=== PATIENT | female | born 1960 | race Caucasian/White ===

== ENCOUNTER 2016-08-27 13:22 | Inpatient (IN) | payer OTHER ==
[~2016-08-27] VITALS: Ht 154.9 cm; Wt 98.0 kg
[~2016-08-27 13:22] MED LIST: ALBUAER2 INH; ATV/1 PO; HYDR-5688 PO; INSU1INJ33 SQ
[2016-08-27] MEDS ORDERED: ONDANSETRON INJ 2 MG/ML 2 ML VIAL IV STA (13:47)
[2016-08-27] MEDS: SODIUM CHLORIDE 0.9% 1000ML 1,000 ML IV SCH ×2 (13:47→18:03)
[2016-08-27] MEDS ORDERED: ALBUT/IPRATROP 3MG/0.5MG NEB 3 ML VIAL INH STA (13:52)
[2016-08-27] MEDS: MoRPHine SULFATE 10 MG/ML CARP/VIAL IV PRN ×3 (14:20→15:42)
[2016-08-27 14:25] LABS: BASO % 0.1 %; BASO ABS # 0.02 K/uL (0-0.2); COMPLETE YES; EOS % 0.8 %; HEMATOCRIT 35.4 % (37-47); IG% 2.2 %; LYMPH ABS # 2.79 K/uL (1.2-3.4); MEAN CELL VOLUME 89.6 fL (80-100); MEAN CORPUSCULAR HEMOGLOBIN 28.6 pg (25-34); MEAN CORPUSCULAR HGB CONC 31.9 g/dl (32-36); MEAN PLATELET VOLUME 9.1 fL (7.4-10.4); MONO % 5.9 %; PLATELET COUNT 287 K/uL (130-400); RED BLOOD COUNT 3.95 M/uL (4.2-5.4)
--- NOTE | 2016-08-27 14:33 | DIAGNOSTIC IMAGING REPORT ---
CHEST ONE VIEW PORTABLE CLINICAL HISTORY: Stroke mental status change COMPARISON STUDY: 10/20/2015 FINDINGS: The bones soft tissues and hemidiaphragms are normal. The cardiomediastinal silhouette is normal. The lungs are clear. The pulmonary vasculature is normal. IMPRESSION: Negative chest. Electronically signed by: Adama Mccullough M.D. 08/27/2016 2:31 PM Dictated Date/Time: 08/27/2016 2:31 PM
[2016-08-27 14:35] LABS: INR 3.1 (0.9-1.1); PARTIAL THROMBOPLASTIN RATIO 1.3
[2016-08-27 14:46] LABS: BLOOD UREA NITROGEN 19 mg/dl (7-18); BUN/CREATININE RATIO 20.3 (10-20); CALCIUM 8.9 mg/dl (8.5-10.1); CARBON DIOXIDE 30 mmol/L (21-32); CHLORIDE 103 mmol/L (98-107); CREATININE 0.92 mg/dl (0.60-1.20); GLUCOSE 104 mg/dl (70-99); POTASSIUM 3.5 mmol/L (3.5-5.1); SODIUM 139 mmol/L (136-145)
[2016-08-27 14:50] LABS: CKMB/CK RATIO 1.3 (0-3.0)
[2016-08-27 15:01] LABS: ALKALINE PHOSPHATASE 90 U/L (45-117); ALT/SGPT 35 U/L (12-78); AST/SGOT 18 U/L (15-37)
--- NOTE | 2016-08-27 15:04 | EMERGENCY ROOM VISIT NOTE ---
History Report prepared by Roxanna: Lucas Peña Under the Supervision of: Dr. Sb Barrett M.D. First contact with patient: 13:35 Chief Complaint: HIP PAIN Stated Complaint: PINCHED NERVE LEFT HIP,NUMBNESS,HEAD&SHOULDER PAIN History of Present Illness The patient is a 56 year old female who presents to the Emergency Room with complaints of constant right hip pain beginning 9 days ago. She states that she was bending down when she "felt something". She states that her pain was not immediate, but developed later that day. The patient states that her pain radiates down her right leg. She also complains of numbness in her right wright, nausea and shortness of breath. The patient has been seen by her PCP for her pain the day after her pain began. She states that she was told that her pain was likely related to sciatica and was recommended to attend physical therapy. The patient states that her pain began radiating into her lower back, left hip, right shoulder, neck and head yesterday. She states that she also began experiencing intermittent right eye blurriness, right arm and right facial numbness last night as well. She denies any chest pain, fevers, constipation, or urinary symptoms. The patient is on Coumadin for previous PE. She notes that she has a filter in place in her vena cava. Source of History: patient Onset: 9 days ago Position: pelvis (right hip) Timing: constant Associated Symptoms: + headache, + neck pain, + SOB, + nausea, + back pain ( lower), + numbness (right arm, right face, right leg), No fevers, No chest pain , No urinary symptoms Note: The patient denies any constipation. She also complains of intermittent right eye blurring. Review of Systems See HPI for pertinent positives & negatives. A total of 10 systems reviewed and were otherwise negative. Past Medical & Surgical Medical Problems: (1) Anxiety (2) Asthma (3) Back pain without radiculopathy (4) Chronic pain (5) Depression (6) Depression (7) Diabetes 1.5, managed as type 2 (8) DM2 (diabetes mellitus, type 2) (9) GERD (gastroesophageal reflux disease) (10) Greater trochanteric bursitis of right hip (11) HLD (hyperlipidemia) (12) Pulmonary embolism (13) Stroke-like symptoms (14) Tachycardia (15) TOBACCO USE DISORDER Surgical Problems: (1) H/O neck surgery (2) H/O shoulder surgery (3) History of total abdominal hysterectomy (4) Hx of total knee arthroplasty (5) S/P IVC filter Family History Hypertension Social History Smoking Status: Current Every Day Smoker Alcohol Use: occasionally Drug Use: none Marital Status: single Housing Status: lives with family Occupation Status: employed Current/Historical Medications Scheduled Cholecalciferol (Vitamin D), 4,000 INTER.UNIT PO QPM Fluticasone Furoate-Vilanterol (Breo Ellipta), 1 PUFF INH DAILY Furosemide (Furosemide), 20 MG PO DAILY Lorazepam (Ativan), 0.5 MG PO QAM Lorazepam (Ativan), 0.5 MG PO MIDDAY Lorazepam (Ativan), 1 MG PO HS Pantoprazole (Protonix), 40 MG PO QPM Quetiapine Fumarate (Seroquel), 200 MG PO HS Rosuvastatin Calcium (Crestor), 40 MG PO QPM Tizanidine (Tizanidine HCl), 8 MG PO TID Venlafaxine Hcl (Effexor Extended Rel), 150 MG PO DAILY Warfarin Sodium (Coumadin), 5 MG PO [id number] Warfarin Sodium (Coumadin), 5 MG PO WK Scheduled PRN Albuterol Hfa (Ventolin Hfa), 2 PUFFS INH Q4H PRN for Shortness of Breath Arformoterol Tartrate (Brovana), 15 MCG NEB BID PRN for Shortness of Breath Hydrocodone/Acetaminophen 5MG/325MG ([place] 5MG/325MG), 1 TAB PO Q8 PRN for Mild- Moderate Pain Allergies Coded Allergies: Chlorpheniramine (Verified Allergy, Unknown, Change in mental status, 08/27) Hydrocodone (Verified Allergy, Unknown, Change in mental status, 08/27/16) Phenytoin (Verified Allergy, Unknown, Facial swelling, 08/27/16) Physical Exam Vital Signs Date Time Temp Pulse Resp B/P (MAP) Pulse Ox O2 Delivery O2 Flow Rate FiO2 08/27/16 17:28 91 154/89 92 08/27/16 15:50 84 159/88 92 Room Air 08/27/16 14:46 93 16 171/82 94 Room Air 08/27/16 14:26 96 Room Air 08/27/16 14:19 79 08/27/16 13:29 37.0 86 18 156/85 95 Physical Exam GENERAL: Patient is in no acute distress. HEENT: No acute trauma, normocephalic atraumatic, mucous membranes moist, no nasal congestion, no scleral icterus. NECK: No stridor, no adenopathy, no meningismus, trachea is midline. LUNGS: Scattered wheezing bilaterally. Breath sounds equal. No respiratory distress. HEART: Without murmurs gallops or rubs, regular rate and rhythm. ABDOMEN: Soft, nontender, bowel sounds positive, no hernias, no peritonitis. EXTREMITIES: No cyanosis or edema, full range of motion of all the joints without pain or difficulty, no signs for acute trauma. NEUROLOGIC: Oriented x 3, no acute motor or sensory deficits, no focal weakness. No speech slur or facial droop. No pronator drift or cerebellar dysfunction. 1/4 patellar reflexes bilaterally. 2/4 Achilles reflexes bilaterally. SKIN: No rash, no jaundice, no diaphoresis. Medical Decision & Procedures ER Provider Diagnostic Interpretation: Radiology results as stated below per my review and radiologist interpretation: HEAD CT NONCONTRAST Findings: The paranasal sinuses and mastoid air cells are clear. Mild frontal atrophy. The brain is otherwise negative. No evidence for acute intracranial hemorrhage. No midline shift. Impression: Mild frontal atrophy. No acute process. Electronically signed by: Adama Mccullough M.D. CHEST ONE VIEW PORTABLE FINDINGS: The bones soft tissues and hemidiaphragms are normal. The cardiomediastinal silhouette is normal. The lungs are clear. The pulmonary vasculature is normal. IMPRESSION: Negative chest. Electronically signed by: Adama Mccullough M.D. Laboratory Results 08/27/16 14:10 Red Blood Count 3.95, Mean Corpuscular Volume 89.6, Mean Corpuscular Hemoglobin 28.6, Mean Corpuscular Hemoglobin Concent 31.9, Mean Platelet Volume 9.1, Neutrophils (%) (Auto) 78.0, Lymphocytes (%) (Auto) 13.0, Monocytes (%) (Auto) 5.9, Eosinophils (%) (Auto) 0.8, Basophils (%) (Auto) 0.1, Neutrophils # (Auto) 16.67, Lymphocytes # (Auto) 2.79, Monocytes # (Auto) 1.27, Eosinophils # (Auto) 0.17, Basophils # (Auto) 0.02 08/27/16 14:10 Test 08/27/16 14:10 08/27/16 14:55 08/27/16 15:10 White Blood Count 21.40 K/uL (4.8-10.8) Red Blood Count 3.95 M/uL (4.2-5.4) Hemoglobin 11.3 g/dL (12.0-16.0) Hematocrit 35.4 % (37-47) Mean Corpuscular Volume 89.6 fL (80-100) Mean Corpuscular Hemoglobin 28.6 pg (25-34) Mean Corpuscular Hemoglobin Concent 31.9 g/dl (32-36) Platelet Count 287 K/uL (130-400) Mean Platelet Volume 9.1 fL (7.4-10.4) Neutrophils (%) (Auto) 78.0 % Lymphocytes (%) (Auto) 13.0 % Monocytes (%) (Auto) 5.9 % Eosinophils (%) (Auto) 0.8 % Basophils (%) (Auto) 0.1 % Neutrophils # (Auto) 16.67 K/uL (1.4-6.5) Lymphocytes # (Auto) 2.79 K/uL (1.2-3.4) Monocytes # (Auto) 1.27 K/uL (0.11-0.59) Eosinophils # (Auto) 0.17 K/uL (0-0.5) Basophils # (Auto) 0.02 K/uL (0-0.2) RDW Standard Deviation 54.2 fL (36.4-46.3) RDW Coefficient of Variation 16.4 % (11.5-14.5) Immature Granulocyte % (Auto) 2.2 % Immature Granulocyte # (Auto) 0.48 K/uL (0.00-0.02) Nucleated RBC Absolute Count (auto) 0.03 K/uL (0-0) Nucleated Red Blood Cells % 0.1 % Prothrombin Time 35.0 SECONDS (9.0-12.0) Prothromb Time International Ratio 3.1 (0.9-1.1) Activated Partial Thromboplast Time 34.8 SECONDS (21.0-31.0) Partial Thromboplastin Ratio 1.3 Anion Gap 6.0 mmol/L (3-11) Est Creatinine Clear Calc Drug Dose 73.1 ml/min Estimated GFR () 80.7 Estimated GFR (Non- 69.6 BUN/Creatinine Ratio 20.3 (10-20) Calcium Level 8.9 mg/dl (8.5-10.1) Total Bilirubin 0.6 mg/dl (0.2-1) Direct Bilirubin < 0.1 mg/dl (0-0.2) Aspartate Amino Transf (AST/SGOT) 18 U/L (15-37) Alanine Aminotransferase (ALT/SGPT) 35 U/L (12-78) Alkaline Phosphatase 90 U/L (45-117) Total Creatine Kinase 109 U/L (26-192) Creatine Kinase MB 1.4 ng/ml (0.5-3.6) Creatine Kinase MB Ratio 1.3 (0-3.0) Troponin I < 0.015 ng/ml (0-0.045) Total Protein 7.1 gm/dl (6.4-8.2) Albumin 3.9 gm/dl (3.4-5.0) Lyme Disease IgG Antibody NEG (NEG) Lyme Disease IgM Antibody NEG (NEG) Lactic Acid Level 1.1 mmol/L (0.4-2.0) Urine Color YELLOW Urine Appearance CLEAR (CLEAR) Urine pH 6.0 (4.5-7.5) Urine Specific [place] 1.023 (1.000-1.030) Urine Protein NEG (NEG) Urine Glucose (UA) NEG (NEG) Urine Ketones NEG (NEG) Urine Occult Blood TRACE (NEG) Urine Nitrite NEG (NEG) Urine Bilirubin NEG (NEG) Urine Urobilinogen NEG (NEG) Urine Leukocyte Esterase NEG (NEG) Urine WBC (Auto) 1-5 /hpf (0-5) Urine RBC (Auto) 0-4 /hpf (0-4) Urine Hyaline Casts (Auto) 1-5 /lpf (0-5) Urine Epithelial Cells (Auto) >30 /lpf (0-5) Urine Bacteria (Auto) NEG (NEG) Urine Crystals CALCIUM OXALATE (NONE Urine Opiates Screen POS (NEG) Urine Methadone, Qualitative NEG (NEG) Urine Barbiturates NEG (NEG) Urine Phencyclidine (PCP) Level NEG (NEG) Ur Amphetamine/Methamphetamine NEG (NEG) MDMA (Ecstasy) Screen NEG (NEG) Urine Benzodiazepines Screen POS (NEG) Urine Cocaine Metabolite NEG (NEG) Urine Marijuana (THC) NEG (NEG) Laboratory results reviewed by me. Medications Administered Medications (Trade) Dose Ordered Sig/Michael Route Start Time Stop Time Status Last Admin Dose Admin Sodium Chloride 1,000 ml @ 50 mls/hr Q20H IV 08/27/16 13:47 09/26/16 13:46 08/27/16 13:47 50 MLS/HR Morphine Sulfate (MoRPHine SULFATE INJ) 6 mg Q15M PRN IV 08/27/16 14:00 09/10/16 13:59 08/27/16 15:42 6 MG Ondansetron HCl (Zofran Inj) 4 mg NOW STAT IV 08/27/16 13:47 08/27/16 13:52 DC 08/27/16 14:19 4 MG Albuterol/ Ipratropium (Duoneb) 3 ml NOW STAT INH 08/27/16 13:52 08/27/16 13:53 DC 08/27/16 14:19 3 ML Piperacillin Sod/ Tazobactam Sod (Zosyn Iv) 4.5 gm NOW STAT IV 08/27/16 15:08 08/27/16 15:09 DC 08/27/16 15:19 4.5 GM Hydromorphone HCl (Dilaudid Inj) 1 mg NOW STAT IV 08/27/16 16:30 08/27/16 16:31 DC 08/27/16 16:51 1 MG ECG Indication: other (numbness) Rate (beats per minute): 82 Rhythm: normal sinus Findings: no acute ischemic change, no ectopy ED Course 1340: The patient was evaluated in room A10. A complete history and physical exam was performed. 1347: Ordered Zofran Inj 4 mg IV, Sodium Chloride 1000 ml @ 50 mls/hr IV. 1352: Ordered DuoNeb 3 mL INH. 1400: Ordered Morphine Sulfate 6 mg IV. 1508: Ordered Zosyn 4.5 gm IV. 1515: Upon reexamination the patient is resting comfortably. I discussed results and treatment plan with the patient. She verbalizes agreement and understanding. The patient will be evaluated for further management. Medical Decision The patient is a 56 year old female who presents to the ED with complaints of right hip pain and right sided numbness. Differential diagnoses considered include stroke, nerve impingement, lumbar disc disease, electrolyte imbalance, intracranial bleeding, anemia, infection, and UTI. There is a significant leukocytosis at 21,000, this could be consistent with infection or pain. No concerning anemia. No significant electrolyte abnormality, kidney failure, hepatitis. INR is elevated consistent with her Coumadin use. Urinalysis shows some contamination, no infection. Urine tox shows benzos and opiates. Lyme disease testing was negative. Lactic acid level is not elevated making severe sepsis less likely. Blood cultures are pending. Chest film does not show pneumonia or CHF. Brain CT shows no acute bleed or mass effect. On exam, there were no focal neurologic deficits. EKG shows a sinus rhythm, no acute ischemia. Cardiac enzyme testing times one is not consistent with acute cardiac injury. The patient presents with over one week of right hip and leg pain with some numbness. In the last 12 hours or so she has developed right facial numbness and right arm numbness. I doubt the face and arm numbness is related to the leg discomfort. She was worked up here for possible CVA, no obvious stroke found on initial testing. Further imaging such as MRIs may be needed. In regard to the right leg and hip pain, I do think disc disease or possibly even hematoma is a possibility, certainly, infection in the lower spine area is possible. Further workup is required, she may require an MRI of this lumbar area as well. The patient was given IV antibiotics, she received IV Zosyn. She was given IV morphine for pain and eventually IV Dilaudid. The patient received IV Zofran for nausea and was given IV saline. She received a DuoNeb because she was wheezing. The patient is stable. I do think further workup is required. She is clearly not a candidate for TPA as she has a normal neurologic exam and as her symptoms have been ongoing for well over 3 hours. I did speak to case management, I did talk at length with the patient. The on-call hospitalist was consulted. Medication Reconciliation: I attest that I have personally reviewed the patient' s current medication list. Blood pressure screening: Patient was found to have a slightly elevated blood pressure due to circumstances. I do not believe that the patient requires hypertension monitoring. [place] Drug Monitoring Program Search Results: patient reviewed within database, see additional documentation Drug Monitoring Findings: The patient received 30 Percocet on August 19. She appears to regularly receive Ativan and Percocet prescriptions. Consults Time Called: 151 Consulting Physician: Sb Saldaña Returned Call: [phone] Discussed the patient's case. The patient will be evaluated for further management. Impression Primary Impression: Numbness on right side Additional Impressions: Right hip pain Leukocytosis Scribe Attestation The scribe's documentation has been prepared under my direction and personally reviewed by me in its entirety. I confirm that the note above accurately reflects all work, treatment, procedures, and medical decision making performed by me. Departure Information Dispostion Being Evaluated By Hospitalist Referrals Soham Hayes D.O. (PCP) Patient Instructions My [facility] Stroke History Time Last Known Well yesterday Stroke t-PA Criteria Reviewed Does NOT meet criteria for t-PA Reason t-PA Not Given Treatment not indicated Problem Qualifiers
--- NOTE | 2016-08-27 15:05 | DIAGNOSTIC IMAGING REPORT ---
HEAD CT NONCONTRAST CT DOSE: 537.48 mGy.cm HISTORY: Stroke TECHNIQUE: Multiaxial CT images of the head were performed without the use of intravenous contrast. Comparison: 12/30/2014 Findings: The paranasal sinuses and mastoid air cells are clear. Mild frontal atrophy. The brain is otherwise negative. No evidence for acute intracranial hemorrhage. No midline shift. Impression: Mild frontal atrophy. No acute process. Electronically signed by: Adama Mccullough M.D. 08/27/2016 3:04 PM Dictated Date/Time: 08/27/2016 3:03 PM
[2016-08-27] MEDS ORDERED: PIPERACILLIN/TAZOBACTAM 4.5 GM/100ML D5W IV STA (15:08)
[2016-08-27 15:24] LABS: URINE APPEARANCE CLEAR (CLEAR); URINE BILIRUBIN NEG (NEG); URINE COLOR YELLOW; URINE EPITHELIAL CELL AUTO >30 /lpf (0-5); URINE NITRITE NEG (NEG); URINE SPECIFIC GRAVITY 1.023 (1.000-1.030); UROBILINOGEN NEG (NEG); ZZUR CULT IF INDIC CLEAN CATCH NO
[2016-08-27 15:27] LABS: LYME DISEASE AB IGG NEG (NEG); LYME DISEASE AB IGM NEG (NEG)
[2016-08-27 15:30] LABS: MANUAL MICROSCOPIC REQUIRED? NO; REVIEW REQ? YES
[2016-08-27 15:48] LABS: BENZODIAZEPINE, URINE POS (NEG); COCAINE,URINE NEG (NEG); PHENCYCLIDINE, URINE NEG (NEG)
[2016-08-27] MEDS ORDERED: HYDROmorphone INJ 2 MG/ML SYR/VIAL IV STA (16:30)
[2016-08-27] MEDS ORDERED: ARFORMOTEROL TART 15MCG/2ML VIAL INH PRN (16:45)
[2016-08-27] MEDS ORDERED: ONDANSETRON INJ 2 MG/ML 2 ML VIAL IV PRN (16:45)
[2016-08-27] MEDS ORDERED: HYDROCODONE/ACETAMOPHEN 5/325MG TAB PO PRN (16:45)
[2016-08-27] MEDS ORDERED: ALBUTEROL HFA 8 GM INHALER INH PRN (16:45)
[2016-08-27] MEDS ORDERED: ACETAMINOPHEN 325 MG TAB PO PRN (16:45)
[2016-08-27] MEDS ORDERED: IV FLUIDS COMPLETED PRN (17:00)
[2016-08-27 17:45] VITALS: BP 147/89; PULSE 88; TEMP 37; O2SAT 92; Ht 154.9 cm; Wt 98.0 kg
--- NOTE | 2016-08-27 18:10 | HISTORY & PHYSICAL EXAMINATION ---
DATE OF ADMISSION: 08/27/2016 PRIMARY CARE PHYSICIAN: Dr Hayes CHIEF COMPLAINT: Increasing back pain since this morning with some numbness and tingling in the upper extremity as well. HISTORY OF PRESENT COMPLAINT: She is a 56-year-old female with significant past medical history including asthma, moderate persistent; long-term use of anticoagulation; diabetes type 2; depression; history of pulmonary embolism; cervical disc disease status post cervical spinal fusion; osteoarthritis; GERD; anxiety; and chronic pain syndrome. Apparently has been complaining of right hip pain for the last 9 or 10 days. The pain started when she was looking something on the ground for her son and she heard a popping sound in the right hip area and since then the pain has been ongoing. She saw Dr. Tobar on 19 of August and following that she saw Dr. Miranda on 24 of August. She went for physical therapy. The pain on the right hip area and right leg symptoms did not improve and she was told by the therapist that she may have sciatica and she wanted to have an MRI. This morning she woke up from sleep she is still having pain on the right hip area and the pain going down the legs and also she complained to have some numbness and tingling and weakness involving the right upper extremity that goes to the neck and right side of the face. She does not have any fever, chills or rigors. She does not have any problem with speech or swallowing. No visual symptoms and no problem with walking except pain. She does not have any problem with urine and/or bowel habit. She denies to have any fall. In the ER, she was hemodynamically stable, but her white count was noted to be 21,000 most likely secondary to use of steroid, but she did not have any other lab abnormality and her CAT scan remained negative. From that point, she was admitted to medical floor for continuation of care. PAST MEDICAL HISTORY: Significant for moderate persistent asthma, long-term use of anticoagulation secondary to pulmonary embolism, type 2 diabetes, depression, anxiety, hyperlipidemia, cervical disc disease, chronic pain syndrome, anxiety, osteoarthritis and GERD. PAST SURGICAL HISTORY: Significant for arthroplasty of the left knee and also arthroplasty of the right knee in [place], cervical spine fusion, repair of ruptured rotator cuff, sacroiliac joint injection in the past, shoulder arthroscopy, total abdominal hysterectomy with removal of tubes. FAMILY HISTORY: Mother had glaucoma. Father had high cholesterol and heart disorder. Father did have hypertension of the heart disorder as well. SOCIAL HISTORY: She is single. She lives with her parents. She has 1 child. She smokes about a half a pack per day, ongoing. She does not use any alcohol and she has been reasonably ambulant. REVIEW OF SYSTEMS: Other systemic review unremarkable except those mentioned in history of present complaint. ALLERGIES: CHLORPHENIRAMINE, HYDROCODONE, AND PHENYTOIN. MEDICATIONS: As an outpatient, she has been on albuterol 2 puffs q. 4 hours as needed, Brovana 15 mcg via nebs b.i.d., furosemide 20 mg daily, hydrocodone/acetaminophen 5/325 one tablet q. 8 hours p.r.n., Ativan 1 mg tablet 0.5 mg p.o. mid day, Ativan 1 mg tablet 0.5 in the morning, Ativan 1 mg at night, Protonix 40 mg daily, Seroquel 200 mg at night, Crestor 40 mg at night, tizanidine 8 mg t.i.d., Effexor 150 mg daily, warfarin sodium 5 mg as directed, vitamin D 2000 units daily, and Breo Ellipta 1 puff daily. PHYSICAL EXAMINATION: GENERAL: On examination in the Emergency Room, she was not having any acute distress, but she was complaining of some pain in the right hip and also on the right side of the neck. VITAL SIGNS: Temperature 37.0, pulse was 84, blood pressure 159/88, saturation 92% on room air. HEENT: Unremarkable. NECK: Supple. No neck stiffness, movements of the neck did not produce much pain. No thyromegaly. CHEST: Clear to auscultate bilaterally. HEART: S1, S2 regular. ABDOMEN: Soft, benign, nontender, no organomegaly. Bowel sounds present. EXTREMITIES: Trace edema bilaterally. MUSCULOSKELETAL SYSTEM: Did not show any acute arthritis involving any joint, but movement of the right hip joint was minimally painful with extreme tenderness noted over greater trochanteric area. Clinically, no evidence of sciatica. CENTRAL NERVOUS SYSTEM: Alert, awake, oriented x3. No facial asymmetry. No focal sensory and/or motor deficit appreciated but noted to have slightly low power about 4/5 in the right lower extremity. DTRs unremarkable. LABORATORY DATA: Noted today white count was 21.40, H&H 11.3/35.4, platelet was 287. Sodium 139, potassium 3.5, chloride 103, carbon dioxide 30, BUN 19 and creatinine 0.92. Random glucose 104. LFTs unremarkable. Troponin less than 0.015. INR was of 3.1. Toxicology screen; benzodiazepines positive and opiates positive. Others pending. Serology, Lyme titer negative. Chest x-ray unremarkable and CT scan of the head, mild frontal atrophy, but no other symptoms. IMPRESSION AND PLAN: 1. Right hip pain, most likely secondary to greater trochanteric bursitis. The patient will be admitted to medical floor under observation. We will get ortho evaluation for possible greater trochanteric injection. We will give Toradol for pain control. Continue with the oral dose of Percocet while in the hospital. 2. Nonspecific numbness and tingling involving the right upper extremity and neck area. I doubt any heatstroke. CT scan has been negative, but given the history we get an MRI of the head to rule out any possibility of stroke. We will start baby aspirin while in the hospital. 3. Asthma, moderate persistent, seems stable at this time. Continue with her usual inhalers. 4. Diabetes type 2. We will check hemoglobin A1c and put her on sliding scale coverage while in the hospital with diabetic diet. 5. Chronic pain syndrome. We will not change her pain medications while in the hospital except given Toradol for inflammatory arthritis. 6. Gastrointestinal prophylaxis with proton pump inhibitor. 7. Deep venous thrombosis prophylaxis -on Coumadin 8. Code status. She will be a full code. In my clinical judgment, the beneficiary meets criteria as per CMS for 2 midnight stay in the hospital. NILA
[2016-08-27] MEDS: LIDODERM (LIDOCAINE) PATCH 5% TD SCH (20:15)
[2016-08-27] MEDS: LORAZEPAM 1 MG TAB PO SCH (20:17)
--- NOTE | 2016-08-27 21:15 | DIAGNOSTIC IMAGING REPORT ---
Brain MRI WITHOUT CONTRAST HISTORY: Mental status change Stroke Like symptoms TECHNIQUE: Multiplanar multisequence MRI of the brain was performed without the use of contrast. COMPARISON STUDY: None. FINDINGS: There are no areas of restricted diffusion to suggest acute infarction. The midline structures are intact. The paranasal sinuses are clear. The mastoid air cells are clear. The ventricles and sulci are within normal limits for age. There is no mass, hematoma, midline shift. The major vascular flow-voids at the skull base are well maintained. Minimal chronic small vessel change. Minimal atrophy over the cerebral convexities. IMPRESSION: 1. No acute process. 2. Minimal atrophy over the frontal and cerebral convexity regions. Electronically signed by: Adama Mccullough M.D. 08/27/2016 9:13 PM Dictated Date/Time: 08/27/2016 9:12 PM
[2016-08-27] MEDS: ROSUVASTATIN CALCIUM 20 MG TAB PO SCH (21:46)
[2016-08-27] MEDS: QUETIAPINE FUMARATE 200 MG TAB PO SCH (21:46)
[2016-08-27] MEDS: PANTOprazole SOD 40 MG TAB PO SCH (21:46)
[2016-08-27] MEDS: CHOLECALCIFEROL 1000 INTER.UNIT TAB PO SCH (21:47)
[2016-08-27] MEDS: ACETAMINOPHEN 500 MG TAB PO SCH (21:48)
[2016-08-27] MEDS: OXYCODONE/ACETAMINOPHEN 5-325 TAB PO PRN (22:21)
[2016-08-27] MEDS: KETOROLAC TROMETHAMINE 30 MG/ML VIAL IV PRN (22:22)
[2016-08-27 23:02] VITALS: BP 89/52; PULSE 71; TEMP 36.6; O2SAT 93
[2016-08-27 23:20] VITALS: BP 93/53; PULSE 79
[2016-08-28 01:17] VITALS: BP_SYST 111; BP_DIAS 63; BP_DIAS 65
[2016-08-28] MEDS: IBUPROFEN 200 MG TAB PO PRN ×3 (01:20→15:59)
[2016-08-28 02:10] VITALS: BP 104/64; PULSE 73
[2016-08-28] MEDS ORDERED: OXYCODONE/ACETAMINOPHEN 5-325 TAB PO ONE ×2 (02:40→19:55)
[2016-08-28] MEDS: KETOROLAC TROMETHAMINE 30 MG/ML VIAL IV PRN (05:18)
[2016-08-28] MEDS: ACETAMINOPHEN 500 MG TAB PO SCH ×3 (06:00→21:52)
[2016-08-28] MEDS: OXYCODONE/ACETAMINOPHEN 5-325 TAB PO PRN ×2 (06:16→14:19)
[2016-08-28 07:05] LABS: HEMATOCRIT 34.2 % (37-47); MEAN CELL VOLUME 90.2 fL (80-100); MEAN CORPUSCULAR HEMOGLOBIN 28.5 pg (25-34); MEAN CORPUSCULAR HGB CONC 31.6 g/dl (32-36); MEAN PLATELET VOLUME 9.4 fL (7.4-10.4); PLATELET COUNT 277 K/uL (130-400); RED BLOOD COUNT 3.79 M/uL (4.2-5.4); WHITE BLOOD COUNT 17.12 K/uL (4.8-10.8)
[2016-08-28 07:11] LABS: INR 3.2 (0.9-1.1); PROTHROMBIN TIME (PATIENT) 35.5 SECONDS (9.0-12.0)
[2016-08-28 07:37] LABS: BUN/CREATININE RATIO 21.8 (10-20); CALCIUM 8.5 mg/dl (8.5-10.1); CREATININE 0.94 mg/dl (0.60-1.20); MAGNESIUM 2.8 mg/dl (1.8-2.4); PHOSPHORUS 3.5 mg/dl (2.5-4.9); POTASSIUM 3.5 mmol/L (3.5-5.1)
[2016-08-28 07:39] VITALS: BP 123/78; PULSE 70; TEMP 36.6; O2SAT 94
[2016-08-28] MEDS: LIDODERM (LIDOCAINE) PATCH 5% TD SCH (07:43)
[2016-08-28] MEDS: MoRPHine SULFATE 2 MG/ML CARP IV PRN ×5 (08:46→21:49)
[2016-08-28] MEDS: VENLAFAXINE HCL XR 150 MG CAPXR PO SCH (08:50)
[2016-08-28] MEDS: LORAZEPAM 0.5 MG TAB PO SCH ×2 (08:53→11:40)
--- NOTE | 2016-08-28 11:06 | DIAGNOSTIC IMAGING REPORT ---
RIGHT HIP 2 VIEWS HISTORY: right hip pain Right COMPARISON: None. FINDINGS: There is no fracture or dislocation. Soft tissues are unremarkable. No radiopaque foreign bodies. IMPRESSION: No fractures. Electronically signed by: Michael Cary M.D. 08/28/2016 11:05 AM Dictated Date/Time: 08/28/2016 11:04 AM
--- NOTE | 2016-08-28 14:53 | ORTHOPEDIC CONSULTATION ---
DATE OF CONSULTATION: 08/28/2016 Special attention to right hip and leg pain. HISTORY OF PRESENT ILLNESS: This is a 56-year-old female who was admitted for right hip pain. She notes progressive pain in the right hip over the past 10 days. She states the pain radiates down the lateral leg and does radiate below the knee with numbness, began when she was looking at something on the ground and she noted a popping sound in her hip and back region. She subsequently saw Dr. Tobar and then Dr. Miranda. She tried physical therapy. PAST MEDICAL HISTORY: Asthma, history of pulmonary embolism on anticoagulation, type 2 diabetes, depression, anxiety, hyperlipidemia, cervical disc disease, history of lower back pain with pinched nerves as per her report, history of chronic pain syndrome, anxiety, osteoarthritis, GERD. PAST SURGICAL HISTORY: Left knee replacement by Dr. Bynum x2, right knee replacement by Dr. Grijavla. History of cervical spine fusion, history of ruptured rotator cuff. SOCIAL HISTORY: Smokes about half a pack a day. PHYSICAL EXAMINATION: Right lower extremity examination shows very mild tenderness over the greater trochanteric region. Lidoderm patch was applied. She has no pain with log roll over the hip. She has 4+/5 strength in ankle flexion and extension. She can extend the big toe. She can lift her leg up off the bed, but it does cause discomfort. She has a positive straight leg raise with numbness radiating down the lateral aspect of the right leg. ASSESSMENT: Right lower extremity pain. PLAN: At this point, I feel that this is likely of lumbar origin as she does have radicular paresthesias down the lateral leg. Recommendation at this point is for hip x-rays. If they are normal, I would consider MRI of the back to evaluate for any pinched nerves. She states she did have an MRI of the back several months ago, which did reportedly show some bulging discs. Will continue to follow at this point in time.
--- NOTE | 2016-08-28 15:04 | Progress Note ---
Internal Med Progress Note Date of Service: Aug 28, 2016. Provider Documentation: SUBJECTIVE: The patient was seen and examined Still complains of pain in right hip No more numbness in Upper extremity OBJECTIVE: Vital Signs-as noted below Exam: General-no distress Eyes-normal ENT-normal Neck-supple Lungs-Clear to ausucltate bilaterally Heart-Regular,no murmur appreciated Abdomen-Benign,no masses,bowel sound present Extremities-Trace edema bilaterally Right Hip movement is minimally painful Moderate tenderness over greater Trochanteric area Neuro-AAOx3 Lab data as noted below. ASSESSMENT & PLAN: Right hip pain, -most likely secondary to greater trochanteric bursitis. -Has been on oral Prednisone and Percocet without any improvement -no improvement with Toradol -NSAIDS are unsafe and failed as per patient -Ortho consulted for possible local injection Nonspecific numbness and tingling involving the right upper extremity and neck area. -doubt any heatstroke. CT scan has been negative, -MRI of the Head is negative as well -will not start Aspirin Asthma, moderate persistent, seems stable at this time. Continue with her usual inhalers. Diabetes type 2. We will check hemoglobin A1c On SSI Chronic pain syndrome. We will not change her pain medications Requiring IV Morphine Gastrointestinal prophylaxis with proton pump inhibitor. Deep venous thrombosis prophylaxis -on Coumadin Code status. She will be a full code. DISPOSITION Likely home in AM Vital Signs: Date Time Temp Pulse Resp B/P (MAP) Pulse Ox O2 Delivery O2 Flow Rate FiO2 08/28/16 07:53 Room Air 08/28/16 07:39 36.6 70 16 123/78 (93) 94 Room Air 70 08/28/16 02:10 73 104/64 (77) 08/28/16 01:17 111/65 (80) 08/27/16 23:20 Room Air 08/27/16 23:20 79 93/53 (66) 08/27/16 23:02 36.6 71 17 89/52 (64) 93 Room Air 08/27/16 17:45 37.0 88 16 147/89 (108) 92 Room Air 08/27/16 17:45 37.0 88 16 147/89 Room Air 08/27/16 17:45 Room Air 08/27/16 17:28 91 154/89 92 08/27/16 15:50 84 159/88 92 Room Air Lab Results: Results Past 24 Hours Test 08/27/16 15:10 08/28/16 06:22 Range/Units Urine Color YELLOW Urine Appearance CLEAR CLEAR Urine pH 6.0 4.5-7.5 Urine Specific [place] 1.023 1.000-1.030 Urine Protein NEG NEG Urine Glucose (UA) NEG NEG Urine Ketones NEG NEG Urine Occult Blood TRACE NEG Urine Nitrite NEG NEG Urine Bilirubin NEG NEG Urine Urobilinogen NEG NEG Urine Leukocyte Esterase NEG NEG Urine WBC (Auto) 1-5 0-5 /hpf Urine RBC (Auto) 0-4 0-4 /hpf Urine Hyaline Casts (Auto) 1-5 0-5 /lpf Urine Epithelial Cells (Auto) >30 0-5 /lpf Urine Bacteria (Auto) NEG NEG Urine Crystals CALCIUM OXALATE NONE PRSENT Urine Opiates Screen POS NEG Urine Methadone, Qualitative NEG NEG Urine Barbiturates NEG NEG Urine Phencyclidine (PCP) Level NEG NEG Ur Amphetamine/Methamphetamine NEG NEG MDMA (Ecstasy) Screen NEG NEG Urine Benzodiazepines Screen POS NEG Urine Cocaine Metabolite NEG NEG Urine Marijuana (THC) NEG NEG White Blood Count 17.12 4.8-10.8 K/uL Red Blood Count 3.79 4.2-5.4 M/uL Hemoglobin 10.8 12.0-16.0 g/dL Hematocrit 34.2 37-47 % Mean Corpuscular Volume 90.2 80-100 fL Mean Corpuscular Hemoglobin 28.5 25-34 pg Mean Corpuscular Hemoglobin Concent 31.6 32-36 g/dl RDW Standard Deviation 55.8 36.4-46.3 fL RDW Coefficient of Variation 16.8 11.5-14.5 % Platelet Count 277 130-400 K/uL Mean Platelet Volume 9.4 7.4-10.4 fL Prothrombin Time 35.5 9.0-12.0 SECONDS Prothromb Time International Ratio 3.2 0.9-1.1 Sodium Level 140 136-145 mmol/L Potassium Level 3.5 3.5-5.1 mmol/L Chloride Level 103 98-107 mmol/L Carbon Dioxide Level 29 21-32 mmol/L Anion Gap 8.0 3-11 mmol/L Blood Urea Nitrogen 21 7-18 mg/dl Creatinine 0.94 0.60-1.20 mg/dl Est Creatinine Clear Calc Drug Dose 71.6 ml/min Estimated GFR () 78.6 Estimated GFR (Non- 67.8 BUN/Creatinine Ratio 21.8 10-20 Random Glucose 88 70-99 mg/dl Calcium Level 8.5 8.5-10.1 mg/dl Phosphorus Level 3.5 2.5-4.9 mg/dl Magnesium Level 2.8 1.8-2.4 mg/dl Microbiology Results 08/27/16 Blood Culture, Received Pending 08/27/16 Blood Culture, Received Pending
[2016-08-28 15:07] VITALS: BP 135/85; PULSE 81; TEMP 37; O2SAT 93
[2016-08-28 15:55] VITALS: O2SAT 93
[2016-08-28] MEDS ORDERED: WARFARIN SOD 7.5 MG TAB PO SCH (16:00)
--- NOTE | 2016-08-28 19:02 | DIAGNOSTIC IMAGING REPORT ---
LUMBAR SPINE 5 VIEWS HISTORY: back pain/ radiculopathy COMPARISON: None. FINDINGS: There is no fracture. No subluxation. The sacrum is intact. An IVC filter is noted. Disc spaces are preserved. IMPRESSION: No fracture or subluxation within the lumbar spine. Electronically signed by: Michael Cary M.D. 08/28/2016 7:00 PM Dictated Date/Time: 08/28/2016 6:58 PM
[2016-08-28] MEDS ORDERED: LIDODERM (LIDOCAINE) PATCH 5% TD ONE (19:55)
[2016-08-28] MEDS ORDERED: OXYCODONE/ACETAMINOPHEN 5-325 TAB ONE (20:09)
[2016-08-28] MEDS: LORAZEPAM 1 MG TAB PO SCH (21:49)
[2016-08-28] MEDS: ROSUVASTATIN CALCIUM 20 MG TAB PO SCH (21:50)
[2016-08-28] MEDS: PANTOprazole SOD 40 MG TAB PO SCH (21:51)
[2016-08-28] MEDS: CHOLECALCIFEROL 1000 INTER.UNIT TAB PO SCH (21:51)
[2016-08-28] MEDS: QUETIAPINE FUMARATE 200 MG TAB PO SCH (21:51)
--- NOTE | 2016-08-28 22:24 | DIAGNOSTIC IMAGING REPORT ---
LUMBAR SPINE MRI HISTORY: Back pain. radiculopathy TECHNIQUE: Multiplanar multisequence MRI of the lumbar spine was performed without the use of contrast. COMPARISON: Lumbar spine 08/28/2016. FINDINGS: For the purpose of the report the L5-S1 disc space will be located on axial image 27 of 30. No fracture or subluxation. Mild disc desiccation at L3-L4 and L4-L5. Disc heights are relatively preserved for age. The conus terminates at the L1-L2 disc space level. Mild facet degenerative changes seen within the lower lumbar spine. Paraspinal soft tissues are unremarkable. L1-L2: No significant central canal or neural foraminal narrowing. L2-L3: No significant central canal or neural foraminal narrowing. L3-L4: Small broad-based posterior disc bulge asymmetric to the left with a left foraminal annular tear. This disc bulge abuts but does not displace the exiting left L3 nerve root. No significant central canal narrowing. L4-L5: Within the right paracentral/foraminal location there is abnormal T2 hyperintense, T1 hypointense signal abnormality which measures approximately 12 x 11 x 6 mm. This demonstrates superior displacement and is posterior to the right side of the L4 vertebral body and also extend into the right L4-5 foramen. This is best seen on axial images 19 and 20 and sagittal images 5 and 6. This favors disc material in the setting of a disc herniation. This displaces and compresses the exiting right L4 nerve root. No significant central canal or left-sided neural foraminal narrowing. This suspected disc protrusion results in severe right-sided neural foraminal narrowing. L5-S1: No significant central canal or neural foraminal narrowing. IMPRESSION: 1. A 12 x 11 x 6 mm lobular area of signal abnormality within the right paracentral/foraminal location at the L4-5 level as described above. This favors disc material in the setting of a disc herniation with superior subligamentous migration. This compresses the exiting right L4 nerve root and results in severe right-sided neural foraminal narrowing. 2. Small broad-based posterior disc bulge asymmetric to the left with a left foraminal annular tear at L3-L4. This abuts but does not displace the exiting left L3 nerve root. Electronically signed by: Michael Cary M.D. 08/29/2016 10:11 AM Dictated Date/Time: 08/28/2016 10:11 PM
[2016-08-28 23:08] VITALS: BP 127/79; PULSE 75; TEMP 36.8; O2SAT 95
[2016-08-29] MEDS: OXYCODONE/ACETAMINOPHEN 5-325 TAB PO PRN ×2 (00:08→20:07)
[2016-08-29] MEDS: MoRPHine SULFATE 2 MG/ML CARP IV PRN ×3 (02:48→09:18)
[2016-08-29] MEDS: ACETAMINOPHEN 500 MG TAB PO SCH (05:23)
[2016-08-29 07:15] VITALS: BP 146/86; PULSE 80; TEMP 36.5; O2SAT 96
[2016-08-29] MEDS ORDERED: LIDODERM (LIDOCAINE) PATCH 5% TD SCH (09:00)
[2016-08-29] MEDS: LORAZEPAM 0.5 MG TAB PO SCH ×2 (09:04→11:59)
[2016-08-29] MEDS: VENLAFAXINE HCL XR 150 MG CAPXR PO SCH (09:07)
[2016-08-29] MEDS: HYDROmorphone INJ 1 MG/ML SYR IV PRN ×4 (11:59→22:07)
[2016-08-29 14:59] VITALS: BP 137/84; PULSE 85; TEMP 36.9; O2SAT 95
--- NOTE | 2016-08-29 15:21 | Progress Note ---
Internal Med Progress Note Date of Service: Aug 29, 2016. Provider Documentation: SUBJECTIVE: The patient was seen and examined Still complains of pain in right hip No more numbness in Upper extremity Worse pain at the back with numbness in right leg OBJECTIVE: Vital Signs-as noted below Exam: General-mild distress at rest Eyes-normal ENT-normal Neck-supple Lungs-Clear to ausucltate bilaterally Heart-Regular,no murmur appreciated Abdomen-Benign,no masses,bowel sound present Extremities-Trace edema bilaterally Right Hip movement is minimally painful Moderate tenderness over greater Trochanteric area Neuro-AAOx3 Lab data as noted below. ASSESSMENT & PLAN: Right hip pain with Radiculopathy - greater trochanteric bursitis has been ruled out -Has been on oral Prednisone and Percocet without any improvement -no improvement with Toradol -NSAIDS are unsafe and failed as per patient -Ortho consulted -appreciate Input -MRI of the Lumbar Spine::. A 12 x 11 x 6 mm lobular area of signal abnormality within the right paracentral/foraminal location at the L4-5 level as described above. This favors disc material in the setting of a disc herniation with superior subligamentous migration. This compresses the exiting right L4 nerve root and results in severe right-sided neural foraminal narrowing. 2. Small broad-based posterior disc bulge asymmetric to the left with a left foraminal annular tear at L3-L4. This abuts but does not displace the exiting left L3 nerve root. Further management as per Ortho Likely to need Surgery Will need to hold /reverse Coumadin before surgery IV pain medications ordered Nonspecific numbness and tingling involving the right upper extremity and neck area. -doubt any heatstroke. CT scan has been negative, -MRI of the Head is negative as well -will not start Aspirin Asthma, -moderate persistent, seems stable at this time. -Continue with her usual inhalers. Diabetes type 2. We will check hemoglobin A1c On SSI Chronic pain syndrome. We will not change her pain medications Requiring IV Morphine /Dilaudid Gastrointestinal prophylaxis with proton pump inhibitor. Deep venous thrombosis prophylaxis -on Coumadin Code status. She will be a full code. DISPOSITION Awaited Vital Signs: Date Time Temp Pulse Resp B/P (MAP) Pulse Ox O2 Delivery O2 Flow Rate FiO2 08/29/16 14:59 36.9 85 18 137/84 (101) 95 Room Air 08/29/16 07:35 Room Air 08/29/16 07:15 36.5 80 18 146/86 (106) 96 Room Air 08/29/16 00:05 Room Air 08/28/16 23:08 36.8 75 16 127/79 (95) 95 Room Air 08/28/16 15:55 93 Room Air
[2016-08-29] MEDS ORDERED: WARFARIN SOD 5 MG TAB PO SCH (16:00)
--- NOTE | 2016-08-29 16:30 | CONSULTATION REPORT ---
DATE OF CONSULTATION: 08/29/2016 HISTORY OF PRESENT ILLNESS: We we consulted to evaluate this patient in regards to her right-sided radiculopathy. She states this started on approx.August 18. She was outside bending forward to get something off of the vehicle for her son, when she heard a popping sound in her back and felt right leg pain. She followed up with her family physician on 2 separate visits. Oral steroids were trialed without relief. She went to 1 physical therapy session last week and the following day presented to the Emergency Room. Pain is along the right buttock, lateral thigh, lateral calf to her foot. Left leg is asymptomatic. Denies bowel or bladder changes. PAST MEDICAL HISTORY: Significant for asthma, PE in 2011, type 2 diabetes, depression, anxiety, hyperlipidemia, chronic pain, anxiety, GERD, osteoarthritis. PAST SURGICAL HISTORY: Significant for left knee arthroplasty, right knee arthroplasty, cervical spine fusion, rotator cuff repair, SI joint injection, shoulder arthroscopy, total abdominal hysterectomy with removal of tubes. SOCIAL HISTORY: She is single. She lives with her parents. She has 1 child. She smokes half pack a day. Alcohol use is she denies. ALLERGIES: INCLUDE CHLORPHENIRAMINE, HYDROCODONE PHENYTOIN. MEDICATIONS: At home include albuterol, Brovana, furosemide, [place], Ativan, Protonix, Seroquel, Crestor, Zanaflex, Effexor, Coumadin, vitamin D, Breo Ellipta. REVIEW OF SYSTEMS: Significant for right leg pain. PHYSICAL EXAMINATION: GENERAL: She is seen in room 353, bed 2. She is in no obvious distress. She is alert and oriented x3. She is cooperative. Limited to the musculoskeletal system: She has negative tension signs bilaterally. Negative log rolling bilaterally. Strength is 5/5 bilaterally. EHL, dorsiflexion, plantar flexion, inversion, eversion, quadriceps, hamstring, hip flexors, hip abductors, hip adductors. IMAGING: I have an MRI of the lumbar spine dated 08/28/2016. This demonstrates a large right-sided disk herniation at L4-L5. There is cephalad migration. This creates significant right-sided L4-L5 neural foraminal stenosis. Small central disk bulge at L3-L4 as well. ASSESSMENT: Herniated nucleus pulposus, L4-L5 on the right, right-sided radiculopathy. PLAN: At this point in time, I have reviewed MRI as well as a clinical course with the patient. Options were reviewed including a trial of pain management injections versus ultimately surgical intervention. Surgery would require lumbar decompression with instrumented fusion of L4-L5. Risks, benefits, pros, cons, and alternatives were outlined in detail. At this point in time, she is going to consider her options and review them with her family. Will revisit tomorrow and see what she has chosen. Ultimately, her INR at today's visit was 35.5 and 3.2 respectively. This would obviously have to lower than 1.5 to proceed with surgery. NILA
[2016-08-29 20:05] VITALS: BP 122/71; PULSE 83; TEMP 36.6; O2SAT 94
[2016-08-29] MEDS: LIDODERM (LIDOCAINE) PATCH 5% TD SCH (20:55)
[2016-08-29] MEDS: ROSUVASTATIN CALCIUM 20 MG TAB PO SCH (20:55)
[2016-08-29] MEDS: LORAZEPAM 1 MG TAB PO SCH (20:55)
[2016-08-29] MEDS: PANTOprazole SOD 40 MG TAB PO SCH (20:56)
[2016-08-29] MEDS: CHOLECALCIFEROL 1000 INTER.UNIT TAB PO SCH (20:56)
[2016-08-29] MEDS: QUETIAPINE FUMARATE 200 MG TAB PO SCH (20:56)
[2016-08-29 23:00] VITALS: BP 136/82; PULSE 72; TEMP 36.9; O2SAT 94
[2016-08-30] MEDS: HYDROmorphone INJ 1 MG/ML SYR IV PRN ×2 (01:53→07:32)
[2016-08-30] MEDS: OXYCODONE/ACETAMINOPHEN 5-325 TAB PO PRN ×2 (05:00→15:22)
[2016-08-30 08:19] VITALS: BP 154/92; PULSE 76; TEMP 36.7; O2SAT 98
[2016-08-30 08:22] VITALS: O2SAT 98
--- NOTE | 2016-08-30 08:33 | PROGRESS NOTE ---
DATE: 08/30/2016 DATE: 08/30/2016. SUBJECTIVE: Discussion again this morning with Mrs. De Leon regarding her lumbar spine issues and pain. She would like to proceed with surgery. She understands this will require lumbar decompression and fusion at the L4-5 level to adequately decompress the nerve root and remove the disc pressure. Risks, benefits, pros, cons, and alternatives were outlined in detail. Risks include but not limited to from anesthesia, spinal cord process, nerve damage, blood loss requiring transfusion, infection, reoperation. Benefits would be marked improvement of her radicular complaints. PLAN: At this time, we will make her n.p.o. after midnight. Her INR is 3.2 today, we will initiate a course of action to improve this prior to surgery tomorrow afternoon.
[2016-08-30] MEDS: VENLAFAXINE HCL XR 150 MG CAPXR PO SCH (08:59)
[2016-08-30] MEDS: LORAZEPAM 0.5 MG TAB PO SCH ×2 (09:04→11:31)
[2016-08-30 09:38] LABS: PROTHROMBIN TIME (PATIENT) 22.4 SECONDS (9.0-12.0)
[2016-08-30] MEDS ORDERED: PHYTONADIONE 5 MG TAB PO ONE (11:00)
[2016-08-30] MEDS: HYDROmorphone INJ 2 MG/ML SYR/VIAL IV PRN ×5 (11:06→23:44)
--- NOTE | 2016-08-30 14:50 | Progress Note ---
Internal Med Progress Note Date of Service: Aug 30, 2016. Provider Documentation: SUBJECTIVE: The patient was seen and examined Still complains of pain in right hip No more numbness in Upper extremity Worse pain at the back with numbness in right leg Has bulging OBJECTIVE: Vital Signs-as noted below Exam: General-mild distress at rest Eyes-normal ENT-normal Neck-supple Lungs-Clear to ausucltate bilaterally Heart-Regular,no murmur appreciated Abdomen-Benign,no masses,bowel sound present Extremities-Trace edema bilaterally Right Hip movement is minimally painful Moderate tenderness over greater Trochanteric area Neuro-AAOx3 Lab data as noted below. ASSESSMENT & PLAN: Right hip pain with Radiculopathy - greater trochanteric bursitis has been ruled out -Has been on oral Prednisone and Percocet without any improvement -no improvement with Toradol -NSAIDS are unsafe and failed as per patient -Ortho consulted -appreciate Input -MRI of the Lumbar Spine::. A 12 x 11 x 6 mm lobular area of signal abnormality within the right paracentral/foraminal location at the L4-5 level as described above. This favors disc material in the setting of a disc herniation with superior subligamentous migration. This compresses the exiting right L4 nerve root and results in severe right-sided neural foraminal narrowing. 2. Small broad-based posterior disc bulge asymmetric to the left with a left foraminal annular tear at L3-L4. This abuts but does not displace the exiting left L3 nerve root. Further management as per Ortho Pain is controlled now Coumadin is on hold Given Vitamin K today Surgery scheduled for tomorrow Nonspecific numbness and tingling involving the right upper extremity and neck area. -doubt any heatstroke. CT scan has been negative, -MRI of the Head is negative as well -will not start Aspirin Asthma, -moderate persistent, seems stable at this time. -Continue with her usual inhalers. Diabetes type 2. We will check hemoglobin A1c On SSI Chronic pain syndrome. We will not change her pain medications Requiring IV Morphine /Dilaudid Gastrointestinal prophylaxis with proton pump inhibitor. Deep venous thrombosis prophylaxis -on Coumadin Code status. She will be a full code. DISPOSITION May need rehab following Surgery Vital Signs: Date Time Temp Pulse Resp B/P (MAP) Pulse Ox O2 Delivery O2 Flow Rate FiO2 08/30/16 08:42 Room Air 08/30/16 08:22 98 Room Air 08/30/16 08:19 36.7 76 16 154/92 (112) 98 Room Air 08/29/16 23:40 Room Air 08/29/16 23:00 36.9 72 18 136/82 (100) 94 Room Air 08/29/16 20:05 36.6 83 17 122/71 (88) 94 Room Air 08/29/16 17:20 Room Air 08/29/16 14:59 36.9 85 18 137/84 (101) 95 Room Air Lab Results: Results Past 24 Hours Test 08/30/16 09:20 Range/Units Prothrombin Time 22.4 9.0-12.0 SECONDS Prothromb Time International Ratio 2.0 0.9-1.1
[2016-08-30 15:44] VITALS: BP 114/72; PULSE 88; TEMP 36.6; O2SAT 92
--- NOTE | 2016-08-30 17:53 | Anesthesiology Progress Note ---
Anesthesia Progress Note Date of Service Aug 30, 2016. Progress Notes The patient is a 56 y/o female scheduled for L4/5 decompression/fusion tomorrow with Dr. Brown. She fell on 08/18/16 and presented with R leg pain. She has been found to have L4/5 disc pathology on MRI. Other PMH includes asthma, smoking, hx DVD/PE in 2011 on anticoagulation, GERD, osteoarthritis, dyslipidemia, type 2 DM, hx cervical neck fusion, anemia, anxiety, depression, recently on steroids, and obesity. She has no problems with anesthesia. Her CXR shows NAD. EKG shows NSR. Labs are significant for WBC 17 and hgb 10.8. Electrolytes were normal. Her INR today was 2. On exam the patient had slightly limited neck extension with a thick neck. She was a MP 3. Dentition was intact. She had some mild wheezes bilaterally on lung auscultation. Heart was RRR. No carotid bruits were present. The patient is an ASA 3. She was consented to general anesthesia. The patient was counseled to remain NPO after midnight except for sips of water with pills. She should have her INR rechecked tomorrow prior to surgery.
[2016-08-30] MEDS: LORAZEPAM 1 MG TAB PO SCH (20:50)
[2016-08-30] MEDS: QUETIAPINE FUMARATE 200 MG TAB PO SCH (20:50)
[2016-08-30] MEDS: PANTOprazole SOD 40 MG TAB PO SCH (20:50)
[2016-08-30] MEDS: CHOLECALCIFEROL 1000 INTER.UNIT TAB PO SCH (20:50)
[2016-08-30] MEDS: ROSUVASTATIN CALCIUM 20 MG TAB PO SCH (20:51)
[2016-08-30] MEDS: LIDODERM (LIDOCAINE) PATCH 5% TD SCH (20:51)
[2016-08-30 23:15] VITALS: BP 112/72; PULSE 78; TEMP 36.7; O2SAT 94
[2016-08-31] VITALS (9 sets, daily range): BP systolic 113–130; BP diastolic 71–84; PULSE 71–92; TEMP 36.5–37; O2SAT 92–98
[2016-08-31] MEDS: OXYCODONE/ACETAMINOPHEN 5-325 TAB PO PRN (00:27)
[2016-08-31] MEDS: HYDROmorphone INJ 2 MG/ML SYR/VIAL IV PRN ×3 (03:53→10:58)
[2016-08-31 07:16] LABS: HEMATOCRIT 33.8 % (37-47); MEAN CELL VOLUME 91.1 fL (80-100); MEAN CORPUSCULAR HEMOGLOBIN 29.4 pg (25-34); MEAN CORPUSCULAR HGB CONC 32.2 g/dl (32-36); PLATELET COUNT 261 K/uL (130-400); RED BLOOD COUNT 3.71 M/uL (4.2-5.4); WHITE BLOOD COUNT 17.38 K/uL (4.8-10.8)
[2016-08-31 07:36] LABS: INR 1.1 (0.9-1.1); PROTHROMBIN TIME (PATIENT) 11.5 SECONDS (9.0-12.0)
[2016-08-31] MEDS: ALBUTEROL INH PRN (07:48)
--- NOTE | 2016-08-31 07:50 | Clinical Documentation Query ---
CLINICAL DOCUMENTATION QUERY Dr. PATRICK, In your clinical opinion does this patient have: ( X ) Morbid obesity with BMI of 40.8 ( ) Other explanation of clinical findings (Please Explain) ( ) Unable to determine (Please Define) ( ) Need to Discuss ( ) Not Agree BMI: A significantly high (>40) or significantly low (<19) BMI will impact the severity of illness and risk of mortality of your patient. However, the physician must document a correlating diagnosis in the medical record. Please clarify and document your clinical opinion in the progress notes and discharge summary. Terms such as "probable", "suspected", "likely", "questionable", "possible", or "still to be ruled out" are acceptable. IF IN AGREEMENT, YOU MUST DOCUMENT ABOVE DIAGNOSTIC STATEMENT IN DAILY PROGRESS NOTES AND DISCHARGE SUMMARY. This document is not part of the patient's record. Thank You, Eladia Ulrich, RN [phone]
[2016-08-31 07:56] LABS: BUN/CREATININE RATIO 21.5 (10-20); CALCIUM 8.8 mg/dl (8.5-10.1); CREATININE 1.1 mg/dl (0.60-1.20); POTASSIUM 3.6 mmol/L (3.5-5.1)
[2016-08-31] MEDS: LORAZEPAM 0.5 MG TAB PO SCH ×2 (09:05→10:57)
[2016-08-31] MEDS: VENLAFAXINE HCL XR 150 MG CAPXR PO SCH (09:05)
[2016-08-31 13:05] LABS: COD UR NEGATIVE NG/ML (CUTOFF=50); HYDROCOD UR 3670 NG/ML (CUTOFF=50); HYDROMOR UR 247 NG/ML (CUTOFF=50); HYDROXYETHYLFLURAZEPAM CONF NEGATIVE NG/ML (CUTOFF=50); HYDROXYMIDAZOLAM NEGATIVE NG/ML (CUTOFF=50); HYDROXYTRIAZOLAM CONF NEGATIVE NG/ML (CUTOFF=50); MORPHINE UR NEGATIVE NG/ML (CUTOFF=50); NORHYDROCODONE CONF UR 4080 NG/ML (CUTOFF=50); OXYMORPH UR 174 NG/ML (CUTOFF=50); TEMAZEPAM CONF 181 NG/ML (CUTOFF=50)
--- NOTE | 2016-08-31 14:25 | History & Physical Bridge Note ---
H&P Re-Evaluation Bridge Note: I have examined the patient, reviewed the History & Physical and in the interval since the performance of the History & Physical I have noted the following changes of clinical significance: No changes noted
[2016-08-31] MEDS ORDERED: EpHEDrine SULFATE INJ 50 MG/ML AMP IV PRN ×2 (14:45→17:00)
[2016-08-31] MEDS ORDERED: ATROPINE SULFATE 0.1 MG/ML 5ML SYR IV PRN ×2 (14:45→17:00)
[2016-08-31] MEDS ORDERED: HYDROmorphone INJ 1 MG/ML SYR IV PRN ×2 (14:45→17:00)
[2016-08-31] MEDS ORDERED: ONDANSETRON INJ 2 MG/ML 2 ML VIAL IV PRN ×2 (14:45→16:45)
[2016-08-31] MEDS ORDERED: NURSING VERBAL MED ORDER ONE (14:45)
[2016-08-31] MEDS ORDERED: CEFAZOLIN IV 2,000 MG/60 ML D5W IV ONE (14:46)
[2016-08-31] MEDS ORDERED: FENTANYL CITRATE INJ 50 MCG/1 ML 2 ML VIAL ONE ×3 (14:46→17:02)
[2016-08-31] MEDS ORDERED: SODIUM CHLORIDE 0.9% PF 50 ML VIAL ONE (14:59)
[2016-08-31] MEDS ORDERED: BACITRACIN 50000 UNIT VIAL ONE (14:59)
[2016-08-31] MEDS ORDERED: MIDAZOLAM HCL 1 MG/ML 2ML VIAL ONE (15:00)
[2016-08-31] MEDS ORDERED: KETAMINE HCL INJ 50 MG/ML 10 ML VIAL ONE (15:01)
[2016-08-31] MEDS ORDERED: HYDROmorphone INJ 2 MG/ML SYR/VIAL ONE (15:01)
[2016-08-31] MEDS ORDERED: BUPIVACAINE/EPINEPHRINE 0.25% 1:200,000 30 ML VIAL ONE (15:02)
[2016-08-31] MEDS ORDERED: ALBUTEROL 0.083% NEBU SOLN 3 ML VIAL INH ONE (15:30)
[2016-08-31] MEDS ORDERED: DEXAMETHASONE SOD INJ 4 MG/ML VIAL ONE (15:58)
[2016-08-31] MEDS ORDERED: PROPOFOL IV EMULSION 10 MG/ML 20 ML VIAL IV ONE (15:58)
[2016-08-31] MEDS ORDERED: ONDANSETRON INJ 2 MG/ML 2 ML VIAL ONE (15:58)
[2016-08-31] MEDS ORDERED: ROCURONIUM BROMIDE 10 MG/ML 5 ML VIAL ONE (15:58)
[2016-08-31] MEDS ORDERED: LIDOCAINE HCL 2% 2 ML VIAL (20MG/ML) ONE (15:58)
[2016-08-31] MEDS ORDERED: ACETAMINOPHEN 1000 MG/100 ML IV IV ONE (16:05)
[2016-08-31] MEDS ORDERED: SODIUM CHLORIDE 0.9% 1000ML 1,000 ML IV SCH (16:44)
--- NOTE | 2016-08-31 16:44 | [facility] Operative Report ---
Operative Report Operative Date Aug 31, 2016. Pre-Operative Diagnosis Herniated nucleus pulposus, L4-L5 on the right, right-sided radiculopathy Post-Operative Diagnosis same Procedure(s) Performed tlif Surgeon Dr. Brown Attache Surgeon(s) Caryn Quiroz PA-C Findings stenosis I attest to the content of the Intraoperative Record and any orders documented therein. Any exceptions are noted below.
[2016-08-31] MEDS ORDERED: DO NOT ADMINISTER PNEUMOCOCCAL VACCINE PRN ×2 (16:45)
[2016-08-31] MEDS ORDERED: LORAZEPAM INJ 0.5 MG in SYRINGE 0 ML IV PRN (16:45)
[2016-08-31] MEDS ORDERED: SOD PHOSPHATE/SOD BIPHOSPHATE ENEMA 132 ML BTL PR PRN (16:45)
[2016-08-31] MEDS ORDERED: DO NOT ADMINISTER FLU VACCINE PRN ×3 (16:45)
[2016-08-31] MEDS ORDERED: BISACODYL 10 MG SUPP PR PRN (16:45)
[2016-08-31] MEDS ORDERED: PROMETHAZINE HCL INJ 12.5 MG in SODIUM CHLORIDE 0.9% 50ML 50 ML IV PRN (16:45)
[2016-08-31] MEDS ORDERED: NALOXONE HCL 0.4 MG/1 ML VIAL/CARP IV PRN ×2 (16:45)
[2016-08-31] MEDS ORDERED: MAGNESIUM HYDROXIDE SUSP 30 ML UDC PO PRN (16:45)
[2016-08-31] MEDS ORDERED: ACETAMINOPHEN 500 MG TAB PO PRN (16:45)
[2016-08-31] MEDS ORDERED: METOCLOPRAMIDE HCL INJ 5 MG/ML 2 ML VIAL IV PRN (16:45)
[2016-08-31] MEDS ORDERED: FAMOTIDINE 20 MG TAB PO PRN (16:45)
[2016-08-31] MEDS ORDERED: hydrOXYzine HCL 25 MG TAB PO PRN (16:45)
[2016-08-31] MEDS ORDERED: ACETAMINOPHEN IV 100 ML IV PRN (16:45)
[2016-08-31] MEDS ORDERED: LORAZEPAM 0.5 MG TAB PO PRN (16:45)
[2016-08-31] MEDS ORDERED: DC PCA PRN (16:45)
[2016-08-31] MEDS ORDERED: ALUMINUM/MAGNESIUM SUSP 30 ML UDC PO PRN (16:45)
[2016-08-31] MEDS ORDERED: FLOSEAL HEMOSTATIC MATRIX 10ML TOP ONE (16:46)
[2016-08-31] MEDS ORDERED: NEOSTIGMINE METHYLSULFATE 1 MG/ML 10ML VIAL ONE (16:55)
[2016-08-31] MEDS ORDERED: GLYCOPYRROLATE INJ 0.2 MG/ML VIAL ONE (16:55)
[2016-08-31] MEDS ORDERED: FENTANYL CITRATE INJ 50 MCG/1 ML 2 ML VIAL IV PRN (17:00)
[2016-08-31] MEDS ORDERED: HYDROmorphone HCL 0.5MG/ML 50 ML CASSETTE ONE (17:17)
--- NOTE | 2016-08-31 17:17 | DIAGNOSTIC IMAGING REPORT ---
INTRAOPERATIVE LUMBAR SPINE 2 VIEWS CLINICAL HISTORY: L4-5 DECOMPRESSION/FUSION COMPARISON STUDY: 08/28/2016 FINDINGS: 20 seconds of fluoroscopic time was utilized. 2 intraoperative fluoroscopic spot images are provided for interpretation. These reveal postsurgical changes of an L4-5 discectomy and interbody fusion. There is posterior pedicle screw fusion. IMPRESSION: Postsurgical changes of an L4-5 discectomy, and interbody and pedicle screw fusion. Electronically signed by: Amador Arenas M.D. 08/31/2016 5:15 PM Dictated Date/Time: 08/31/2016 5:14 PM
[2016-08-31] MEDS: FENTANYL CITRATE INJ 50 MCG/1 ML 2 ML VIAL IV PRN ×2 (17:25→17:30)
--- NOTE | 2016-08-31 17:57 | Anesthesiology Progress Note ---
Anesthesia Post Op Note Date & Time Aug 31, 2016 at 17:57 Vital Signs Pain Intensity: 6 Vital Signs Past 12 Hours Date Time Temp Pulse Resp B/P (MAP) Pulse Ox O2 Delivery O2 Flow Rate FiO2 08/31/16 17:55 36.2 79 13 141/74 96 Nasal Cannula 4 08/31/16 17:45 74 11 155/83 97 Nasal Cannula 4 08/31/16 17:35 81 14 115/63 100 Mask 10 08/31/16 17:25 78 23 172/75 100 Mask 10 08/31/16 17:15 79 16 155/88 100 Mask 10 08/31/16 17:07 36.8 94 16 182/96 100 Mask 10 08/31/16 15:00 75 16 98 Diffusion Mask 4.0 08/31/16 08:41 95 Room Air 08/31/16 07:45 Room Air 08/31/16 07:40 37.0 71 16 120/76 (91) 93 Room Air Notes Mental Status: alert / awake / arousable, participated in evaluation Pt Amnestic to Procedure: Yes Nausea / Vomiting: adequately controlled Pain: adequately controlled Airway Patency, RR, SpO2: stable & adequate BP & HR: stable & adequate Hydration State: stable & adequate Anesthetic Complications: no major complications apparent
[2016-08-31] MEDS: HYDROmorphone HCL 0.5MG/ML 50 ML CASSETTE IV PRN ×2 (18:24→23:03)
[2016-08-31] MEDS: SODIUM CHLORIDE 0.9% 1000ML 1,000 ML IV SCH (18:26)
[2016-08-31] MEDS: DEXAMETHASONE INJ 6 MG in SYRINGE 0 ML IV SCH (19:51)
--- NOTE | 2016-08-31 20:09 | OPERATIVE REPORT ---
DATE OF OPERATION: 08/31/2016 PREOPERATIVE DIAGNOSES: Herniated nucleus pulposus, spinal stenosis L4-5. POSTOPERATIVE DIAGNOSES: Same. PROCEDURES PERFORMED: 1. Lumbar decompression, medial facetectomies, foraminotomies L3-4, L4-5. 2. Posterior spinal fusion L4-5. 3. Placement posterior instrumentation using Orthros rods and screws L4-5. 4. Interbody fusion L4-5. 5. Placement of PEEK cage 10 x 22 mm at L4-5. 6. Placement of locally harvested morselized autograft posterior gutters. 7. Placement of Infuse collagen sponge combined with Mastergraft in the posterior gutters and DBM in the interbody space. SURGEON: Dr. David Brown. STOCK CHECKER: Caryn Quiroz PA-C. Due to the complex nature of the procedure, the entire surgery was performed with the veterinary assistant technician of [place]. The dietetic assistant, under direct supervision, was involved in the actual performance of all aspects of the surgical procedure including hemostasis, tissue retraction and incision, instrument management, patient positioning, and wound closure. ANESTHESIA: General. DISPOSITION: The patient awakened and taken to PACU in stable condition. HISTORY OF PATIENT'S PROBLEMS: This is a 56-year-old female who presents with above-mentioned diagnoses after failing an extensive course of nonoperative care, elected to undergo the above-mentioned procedure. Risks, benefits, pros, cons, and alternatives were outlined in detail preoperatively. DESCRIPTION OF PROCEDURE: The patient was met with preoperatively, case discussed and all questions were addressed. At that point, the patient was taken back to operative suite and after undergoing successful general intubation by the department of anesthesia was placed in prone position on Elbert table atop Kaden frame. All bony prominences were well padded and the eyes were inspected to ensure there was no external pressure placed upon them. At this point, lumbar spine was prepped and draped in normal sterile fashion. Sharp dissection with the assistance of Bovie cautery was performed down to and exposing the lamina and transverse processes of L4-5 bilaterally. From a caudal to cephalad fashion, complete laminectomy of L4, partial laminectomy of L3 was performed to address severe lateral recess stenosis, marked facet hypertrophy. It also allowed us to remove a massive disc herniation occupying the foramina compressing the nerve root L4 on the right. After complete decompression, pedicle screws were then placed in L4-5 bilaterally with assistance of fluoroscopy and appropriate size alee provisionally placed. Through a transforaminal approach on the right, a complete discectomy was performed, endplates curetted to subcortical bleeding bone and a 10 x 22 mm PEEK cage filled with DBM tapped into position. The rods were then compressed, locked into final position bilaterally and transverse processes of L4-5 burred to subcortical bleeding bone. Infuse collagen sponge combined with Mastergraft and locally harvested morcellized autograft was placed in the posterior gutters. A 7 flat ABRIL drain was inserted. Incision was closed with #1 Vicryl in the fascia, 2-0 Vicryl subcutaneously, 4-0 Monocryl for final skin closure. Steri-Strips and sterile dressing placed. The patient was awakened and taken to PACU in stable condition. I attest to the content of the Intraoperative Record and any orders documented therein. Any exceptions are noted below. NILA
[2016-08-31] MEDS: CHOLECALCIFEROL 1000 INTER.UNIT TAB PO SCH (21:05)
[2016-08-31] MEDS: PANTOprazole SOD 40 MG TAB PO SCH (21:06)
[2016-08-31] MEDS: ROSUVASTATIN CALCIUM 20 MG TAB PO SCH (21:07)
[2016-08-31] MEDS: QUETIAPINE FUMARATE 200 MG TAB PO SCH (21:07)
[2016-08-31] MEDS: LIDODERM (LIDOCAINE) PATCH 5% TD SCH (21:08)
[2016-08-31] MEDS: CEFAZOLIN IV 2,000 MG in DEXTROSE 5% 50ML 50 ML IV SCH (21:08)
[2016-08-31] MEDS: DOCUSATE SODIUM/SENNA 50/8.6MG TAB PO SCH (21:14)
[2016-08-31] MEDS: LORAZEPAM 1 MG TAB PO SCH (21:14)
[2016-09-01] MEDS: SODIUM CHLORIDE 0.9% 1000ML 1,000 ML IV SCH ×3 (00:45→13:52)
[2016-09-01 03:22] VITALS: BP 112/74; PULSE 80; TEMP 36.8; O2SAT 94
[2016-09-01] MEDS: DEXAMETHASONE INJ 6 MG in SYRINGE 0 ML IV SCH ×2 (03:40→12:37)
[2016-09-01] MEDS: CEFAZOLIN IV 2,000 MG in DEXTROSE 5% 50ML 50 ML IV SCH (05:53)
[2016-09-01] MEDS: HYDROmorphone INJ 1 MG/ML SYR IV PRN ×7 (06:35→21:38)
[2016-09-01 07:09] VITALS: BP 100/65; PULSE 73; TEMP 36.7; O2SAT 91
[2016-09-01 07:23] LABS: HEMATOCRIT 31.2 % (37-47); MEAN CELL VOLUME 89.9 fL (80-100); MEAN CORPUSCULAR HGB CONC 31.1 g/dl (32-36); MEAN PLATELET VOLUME 9.2 fL (7.4-10.4); PLATELET COUNT 282 K/uL (130-400); RED BLOOD COUNT 3.47 M/uL (4.2-5.4); WHITE BLOOD COUNT 27.03 K/uL (4.8-10.8)
[2016-09-01 07:27] LABS: BASO ABS # 0.01 K/uL (0-0.2); COMPLETE YES; IG% 1.6 %; LYMPH ABS # 0.82 K/uL (1.2-3.4); NEUT % 92.4 %
[2016-09-01 07:31] LABS: CALCIUM 8.9 mg/dl (8.5-10.1); CREATININE 0.98 mg/dl (0.60-1.20); POTASSIUM 4.4 mmol/L (3.5-5.1)
[2016-09-01] MEDS: LORAZEPAM 0.5 MG TAB PO SCH ×2 (07:40→12:42)
--- NOTE | 2016-09-01 09:13 | Anesthesiology Progress Note ---
Anesthesia Post Op Note Date & Time Sep 01, 2016 at 09:12 Vital Signs Pain Intensity: 8.0 Vital Signs Past 12 Hours Date Time Temp Pulse Resp B/P (MAP) Pulse Ox O2 Delivery O2 Flow Rate FiO2 09/01/16 08:09 Room Air 09/01/16 07:09 36.7 73 18 100/65 (77) 91 Room Air 09/01/16 03:22 36.8 80 16 112/74 (87) 94 Nasal Cannula 2.0 08/31/16 23:50 Nasal Cannula 2.0 08/31/16 22:47 37.0 92 16 113/71 (85) 92 Room Air 08/31/16 21:21 36.5 88 16 130/84 (99) 96 Nasal Cannula 2.0 Notes Mental Status: alert / awake / arousable, participated in evaluation Anesthetic Complications: no major complications apparent
[2016-09-01] MEDS: VENLAFAXINE HCL XR 150 MG CAPXR PO SCH (09:30)
[2016-09-01] MEDS ORDERED: NURSING VERBAL MED ORDER ONE (14:00)
[2016-09-01 15:05] VITALS: BP 127/77; PULSE 105; TEMP 37; O2SAT 93
[2016-09-01 16:24] VITALS: PULSE 84
--- NOTE | 2016-09-01 17:31 | PROGRESS NOTE ---
DATE: SUBJECTIVE: Postop day #1. Back pain controlled. Leg pain markedly improved. Vital signs stable. T-max 36.8. ABRIL drained 90 mL. Hematocrit 31.2. On exam, she has good strength to testing. Appears comfortable. ASSESSMENT: Status post lumbar decompression and fusion. PLAN: At this time, we will continue to advance physical therapy and monitor ABRIL output, possible home Monday.
--- NOTE | 2016-09-01 18:05 | Progress Note ---
Subjective Date of Service: Sep 01, 2016. Subjective Pt evaluation today including: conversation w/ patient, physical exam, lab review, review of studies, review of inpatient medication list Saw/examined the patient in room 353 She's doing well post-operatively; pain is controlled +passing gas, no BM yet eating well, ambulating with rolling walker No other issues to note Problem List Medical Problems: (1) Leukocytosis Status: Acute (2) Numbness on right side Status: Acute (3) Right hip pain Status: Acute Review of Systems Constitutional: No fever, No chills, No weakness Respiratory: No cough, No sputum, No shortness of breath Cardiac: No chest pain Abdomen: No pain, No nausea, No vomiting, No diarrhea Musculoskeletal: + joint pain (controlled with medications) Heme: No abnormal bleeding/bruising Medications Current Inpatient Medications Medications (Trade) Dose Ordered Sig/Michael Route Start Time Stop Time Status Last Admin Dose Admin Ondansetron HCl (Zofran Inj) 4 mg Q6H PRN IV 08/27/16 16:45 09/26/16 16:44 Arformoterol Tartrate (Brovana 15MCG/ 2ML Neb Soln) 15 mcg BID PRN INH 08/27/16 16:45 09/26/16 16:44 Lorazepam (Ativan Tab) 0.5 mg DAILY@1200 PO 08/28/16 12:00 09/27/16 11:59 09/01/16 12:42 0.5 MG Lorazepam (Ativan Tab) 0.5 mg QAM PO 08/28/16 09:00 09/27/16 08:59 09/01/16 07:40 0.5 MG Lorazepam (Ativan Tab) 1 mg HS PO 08/27/16 21:00 09/26/16 20:59 08/31/16 21:14 1 MG Pantoprazole Sodium (Protonix Tab) 40 mg QPM PO 08/27/16 21:00 09/26/16 20:59 08/31/16 21:06 40 MG Quetiapine Fumarate (seroQUEL TAB) 200 mg HS PO 08/27/16 21:00 09/26/16 20:59 08/31/16 21:07 200 MG Rosuvastatin Calcium (Crestor Tab) 40 mg QPM PO 08/27/16 21:00 09/26/16 20:59 08/31/16 21:07 40 MG Tizanidine HCl (Zanaflex Tab) 8 mg TID PO 08/27/16 21:00 09/26/16 20:59 09/01/16 13:50 8 MG Venlafaxine HCl (effeXOR EXTENDED REL CAP) 150 mg DAILY PO 08/28/16 09:00 09/27/16 08:59 09/01/16 09:30 150 MG Warfarin Sodium (Coumadin Tab) 7.5 mg SuTuWeThFrSa@1600 PO 08/28/16 16:00 09/27/16 15:59 Future Hold 08/28/16 15:59 7.5 MG Warfarin Sodium (Coumadin Tab) 5 mg Mo@1600 PO 08/29/16 16:00 09/28/16 15:59 Future Hold Cholecalciferol (Vitamin D Tab) 4,000 inter.unit QPM PO 08/27/16 21:00 09/26/16 20:59 08/31/16 21:05 4,000 INTER.UNIT Miscellaneous Information (Order Awaiting Action) 1 ea QS N/A 08/28/16 00:00 09/27/16 00:00 Prednisone (PredniSONE TAB) 30 mg DAILY PO 08/28/16 09:00 09/27/16 08:59 09/01/16 09:30 30 MG Miscellaneous (Iv Fluids Completed) 1 ea PRN PRN N/A 08/27/16 17:00 08/27/17 16:59 Oxycodone/ Acetaminophen (Percocet 5-325mg Tab) 1 tab Q8H PRN PO 08/27/16 22:00 09/10/16 21:59 Future Hold 08/31/16 00:27 1 TAB Lidocaine (Lidoderm Patch 5%) 1 patch QPM TD 08/29/16 21:00 09/28/16 20:59 08/31/16 21:08 1 PATCH Miscellaneous (Remove Lidoderm Patch) 1 ea QAM N/A 08/29/16 09:00 09/28/16 08:59 09/01/16 09:31 1 EA Albuterol (Ventolin Hfa Inhaler) 2 puffs Q4 PRN INH 08/30/16 08:00 09/29/16 07:59 08/31/16 07:48 2 PUFFS Hydromorphone HCl (Dilaudid Inj) 2 mg Q3H PRN IV 08/30/16 11:30 09/12/16 11:29 Future Hold 08/31/16 10:58 2 MG Promethazine HCl 12.5 mg/Sodium Chloride 50.5 ml @ 202 mls/hr Q6H PRN IV 08/31/16 16:45 09/30/16 16:44 Metoclopramide HCl (Reglan Inj) 10 mg Q6H PRN IV 08/31/16 16:45 09/30/16 16:44 Lorazepam (Ativan Tab) 0.5 mg Q8H PRN PO 08/31/16 16:45 09/30/16 16:44 Lorazepam 0.5 mg/ Syringe 0.25 ml @ 1 mls/min Q8H PRN IV 08/31/16 16:45 09/30/16 16:44 Pneumococcal Polysaccharide Vaccine 1 ea PRN PRN N/A 08/31/16 16:45 09/30/16 16:44 Influenza Virus Vacc Triv Types A&B 1 ea PRN PRN N/A 08/31/16 16:45 09/30/16 16:44 Polyethylene (Miralax Powder Packet) 17 gm Q6 PO 09/02/16 06:00 10/02/16 05:59 Bisacodyl (Dulcolax Supp) 10 mg DAILY PRN NV 08/31/16 16:45 09/30/16 16:44 Magnesium Hydroxide (Milk Of Magnesia Susp) 30 ml DAILY PRN PO 08/31/16 16:45 09/30/16 16:44 Hydromorphone HCl (Dilaudid Inj) \0.5-1mg prn moder... Q3H PRN IV 09/01/16 06:00 09/15/16 05:59 09/01/16 15:32 1 MG Oxycodone HCl (Roxicodone Immediate Rel Tab) 5-10mg prn moderate to sev... Q4H PRN PO 09/01/16 06:00 09/15/16 05:59 Acetaminophen (Tylenol Tab) 1,000 mg Q8H PRN PO 08/31/16 16:45 09/30/16 16:44 Acetaminophen 100 ml @ 400 mls/hr Q8H PRN IV 08/31/16 16:45 09/30/16 16:44 Naloxone HCl (Narcan Inj) 0.1 mg Q5M PRN IV 08/31/16 16:45 09/30/16 16:44 Senna/Docusate Sodium (Senokot S Tab) 2 tab HS PO 08/31/16 21:00 09/30/16 20:59 08/31/16 21:14 2 TAB Sodium Biphosphate/ Sodium Phosphate (Fleet Enema) 132 ml ONE PRN NV 08/31/16 16:45 09/30/16 16:44 Hydroxyzine HCl (Vistaril Tab) 25 mg Q8H PRN PO 08/31/16 16:45 09/30/16 16:44 Al Hydroxide/Mg Hydroxide (Maalox Susp) 30 ml Q6H PRN PO 08/31/16 16:45 09/30/16 16:44 Famotidine (Pepcid Tab) 20 mg Q12 PRN PO 08/31/16 16:45 09/30/16 16:44 Diphenhydramine HCl (Benadryl Cap) 25 mg Q6H PRN PO 08/31/16 16:45 09/30/16 16:44 09/01/16 03:40 25 MG Objective Vital Signs Date Time Temp Pulse Resp B/P (MAP) Pulse Ox O2 Delivery O2 Flow Rate FiO2 09/01/16 16:24 84 09/01/16 15:35 Room Air 09/01/16 15:05 37.0 105 17 127/77 (94) 93 Room Air 09/01/16 08:09 Room Air 09/01/16 07:09 36.7 73 18 100/65 (77) 91 Room Air 09/01/16 03:22 36.8 80 16 112/74 (87) 94 Nasal Cannula 2.0 08/31/16 23:50 Nasal Cannula 2.0 08/31/16 22:47 37.0 92 16 113/71 (85) 92 Room Air 08/31/16 21:21 36.5 88 16 130/84 (99) 96 Nasal Cannula 2.0 08/31/16 20:15 36.5 75 16 126/80 (95) 97 4.0 08/31/16 19:15 36.8 71 16 120/81 (94) 96 Nasal Cannula 4.0 08/31/16 18:40 37.0 74 16 117/74 (88) 96 Nasal Cannula 4.0 08/31/16 18:15 96 Nasal Cannula 4.0 08/31/16 18:15 37.0 80 18 122/78 (93) 96 Nasal Cannula 4.0 08/31/16 18:15 Nasal Cannula 4.0 08/31/16 17:55 36.2 79 13 141/74 96 Nasal Cannula 4 08/31/16 17:45 74 11 155/83 97 Nasal Cannula 4 Physical Exam General Appearance: no apparent distress, + obese Respiratory/Chest: lungs clear, normal breath sounds, no respiratory distress, no accessory muscle use Cardiovascular: regular rate, rhythm, no edema, no murmur Abdomen: normal bowel sounds, non tender, soft Extremities: + pertinent finding (+drain) Laboratory Results Last 24 Hours Test 09/01/16 06:40 White Blood Count 27.03 K/uL Red Blood Count 3.47 M/uL Hemoglobin 9.7 g/dL Hematocrit 31.2 % Mean Corpuscular Volume 89.9 fL Mean Corpuscular Hemoglobin 28.0 pg Mean Corpuscular Hemoglobin Concent 31.1 g/dl Platelet Count 282 K/uL Mean Platelet Volume 9.2 fL Neutrophils (%) (Auto) 92.4 % Lymphocytes (%) (Auto) 3.0 % Monocytes (%) (Auto) 3.0 % Eosinophils (%) (Auto) 0.0 % Basophils (%) (Auto) 0.0 % Neutrophils # (Auto) 24.96 K/uL Lymphocytes # (Auto) 0.82 K/uL Monocytes # (Auto) 0.80 K/uL Eosinophils # (Auto) 0.00 K/uL Basophils # (Auto) 0.01 K/uL RDW Standard Deviation 55.0 fL RDW Coefficient of Variation 16.8 % Immature Granulocyte % (Auto) 1.6 % Immature Granulocyte # (Auto) 0.44 K/uL Sodium Level 139 mmol/L Potassium Level 4.4 mmol/L Chloride Level 104 mmol/L Carbon Dioxide Level 26 mmol/L Anion Gap 9.0 mmol/L Blood Urea Nitrogen 17 mg/dl Creatinine 0.98 mg/dl Est Creatinine Clear Calc Drug Dose 68.7 ml/min Estimated GFR () 74.7 Estimated GFR (Non- 64.5 BUN/Creatinine Ratio 17.0 Random Glucose 132 mg/dl Calcium Level 8.9 mg/dl Assessment and Plan This is a 56 year old morbid obese female with a PMH of COPD, hx. of PE on anticoagulation, depression/anxiety - presents with low back pain, lumbar nucleus pulposus and spinal stenosis of L4-L5 Nucleus Pulposus and L4-L5 Spinal Stenosis 08/31 s/p decompression/fusion POD #1 doing well today; pain controlled ambulating well +passing gas PT/OT Leukocytosis likely secondary to prednisone use as outpatient and steroid use umu- operatively no fevers, monitor Hx. of PE anticoagulation as per ortho restart Coumadin as soon as possible Depression/Anxiety continue current medications DVT ppx as per ortho FULL CODE
[2016-09-01] MEDS: PANTOprazole SOD 40 MG TAB PO SCH (20:42)
[2016-09-01] MEDS: QUETIAPINE FUMARATE 200 MG TAB PO SCH (20:43)
[2016-09-01] MEDS: CHOLECALCIFEROL 1000 INTER.UNIT TAB PO SCH (20:44)
[2016-09-01] MEDS: LIDODERM (LIDOCAINE) PATCH 5% TD SCH (20:45)
[2016-09-01] MEDS: ROSUVASTATIN CALCIUM 20 MG TAB PO SCH (20:45)
[2016-09-01] MEDS: DOCUSATE SODIUM/SENNA 50/8.6MG TAB PO SCH (20:45)
[2016-09-01] MEDS: OXYCODONE HCL IR 5 MG TAB (IMMEDIATE RELEASE) PO PRN (20:49)
[2016-09-01] MEDS: LORAZEPAM 1 MG TAB PO SCH (20:49)
[2016-09-01 23:10] VITALS: BP 109/62; PULSE 75; TEMP 36.5; O2SAT 92
[2016-09-02] MEDS: ALBUTEROL INH PRN (00:11)
[2016-09-02] MEDS: HYDROmorphone INJ 1 MG/ML SYR IV PRN ×4 (00:45→13:25)
[2016-09-02] MEDS: POLYETHYLENE (MIRALAX) 17 GM PACK PO SCH ×2 (06:13→11:36)
[2016-09-02 06:53] LABS: HEMATOCRIT 27.8 % (37-47); MEAN CELL VOLUME 89.1 fL (80-100); MEAN CORPUSCULAR HEMOGLOBIN 28.5 pg (25-34); MEAN PLATELET VOLUME 9.4 fL (7.4-10.4); PLATELET COUNT 254 K/uL (130-400); RED BLOOD COUNT 3.12 M/uL (4.2-5.4); WHITE BLOOD COUNT 22.02 K/uL (4.8-10.8)
[2016-09-02 07:12] LABS: INR 0.9 (0.9-1.1); PROTHROMBIN TIME (PATIENT) 9.9 SECONDS (9.0-12.0)
[2016-09-02 07:16] VITALS: BP 122/70; PULSE 72; TEMP 36.8; O2SAT 95
[2016-09-02 07:25] LABS: BUN/CREATININE RATIO 21.3 (10-20); CALCIUM 9.4 mg/dl (8.5-10.1); CREATININE 0.9 mg/dl (0.60-1.20); POTASSIUM 3.8 mmol/L (3.5-5.1)
[2016-09-02] MEDS: LORAZEPAM 0.5 MG TAB PO SCH ×2 (08:57→12:48)
[2016-09-02] MEDS: VENLAFAXINE HCL XR 150 MG CAPXR PO SCH (08:58)
--- NOTE | 2016-09-02 09:37 | Progress Note ---
Subjective Date of Service: Sep 02, 2016. Subjective Pt evaluation today including: conversation w/ patient, physical exam, lab review Saw/examined the patient in room 353 Doing well today Ambulating well No BM yet; but passing gas pain controlled Problem List Medical Problems: (1) Leukocytosis Status: Acute (2) Numbness on right side Status: Acute (3) Right hip pain Status: Acute Review of Systems Constitutional: No fever, No chills, No weakness Respiratory: No cough, No sputum, No shortness of breath Cardiac: No chest pain, No edema, No palpitations Abdomen: No pain, No nausea, No vomiting, No diarrhea Musculoskeletal: + joint pain (controlled with medications) Heme: No abnormal bleeding/bruising Medications Current Inpatient Medications Medications (Trade) Dose Ordered Sig/Michael Route Start Time Stop Time Status Last Admin Dose Admin Ondansetron HCl (Zofran Inj) 4 mg Q6H PRN IV 08/27/16 16:45 09/26/16 16:44 Arformoterol Tartrate (Brovana 15MCG/ 2ML Neb Soln) 15 mcg BID PRN INH 08/27/16 16:45 09/26/16 16:44 Lorazepam (Ativan Tab) 0.5 mg DAILY@1200 PO 08/28/16 12:00 09/27/16 11:59 09/01/16 12:42 0.5 MG Lorazepam (Ativan Tab) 0.5 mg QAM PO 08/28/16 09:00 09/27/16 08:59 09/02/16 08:57 0.5 MG Lorazepam (Ativan Tab) 1 mg HS PO 08/27/16 21:00 09/26/16 20:59 09/01/16 20:49 1 MG Pantoprazole Sodium (Protonix Tab) 40 mg QPM PO 08/27/16 21:00 09/26/16 20:59 09/01/16 20:42 40 MG Quetiapine Fumarate (seroQUEL TAB) 200 mg HS PO 08/27/16 21:00 09/26/16 20:59 09/01/16 20:43 200 MG Rosuvastatin Calcium (Crestor Tab) 40 mg QPM PO 08/27/16 21:00 09/26/16 20:59 09/01/16 20:45 40 MG Tizanidine HCl (Zanaflex Tab) 8 mg TID PO 08/27/16 21:00 09/26/16 20:59 09/02/16 08:58 8 MG Venlafaxine HCl (effeXOR EXTENDED REL CAP) 150 mg DAILY PO 08/28/16 09:00 09/27/16 08:59 09/02/16 08:58 150 MG Warfarin Sodium (Coumadin Tab) 7.5 mg SuTuWeThFrSa@1600 PO 08/28/16 16:00 09/27/16 15:59 Future Hold 08/28/16 15:59 7.5 MG Warfarin Sodium (Coumadin Tab) 5 mg Mo@1600 PO 08/29/16 16:00 09/28/16 15:59 Future Hold Cholecalciferol (Vitamin D Tab) 4,000 inter.unit QPM PO 08/27/16 21:00 09/26/16 20:59 09/01/16 20:44 4,000 INTER.UNIT Miscellaneous Information (Order Awaiting Action) 1 ea QS N/A 08/28/16 00:00 09/27/16 00:00 Prednisone (PredniSONE TAB) 30 mg DAILY PO 08/28/16 09:00 09/27/16 08:59 09/02/16 08:58 30 MG Miscellaneous (Iv Fluids Completed) 1 ea PRN PRN N/A 08/27/16 17:00 08/27/17 16:59 Oxycodone/ Acetaminophen (Percocet 5-325mg Tab) 1 tab Q8H PRN PO 08/27/16 22:00 09/10/16 21:59 Future Hold 08/31/16 00:27 1 TAB Lidocaine (Lidoderm Patch 5%) 1 patch QPM TD 08/29/16 21:00 09/28/16 20:59 09/01/16 20:45 1 PATCH Miscellaneous (Remove Lidoderm Patch) 1 ea QAM N/A 08/29/16 09:00 09/28/16 08:59 09/02/16 08:59 1 EA Albuterol (Ventolin Hfa Inhaler) 2 puffs Q4 PRN INH 08/30/16 08:00 09/29/16 07:59 09/02/16 00:11 2 PUFFS Hydromorphone HCl (Dilaudid Inj) 2 mg Q3H PRN IV 08/30/16 11:30 09/12/16 11:29 Future Hold 08/31/16 10:58 2 MG Promethazine HCl 12.5 mg/Sodium Chloride 50.5 ml @ 202 mls/hr Q6H PRN IV 08/31/16 16:45 09/30/16 16:44 Metoclopramide HCl (Reglan Inj) 10 mg Q6H PRN IV 08/31/16 16:45 09/30/16 16:44 Lorazepam (Ativan Tab) 0.5 mg Q8H PRN PO 08/31/16 16:45 09/30/16 16:44 Lorazepam 0.5 mg/ Syringe 0.25 ml @ 1 mls/min Q8H PRN IV 08/31/16 16:45 09/30/16 16:44 Pneumococcal Polysaccharide Vaccine 1 ea PRN PRN N/A 08/31/16 16:45 09/30/16 16:44 Influenza Virus Vacc Triv Types A&B 1 ea PRN PRN N/A 08/31/16 16:45 09/30/16 16:44 Polyethylene (Miralax Powder Packet) 17 gm Q6 PO 09/02/16 06:00 10/02/16 05:59 09/02/16 06:13 17 GM Bisacodyl (Dulcolax Supp) 10 mg DAILY PRN MS 08/31/16 16:45 09/30/16 16:44 Magnesium Hydroxide (Milk Of Magnesia Susp) 30 ml DAILY PRN PO 08/31/16 16:45 09/30/16 16:44 Hydromorphone HCl (Dilaudid Inj) \0.5-1mg prn moder... Q3H PRN IV 09/01/16 06:00 09/15/16 05:59 09/02/16 06:13 1 MG Oxycodone HCl (Roxicodone Immediate Rel Tab) 5-10mg prn moderate to sev... Q4H PRN PO 09/01/16 06:00 09/15/16 05:59 09/01/16 20:49 10 MG Acetaminophen (Tylenol Tab) 1,000 mg Q8H PRN PO 08/31/16 16:45 09/30/16 16:44 Acetaminophen 100 ml @ 400 mls/hr Q8H PRN IV 08/31/16 16:45 09/30/16 16:44 Naloxone HCl (Narcan Inj) 0.1 mg Q5M PRN IV 08/31/16 16:45 09/30/16 16:44 Senna/Docusate Sodium (Senokot S Tab) 2 tab HS PO 08/31/16 21:00 09/30/16 20:59 09/01/16 20:45 2 TAB Sodium Biphosphate/ Sodium Phosphate (Fleet Enema) 132 ml ONE PRN MS 08/31/16 16:45 09/30/16 16:44 Hydroxyzine HCl (Vistaril Tab) 25 mg Q8H PRN PO 08/31/16 16:45 09/30/16 16:44 Al Hydroxide/Mg Hydroxide (Maalox Susp) 30 ml Q6H PRN PO 08/31/16 16:45 09/30/16 16:44 Famotidine (Pepcid Tab) 20 mg Q12 PRN PO 08/31/16 16:45 09/30/16 16:44 Diphenhydramine HCl (Benadryl Cap) 25 mg Q6H PRN PO 08/31/16 16:45 09/30/16 16:44 09/01/16 03:40 25 MG Objective Vital Signs Date Time Temp Pulse Resp B/P (MAP) Pulse Ox O2 Delivery O2 Flow Rate FiO2 09/02/16 07:30 Room Air 09/02/16 07:16 36.8 72 18 122/70 (87) 95 Room Air 09/02/16 00:14 Room Air 09/01/16 23:10 36.5 75 16 109/62 (78) 92 Room Air 09/01/16 16:24 84 09/01/16 15:35 Room Air 09/01/16 15:05 37.0 105 17 127/77 (94) 93 Room Air Physical Exam General Appearance: no apparent distress, + obese Respiratory/Chest: lungs clear, normal breath sounds, no respiratory distress, no accessory muscle use Cardiovascular: regular rate, rhythm, no edema, no murmur Abdomen: normal bowel sounds, non tender, soft Extremities: normal inspection, no pedal edema Neurologic/Psychiatric: no motor/sensory deficits, alert, normal mood/affect Laboratory Results Last 24 Hours Test 09/02/16 06:20 White Blood Count 22.02 K/uL Red Blood Count 3.12 M/uL Hemoglobin 8.9 g/dL Hematocrit 27.8 % Mean Corpuscular Volume 89.1 fL Mean Corpuscular Hemoglobin 28.5 pg Mean Corpuscular Hemoglobin Concent 32.0 g/dl RDW Standard Deviation 54.4 fL RDW Coefficient of Variation 16.7 % Platelet Count 254 K/uL Mean Platelet Volume 9.4 fL Prothrombin Time 9.9 SECONDS Prothromb Time International Ratio 0.9 Sodium Level 141 mmol/L Potassium Level 3.8 mmol/L Chloride Level 104 mmol/L Carbon Dioxide Level 29 mmol/L Anion Gap 8.0 mmol/L Blood Urea Nitrogen 19 mg/dl Creatinine 0.90 mg/dl Est Creatinine Clear Calc Drug Dose 74.8 ml/min Estimated GFR () 82.8 Estimated GFR (Non- 71.5 BUN/Creatinine Ratio 21.3 Random Glucose 113 mg/dl Calcium Level 9.4 mg/dl Assessment and Plan This is a 56 year old morbid obese female with a PMH of COPD, hx. of PE on anticoagulation, depression/anxiety - presents with low back pain, lumbar nucleus pulposus and spinal stenosis of L4-L5 Nucleus Pulposus and L4-L5 Spinal Stenosis 6 POD #2 pain controlled, ambulating well plan to d/c home if okay with ortho 6 s/p decompression/fusion POD #1 doing well today; pain controlled ambulating well +passing gas PT/OT Leukocytosis likely secondary to prednisone use as outpatient and steroid use umu- operatively no fevers, monitor Hx. of PE anticoagulation as per ortho restart Coumadin as soon as possible Depression/Anxiety continue current medications DVT ppx as per ortho FULL CODE
[2016-09-02] MEDS: OXYCODONE HCL IR 5 MG TAB (IMMEDIATE RELEASE) PO PRN (11:36)
[2016-09-02] MEDS ORDERED: OXYC-57 PO (12:55)
--- NOTE | 2016-09-02 12:56 | Discharge Instructions ---
Discharge Instructions Date of Service Sep 02, 2016. Admission Reason for Admission: Back Pain Without Radiculopathy, Diabetes 1.5, Discharge Discharge Diagnosis / Problem: spinal stenosis Discharge Goals Goal(s): Improve function Activity Recommendations Activity Limitations: per Instructions/Follow-up section . Instructions / Follow-Up Instructions / Follow-Up ACTIVITY RECOMMENDATIONS: SELF CARE INSTRUCTIONS AFTER THORACIC/LUMBAR FUSIONS 1. You may walk to your tolerance. It is good exercise for your legs and back. Expect some back and intermittent leg aches and pains. 2. You may perform "counter-top" level activities (make a sandwich, evelyn with a project, etc.). 3. No bending or lifting of more than 10 pounds or back twisting of any nature (roll like a log when turning in bed). 4. You may ride in a car for 20-30 minutes at a time. No driving until after your first visit with your doctor. 5. Frequent changes of position and restricting sitting to 30 minutes at a time will help limit the amount of back spasms and stiffness you may experience. 6. You may discontinue the use of ambulatory aids (cane, crutches, etc.) once your strength and confidence allow. 7. You may director of manufacturing the shower and let water strike your incision when you arrive home at least once daily. Do not take a tub bath, sit in a hot tub or go into a swimming pool until after your first recheck in the office. SPECIAL CARE INSTRUCTIONS: VERY IMPORTANT TO READ AND REVIEW A. Your surgical incision has been closed with a cosmetic suture under the skin that will dissolve in about 6 weeks. In 14 days, you can use a pair of clean scissors and cut the suture that is left outside of the skin at the ends of your incision. 1. The small skin tapes can be removed 7 days after surgery if they have not fallen off by that point. 2. You may keep the wound open to air as much as possible to promote healing after post-op day number 5 unless told otherwise by your doctor. 3. If you think the wound looks like it is becoming infected (redness or worsening drainage) and/or you are experiencing fever, chill or worsening back pain and muscle spasms, contact the office so that we may evaluate you as soon as possible. B. Complications are uncommon, but please contact us if you have any signs or symptoms of: 1. wound infection (fever higher than 102.5 degrees F, redness, separation of wound, drainage, or increasing pain from the incision) 2. blood clots in legs (pain, swelling, redness and warmth in legs) 3. urinary tract infection (fever higher than 102.5 degrees F, burning upon urination or increased frequency of urination) 4. nerve problems (inability to walk on your toes or heels, numbness, loss of bowel or bladder control) 5. any other symptoms that concern you C. Please call the office at if you have any concerns or questions about your operation or recovery. D. No smoking! Smoking drastically decreases the chance of a solid fusion. E. Do not take any anti-inflammatory medications (Indocin, Advil, Motrin, Aspirin, Naprosyn, etc.) as these may inhibit the chance of a solid fusion. Tylenol is okay to take for pain. MANAGING PAIN AFTER SPINAL SURGERY 1. Narcotic medication is intended for short-term use and will be provided for surgical pain. Surgical pain usually lasts for a period of 4-6 weeks. Narcotic medication includes Percocet, Vicodin, Darvocet, Tylenol #3 or Lortab. 2. Longer-term pain is more appropriately treated with non-narcotic medication such as Tylenol ES. 3. Muscle spasm is not appropriately treated with narcotics. Muscle relaxers such as Soma, Flexeril or Skelaxin can be used along with Tylenol ES. 4. Remember that we all live with some "aches and pains". This is not unusual or uncommon after an injury or as we get older. a. Back pain is expected and may include muscle spasms for 4 to 6 weeks after surgery. The pain should gradually improve. If the pain worsens for no apparent reason, please contact the office. b. Intermittent leg pain may also be experienced and should not be concerned about unless it worsens for no apparent reason. If so, please contact the office. 5. We will provide appropriate medication within the normal guidelines of their prescribed use. We will also be very cautious and aware of potential abuse and extended duration of patients' medication needs. a. Pain medications are for your comfort and to assist with sleep and rest so that the tissue can heal. They are not provided in order to return to normal activity and should not be used through the day. To do so or worsening pain at night can result from ongoing tissue damage and development of tolerance to the prescribed medicine. 6. Please allow 2-3 days to process refills. Prescriptions will not be mailed but must be picked up at the office. FOLLOW UP VISIT: Keep your scheduled follow-up appointment. Any questions, please call the office at . Current Hospital Diet Patient's current hospital diet: Diabetes Type 2 Diet Discharge Diet Recommended Diet: Regular Diet Procedures Procedures Performed: L4-L5 Decompression and Fusion Pending Studies Studies pending at discharge: no Medical Emergencies . Who to Call and When: Medical Emergencies: If at any time you feel your situation is an emergency, please call 911 immediately. . Non-Emergent Contact Non-Emergency issues call your: Primary Care Provider . "Provider Documentation" section prepared by David Brown. . VTE Core Measure Inpt VTE Proph given/why not?: Qi Silvestre, NIRAV's
[2016-09-02 13:09] VITALS: BP 122/70; PULSE 72; TEMP 36.8; O2SAT 95
--- NOTE | 2016-09-02 13:53 | PROGRESS NOTE ---
DATE: 09/02/2016 SUBJECTIVE: Postop day #2. Back pain is controlled. Leg pain markedly improved. Vital signs stable. T-max 36.8. ABRIL drained 10 mL today. Hematocrit stable at 27.8. PHYSICAL EXAMINATION: On exam, she is sitting in bed, has good strength to testing, and appears comfortable. ASSESSMENT: Status post lumbar decompression and fusion. PLAN: At this time, we will discontinue her drain, change her dressing and allow her to go home today.
--- NOTE | 2016-09-02 16:36 | Discharge Summary ---
Discharge Summary Date of Service Sep 02, 2016. Discharge Summary Admission Date: Aug 27, 2016 at 16:41 Discharge Date: Sep 02, 2016 Discharge Disposition: Home Principal Diagnosis: Herniated Nucleus Pulposus, L4-L5 spinal stenosis s/p Lumbar Decompression/ Fusion Medication Reconciliation New Medications: Oxycodone/Acetaminophen 5MG/325MG (Percocet 5MG/325MG) Tab 1 TAB PO Q8H PRN for Pain for 30 Days, #60 TAB PAIN Continued Medications: Albuterol Hfa (Ventolin Hfa) 200 Puffs/88084 Mcg Aers 2 PUFFS INH Q4H PRN for Shortness of Breath Arformoterol Tartrate (Brovana) 15 Mcg/2 Ml Neb 15 MCG NEB BID PRN for Shortness of Breath Cholecalciferol (Vitamin D) 2,000 Unit Tab 4000 INTER.UNIT PO QPM Fluticasone Furoate-Vilanterol (Breo Ellipta) 1 Inh Inh 1 PUFF INH DAILY Furosemide (Furosemide) 20 Mg Tab 20 MG PO DAILY Hydrocodone/Acetaminophen 5MG/325MG ([place] 5MG/325MG) Tab 1 TAB PO Q8 PRN for Mild-Moderate Pain, TAB Lorazepam (Ativan) 1 Mg Tab 0.5 MG PO QAM, TAB Lorazepam (Ativan) 1 Mg Tab 0.5 MG PO MIDDAY, TAB Lorazepam (Ativan) 1 Mg Tab 1 MG PO HS, TAB Pantoprazole (Protonix) 40 Mg Tab 40 MG PO QPM, TAB Quetiapine Fumarate (Seroquel) 200 Mg Tab 200 MG PO HS Rosuvastatin Calcium (Crestor) 40 Mg Tab 40 MG PO QPM, TAB Tizanidine (Tizanidine HCl) 4 Mg Tab 8 MG PO TID Venlafaxine Hcl (Effexor Extended Rel) 150 Mg Capcr 150 MG PO DAILY Warfarin Sodium (Coumadin) 5 Mg Tab 5 MG PO [id number], TAB TAKE 7.5 MG EVERY MONDAY,MONDAY,MONDAY,MONDAY,MONDAY AND MONDAY OR OTHERWISE DIRECTED TO TAKE BY ANTICOAGULATION CLINIC/MD Warfarin Sodium (Coumadin) 5 Mg Tab 5 MG PO WK, TAB TAKE 5 MG EVERY MONDAY OR OTHERWISE DIRECTED TO TAKE BY ANTICOAGULATION CLINIC/MD Admission Information HPI (per Admitting provider): DATE OF ADMISSION: 08/27/2016 PRIMARY CARE PHYSICIAN: Dr Hayes CHIEF COMPLAINT: Increasing back pain since this morning with some numbness and tingling in the upper extremity as well. HISTORY OF PRESENT COMPLAINT: She is a 56-year-old female with significant past medical history including asthma, moderate persistent; long-term use of anticoagulation; diabetes type 2; depression; history of pulmonary embolism; cervical disc disease status post cervical spinal fusion; osteoarthritis; GERD; anxiety; and chronic pain syndrome. Apparently has been complaining of right hip pain for the last 9 or 10 days. The pain started when she was looking something on the ground for her son and she heard a popping sound in the right hip area and since then the pain has been ongoing. She saw Dr. Tobar on 19 of August and following that she saw Dr. Miranda on 24 of August. She went for physical therapy. The pain on the right hip area and right leg symptoms did not improve and she was told by the therapist that she may have sciatica and she wanted to have an MRI. This morning she woke up from sleep she is still having pain on the right hip area and the pain going down the legs and also she complained to have some numbness and tingling and weakness involving the right upper extremity that goes to the neck and right side of the face. She does not have any fever, chills or rigors. She does not have any problem with speech or swallowing. No visual symptoms and no problem with walking except pain. She does not have any problem with urine and/or bowel habit. She denies to have any fall. In the ER, she was hemodynamically stable, but her white count was noted to be 21,000 most likely secondary to use of steroid, but she did not have any other lab abnormality and her CAT scan remained negative. From that point, she was admitted to medical floor for continuation of care. PAST MEDICAL HISTORY: Significant for moderate persistent asthma, long-term use of anticoagulation secondary to pulmonary embolism, type 2 diabetes, depression, anxiety, hyperlipidemia, cervical disc disease, chronic pain syndrome, anxiety, osteoarthritis and GERD. PAST SURGICAL HISTORY: Significant for arthroplasty of the left knee and also arthroplasty of the right knee in [place], cervical spine fusion, repair of ruptured rotator cuff, sacroiliac joint injection in the past, shoulder arthroscopy, total abdominal hysterectomy with removal of tubes. FAMILY HISTORY: Mother had glaucoma. Father had high cholesterol and heart disorder. Father did have hypertension of the heart disorder as well. SOCIAL HISTORY: She is single. She lives with her parents. She has 1 child. She smokes about a half a pack per day, ongoing. She does not use any alcohol and she has been reasonably ambulant. REVIEW OF SYSTEMS: Other systemic review unremarkable except those mentioned in history of present complaint. ALLERGIES: CHLORPHENIRAMINE, HYDROCODONE, AND PHENYTOIN. MEDICATIONS: As an outpatient, she has been on albuterol 2 puffs q. 4 hours as needed, Brovana 15 mcg via nebs b.i.d., furosemide 20 mg daily, hydrocodone/acetaminophen 5/325 one tablet q. 8 hours p.r.n., Ativan 1 mg tablet 0.5 mg p.o. mid day, Ativan 1 mg tablet 0.5 in the morning, Ativan 1 mg at night, Protonix 40 mg daily, Seroquel 200 mg at night, Crestor 40 mg at night, tizanidine 8 mg t.i.d., Effexor 150 mg daily, warfarin sodium 5 mg as directed, vitamin D 2000 units daily, and Breo Ellipta 1 puff daily. PHYSICAL EXAMINATION: GENERAL: On examination in the Emergency Room, she was not having any acute distress, but she was complaining of some pain in the right hip and also on the right side of the neck. VITAL SIGNS: Temperature 37.0, pulse was 84, blood pressure 159/88, saturation 92% on room air. HEENT: Unremarkable. NECK: Supple. No neck stiffness, movements of the neck did not produce much pain. No thyromegaly. CHEST: Clear to auscultate bilaterally. HEART: S1, S2 regular. ABDOMEN: Soft, benign, nontender, no organomegaly. Bowel sounds present. EXTREMITIES: Trace edema bilaterally. MUSCULOSKELETAL SYSTEM: Did not show any acute arthritis involving any joint, but movement of the right hip joint was minimally painful with extreme tenderness noted over greater trochanteric area. Clinically, no evidence of sciatica. CENTRAL NERVOUS SYSTEM: Alert, awake, oriented x3. No facial asymmetry. No focal sensory and/or motor deficit appreciated but noted to have slightly low power about 4/5 in the right lower extremity. DTRs unremarkable. LABORATORY DATA: Noted today white count was 21.40, H&H 11.3/35.4, platelet was 287. Sodium 139, potassium 3.5, chloride 103, carbon dioxide 30, BUN 19 and creatinine 0.92. Random glucose 104. LFTs unremarkable. Troponin less than 0.015. INR was of 3.1. Toxicology screen; benzodiazepines positive and opiates positive. Others pending. Serology, Lyme titer negative. Chest x-ray unremarkable and CT scan of the head, mild frontal atrophy, but no other symptoms. IMPRESSION AND PLAN: 1. Right hip pain, most likely secondary to greater trochanteric bursitis. The patient will be admitted to medical floor under observation. We will get ortho evaluation for possible greater trochanteric injection. We will give Toradol for pain control. Continue with the oral dose of Percocet while in the hospital. 2. Nonspecific numbness and tingling involving the right upper extremity and neck area. I doubt any heatstroke. CT scan has been negative, but given the history we get an MRI of the head to rule out any possibility of stroke. We will start baby aspirin while in the hospital. 3. Asthma, moderate persistent, seems stable at this time. Continue with her usual inhalers. 4. Diabetes type 2. We will check hemoglobin A1c and put her on sliding scale coverage while in the hospital with diabetic diet. 5. Chronic pain syndrome. We will not change her pain medications while in the hospital except given Toradol for inflammatory arthritis. 6. Gastrointestinal prophylaxis with proton pump inhibitor. 7. Deep venous thrombosis prophylaxis -on Coumadin 8. Code status. She will be a full code. In my clinical judgment, the beneficiary meets criteria as per CMS for 2 midnight stay in the hospital. Hospital Course This is a 56 year old morbid obese female with a PMH of COPD, hx. of PE on anticoagulation, depression/anxiety - presents with low back pain, lumbar nucleus pulposus and spinal stenosis of L4-L5 Nucleus Pulposus and L4-L5 Spinal Stenosis 6 POD #2 pain controlled, ambulating well plan to d/c home if okay with ortho 6 s/p decompression/fusion POD #1 doing well today; pain controlled ambulating well +passing gas PT/OT Leukocytosis likely secondary to prednisone use as outpatient and steroid use umu- operatively no fevers, monitor Hx. of PE anticoagulation as per ortho restart Coumadin as soon as possible Depression/Anxiety continue current medications DVT ppx as per ortho FULL CODE Total time spent on discharge = 25 minutes This includes examination of the patient, discharge planning, medication reconciliation, and communication with other providers. Discharge Instructions instructions as per ortho
[2016-12-29] MEDS ORDERED: PANT1TAB48 PO (12:42)
[2016-12-29] MEDS ORDERED: CHOL20009 PO (12:42)
[2016-12-29] MEDS ORDERED: ROSU40TA PO (12:42)
[2016-12-29] MEDS ORDERED: VNTHFA/IN INH (13:55)
[2017-01-04] MEDS ORDERED: LEVO25TA PO (13:41)
[2017-01-04] MEDS ORDERED: ACET-1256 PO (13:42)
[2017-01-04] MEDS ORDERED: IBUP-103 PO (13:42)
[2017-01-13] MEDS ORDERED: POTA1TAB97 PO (11:05)
[2017-01-16] MEDS ORDERED: WARF-237 PO (05:44)
[2017-01-16] MEDS ORDERED: Lovenox SQ (05:44)
== END 2016-09-02 14:20 | disposition home health service (06) | DRG 460 ==
LOC: C.EDB 13:24 → OBSVTOIN 16:41 → C.MSW 16:41 → ENRESERV 17:12
PROVIDERS: ADMIT Internal Medicine; ATTEND Family Medicine
PROC: 0ST20ZZ Resection of Lumbar Vertebral Disc, Open Approach (ICD-10-PCS; principal; 2016-08-31 07:15)
PROC: 0SG00A1 (ICD-10-PCS; principal; 2016-08-31 07:15)
PROC: 3E0V0GB Introduction of Recombinant Bone Morphogenetic Protein into Bones, Open Approach (ICD-10-PCS; principal; 2016-08-31 07:15)
DX: M51.16 Intervertebral disc disorders with radiculopathy, lumbar region (principal); Z68.41 Body mass index [BMI] 40.0-44.9, adult; M48.06 Spinal stenosis, lumbar region; E66.9 Obesity, unspecified; J45.40 Moderate persistent asthma, uncomplicated; Z98.1 Arthrodesis status; M19.90 Unspecified osteoarthritis, unspecified site; F17.210 Nicotine dependence, cigarettes, uncomplicated; K21.9 Gastro-esophageal reflux disease without esophagitis; F41.9 Anxiety disorder, unspecified; D72.829 Elevated white blood cell count, unspecified; E11.9 Type 2 diabetes mellitus without complications; F32.9 Major depressive disorder, single episode, unspecified; E78.5 Hyperlipidemia, unspecified; M70.71 Other bursitis of hip, right hip; G89.4 Chronic pain syndrome; Z90.79 Acquired absence of other genital organ(s); Z79.899 Other long term (current) drug therapy; Z79.01 Long term (current) use of anticoagulants; Z90.710 Acquired absence of both cervix and uterus; Z84.89 Family history of other specified conditions; Z82.49 Family history of ischemic heart disease and other diseases of the circulatory system; Z83.42 Family history of familial hypercholesterolemia; Z96.653 Presence of artificial knee joint, bilateral; Z88.5 Allergy status to narcotic agent; Z88.8 Allergy status to other drugs, medicaments and biological substances; Z86.711 Personal history of pulmonary embolism

== ENCOUNTER 2016-12-19 14:05 | Emergency (ER) | payer OTHER ==
[~2016-12-19] VITALS: Ht 157.5 cm; Wt 102.0 kg
[~2016-12-19 14:05] MED LIST changes: -ALBUAER2 INH; +CHOL20009 PO; -INSU1INJ33 SQ; +OXYC-57 PO; +PANT1TAB48 PO; +ROSU40TA PO; +VNTHFA/IN INH
[2016-12-19 14:16] VITALS: TEMP 36.7; Ht 157.5 cm; Wt 102.0 kg
[2016-12-19] MEDS ORDERED: MoRPHine SULFATE 2 MG/ML CARP IV STA (15:58)
[2016-12-19] MEDS ORDERED: SODIUM CHLORIDE 0.9% 1000ML 1,000 ML IV ONE ×2 (16:00→17:45)
[2016-12-19 16:15] LABS: URINE APPEARANCE TURBID (CLEAR); URINE BILIRUBIN NEG (NEG); URINE COLOR YELLOW; URINE EPITHELIAL CELL AUTO >30 /lpf (0-5); URINE NITRITE NEG (NEG); URINE PH 5.5 (4.5-7.5); URINE SPECIFIC GRAVITY 1.027 (1.000-1.030); UROBILINOGEN NEG (NEG); ZZUR CULT IF INDIC CLEAN CATCH YES
[2016-12-19 16:25] LABS: MANUAL MICROSCOPIC REQUIRED? NO; REVIEW REQ? YES
[2016-12-19] MEDS ORDERED: ONDANSETRON INJ 2 MG/ML 2 ML VIAL IV PRN (16:30)
--- NOTE | 2016-12-19 16:32 | EMERGENCY ROOM VISIT NOTE ---
History First contact with patient: 15:27 Chief Complaint: DIARRHEA Stated Complaint: DIARRHEA,ABD PAIN,BLOOD IN URINE Nursing Triage Summary: diarrhea started pt reports nausea and dry heaving pain in back and abd pt went to pcp today and referred to ER pcp concerned for gallbladder disease History of Present Illness The patient is a 56 year old female who presents to the Emergency Room with complaints of diarrhea for 2 weeks. The diarrhea started suddenly. She reports watery bowel movements multiple times a day immediately after eating. She notes epigastric pain that radiates to the suprapubic area and low back that is ascending. The pain is 8/10 and described as sharp/stabbing. She is nauseated and gagging but has not vomited. She denies any blood or melena. Notes pressure sensation with without urinary frequency. She denies fevers, chills or sweats. No recent antibiotics, hospitalizations or foreign travel. She has not made any recent changes in diet. Review of Systems as below Constitutional: No fever, No chills, No sweats Eyes: No eye pain, No redness, No discharge ENT: No hearing loss, No nasal symptoms, No sore throat, No tinnitus, No dental problems, No trouble swallowing Respiratory: No sputum, No wheezing, No shortness of breath, No dyspnea on exertion Cardiovascular: No chest pain, No orthopnea Abdomen: + nausea, + diarrhea, No vomiting, No constipation, No GI bleeding Musculoskeletal: No joint pain, No muscle pain, No swelling, No calf pain Genitourinary - Female: No urinary frequency, No urinary incontinence, No urinary retention Neurologic: No weakness, No numbness/tingling, No vertigo Psychiatric: + anxiety, No insomnia Endocrine: No fatigue, No excessive thirst, No excessive urination Hematologic / Lymphatic: No clotting problems, No swollen lymph nodes, No night sweats Integumentary: No rash, No itch, No new/changing skin lesions Past Medical/Surgical History Medical Problems: (1) Anxiety (2) Asthma (3) Back pain without radiculopathy (4) Chronic pain (5) Depression (6) Depression (7) Diabetes 1.5, managed as type 2 (8) DM2 (diabetes mellitus, type 2) (9) GERD (gastroesophageal reflux disease) (10) Greater trochanteric bursitis of right hip (11) HLD (hyperlipidemia) (12) Lumbar stenosis with neurogenic claudication (13) Pulmonary embolism (14) Stroke-like symptoms (15) Tachycardia (16) TOBACCO USE DISORDER Surgical Problems: (1) H/O neck surgery (2) H/O shoulder surgery (3) History of total abdominal hysterectomy (4) Hx of total knee arthroplasty (5) S/P IVC filter Family History Hypertension Social History Smoking Status: Current Every Day Smoker (1/2 pack per day) Smokeless Tobacco Use: No Alcohol Use: occasionally Drug Use: none Marital Status: single Housing Status: lives with family Occupation Status: employed Current/Historical Medications Scheduled Cholecalciferol (Vitamin D), 4,000 INTER.UNIT PO QPM Ciprofloxacin Hcl (Cipro), 1 TAB PO BID Fluticasone Furoate-Vilanterol (Breo Ellipta), 1 PUFF INH DAILY Furosemide (Furosemide), 20 MG PO DAILY Gabapentin (Neurontin), 300 MG PO TID Lorazepam (Ativan), 0.5 MG PO TID Metronidazole (Flagyl), 500 MG PO TID Pantoprazole (Protonix), 40 MG PO QPM Quetiapine Fumarate (Seroquel), 200 MG PO HS Rosuvastatin Calcium (Crestor), 40 MG PO QPM Tizanidine (Tizanidine HCl), 8 MG PO TID Venlafaxine Hcl (Effexor Extended Rel), 150 MG PO DAILY Warfarin Sodium (Coumadin), 5 MG PO 3XWK Warfarin Sodium (Coumadin), 7.5 MG PO 4XWK Scheduled PRN Albuterol Hfa (Ventolin Hfa), 2 PUFFS INH Q4H PRN for Shortness of Breath Arformoterol Tartrate (Brovana), 15 MCG NEB BID PRN for Shortness of Breath Dicyclomine Hcl (Bentyl), 1 TAB PO QID PRN for Pain Physical Exam Vital Signs Date Time Temp Pulse Resp B/P (MAP) Pulse Ox O2 Delivery O2 Flow Rate FiO2 12/19/16 18:55 90 18 185/100 95 Room Air 12/19/16 17:04 94 20 179/138 96 Room Air 12/19/16 16:00 81 19 168/129 96 Room Air 12/19/16 14:16 36.7 106 20 171/101 96 Room Air Pain Rating (0-10): 8 Physical Exam Constitutional: Vital signs as above were reviewed. Eyes: Pupils equal, round, and reactive to light. Extraocular muscles are intact. No proptosis. No photophobia. ENT: Mucous membranes are moist. Oropharynx is clear. No sinus tenderness. TMs are clear bilaterally. Cardiovascular: Heart with a regular rate and rhythm. Pulses are palpable and symmetric in all 4 extremities. No pedal edema appreciated. Respiratory: Lungs clear to auscultation bilaterally. No accessory muscle use. No retractions. No increased work of breathing. Very faint end-expiratory wheezing noted GI: Normal active bowel sounds. No abdominal hernias appreciated. No rebound. No guarding. Epigastric tenderness RLQ tenderness without guarding or rigidity Obese abdomen, soft, non-tender, non-distended : No CVA tenderness appreciated. Musculoskeletal: No midline cervical or vertebral tenderness. No gross deformities. No bony tenderness. No calf swelling or tenderness. Chest: Posterior back; right scapular tenderness to palpation Integumentary: Warm, dry, no rashes appreciated. Neurological: Patient awake, alert, and oriented x 3. Cranial nerves two through 12 grossly intact. Motor 5 out of 5 strength bilateral upper and lower extremities. Lymph: No cervical lymphadenopathy appreciated. Medical Decision & Procedures ER Provider Diagnostic Interpretation: ABDOMEN AND PELVIS CT WITH IV CONTRAST CT DOSE: 1301.43 mGy.cm HISTORY: Diarrhea. severe abdominal pain TECHNIQUE: Multiaxial CT images of the abdomen and pelvis were performed following the use of intravenous contrast. A dose lowering technique was utilized adhering to the principles of ALARA. COMPARISON STUDY: Abdomen and pelvis CT 10/24/2011. FINDINGS: The lung bases are essentially clear. No pneumoperitoneum. No pneumatosis. Posterior decompression and fusion with pedicle screws and rods within the lower lumbar spine. Hepatic steatosis. The gallbladder, pancreas, and kidneys are unremarkable. No hydronephrosis. Small bilateral renal gland nodules with the largest on the left measuring 1.1 cm. These are indeterminate. Calcification at the splenic dome. There is an IVC filter present. No retroperitoneal lymphadenopathy. A 1 cm omental nodule within the left side of the abdomen on image 255 favors an area of fat necrosis. This was demonstrated to be a area of focal fat on the prior study. Mild bladder wall thickening with mild surrounding inflammatory change. The uterus is surgically absent. No evidence for bowel obstruction. Scattered colonic diverticula. The appendix is identified on images 277 through 300. The tip is anterior to the right iliac bifurcation. The tip has increased in size and now measures up to 9 mm in diameter. The remaining portions of the appendix are within normal limits. There is no significant inflammatory change at the tip of the appendix. IMPRESSION: 1. Mild bladder wall thickening with surrounding inflammatory change. This likely represents a cystitis. Recommend correlation with urinalysis. 2. Abnormal appearance to the tip of the appendix which now measures up to 9 mm in diameter. There is no significant periappendiceal inflammatory change. Therefore, this is concerning for an appendiceal mass/mucocele. An early tip appendicitis could also have a similar appearance but is considered less likely. Clinical correlation recommended for further evaluation. In addition, if there is no concern for acute appendicitis, then the appendix should be removed on a nonemergent basis to exclude an appendiceal mass. 3. Hepatic steatosis. Electronically signed by: Michael Cary M.D. 12/19/2016 6:20 PM Dictated Date/Time: 12/19/2016 6:05 PM The status of this report is Signed. Draft = Not yet reviewed or approved by Radiologist. Signed = Reviewed and approved by Radiologist. Laboratory Results 12/19/16 16:30 Red Blood Count 4.11, Mean Corpuscular Volume 83.5, Mean Corpuscular Hemoglobin 26.8, Mean Corpuscular Hemoglobin Concent 32.1, Mean Platelet Volume 9.5, Neutrophils (%) (Auto) 71.1, Lymphocytes (%) (Auto) 19.4, Monocytes (%) (Auto) 6.1, Eosinophils (%) (Auto) 2.8, Basophils (%) (Auto) 0.2, Neutrophils # (Auto) 8.68, Lymphocytes # (Auto) 2.37, Monocytes # (Auto) 0.75, Eosinophils # (Auto) 0.34, Basophils # (Auto) 0.03 12/19/16 16:30 Test 12/19/16 15:40 12/19/16 16:30 Urine Color YELLOW Urine Appearance TURBID (CLEAR) Urine pH 5.5 (4.5-7.5) Urine Specific [place] 1.027 (1.000-1.030) Urine Protein NEG (NEG) Urine Glucose (UA) NEG (NEG) Urine Ketones TRACE (NEG) Urine Occult Blood 1+ (NEG) Urine Nitrite NEG (NEG) Urine Bilirubin NEG (NEG) Urine Urobilinogen NEG (NEG) Urine Leukocyte Esterase SMALL (NEG) Urine WBC (Auto) >30 /hpf (0-5) Urine RBC (Auto) 5-10 /hpf (0-4) Urine Hyaline Casts (Auto) 5-10 /lpf (0-5) Urine Epithelial Cells (Auto) >30 /lpf (0-5) Urine Bacteria (Auto) 1+ (NEG) Urine Crystals See comments (NONE PRSENT) White Blood Count 12.22 K/uL (4.8-10.8) Red Blood Count 4.11 M/uL (4.2-5.4) Hemoglobin 11.0 g/dL (12.0-16.0) Hematocrit 34.3 % (37-47) Mean Corpuscular Volume 83.5 fL (80-100) Mean Corpuscular Hemoglobin 26.8 pg (25-34) Mean Corpuscular Hemoglobin Concent 32.1 g/dl (32-36) Platelet Count 268 K/uL (130-400) Mean Platelet Volume 9.5 fL (7.4-10.4) Neutrophils (%) (Auto) 71.1 % Lymphocytes (%) (Auto) 19.4 % Monocytes (%) (Auto) 6.1 % Eosinophils (%) (Auto) 2.8 % Basophils (%) (Auto) 0.2 % Neutrophils # (Auto) 8.68 K/uL (1.4-6.5) Lymphocytes # (Auto) 2.37 K/uL (1.2-3.4) Monocytes # (Auto) 0.75 K/uL (0.11-0.59) Eosinophils # (Auto) 0.34 K/uL (0-0.5) Basophils # (Auto) 0.03 K/uL (0-0.2) RDW Standard Deviation 51.3 fL (36.4-46.3) RDW Coefficient of Variation 16.8 % (11.5-14.5) Immature Granulocyte % (Auto) 0.4 % Immature Granulocyte # (Auto) 0.05 K/uL (0.00-0.02) Prothrombin Time 26.8 SECONDS (9.0-12.0) Prothromb Time International Ratio 2.4 (0.9-1.1) Activated Partial Thromboplast Time 39.5 SECONDS (21.0-31.0) Partial Thromboplastin Ratio 1.5 Anion Gap 10.0 mmol/L (3-11) Est Creatinine Clear Calc Drug Dose 73.2 ml/min Estimated GFR () 76.6 Estimated GFR (Non- 66.1 BUN/Creatinine Ratio 19.2 (10-20) Calcium Level 9.1 mg/dl (8.5-10.1) Total Bilirubin 0.5 mg/dl (0.2-1) Aspartate Amino Transf (AST/SGOT) 26 U/L (15-37) Alanine Aminotransferase (ALT/SGPT) 44 U/L (12-78) Alkaline Phosphatase 113 U/L (45-117) Total Protein 7.3 gm/dl (6.4-8.2) Albumin 3.7 gm/dl (3.4-5.0) Globulin 3.6 gm/dl (2.5-4.0) Albumin/Globulin Ratio 1.0 (0.9-2) Lipase 568 U/L (73-393) Chemistry Specimen Hemolysis Medications Administered Medications (Trade) Dose Ordered Sig/Michael Route Start Time Stop Time Status Last Admin Dose Admin Sodium Chloride 1,000 ml @ 999 mls/hr Q1H1M ONCE IV 12/19/16 16:00 12/19/16 17:00 DC 12/19/16 16:00 999 MLS/HR Morphine Sulfate (MoRPHine SULFATE INJ) 2 mg NOW STAT IV 12/19/16 15:58 12/19/16 16:00 DC 12/19/16 17:02 2 MG Ondansetron HCl (Zofran Inj) 4 mg Q4H PRN IV 12/19/16 16:30 01/18/17 16:29 12/19/16 17:01 4 MG Ceftriaxone Sodium (Rocephin Inj) 1 gm NOW STAT IV 12/19/16 17:19 12/19/16 17:20 DC 12/19/16 18:32 1 GM Morphine Sulfate (MoRPHine SULFATE INJ) 2 mg ONE PRN IV 12/19/16 17:45 01/02/17 17:44 12/19/16 17:48 2 MG Sodium Chloride 1,000 ml @ 999 mls/hr Q1H1M ONCE IV 12/19/16 17:45 12/19/16 18:45 DC 12/19/16 17:45 999 MLS/HR ED Course 15:40 - Seen by Dr. Alessandro Saxena, R3 16:00 - Labs ordered 2 mg Morphine IV; 1 L NSS bolus 16:10 - Staffed case with Dr. Chapo Gandhi, ER attending physician 17:20 - Rocephin 1 g IV given 17:50 - 1 L NSS bolus ordered 2 mg Morphine IV administered 18:20 - CT scan reviewed; possible findings of early tip appendicitis vs appendiceal mass/mucoele 18:30 - Case discussed wit Deepti Amaya PA-C Surgery. Her and Dr. Montoya will be down to further evaluate the patient 18:55 - Reassessed patient who notes mild relief from fluids and Morphine. She was informed that surgery would evaluate her before determining next steps in her management. 19:10 - Discussed with Dr. Montoya. The patients symptoms are worse on examination of the LLQ compared to the right, which would not explain CT findings. 19:15 - Instructed nursing to PO challenge the patient to see if she can tolerate oral. Discussed case with Dr. Gandhi. 19:30 - Discussed case with the patient and noted non-specific appendiceal findings that can be monitored on outpatient basis. Patient agreeable to plan for outpatient antibiotics, close PCP follow-up and surgery follow-up 20:00 - Discharge paperwork completed. Patient to be discharged in stable condition Medical Decision 56 year old female who presents with subacute abdominal pain for 2 weeks duration with diarrhea. The patient had localization both the epigastrium and and RLQ. Lipase was elevated but generally unimpressive and unlikely to explain symptoms. Only mild WBC elevation at 12. Urine was suggesting possible urinary tract infection for which she was covered with dose of Rocephin. A CT notes early tip appendicitis vs. appendiceal mass/mucocele. Surgery was called and did evaluate the patient, though it was felt symptoms are not related to these findings on imaging. Interestingly, she localized pain for me in the RLQ and localized it to the LLQ for the surgeon so the examination is unfortunately unreliable. In the setting of possible UTI with GI symptoms, she will be covered with PO Cipro/Flagyl 10 day course. Regarding appendiceal findings, we will schedule her to see surgeon as an outpatient to discuss elective appendiceal removal. The patient presented mildly tachycardic with good response to IV fluids and likely due to GI losses over the past 2 weeks. She can tolerate PO fluids and she has been encouraged to continue taking PO fluids in the coming days. She was given a home pack for Zofran Regarding pain control, she was given 4 mg total Morphine in the ED. The PDMP does suggest having been prescribed [place] on 12/02 for 30 days so I felt it prudent not to provide extended prescription for opiates. Opiates are not optimal in this case long-term given the effects on GI motility, so I recommended instead doing Bentyl which she was in agreement with as an alternative. Until she can get to pharmacy for other medications, she was given a home pack for oxycodone. She was discharged home. BP was noted to be elevated through hospitalization however, this can be explained by abdominal discomfort. This can be followed in the outpatient setting. [place] Drug Monitoring Program Search Results: patient reviewed within database Head Trauma GCS Score: 15 Medication Reconcilliation Current Medication List: was personally reviewed by me Blood Pressure Screening Patient's blood pressure: Elevated blood pressure Blood pressure disposition: Elevated BP felt to be situational Impression Primary Impression: Urinary tract infection Departure Information Dispostion Home / Self-Care Condition GOOD Prescriptions Dicyclomine Hcl (BENTYL) 20 Mg Tab 1 TAB PO QID Y for Pain for 10 Days, #40 TAB Prov: Alessandro Saxena MD 12/19/16 Metronidazole (Flagyl) 500 Mg Tab 500 MG PO TID for 10 Days, #30 TAB Prov: Alessandro Saxena MD 12/19/16 Ciprofloxacin Hcl (CIPRO) 500 Mg Tab 1 TAB PO BID for 10 Days, #20 TAB Prov: Alessandro Saxena MD 12/19/16 Referrals Soham Hayes D.O. (PCP) Patient Instructions My [facility] Additional Instructions You came to the ED for abdominal pain. Your urine is suspicious for a urinary tract infection. We will send a culture off and start you on treatment at this time. Your CT scan did suggest a possibility for early appendicitis but our surgeons felt this was not the case. Your appendix should be removed electively but we will help you get an appointment with the surgeon to discuss this further. You will be discharged home on antibiotics to treat a urinary tract infection and to cover you for a gastro-intestinal infection. One of the medications (Ciprofloxacin) we are treating you with can interfere with your Warfarin. As such, we advise that you have Dr. Rivera repeat an INR level on you this week to determine if dose adjustments need to be made while you are on treatment. When you go home, please do the following: - Please take antibiotics (Ciprofloxacin and Flagyl) as directed for 10 days - Please eat a BRAT diet (Bananas, Rice, Apple Sauce, [place]) and other low residue foods as these will give your abdomen some rest. - Please sure oral hydration. We will give you medication for nausea if you experience this at home. - We will give you medication to help reduce cramping abdominal pain. Please take this as needed. - Please see your PCP within 1 week of discharge to ensure that you continue to improve - Please ensure your PCP checks your INR at follow-up. You responded well to fluids and were able to eat and drink in the ER so we felt we could discharge home back to the care of your PCP. If your symptoms fail to improve, acutely worsen, please seek medical attention immediately by either calling your primary care provider or going to your nearest emergency department. Otherwise, please see your primary care provider in 1 week to ensure that your symptoms continue to improve.
[2016-12-19] MEDS ORDERED: LORA-741 PO (16:35)
[2016-12-19] MEDS ORDERED: GABA-113 PO (16:36)
[2016-12-19 16:43] LABS: BASO % 0.2 %; BASO ABS # 0.03 K/uL (0-0.2); COMPLETE YES; EOS % 2.8 %; HEMATOCRIT 34.3 % (37-47); IG% 0.4 %; LYMPH % 19.4 %; LYMPH ABS # 2.37 K/uL (1.2-3.4); MEAN CELL VOLUME 83.5 fL (80-100); MEAN CORPUSCULAR HEMOGLOBIN 26.8 pg (25-34); MEAN CORPUSCULAR HGB CONC 32.1 g/dl (32-36); MEAN PLATELET VOLUME 9.5 fL (7.4-10.4); MONO % 6.1 %; NEUT % 71.1 %; PLATELET COUNT 268 K/uL (130-400); RED BLOOD COUNT 4.11 M/uL (4.2-5.4); WHITE BLOOD COUNT 12.22 K/uL (4.8-10.8)
--- NOTE | 2016-12-19 16:53 | EMERGENCY ROOM VISIT NOTE ---
ED Visit Note First contact with patient: 15:27 The patient was seen and examined with Alessandro Saxena, . I agree with the history, physical and findings. Please see the note for disposition and details.
[2016-12-19 16:55] LABS: INR 2.4 (0.9-1.1); PARTIAL THROMBOPLASTIN RATIO 1.5; PROTHROMBIN TIME (PATIENT) 26.8 SECONDS (9.0-12.0)
[2016-12-19] MEDS ORDERED: LSX20 PO (17:05)
[2016-12-19] MEDS ORDERED: QUET1TAB10 PO (17:05)
[2016-12-19] MEDS ORDERED: EFFSR150 PO (17:05)
[2016-12-19] MEDS ORDERED: ZNF/4 PO (17:05)
[2016-12-19] MEDS ORDERED: WARF5TAB90 PO ×2 (17:09→17:10)
[2016-12-19] MEDS ORDERED: FLUT1INH INH (17:13)
[2016-12-19] MEDS ORDERED: CEFTRIAXONE SOD INJ 1 GM ADDVIAL IV STA (17:19)
[2016-12-19] MEDS ORDERED: ARFO15NE NEB (17:21)
[2016-12-19 17:30] LABS: BUN/CREATININE RATIO 19.2 (10-20); CALCIUM 9.1 mg/dl (8.5-10.1); CREATININE 0.96 mg/dl (0.60-1.20)
[2016-12-19] MEDS ORDERED: OPTIRAY 320 IV PRN (17:30)
[2016-12-19 17:34] LABS: POTASSIUM 3.6 mmol/L (3.5-5.1)
[2016-12-19] MEDS ORDERED: MoRPHine SULFATE 2 MG/ML CARP IV PRN (17:45)
--- NOTE | 2016-12-19 18:22 | DIAGNOSTIC IMAGING REPORT ---
ABDOMEN AND PELVIS CT WITH IV CONTRAST CT DOSE: 1301.43 mGy.cm HISTORY: Diarrhea. severe abdominal pain TECHNIQUE: Multiaxial CT images of the abdomen and pelvis were performed following the use of intravenous contrast. A dose lowering technique was utilized adhering to the principles of ALARA. COMPARISON STUDY: Abdomen and pelvis CT 10/24/2011. FINDINGS: The lung bases are essentially clear. No pneumoperitoneum. No pneumatosis. Posterior decompression and fusion with pedicle screws and rods within the lower lumbar spine. Hepatic steatosis. The gallbladder, pancreas, and kidneys are unremarkable. No hydronephrosis. Small bilateral renal gland nodules with the largest on the left measuring 1.1 cm. These are indeterminate. Calcification at the splenic dome. There is an IVC filter present. No retroperitoneal lymphadenopathy. A 1 cm omental nodule within the left side of the abdomen on image 255 favors an area of fat necrosis. This was demonstrated to be a area of focal fat on the prior study. Mild bladder wall thickening with mild surrounding inflammatory change. The uterus is surgically absent. No evidence for bowel obstruction. Scattered colonic diverticula. The appendix is identified on images 277 through 300. The tip is anterior to the right iliac bifurcation. The tip has increased in size and now measures up to 9 mm in diameter. The remaining portions of the appendix are within normal limits. There is no significant inflammatory change at the tip of the appendix. IMPRESSION: 1. Mild bladder wall thickening with surrounding inflammatory change. This likely represents a cystitis. Recommend correlation with urinalysis. 2. Abnormal appearance to the tip of the appendix which now measures up to 9 mm in diameter. There is no significant periappendiceal inflammatory change. Therefore, this is concerning for an appendiceal mass/mucocele. An early tip appendicitis could also have a similar appearance but is considered less likely. Clinical correlation recommended for further evaluation. In addition, if there is no concern for acute appendicitis, then the appendix should be removed on a nonemergent basis to exclude an appendiceal mass. 3. Hepatic steatosis. Electronically signed by: Michael Cary M.D. 12/19/2016 6:20 PM Dictated Date/Time: 12/19/2016 6:05 PM
[2016-12-19] MEDS ORDERED: CIPR1TAB10 PO (19:23)
[2016-12-19] MEDS ORDERED: METR-163 PO (19:23)
[2016-12-19] MEDS ORDERED: ONDA4TAB46 PO (19:32)
[2016-12-19] MEDS ORDERED: DICY20TA35 PO (19:43)
[2016-12-19] MEDS ORDERED: OXYCODONE IR HOME PACK PO ONE (20:00)
[2016-12-19] MEDS ORDERED: ONDANSETRON HOME PACK 4MG OD TAB PO ONE (20:00)
[2016-12-19 20:16] VITALS: BP 177/101; PULSE 82; O2SAT 96
--- NOTE | 2016-12-19 23:58 | CONSULTATION REPORT ---
DATE OF CONSULTATION: 12/19/2016 I have been asked by Dr. Gandhi to see this 56-year-old female who presented to the Emergency Room with a complaint of abdominal pain and worsening diarrhea. The patient states that she has intermittent diarrhea as her usual bowel habit pattern. There are formed bowel movements much of the time usually. Over the last 2-3 weeks, however, she has had only diarrhea and has been having increasing numbers of stools. She was being evaluated for that but then earlier today developed pain that she says was in the subxiphoid region. It was a burning sensation. It radiated inferiorly toward the pubic tubercle area. Two days prior to that, she had pain in the suprapubic area and pain down in the urethral area with urination consistent with dysuria. She was undergoing an evaluation for a UTI. She had some more diffuse abdominal discomfort. She had some nausea and dry heaves, but no vomiting. She does not think she had a fever. There was no melena or hematochezia with the diarrhea. She has no history of inflammatory bowel disease. Her last colonoscopy she thinks was 8 or 9 years ago. PAST MEDICAL HISTORY: Includes asthma, diabetes managed as type 2, GERD, hyperlipidemia, pulmonary embolism about 5 years ago, TIA, tachycardia. PAST SURGICAL HISTORY: Surgery on her neck and surgery on her shoulder. She had had what she describes as 10 procedures for [employer]UD[employer] issues between 1984 and 1992. She has also had lysis of adhesion during one of those surgeries. She has had total knee arthroplasty and is status post IVC filter. MEDICATIONS AT HOME: Include vitamin D, Cipro, furosemide, Neurontin, Ativan, Flagyl, Protonix, Seroquel, Crestor, Effexor and Coumadin. ALLERGIES: TO CHLORPHENIRAMINE-HYDROCODONE AND PHENYTOIN. PHYSICAL EXAMINATION: GENERAL: Reveals an obese female who is lying comfortably and appears in no acute distress. VITAL SIGNS: Blood pressure 179/138, heart rate 94, respirations 20, temperature 36.7, pulse oximetry 96% on room air. HEENT: Reveals the sclerae to be anicteric. Mucous membranes are moist. NECK: Supple with no adenopathy. LUNGS: Clear. HEART: Regular. BACK: There is no spinal or CVA tenderness. ABDOMEN: Has normoactive bowel sounds, is soft with tenderness mostly in the suprapubic area and to the left of suprapubic area. There is much more mild tenderness in the remainder of her abdomen. There is no McBurney tenderness. LABORATORY DATA: WBC is 12.22, H&H is 11.0 and 34.3, platelet count 268,000. Sodium 141, potassium 3.6, chloride 108, CO2 of 23, BUN 18, creatinine 0.96, glucose 98. Total bilirubin 0.5, AST 26, ALT 44, alkaline phosphatase 113, lipase 568. INR is 2.4. CT scan of the abdomen and pelvis reveals mild bladder wall thickening with surrounding inflammatory change, likely representing cystitis. There is an abnormal appearance at the tip of the appendix measuring 9 mm, but no significant periappendiceal inflammatory change. Hepatic steatosis. ASSESSMENT AND PLAN: This patient has chronic diarrhea now with no blood. GI consult may be appropriate for evaluation as an outpatient. The dilated tip of the appendix shows no evidence of periappendiceal inflammation and she has no significant tenderness in that area. We can evaluate that as an outpatient for elective cholecystectomy. She has symptoms in the suprapubic area and had some dysuria and hematuria with findings possibly consistent with cystitis. That can be evaluated by primary care or urology. I do not feel there is any need for surgical intervention at this time. If her symptoms progress, we can reevaluate.
--- NOTE | 2016-12-21 13:37 | Pharmacy Progress Note ---
ED Pharmacist Culture FollowUp Date of Service: Dec 21, 2016. Patient discharged on omnicef/Flagyl for abdominal coverage. Patient with lactobacillus positive urine culture. Discussed with Dr. Saxena, no further intervention required.
== END 2016-12-19 20:19 | disposition home or self-care (01) ==
LOC: C.EDB 14:06
DX: N39.0 Urinary tract infection, site not specified (principal); R19.7 Diarrhea, unspecified; R10.13 Epigastric pain; R31.9 Hematuria, unspecified; E11.9 Type 2 diabetes mellitus without complications; Z79.899 Other long term (current) drug therapy; F17.210 Nicotine dependence, cigarettes, uncomplicated; J45.40 Moderate persistent asthma, uncomplicated; F41.9 Anxiety disorder, unspecified; F32.9 Major depressive disorder, single episode, unspecified; Z79.01 Long term (current) use of anticoagulants; K76.0 Fatty (change of) liver, not elsewhere classified

== ENCOUNTER 2016-12-29 16:59 | Emergency (ER) | payer OTHER ==
[~2016-12-29] VITALS: Ht 154.9 cm; Wt 105.4 kg
[~2016-12-29 16:59] MED LIST changes: -ATV/1 PO; +CIPR1TAB10 PO; +DICY20TA35 PO; +GABA-113 PO; -HYDR-5688 PO; +LORA-741 PO; +METR-163 PO; -OXYC-57 PO
[2016-12-29] MEDS ORDERED: QUET1TAB10 PO (17:05)
[2016-12-29] MEDS ORDERED: LSX20 PO (17:05)
[2016-12-29] MEDS ORDERED: ZNF/4 PO (17:05)
[2016-12-29] MEDS ORDERED: EFFSR150 PO (17:05)
[2016-12-29 17:06] VITALS: TEMP 36.7; Ht 154.9 cm; Wt 105.4 kg
[2016-12-29] MEDS ORDERED: WARF5TAB90 PO ×2 (17:09→17:10)
[2016-12-29] MEDS ORDERED: FLUT1INH INH (17:13)
[2016-12-29] MEDS ORDERED: ARFO15NE NEB (17:21)
[2016-12-29] MEDS ORDERED: ONDANSETRON INJ 2 MG/ML 2 ML VIAL IV STA (17:32)
[2016-12-29] MEDS ORDERED: LORAZEPAM 2 MG/ML 1 ML VIAL IV STA (17:32)
[2016-12-29] MEDS ORDERED: SODIUM CHLORIDE 0.9% 1000ML 1,000 ML IV STA (17:32)
[2016-12-29] MEDS ORDERED: ACETAMINOPHEN 500 MG TAB PO STA (17:32)
[2016-12-29] MEDS ORDERED: ATV5X PO (17:33)
[2016-12-29] MEDS ORDERED: GABA1CAP4 PO (17:33)
[2016-12-29] MEDS ORDERED: CEFD300C3 PO (17:33)
[2016-12-29] MEDS ORDERED: CYCL10TA7 PO (17:33)
[2016-12-29] MEDS ORDERED: DICY1TAB25 PO (17:33)
--- NOTE | 2016-12-29 17:44 | EMERGENCY ROOM VISIT NOTE ---
History Report prepared by Roxanna: Agustin Medeiros Under the Supervision of: Dr. Von Sarkar M.D. First contact with patient: 17:10 Chief Complaint: BACK PAIN Stated Complaint: BACK PAIN/ ABDOMINAL PAIN History of Present Illness The patient is a 56 year old female who presents to the Emergency Room with complaints of constant, severe, stabbing, back pain beginning 7 hours ago. The patient states she has been being evaluated by a surgeon for her appendix. She reports she was told one end looks bad, and may need to come out. The patient notes she has been being evaluated since she was discharged with a UTI 10 days ago. She states she bent over to pick a piece of paper up this morning, and on her way back up, it felt like someone stabbed a knife in her back. The patient reports her pain also radiates to her abdomen. She notes she was not sure if it had to do with her appendix because she was not experiencing these symptoms until today. The patient states she has a history of a blown disk and a lower back fusion. She reports she has not been eating today and is now nauseous and warm. The patient notes she tried resting and taking Advil, but it did not help. She denies fevers, chills, cough, congestion, vomiting, and pain with urination. Source of History: patient Onset: 7 hours ago Position: back Symptom Intensity: severe Quality: stabbing Timing: constant Associated Symptoms: + nausea, + abdominal pain, No fevers, No chills, No cough, No vomiting, No urinary symptoms Note: Associated symptoms: warmth Denies: congestion Review of Systems See HPI for pertinent positives and negatives. A total of ten systems were reviewed and were otherwise negative. Past Medical & Surgical Medical Problems: (1) Anxiety (2) Asthma (3) Back pain without radiculopathy (4) Chronic pain (5) Depression (6) Depression (7) Diabetes 1.5, managed as type 2 (8) DM2 (diabetes mellitus, type 2) (9) GERD (gastroesophageal reflux disease) (10) Greater trochanteric bursitis of right hip (11) HLD (hyperlipidemia) (12) Lumbar stenosis with neurogenic claudication (13) Pulmonary embolism (14) Stroke-like symptoms (15) Tachycardia (16) TOBACCO USE DISORDER Surgical Problems: (1) H/O neck surgery (2) H/O shoulder surgery (3) History of total abdominal hysterectomy (4) Hx of total knee arthroplasty (5) S/P IVC filter Family History Hypertension Social History Smoking Status: Former Smoker Alcohol Use: occasionally Drug Use: none Marital Status: single Housing Status: lives with family Occupation Status: employed Current/Historical Medications Scheduled Cefdinir (Cefdinir), 300 MG PO BID Cholecalciferol (Vitamin D), 4,000 INTER.UNIT PO QPM Fluticasone Furoate-Vilanterol (Breo Ellipta), 1 PUFF INH DAILY Furosemide (Furosemide), 20 MG PO DAILY Gabapentin (Gabapentin), 300 MG PO TID Lorazepam (Lorazepam), 0.5 MG PO TID Meloxicam (Meloxicam), 15 MG PO DAILY Pantoprazole (Protonix), 40 MG PO QPM Quetiapine Fumarate (Seroquel), 200 MG PO HS Rosuvastatin Calcium (Crestor), 40 MG PO QPM Tizanidine (Tizanidine HCl), 8 MG PO TID Venlafaxine Hcl (Effexor Extended Rel), 150 MG PO DAILY Warfarin Sodium (Coumadin), 5 MG PO 3XWK Warfarin Sodium (Coumadin), 7.5 MG PO 4XWK Scheduled PRN Albuterol Hfa (Ventolin Hfa), 2 PUFFS INH Q4H PRN for Shortness of Breath Arformoterol Tartrate (Brovana), 15 MCG NEB BID PRN for Shortness of Breath Cyclobenzaprine HCl (Cyclobenzaprine HCl), 10 MG PO TID PRN for Muscle Spasm Dicyclomine HCl (Dicyclomine HCl), 20 MG PO QID PRN for Abdominal Pain Oxycodone Ir (Roxicodone Ir), 1-2 TAB PO Q4H PRN for Pain Allergies Coded Allergies: Chlorpheniramine (Verified Allergy, Unknown, Change in mental status, 08/27) Hydrocodone (Verified Allergy, Unknown, Change in mental status, 08/27/16) Phenytoin (Verified Allergy, Unknown, Facial swelling, 12/19/16) Physical Exam Vital Signs Date Time Temp Pulse Resp B/P (MAP) Pulse Ox O2 Delivery O2 Flow Rate FiO2 12/29/16 22:33 68 16 145/76 98 Room Air 12/29/16 20:54 72 16 125/78 98 Room Air 12/29/16 18:57 76 16 115/76 98 Room Air 12/29/16 17:06 36.7 81 16 173/94 98 Room Air Physical Exam GENERAL: Awake, alert, well-appearing, in no distress HENT: Normocephalic, atraumatic. Oropharynx unremarkable. Dry mucus membranes. EYES: Normal conjunctiva. Sclera non-icteric. NECK: Supple. No nuchal rigidity. FROM. No JVD. RESPIRATORY: Clear to auscultation. CARDIAC: Regular rate, normal rhythm. Extremities warm and well perfused. Pulses equal. ABDOMEN: Soft, non-distended. Mild LLQ, RLQ, and suprapubic tenderness to palpation. No rebound or guarding. No masses. No peritoneal signs. RECTAL: Deferred. MUSCULOSKELETAL: Chest examination reveals no tenderness. The back is symmetrical on inspection without obvious abnormality. There is mild lumbar paraspinal and midline tenderness to palpation. No joint edema. Mild tenderness in the right lateral buttock extending distally in sciatic distribution. Distal PMS intact. LOWER EXTREMITIES: Calves are equal size bilaterally and non-tender. No edema. No discoloration. 5/5 strength and SILT. NEURO: Normal sensorium. No sensory or motor deficits noted. SKIN: No rash or jaundice noted. Medical Decision & Procedures Laboratory Results 12/29/16 17:45 Red Blood Count 4.34, Mean Corpuscular Volume 82.9, Mean Corpuscular Hemoglobin 26.7, Mean Corpuscular Hemoglobin Concent 32.2, Mean Platelet Volume 9.7, Neutrophils (%) (Auto) 66.7, Lymphocytes (%) (Auto) 22.5, Monocytes (%) (Auto) 6.4, Eosinophils (%) (Auto) 3.8, Basophils (%) (Auto) 0.2, Neutrophils # (Auto) 7.75, Lymphocytes # (Auto) 2.62, Monocytes # (Auto) 0.75, Eosinophils # (Auto) 0.44, Basophils # (Auto) 0.02 12/29/16 17:45 Test 12/29/16 17:45 White Blood Count 11.63 K/uL (4.8-10.8) Red Blood Count 4.34 M/uL (4.2-5.4) Hemoglobin 11.6 g/dL (12.0-16.0) Hematocrit 36.0 % (37-47) Mean Corpuscular Volume 82.9 fL (80-100) Mean Corpuscular Hemoglobin 26.7 pg (25-34) Mean Corpuscular Hemoglobin Concent 32.2 g/dl (32-36) Platelet Count 271 K/uL (130-400) Mean Platelet Volume 9.7 fL (7.4-10.4) Neutrophils (%) (Auto) 66.7 % Lymphocytes (%) (Auto) 22.5 % Monocytes (%) (Auto) 6.4 % Eosinophils (%) (Auto) 3.8 % Basophils (%) (Auto) 0.2 % Neutrophils # (Auto) 7.75 K/uL (1.4-6.5) Lymphocytes # (Auto) 2.62 K/uL (1.2-3.4) Monocytes # (Auto) 0.75 K/uL (0.11-0.59) Eosinophils # (Auto) 0.44 K/uL (0-0.5) Basophils # (Auto) 0.02 K/uL (0-0.2) RDW Standard Deviation 50.9 fL (36.4-46.3) RDW Coefficient of Variation 16.8 % (11.5-14.5) Immature Granulocyte % (Auto) 0.4 % Immature Granulocyte # (Auto) 0.05 K/uL (0.00-0.02) Prothrombin Time 19.4 SECONDS (9.0-12.0) Prothromb Time International Ratio 1.8 (0.9-1.1) Anion Gap 7.0 mmol/L (3-11) Est Creatinine Clear Calc Drug Dose 101.8 ml/min Estimated GFR () 112.8 Estimated GFR (Non- 97.3 BUN/Creatinine Ratio 13.4 (10-20) Lactic Acid Level 0.5 mmol/L (0.4-2.0) Calcium Level 9.9 mg/dl (8.5-10.1) Total Bilirubin 0.5 mg/dl (0.2-1) Direct Bilirubin < 0.1 mg/dl (0-0.2) Aspartate Amino Transf (AST/SGOT) 26 U/L (15-37) Alanine Aminotransferase (ALT/SGPT) 37 U/L (12-78) Alkaline Phosphatase 113 U/L (45-117) Total Protein 7.2 gm/dl (6.4-8.2) Albumin 3.8 gm/dl (3.4-5.0) Lipase 68 U/L (73-393) Laboratory results reviewed by me Medications Administered Medications (Trade) Dose Ordered Sig/Michael Route Start Time Stop Time Status Last Admin Dose Admin Sodium Chloride 1,000 ml @ 999 mls/hr Q1H1M STAT IV 12/29/16 17:32 12/29/16 18:32 DC 12/29/16 17:45 999 MLS/HR Ondansetron HCl (Zofran Inj) 4 mg NOW STAT IV 12/29/16 17:32 12/29/16 17:38 DC 12/29/16 17:46 4 MG Lorazepam (Ativan Inj) 0.5 mg NOW STAT IV 12/29/16 17:32 12/29/16 17:38 DC 12/29/16 17:47 0.5 MG Acetaminophen (Tylenol Tab) 1,000 mg NOW STAT PO 12/29/16 17:32 12/29/16 17:38 DC 12/29/16 17:46 1,000 MG Oxycodone HCl (Roxicodone Immediate Rel Tab) 10 mg NOW STAT PO 12/29/16 18:58 12/29/16 19:00 DC 12/29/16 18:58 10 MG Morphine Sulfate (MoRPHine SULFATE INJ) 6 mg NOW STAT IV 12/29/16 20:34 12/29/16 20:35 DC 12/29/16 20:34 6 MG Oxycodone HCl (Roxicodone Immediate Rel 5MG Home Pack) 1 homepack UD ONCE PO 12/29/16 22:15 12/29/16 22:16 DC 12/29/16 22:15 1 HOMEPACK Oxycodone HCl (Roxicodone Immediate Rel Tab) 10 mg NOW STAT PO 12/29/16 22:18 12/29/16 22:19 DC 12/29/16 22:18 10 MG ED Course 1724: The patient was evaluated in room B12A. A complete history and physical exam was performed. 173: Ordered Tylenol 1000mg PO, Lorazepam 0.5mg IV, Zofran Inj 4mg IV, Sodium Chloride 1000 ml @ 999 mls/hr IV 1858: Ordered Oxycodone HCl 10mg PO 1943: I reevaluated and updated the patient. I discussed that I do not think we need to scan her abdomen. She agreed to see what the oxycodone does for her pain. I informed her that it will not take it to 0, but a manageable pain. 2031: I reevaluated the patient. She is getting a dose of IV morphine and will have an ambulatory trial. If she fails, she will be evaluated for further management and care. 2033: Ordered Morphine Sulfate 6mg IV 2129: I reevaluated the patient. She was able to ambulate, feels better, and would like to go home. Discussed results and discharge instructions: she verbalized understanding and agreement. The patient is ready for discharge. 2214: Ordered Oxycodone HCl 1 homepack PO 2216: The nurse informed me the patient wants to have IV pain medication and then be discharged. She is waiting for her ride to get here. 2217: Ordered Oxycodone HCl 10mg PO Medical Decision I reviewed the patient's past medical history, medications, and the nursing notes as described above. Differential diagnosis: musculoskeletal strain, sciatica, disk herniation/bulge, fracture, UTI, pyleonephritis, appendicitis, gastritis, gastroenteritis. The patient is a 56 y/o woman with pmhx of PE on coumadin, chronic back pain s/ p cervical/lumbar fusions, and recent ED visit for abdominal pain with equivocal appendiceal findings d/c'd with outpatient f/u who presents to the ED with lumbar pain with intermittent radiation to abdomen and leg per HPI. On arrival the patient is in NAD, AFVSS. Mild lumbar ttp with positive straight leg raise. WBC 11 but improved from recent. Lactate 0.5. Labs otherwise unremarkable. Given patient's improved labs and sx precipitated by bending over , most likely muscular/skeletal strain vs radiculopathy and less likely appendicitis. Considering no urinary retention/bowel incontinence and normal strength and sensation and able to ambulate no indication for imaging at this time. Patient given multiple does of analgesia with eventual moderate improvement in sx and able to ambulate in ED. Patient expressing concern about going home afraid that the pain may return however given the patient is able to ambulate there is not indication for admission at this time. Moreover, I explained that her pain is unlikely to go away completely at that she should expect to have some pain that should gradually improve over time. Patient ultimately agreeable for d/c and will return if pain becomes worse again. 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 Patient counseled that narcotics are an effective pain medication for acute severe pain such as from a bone fracture or after surgery, however, they are not recommended for chronic pain such as for headaches or back pain as they have the potential to promote rebound hyperalgesia resulting in increased severity of the initial chronic pain when not taking narcotics. Findings and plan for follow-up reviewed with patient. Patient agreeable and d/c'd per discharge instructions. [place] Drug Monitoring Program Drug Monitoring Findings: Prescriptions:24 Prescribers:8 Pharmacies:5 Medication Reconcilliation Current Medication List: was personally reviewed by me Blood Pressure Screening Patient's blood pressure: Normal blood pressure Blood pressure disposition: Did not require urgent referral Impression Primary Impression: Radiculopathy of lumbosacral region Additional Impression: Lumbar back pain Scribe Attestation The scribe's documentation has been prepared under my direction and personally reviewed by me in its entirety. I confirm that the note above accurately reflects all work, treatment, procedures, and medical decision making performed by me. Departure Information Dispostion Home / Self-Care Prescriptions Oxycodone Ir (Roxicodone Ir) 5 Mg Tab 1-2 TAB PO Q4H Y for Pain, #10 TAB Prov: Von Sarkar M.D. 12/29/16 Referrals Soham Hayes D.O. (PCP) Patient Instructions ED Exercises Lumbar Muscles, ED Sprain Strain Lumbar, Lumbar Radiculopathy, [facility] Additional Instructions Please follow up with your cardiovascular invasive specialist next week for re-evaluation as well as with your general surgeon tomorrow as scheduled. Otherwise, your exam, chest xray, and lab results did not show signs of an emergent condition at this time. Acetaminophen for pain as needed. Oxycodone for breakthrough pain as needed. Heating pad at 20 minute intervals throughout the day. Return to the emergency department for worsening symptoms as described in the accompanying instructions. Problem Qualifiers
[2016-12-29] MEDS ORDERED: MELO15TA4 PO (17:46)
[2016-12-29 18:00] LABS: BASO % 0.2 %; BASO ABS # 0.02 K/uL (0-0.2); COMPLETE YES; EOS % 3.8 %; IG% 0.4 %; LYMPH % 22.5 %; LYMPH ABS # 2.62 K/uL (1.2-3.4); MEAN CELL VOLUME 82.9 fL (80-100); MEAN CORPUSCULAR HEMOGLOBIN 26.7 pg (25-34); MEAN CORPUSCULAR HGB CONC 32.2 g/dl (32-36); MEAN PLATELET VOLUME 9.7 fL (7.4-10.4); MONO % 6.4 %; NEUT % 66.7 %; PLATELET COUNT 271 K/uL (130-400); RED BLOOD COUNT 4.34 M/uL (4.2-5.4); WHITE BLOOD COUNT 11.63 K/uL (4.8-10.8)
[2016-12-29 18:10] LABS: INR 1.8 (0.9-1.1); PROTHROMBIN TIME (PATIENT) 19.4 SECONDS (9.0-12.0)
[2016-12-29 18:26] LABS: ALT/SGPT 37 U/L (12-78); BLOOD UREA NITROGEN 9 mg/dl (7-18); BUN/CREATININE RATIO 13.4 (10-20); CALCIUM 9.9 mg/dl (8.5-10.1); CARBON DIOXIDE 28 mmol/L (21-32); CHLORIDE 104 mmol/L (98-107); CREATININE 0.69 mg/dl (0.60-1.20); GLUCOSE 100 mg/dl (70-99); POTASSIUM 3.1 mmol/L (3.5-5.1); SODIUM 139 mmol/L (136-145)
[2016-12-29 18:29] LABS: ALKALINE PHOSPHATASE 113 U/L (45-117); AST/SGOT 26 U/L (15-37)
[2016-12-29] MEDS ORDERED: OXYCODONE HCL IR 5 MG TAB (IMMEDIATE RELEASE) PO STA ×2 (18:58→22:18)
[2016-12-29] MEDS ORDERED: MoRPHine SULFATE 10 MG/ML CARP/VIAL IV STA (20:34)
[2016-12-29] MEDS ORDERED: MoRPHine SULFATE 2 MG/ML CARP ONE (20:39)
[2016-12-29] MEDS ORDERED: OXYC1TAB3 PO (21:37)
[2016-12-29] MEDS ORDERED: OXYCODONE IR HOME PACK PO ONE (22:15)
[2016-12-29 22:33] VITALS: BP 145/76; PULSE 68; O2SAT 98
== END 2016-12-29 23:00 | disposition home or self-care (01) ==
LOC: EDBD 16:59 → C.EDB 17:02
DX: M54.17 Radiculopathy, lumbosacral region (principal); G89.29 Other chronic pain; F41.9 Anxiety disorder, unspecified; J45.909 Unspecified asthma, uncomplicated; F32.9 Major depressive disorder, single episode, unspecified; E11.9 Type 2 diabetes mellitus without complications; K21.9 Gastro-esophageal reflux disease without esophagitis; E78.5 Hyperlipidemia, unspecified; M48.062 Spinal stenosis, lumbar region with neurogenic claudication; Z86.711 Personal history of pulmonary embolism; Z87.891 Personal history of nicotine dependence; Z90.710 Acquired absence of both cervix and uterus; Z96.659 Presence of unspecified artificial knee joint; Z95.828 Presence of other vascular implants and grafts; Z79.01 Long term (current) use of anticoagulants

== ENCOUNTER 2017-01-03 12:32 | Emergency (ER) | payer OTHER ==
[~2017-01-03] VITALS: Ht 154.9 cm; Wt 102.7 kg
[~2017-01-03 12:32] MED LIST changes: +ARFO15NE NEB; +ATV5X PO; +CEFD300C3 PO; -CIPR1TAB10 PO; +CYCL10TA7 PO; +DICY1TAB25 PO; -DICY20TA35 PO; +EFFSR150 PO; +FLUT1INH INH; -GABA-113 PO; +GABA1CAP4 PO; -LORA-741 PO; +LSX20 PO; +MELO15TA4 PO; -METR-163 PO; +OXYC1TAB3 PO; +QUET1TAB10 PO; +WARF5TAB90 PO; +ZNF/4 PO
[2017-01-03 12:50] VITALS: TEMP 36.9; Ht 154.9 cm; Wt 102.7 kg
[2017-01-03] MEDS ORDERED: OPTIRAY 320 IV PRN (14:00)
[2017-01-03 14:14] LABS: ISTAT CREATININE 0.7 mg/dl (0.6-1.3); ISTAT HEMOGLOBIN 12.2 g/dl (12.0-16.0); ISTAT IONIZED CALCIUM 1.19 mmol/l (1.12-1.32)
[2017-01-03 14:16] LABS: PREG INTERNAL NEGATIVE QC NEG CLEAR BACKGROUND; PREG INTERNAL POSITIVE QC POS CONTROL LINE
[2017-01-03 14:17] LABS: URINE APPEARANCE CLEAR (CLEAR); URINE BILIRUBIN NEG (NEG); URINE COLOR YELLOW; URINE EPITHELIAL CELL AUTO >30 /lpf (0-5); URINE NITRITE NEG (NEG); URINE PH 6.5 (4.5-7.5); URINE SPECIFIC GRAVITY 1.012 (1.000-1.030); UROBILINOGEN NEG (NEG); ZZUR CULT IF INDIC CLEAN CATCH NO
[2017-01-03 14:20] LABS: MANUAL MICROSCOPIC REQUIRED? NO; REVIEW REQ? NO
--- NOTE | 2017-01-03 14:29 | DIAGNOSTIC IMAGING REPORT ---
CT SCAN OF THE ABDOMEN AND PELVIS WITH IV CONTRAST CLINICAL HISTORY: Right lower quadrant abdominal pain. COMPARISON STUDY: Abdominal CT dated 12/19/2016. TECHNIQUE: Following the IV administration of 94 cc of Optiray 320, CT scan of the abdomen and pelvis is performed from the lung bases to the proximal femora. Images are reviewed in the axial, sagittal, and coronal planes. IV contrast was administered without complication. A dose lowering technique was utilized adhering to the principles of ALARA. CT DOSE: 1217.81 mGy.cm FINDINGS: Lung bases: The heart is normal in size and without pericardial effusion. There is a small fat-containing Bochdalek hernia at the left lung base. Atelectasis versus scarring is seen in the right middle lobe and lingula. The lung bases are otherwise clear. A tiny hiatal hernia is identified. Liver: The contrast-enhanced liver is enlarged, measuring 20.3 cm in length. The liver demonstrates diffusely diminished attenuation consistent with severe hepatic steatosis. Fatty sparing is seen adjacent to gallbladder fossa. There is no intrahepatic biliary ductal dilatation. The hepatic veins and portal veins are patent. Gallbladder: Unremarkable. Spleen: Normal in size and attenuation. A calcified splenic granuloma is incidentally noted. Pancreas: Atrophic for age. Adrenal glands: A 1.5 cm left adrenal nodule likely represents adenoma but cannot be definitively characterized due to the presence of IV contrast. This is unchanged from previous. The right adrenal gland is normal. Kidneys: The contrast enhanced kidneys demonstrate mild cortical atrophy and are without hydronephrosis. The kidneys enhance symmetrically. Abdominal vasculature: The abdominal aorta is normal in course and caliber. An IVC filter is in place. Bowel: The small bowel and colon are normal in course and caliber. The appendix is well-visualized. There is no periappendiceal inflammation to indicate appendicitis. There is unchanged appearance of the appendiceal tip which measures up to 9 mm. Peritoneum: There is no intraperitoneal free air or abdominal ascites. Lymphadenopathy: None. Pelvic viscera: The bladder is normal as visualized. The uterus is surgically absent. No adnexal lesion is seen. Skeletal structures: No lytic or blastic lesions are seen. There are postoperative changes from L4 to L5 spinal fusion. IMPRESSION: 1. There are no acute infectious or inflammatory findings in the abdomen or pelvis. 2. Hepatomegaly and severe hepatic steatosis. 3. A lesion/mucocele of the appendiceal tip is again suggested. There is no consent evidence of acute appendicitis. Surgical consultation is advised. Electronically signed by: Sb Mendez M.D. 01/03/2017 2:28 PM Dictated Date/Time: 01/03/2017 2:19 PM
[2017-01-03] MEDS ORDERED: SODIUM CHLORIDE 0.9% 1000ML 1,000 ML IV STA (14:36)
[2017-01-03] MEDS ORDERED: MoRPHine SULFATE 10 MG/ML CARP/VIAL IV STA (14:36)
[2017-01-03 15:12] LABS: BASO % 0.3 %; BASO ABS # 0.03 K/uL (0-0.2); COMPLETE YES; EOS % 4.3 %; HEMATOCRIT 37.5 % (37-47); IG% 0.3 %; LYMPH ABS # 2.11 K/uL (1.2-3.4); MEAN CORPUSCULAR HEMOGLOBIN 25.9 pg (25-34); MEAN CORPUSCULAR HGB CONC 31.2 g/dl (32-36); MONO % 5.6 %; NEUT % 69.5 %; PLATELET COUNT 272 K/uL (130-400); RED BLOOD COUNT 4.52 M/uL (4.2-5.4); WHITE BLOOD COUNT 10.54 K/uL (4.8-10.8)
[2017-01-03 15:19] LABS: ALT/SGPT 38 U/L (12-78); BLOOD UREA NITROGEN 10 mg/dl (7-18); BUN/CREATININE RATIO 13.1 (10-20); CALCIUM 9.3 mg/dl (8.5-10.1); CARBON DIOXIDE 29 mmol/L (21-32); CHLORIDE 104 mmol/L (98-107); CREATININE 0.76 mg/dl (0.60-1.20); GLUCOSE 91 mg/dl (70-99); SODIUM 140 mmol/L (136-145)
[2017-01-03 15:22] LABS: ALKALINE PHOSPHATASE 110 U/L (45-117); AST/SGOT 27 U/L (15-37)
[2017-01-03] MEDS ORDERED: POTASSIUM CHLORIDE 10 MEQ TABCR PO STA (15:43)
[2017-01-03] MEDS ORDERED: MoRPHine SULFATE 4 MG/ML 1 ML CARP\\VIAL IV STA ×2 (15:49→16:53)
[2017-01-03] MEDS ORDERED: MoRPHine SULFATE 2 MG/ML CARP ONE (17:00)
[2017-01-03 17:04] VITALS: BP 148/94; PULSE 94; O2SAT 95
--- NOTE | 2017-01-03 17:43 | EMERGENCY ROOM VISIT NOTE ---
History Report prepared by Roxanna: Lucas Peña Under the Supervision of: Dr. Yves Bullock D.O. First contact with patient: 13:31 Chief Complaint: ABDOMINAL PAIN Stated Complaint: ABD PAIN, BACK PAIN History of Present Illness The patient is a 56 year old female who presents to the Emergency Room with complaints of persistent RLQ abdominal pain beginning a month ago. She also complains of diarrhea. She has been seen in the ED two previous times in the past three weeks for similar symptoms. The patient spoke with her PCP about her symptoms and was referred to the ED. She has followed-up Dr. Montoya of General Surgery for an elective appendectomy. She denies urinary symptoms, or vomiting. The patient's last normal bowel movement was just upon arrival to the ED. The patient also complains of bilateral lower back pain. She states that she had an episode of pain with pain radiating into her right leg today. She states that she has had pain radiating into her other leg as well. The patient denies weakness, or numbness. She denies IV drug use. She denies recent trauma. The patient denies recent travel. Her back pain is worsened with movement. She notes that she is on disability for multiple medical reasons. The patient is on Coumadin for previous PE. She feels that her back pain and abdominal pain may be unrelated. Source of History: patient Onset: A month ago Position: abdomen (RLQ), back (bilateral lower) Timing: other (persistent) Associated Symptoms: + diarrhea, No vomiting, No urinary symptoms, No weakness, No numbness Note: Additional symptoms: pain occasionally radiating into her legs. Review of Systems See HPI for pertinent positives & negatives. A total of 10 systems reviewed and were otherwise negative. Past Medical & Surgical Medical Problems: (1) Anxiety (2) Asthma (3) Back pain without radiculopathy (4) Chronic pain (5) Depression (6) Depression (7) Diabetes 1.5, managed as type 2 (8) DM2 (diabetes mellitus, type 2) (9) GERD (gastroesophageal reflux disease) (10) Greater trochanteric bursitis of right hip (11) HLD (hyperlipidemia) (12) Lumbar stenosis with neurogenic claudication (13) Pulmonary embolism (14) Stroke-like symptoms (15) Tachycardia (16) TOBACCO USE DISORDER Surgical Problems: (1) H/O neck surgery (2) H/O shoulder surgery (3) History of total abdominal hysterectomy (4) Hx of total knee arthroplasty (5) S/P IVC filter Family History Hypertension Social History Smoking Status: Former Smoker Alcohol Use: occasionally Drug Use: none Marital Status: single Housing Status: lives with family Occupation Status: employed Current/Historical Medications Scheduled Cholecalciferol (Vitamin D), 4,000 INTER.UNIT PO QPM Fluticasone Furoate-Vilanterol (Breo Ellipta), 1 PUFF INH DAILY Furosemide (Furosemide), 20 MG PO DAILY Gabapentin (Gabapentin), 300 MG PO TID Lorazepam (Lorazepam), 0.5 MG PO TID Meloxicam (Meloxicam), 15 MG PO DAILY Pantoprazole (Protonix), 40 MG PO QPM Quetiapine Fumarate (Seroquel), 200 MG PO HS Rosuvastatin Calcium (Crestor), 40 MG PO QPM Tizanidine (Tizanidine HCl), 8 MG PO TID Venlafaxine Hcl (Effexor Extended Rel), 150 MG PO DAILY Warfarin Sodium (Coumadin), 5 MG PO 3XWK Warfarin Sodium (Coumadin), 7.5 MG PO 4XWK Scheduled PRN Albuterol Hfa (Ventolin Hfa), 2 PUFFS INH Q4H PRN for Shortness of Breath Arformoterol Tartrate (Brovana), 15 MCG NEB BID PRN for Shortness of Breath Cyclobenzaprine HCl (Cyclobenzaprine HCl), 10 MG PO TID PRN for Muscle Spasm Allergies Coded Allergies: Chlorpheniramine (Verified Allergy, Unknown, Change in mental status, 08/27) Hydrocodone (Verified Allergy, Unknown, Change in mental status, 08/27/16) Phenytoin (Verified Allergy, Unknown, Facial swelling, 01/03/17) Physical Exam Vital Signs Date Time Temp Pulse Resp B/P (MAP) Pulse Ox O2 Delivery O2 Flow Rate FiO2 01/03/17 17:04 94 18 148/94 95 Room Air 01/03/17 14:45 81 18 136/96 99 Room Air 01/03/17 12:50 36.9 102 20 170/109 96 Room Air Physical Exam GENERAL: Laying on right side in bed, minimal distress, nontoxic. EYE EXAM: normal conjunctiva. OROPHARYNX: no exudate, no erythema, lips, buccal mucosa, and tongue normal and mucous membranes are moist NECK: supple, no nuchal rigidity, no adenopathy, non-tender LUNGS: Clear to auscultation. Normal chest wall mechanics HEART: no murmurs, S1 normal and S2 normal ABDOMEN: abdomen soft, non-tender, normo-active bowel sounds, no masses, no rebound or guarding. BACK: Back is symmetrical on inspection and there is no deformity, no midline tenderness, no CVA tenderness. SKIN: no rashes and no bruising UPPER EXTREMITIES: upper extremities are grossly normal. LOWER EXTREMITIES: No pitting edema. Flexion and extension of the hip, knee, EHL , and ankle 5/5 bilaterally. Gross sensations intact. And lids without difficulty. NEURO EXAM: Normal sensorium, cranial nerves II-XII grossly intact, normal speech, no gross weakness of arms, no gross weakness of legs. Medical Decision & Procedures ER Provider Diagnostic Interpretation: CT:Per my review, radiologist interpretation. CT SCAN OF THE ABDOMEN AND PELVIS WITH IV CONTRAST FINDINGS: Lung bases: The heart is normal in size and without pericardial effusion. There is a small fat-containing Bochdalek hernia at the left lung base. Atelectasis versus scarring is seen in the right middle lobe and lingula. The lung bases are otherwise clear. A tiny hiatal hernia is identified. Liver: The contrast-enhanced liver is enlarged, measuring 20.3 cm in length. The liver demonstrates diffusely diminished attenuation consistent with severe hepatic steatosis. Fatty sparing is seen adjacent to gallbladder fossa. There is no intrahepatic biliary ductal dilatation. The hepatic veins and portal veins are patent. Gallbladder: Unremarkable. Spleen: Normal in size and attenuation. A calcified splenic granuloma is incidentally noted. Pancreas: Atrophic for age. Adrenal glands: A 1.5 cm left adrenal nodule likely represents adenoma but cannot be definitively characterized due to the presence of IV contrast. This is unchanged from previous. The right adrenal gland is normal. Kidneys: The contrast enhanced kidneys demonstrate mild cortical atrophy and are without hydronephrosis. The kidneys enhance symmetrically. Abdominal vasculature: The abdominal aorta is normal in course and caliber. An IVC filter is in place. Bowel: The small bowel and colon are normal in course and caliber. The appendix is well-visualized. There is no periappendiceal inflammation to indicate appendicitis. There is unchanged appearance of the appendiceal tip which measures up to 9 mm. Peritoneum: There is no intraperitoneal free air or abdominal ascites. Lymphadenopathy: None. Pelvic viscera: The bladder is normal as visualized. The uterus is surgically absent. No adnexal lesion is seen. Skeletal structures: No lytic or blastic lesions are seen. There are postoperative changes from L4 to L5 spinal fusion. IMPRESSION: 1. There are no acute infectious or inflammatory findings in the abdomen or pelvis. 2. Hepatomegaly and severe hepatic steatosis. 3. A lesion/mucocele of the appendiceal tip is again suggested. There is no consent evidence of acute appendicitis. Surgical consultation is advised. Electronically signed by: Sb Mendez M.D. 01/03/2017 2:28 PM Laboratory Results 01/03/17 13:55 Red Blood Count 4.52, Mean Corpuscular Volume 83.0, Mean Corpuscular Hemoglobin 25.9, Mean Corpuscular Hemoglobin Concent 31.2, Mean Platelet Volume 10.0, Neutrophils (%) (Auto) 69.5, Lymphocytes (%) (Auto) 20.0, Monocytes (%) (Auto) 5.6, Eosinophils (%) (Auto) 4.3, Basophils (%) (Auto) 0.3, Neutrophils # (Auto) 7.33, Lymphocytes # (Auto) 2.11, Monocytes # (Auto) 0.59, Eosinophils # (Auto) 0.45, Basophils # (Auto) 0.03 01/03/17 13:55 Test 01/03/17 13:35 01/03/17 13:55 01/03/17 14:04 Urine Color YELLOW Urine Appearance CLEAR (CLEAR) Urine pH 6.5 (4.5-7.5) Urine Specific [place] 1.012 (1.000-1.030) Urine Protein NEG (NEG) Urine Glucose (UA) NEG (NEG) Urine Ketones NEG (NEG) Urine Occult Blood NEG (NEG) Urine Nitrite NEG (NEG) Urine Bilirubin NEG (NEG) Urine Urobilinogen NEG (NEG) Urine Leukocyte Esterase TRACE (NEG) Urine WBC (Auto) 5-10 /hpf (0-5) Urine RBC (Auto) 0-4 /hpf (0-4) Urine Hyaline Casts (Auto) 1-5 /lpf (0-5) Urine Epithelial Cells (Auto) >30 /lpf (0-5) Urine Bacteria (Auto) NEG (NEG) Urine Test NEG (NEG) White Blood Count 10.54 K/uL (4.8-10.8) Red Blood Count 4.52 M/uL (4.2-5.4) Hemoglobin 11.7 g/dL (12.0-16.0) Hematocrit 37.5 % (37-47) Mean Corpuscular Volume 83.0 fL (80-100) Mean Corpuscular Hemoglobin 25.9 pg (25-34) Mean Corpuscular Hemoglobin Concent 31.2 g/dl (32-36) Platelet Count 272 K/uL (130-400) Mean Platelet Volume 10.0 fL (7.4-10.4) Neutrophils (%) (Auto) 69.5 % Lymphocytes (%) (Auto) 20.0 % Monocytes (%) (Auto) 5.6 % Eosinophils (%) (Auto) 4.3 % Basophils (%) (Auto) 0.3 % Neutrophils # (Auto) 7.33 K/uL (1.4-6.5) Lymphocytes # (Auto) 2.11 K/uL (1.2-3.4) Monocytes # (Auto) 0.59 K/uL (0.11-0.59) Eosinophils # (Auto) 0.45 K/uL (0-0.5) Basophils # (Auto) 0.03 K/uL (0-0.2) RDW Standard Deviation 51.0 fL (36.4-46.3) RDW Coefficient of Variation 16.7 % (11.5-14.5) Immature Granulocyte % (Auto) 0.3 % Immature Granulocyte # (Auto) 0.03 K/uL (0.00-0.02) Est Creatinine Clear Calc Drug Dose 91.0 ml/min Estimated GFR () 101.6 Estimated GFR (Non- 87.7 BUN/Creatinine Ratio 13.1 (10-20) Calcium Level 9.3 mg/dl (8.5-10.1) Total Bilirubin 0.4 mg/dl (0.2-1) Direct Bilirubin < 0.1 mg/dl (0-0.2) Aspartate Amino Transf (AST/SGOT) 27 U/L (15-37) Alanine Aminotransferase (ALT/SGPT) 38 U/L (12-78) Alkaline Phosphatase 110 U/L (45-117) Total Protein 7.0 gm/dl (6.4-8.2) Albumin 3.7 gm/dl (3.4-5.0) Lipase 65 U/L (73-393) Bedside Hemoglobin 12.2 g/dl (12.0-16.0) Bedside Hematocrit 36 % (37-47) Bedside Sodium 140 mEq/L (135-144) Bedside Potassium 3.1 mEq/L (3.3-5.0) Bedside Chloride 103 mEq/L (101-112) Bedside Total CO2 28 mEq/l (24-31) Anion Gap 14.0 mmol/L (16-25) Bedside Blood Urea Nitrogen 10 mg/dl (7-18) Bedside Creatinine 0.7 mg/dl (0.6-1.3) Bedside Glucose (other) 92 mg/dl (70-99) Bedside Ionized Calcium (Ramirez) 1.19 mmol/l (1.12-1.32) Laboratory results per my review. Medications Administered Medications (Trade) Dose Ordered Sig/Michael Route Start Time Stop Time Status Last Admin Dose Admin Sodium Chloride 1,000 ml @ 999 mls/hr Q1H1M STAT IV 01/03/17 14:36 01/03/17 15:51 DC 01/03/17 14:45 999 MLS/HR Morphine Sulfate (MoRPHine SULFATE INJ) 6 mg NOW STAT IV 01/03/17 14:36 01/03/17 14:37 DC 01/03/17 14:45 6 MG Potassium Chloride (Klor-Con M10) 40 meq NOW STAT PO 01/03/17 15:43 01/03/17 15:51 DC 01/03/17 15:51 40 MEQ Morphine Sulfate (MoRPHine SULFATE INJ) 4 mg NOW STAT IV 01/03/17 15:49 01/03/17 15:51 DC 01/03/17 16:06 4 MG Morphine Sulfate (MoRPHine SULFATE INJ) 2 mg STK-MED ONCE .ROUTE 01/03/17 17:00 01/03/17 17:01 DC 01/03/17 17:04 2 MG ED Course ED COURSE: Vital signs were reviewed and showed hypertension and tachycardia. The patients medical record was reviewed The above diagnostic studies were performed and reviewed. ED treatments and interventions as stated above. 1336: The patient was evaluated in room C3. A complete history and physical examination was performed. 1436: Ordered Morphine Sulfate 6 mg IV, Sodium Chloride 1000 ml @ 999 mls/hr IV. 1543: Ordered Klor-Con M10 40 meq PO. 1549: Ordered Morphine Sulfate 4 mg IV. 1555: Upon reevaluation, the patient is resting comfortably. I discussed my findings with the patient and she understands and agrees with the treatment plan. Based on the patients age, coexisting illnesses, exam and lab findings the decision to treat as an outpatient was made. The patient remained stable while under my care. The patient appeared well at the time of discharge. Medical Decision Differential diagnoses includes but is not limited to gastritis, peptic ulcer disease, GERD, gallbladder disease, pancreatitis, small bowel obstruction, acute coronary syndrome, pericarditis, ischemic bowel, irritable bowel disease, irritable bowel syndrome, appendicitis, diverticulitis, malignancy, hernia, urinary tract infection, torsion, /ectopic , perforation, trauma, infectious. Patient is a 56-year-old female who presents to ER for right lower quadrant abdominal pain which has been present for the past 3-4 weeks. 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 She has been following with general surgery for this. She is scheduled for the OR on January 16. She also complains of lower back pain. She notes that this is present over the past 3-4 weeks as well. No weakness or numbness in the arms or legs. Able to move her bowels. No signs of cauda equina. No fevers. No IV drug use. No history of cancer. Her neurologic exam is completely intact. No steroids given as she is a diabetic. 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 Rediscussed with general surgery. Recommend following up as an outpatient. Patient was updated bedside. She was given 2 doses of IV morphine. I did not prescribe her narcotics as she is getting a prescription from her surgeon. She was discharged to follow-up with PCP in general surgery as I favor most of her pain is likely coming from this mucocele and a lumbar radiculopathy. Discussed with Pt concerning signs and symptoms to watch out for. Pt was instructed to follow up with their PCP and discussed with the patient their option to return to the ED at anytime for persistent or worsening symptoms. The appropriate anticipatory guidance and out-patient management, including indications for return to the emergency department, were explained at length to the patient and understood. Medication Reconcilliation Current Medication List: was personally reviewed by me Blood Pressure Screening Patient's blood pressure: Elevated blood pressure Blood pressure disposition: Referred to PCP Consults Time Called: 153 Consulting Physician: Dr. Vinson -General Surgery Returned Call: [phone] I reviewed the patient's case with Dr. Vinson. He recommends the patient follow up as an outpatient. Impression Primary Impression: Abdominal pain Additional Impression: Lumbar back pain with radiculopathy affecting right lower extremity Scribe Attestation The scribe's documentation has been prepared under my direction and personally reviewed by me in its entirety. I confirm that the note above accurately reflects all work, treatment, procedures, and medical decision making performed by me. Departure Information Dispostion Home / Self-Care Referrals Soham Hayes D.O. (PCP) Forms Call Back Authorization, HOME CARE DOCUMENTATION FORM, IMPORTANT VISIT INFORMATION Patient Instructions Abdominal Pain - [facility] Additional Instructions Please follow up with your primary care doctor with in the next 24 hours. Any worsening of your symptoms, please return to the ED immediately. This includes any fevers greater than 100.4, worsening pain, chest pain, shortness breath, persistent nausea, vomiting, unable to eat or drink, or any other concerning signs or symptoms from your standpoint. Please take Tylenol or Motrin as needed for pain. Please make sure you follow up with general surgery in regards to the mucocele at the tip of your appendix. Problem Qualifiers Primary Impression: Abdominal pain Abdominal location: unspecified location Qualified Codes: R10.9 - Unspecified abdominal pain
[2017-01-04] MEDS ORDERED: LEVO25TA PO (13:41)
[2017-01-04] MEDS ORDERED: ACET-1256 PO (13:42)
[2017-01-04] MEDS ORDERED: IBUP-103 PO (13:42)
== END 2017-01-03 17:20 | disposition home or self-care (01) ==
LOC: C.EDB 12:35 → C.EDC 17:20
DX: R10.31 Right lower quadrant pain (principal); M54.16 Radiculopathy, lumbar region; F41.9 Anxiety disorder, unspecified; J45.909 Unspecified asthma, uncomplicated; F32.9 Major depressive disorder, single episode, unspecified; E11.9 Type 2 diabetes mellitus without complications; K21.9 Gastro-esophageal reflux disease without esophagitis; E78.5 Hyperlipidemia, unspecified; Z86.711 Personal history of pulmonary embolism; Z87.891 Personal history of nicotine dependence; Z82.49 Family history of ischemic heart disease and other diseases of the circulatory system; Z79.01 Long term (current) use of anticoagulants; Z79.899 Other long term (current) drug therapy

== ENCOUNTER 2017-04-15 17:42 | Emergency (ER) | payer OTHER ==
[~2017-04-15] VITALS: Ht 157.5 cm; Wt 99.7 kg
[~2017-04-15 17:42] MED LIST changes: -CEFD300C3 PO; -CYCL10TA7 PO; -DICY1TAB25 PO; +LEVO25TA PO; +Lovenox SQ; -OXYC1TAB3 PO; +PANT1TAB3 PO; -PANT1TAB48 PO; +POTA1TAB97 PO; +WARF-237 PO
[2017-04-15 17:53] VITALS: TEMP 36.8; Ht 157.5 cm; Wt 99.7 kg
[2017-04-15] MEDS ORDERED: DEXAMETHASONE INJ 10 MG in SYRINGE 0 ML IV STA (18:22)
[2017-04-15] MEDS ORDERED: HYDROmorphone INJ 1 MG/ML SYR IV STA ×2 (18:22→20:01)
[2017-04-15] MEDS ORDERED: ONDANSETRON INJ 2 MG/ML 2 ML VIAL IV STA (18:22)
[2017-04-15] MEDS ORDERED: DEXAMETHASONE **PF** INJ 10 MG/ML VIAL ONE (18:38)
[2017-04-15 18:47] LABS: BASO % 0.2 %; BASO ABS # 0.03 K/uL (0-0.2); EOS % 0.4 %; EOS ABS # 0.06 K/uL (0-0.5); HEMOGLOBIN 12.1 g/dL (12.0-16.0); IG# 0.09 K/uL (0.00-0.02); LYMPH % 10.1 %; LYMPH ABS # 1.43 K/uL (1.2-3.4); MEAN CELL VOLUME 87.2 fL (80-100); MEAN CORPUSCULAR HEMOGLOBIN 27.8 pg (25-34); MEAN CORPUSCULAR HGB CONC 31.8 g/dl (32-36); MEAN PLATELET VOLUME 10.1 fL (7.4-10.4); MONO % 3.4 %; MONO ABS # 0.49 K/uL (0.11-0.59); NEUT % 85.3 %; NEUT ABS # 12.12 K/uL (1.4-6.5); PLATELET COUNT 299 K/uL (130-400); RED CELL DISTRIBUTION WIDTH SD 50.8 fL (36.4-46.3); WHITE BLOOD COUNT 14.22 K/uL (4.8-10.8)
[2017-04-15 19:04] LABS: BLOOD UREA NITROGEN 18 mg/dl (7-18); CARBON DIOXIDE 26 mmol/L (21-32); CREATININE 1.06 mg/dl (0.60-1.20); GLUCOSE 185 mg/dl (70-99); POTASSIUM 3.5 mmol/L (3.5-5.1); SODIUM 138 mmol/L (136-145)
--- NOTE | 2017-04-15 20:12 | DIAGNOSTIC IMAGING REPORT ---
MRI OF THE LUMBAR SPINE WITHOUT CONTRAST CLINICAL HISTORY: Right lower extremity weakness and low back pain. Repeated falls. COMPARISON STUDY: Lumbar spine MRI and lumbar spine radiographs August 28, 2016 TECHNIQUE: Utilizing a 1.5 Soraya magnet and dedicated coil, multiplanar, multiecho imaging of the lumbar spine was performed without IV contrast. FINDINGS: For purposes of numbering on this exam, the L5-S1 disc space is assigned to axial image 23 of 25. Alignment of the lumbar spine is anatomic. The conus terminates at the lower L1 level. No intracanalicular mass or fluid collection is present. The disc material at the L4 level shown on exam of August 28, 2016 is no longer visualized and has likely been resected. The patient is status post interval L4-L5 discectomy, posterior decompression and bilateral pedicle screw fusion. Paravertebral soft tissues are unremarkable. There is no evidence for fracture. There is mild disc space narrowing at L3-L4. L1-2: The central canal and neural foramen are patent. L2-3: The central canal and neural foramen are patent. L3-4: There is disc space narrowing with broad-based disc bulge with superimposed right paracentral disc protrusion. This has developed since prior exam and there is suggestion of superior subligamentous migration. This results in mild narrowing of the central canal, mild to moderate narrowing of the right neural foramen and moderate narrowing of the right lateral recess. There is mild narrowing of the left neural foramen. L4-5: Central canal and neural foramen are patent. L5-S1: The central canal neural foramen are patent. There is moderate facet arthrosis. IMPRESSION: 1. Status post interval L4-L5 discectomy, posterior decompression and bilateral pedicle screw fusion. 2. Interval development of a right paracentral disc protrusion at L3-L4 with superior subligamentous migration. This results in moderate narrowing of the right lateral recess and could be correlated with a right L4 radiculopathy. Mild to moderate narrowing of the right neural foramen at L3-L4. 3. No lumbar spine fracture. Electronically signed by: Vahid Josue M.D. 04/15/2017 8:10 PM Dictated Date/Time: 04/15/2017 7:58 PM
--- NOTE | 2017-04-15 20:38 | EMERGENCY ROOM VISIT NOTE ---
ED Visit Note First contact with patient: 17:58 I did evaluate and examine this patient myself. I did guide management for the patient. I agree with the APC's assessment as discussed. Please see the APC's dictation for further details. I did independently review the blood work and MRI of the back. The case was discussed with [facility] spine.
[2017-04-15] MEDS ORDERED: OXYC1TAB3 PO (20:51)
[2017-04-15] MEDS ORDERED: MoRPHine SULFATE 10 MG/ML CARP/VIAL IV STA (20:53)
--- NOTE | 2017-04-15 21:04 | EMERGENCY ROOM VISIT NOTE ---
History First contact with patient: 17:58 Chief Complaint: REFERRED BY DOCTOR Stated Complaint: DISC PROBLEM, REFERRED BY DR. BROWN History of Present Illness The patient is a 56 year old female who presents to the Emergency Room with complaints of lower back pain radiating into the right lower extremity to the thigh. She also reports profound weakness of the right lower extremity, and has fallen twice within the past 2 weeks. She denies any bladder or bowel incontinence or saddle anesthesias. The patient is currently under the management of Dr. Brown. She is scheduled for an MRI in 5 days. She was given a prescription for corticosteroids 2 days ago without any relief of her symptoms. The patient reports that she does not have any prescription analgesics, and rates her discomfort an 8 out of 10. The patient did undergo an L4-5 fusion last August 2016 for a right-sided herniated nucleus pulposus. This was performed by Dr. Brown. Review of Systems HEENT: Denies dizziness, visual problems, hearing loss, tinnitus. Denies difficulty swallowing or oral lesions. PULMONARY: Denies cough, shortness of breath, sputum production or hemoptysis. CARDIOVASCULAR: Denies chest pain, palpitations, dyspnea on exertion, orthopnea or peripheral edema. GASTROINTESTINAL: Denies diarrhea, constipation, nausea, vomiting, or abdominal pain. GENITOURINARY: Denies dysuria, frequency, urgency or nocturia. NEUROLOGIC: Denies history of epilepsy, CVA, TIA or chronic headaches. MUSCULOSKELETAL: See history of present illness. SKIN: Denies rashes or lesions. PSYCHIATRIC: History of anxiety. ENDOCRINE: History of diabetes. Past Medical/Surgical History Medical Problems: (1) Anxiety (2) Asthma (3) Back pain without radiculopathy (4) Chronic pain (5) Depression (6) Depression (7) Diabetes 1.5, managed as type 2 (8) DM2 (diabetes mellitus, type 2) (9) GERD (gastroesophageal reflux disease) (10) Greater trochanteric bursitis of right hip (11) HLD (hyperlipidemia) (12) Lumbar stenosis with neurogenic claudication (13) Pulmonary embolism (14) Stroke-like symptoms (15) Tachycardia (16) TOBACCO USE DISORDER Surgical Problems: (1) H/O neck surgery (2) H/O shoulder surgery (3) History of total abdominal hysterectomy (4) Hx of total knee arthroplasty (5) S/P IVC filter Family History Hypertension Social History Smoking Status: Current Every Day Smoker Alcohol Use: occasionally Drug Use: none Marital Status: single Housing Status: lives with family Occupation Status: employed Current/Historical Medications Scheduled Cholecalciferol (Vitamin D), 4,000 INTER.UNIT PO QPM Fluticasone Furoate-Vilanterol (Breo Ellipta), 1 PUFF INH QAM Furosemide (Furosemide), 20 MG PO QAM Gabapentin (Gabapentin), 300 MG PO TID Lorazepam (Lorazepam), 0.5 MG PO TID Meloxicam (Meloxicam), 15 MG PO QPM Pantoprazole (Protonix), 40 MG PO QAM Potassium Chloride (K-Tab), 1 TAB PO DAILY Quetiapine Fumarate (Seroquel), 200 MG PO HS Rosuvastatin Calcium (Crestor), 40 MG PO QPM Tizanidine (Tizanidine HCl), 8 MG PO TID Venlafaxine Hcl (Effexor Extended Rel), 150 MG PO QAM Warfarin Sodium (Coumadin), 5 MG PO WK Warfarin Sodium (Coumadin), 7.5 MG PO 6XWK Scheduled PRN Albuterol Hfa (Ventolin Hfa), 2 PUFFS INH Q4H PRN for Shortness of Breath Arformoterol Tartrate (Brovana), 15 MCG NEB BID PRN for Shortness of Breath Oxycodone Ir (Roxicodone Ir), 1-2 TAB PO Q4H PRN for Pain Physical Exam Vital Signs Date Time Temp Pulse Resp B/P (MAP) Pulse Ox O2 Delivery O2 Flow Rate FiO2 04/15/17 20:06 83 18 191/104 93 Room Air 04/15/17 17:53 36.8 88 20 178/96 98 Room Air Physical Exam CONSTITUTIONAL: Healthy and well nourished. Alert and oriented X 3 with positive affect. Patient appears in mild discomfort from pain. HEENT: Normocephalic, atraumatic. Pupils equal, round and reactive. NECK: Full active range of motion without discomfort. RESPIRATORY: Clear to auscultation bilaterally with no wheezing, crackles, rhonchi or stridor. CARDIOVASCULAR: Regular rate and rhythm with no murmurs, rubs or gallops. GASTROINTESTINAL: Bowel sounds present in all quadrants. Soft and nontender to palpation. MUSCULOSKELETAL: Examination shows generalized tenderness to palpation through the lower central lumbar spine and lower right paraspinous muscle and SI joints. Negative logroll. Positive straight leg raise. Ankle plantar/ dorsiflexion strength is 4 out of 5 on the right, 5 out of 5 on the left. Pedal pulses are intact. INTEGUMENTARY: No rash or other significant dermatologic conditions noted. NEUROLOGIC: No focal neurologic deficits noted. Deep tendon reflexes 2+ and symmetric bilaterally. Bilateral feet are sensory intact. Medical Decision & Procedures ER Provider Diagnostic Interpretation: Noncontrast MRI of the lumbar spine shows a following: MRI OF THE LUMBAR SPINE WITHOUT CONTRAST CLINICAL HISTORY: Right lower extremity weakness and low back pain. Repeated falls. COMPARISON STUDY: Lumbar spine MRI and lumbar spine radiographs August 28, 2016 TECHNIQUE: Utilizing a 1.5 Soraya magnet and dedicated coil, multiplanar, multiecho imaging of the lumbar spine was performed without IV contrast. FINDINGS: For purposes of numbering on this exam, the L5-S1 disc space is assigned to axial image 23 of 25. Alignment of the lumbar spine is anatomic. The conus terminates at the lower L1 level. No intracanalicular mass or fluid collection is present. The disc material at the L4 level shown on exam of August 28, 2016 is no longer visualized and has likely been resected. The patient is status post interval L4-L5 discectomy, posterior decompression and bilateral pedicle screw fusion. Paravertebral soft tissues are unremarkable. There is no evidence for fracture. There is mild disc space narrowing at L3-L4. L1-2: The central canal and neural foramen are patent. L2-3: The central canal and neural foramen are patent. L3-4: There is disc space narrowing with broad-based disc bulge with superimposed right paracentral disc protrusion. This has developed since prior exam and there is suggestion of superior subligamentous migration. This results in mild narrowing of the central canal, mild to moderate narrowing of the right neural foramen and moderate narrowing of the right lateral recess. There is mild narrowing of the left neural foramen. L4-5: Central canal and neural foramen are patent. L5-S1: The central canal neural foramen are patent. There is moderate facet arthrosis. IMPRESSION: 1. Status post interval L4-L5 discectomy, posterior decompression and bilateral pedicle screw fusion. 2. Interval development of a right paracentral disc protrusion at L3-L4 with superior subligamentous migration. This results in moderate narrowing of the right lateral recess and could be correlated with a right L4 radiculopathy. Mild to moderate narrowing of the right neural foramen at L3-L4. 3. No lumbar spine fracture. Laboratory Results 04/15/17 18:30 Red Blood Count 4.36, Mean Corpuscular Volume 87.2, Mean Corpuscular Hemoglobin 27.8, Mean Corpuscular Hemoglobin Concent 31.8, Mean Platelet Volume 10.1, Neutrophils (%) (Auto) 85.3, Lymphocytes (%) (Auto) 10.1, Monocytes (%) (Auto) 3.4, Eosinophils (%) (Auto) 0.4, Basophils (%) (Auto) 0.2, Neutrophils # (Auto) 12.12, Lymphocytes # (Auto) 1.43, Monocytes # (Auto) 0.49, Eosinophils # (Auto) 0.06, Basophils # (Auto) 0.03 04/15/17 18:30 Test 04/15/17 18:30 White Blood Count 14.22 K/uL (4.8-10.8) Red Blood Count 4.36 M/uL (4.2-5.4) Hemoglobin 12.1 g/dL (12.0-16.0) Hematocrit 38.0 % (37-47) Mean Corpuscular Volume 87.2 fL (80-100) Mean Corpuscular Hemoglobin 27.8 pg (25-34) Mean Corpuscular Hemoglobin Concent 31.8 g/dl (32-36) Platelet Count 299 K/uL (130-400) Mean Platelet Volume 10.1 fL (7.4-10.4) Neutrophils (%) (Auto) 85.3 % Lymphocytes (%) (Auto) 10.1 % Monocytes (%) (Auto) 3.4 % Eosinophils (%) (Auto) 0.4 % Basophils (%) (Auto) 0.2 % Neutrophils # (Auto) 12.12 K/uL (1.4-6.5) Lymphocytes # (Auto) 1.43 K/uL (1.2-3.4) Monocytes # (Auto) 0.49 K/uL (0.11-0.59) Eosinophils # (Auto) 0.06 K/uL (0-0.5) Basophils # (Auto) 0.03 K/uL (0-0.2) RDW Standard Deviation 50.8 fL (36.4-46.3) RDW Coefficient of Variation 16.0 % (11.5-14.5) Immature Granulocyte % (Auto) 0.6 % Immature Granulocyte # (Auto) 0.09 K/uL (0.00-0.02) Erythrocyte Sedimentation Rate 15 mm/hr (0-21) Anion Gap 6.0 mmol/L (3-11) Est Creatinine Clear Calc Drug Dose 65.4 ml/min Estimated GFR () 68.0 Estimated GFR (Non- 58.7 BUN/Creatinine Ratio 17.2 (10-20) Calcium Level 9.0 mg/dl (8.5-10.1) C-Reactive Protein < 0.29 mg/dl (0-0.29) Medications Administered Medications (Trade) Dose Ordered Sig/Michael Route Start Time Stop Time Status Last Admin Dose Admin Hydromorphone HCl (Dilaudid Inj) 1 mg NOW STAT IV 04/15/17 18:22 04/15/17 18:26 DC 04/15/17 18:41 1 MG Ondansetron HCl (Zofran Inj) 4 mg NOW STAT IV 04/15/17 18:22 04/15/17 18:26 DC 04/15/17 18:40 4 MG Dexamethasone Sodium Phosphate (Dexamethasone Inj Pf) 10 mg STK-MED ONCE .ROUTE 04/15/17 18:38 04/15/17 18:39 DC 04/15/17 18:41 10 MG Hydromorphone HCl (Dilaudid Inj) 1 mg NOW STAT IV 04/15/17 20:01 04/15/17 20:02 DC 04/15/17 20:06 1 MG ED Course Patient history and physical exam were performed. Nurse's notes were reviewed. Vital signs were reviewed, showing an elevated blood pressure 178/96. I also reviewed prior medical records, showing that the patient underwent back surgery in August [address] Brown. Review of the [place] Prescription Drug Monitoring Program shows that the patient has received multiple opioid prescriptions from her spine surgeons office since, and before her surgery. She also receives prescriptions or as a lama. She has received 27 total prescriptions from 8 different providers, and filled at 5 different pharmacies over the past 12 months. I did review this report with the patient, and encouraged her to seek further pain management from either her family doctor or orthopedic surgeon. The patient reports that she was told by Dr. Brown that if her symptoms worsen over the weekend, she should come to the emergency department for pain management and MRI. She believes that the MRI has already been preauthorized. I did explain to the patient that she does have concerning findings of right lower extremity weakness, however I cannot guarantee that her insurance will cover her MRI. The patient voiced understanding, and wish to proceed with MRI studies. IV access was established for pain management and titration. Additional labs were also drawn. Review of labs shows a moderate leukocytosis. Sedimentation rate and CRP are normal. Glucose is elevated at 185. The patient does have history of diabetes and is currently on corticosteroids. Noncontrast MRI of the lumbar spine shows a right paracentral disc protrusion at L3 4 without any significant compromise. After returning from MRI, the patient did require additional analgesics, and was administered Dilaudid 1 mg IVP. Laboratory and MRI findings were discussed with the patient. She was advised that MRI studies are not suggestive of need for emergent surgical intervention. The case was further discussed with Dr. Carver, ED attending physician, who evaluated the patient and suggested speaking with Dr. Brown regarding MRI findings. I spoke with Caryn Quiroz PA-C who is on-call for Dr. Brown. Findings were discussed with her, and she agreed that outpatient management is recommended. Their office will call the patient on Monday for an appointment. The patient will be provided a home pack and prescription for OxyIR 5 mg, dispensed #24 with no refills. She is welcome to return to the emergency department over the weekend for any further uncontrollable pain. The patient also has a walker at home, and was encouraged to use it to hopefully minimize her risk for injury with falling. The patient was happy with plan of care, voiced understanding of all discharge instructions, and rated her discomfort a 5 out of 10 at the conclusion of my exam. It was also noted that the patient's blood pressure was elevated while in the emergency department. She was encouraged to follow-up with her PCP for blood pressure recheck. Medical Decision See previous section [place] Drug Monitoring Program Search Results: patient reviewed within database, see additional documentation Medication Reconcilliation Current Medication List: was personally reviewed by me Blood Pressure Screening Patient's blood pressure: Elevated blood pressure Blood pressure disposition: Referred to PCP Impression Primary Impression: Right paracentral disc protrusion, L3-L4 Additional Impressions: Right lumbar radiculopathy Elevated blood pressure reading Departure Information Prescriptions Oxycodone Ir (Roxicodone Ir) 5 Mg Tab 1-2 TAB PO Q4H Y for Pain, #24 TAB For Initial Treatment Prov: Devon Lu PA 04/15/17 Referrals Soham Hayes D.O. (PCP) Patient Instructions My [facility] Problem Qualifiers
[2017-04-15 21:38] VITALS: BP 180/92; PULSE 80; O2SAT 95
== END 2017-04-15 21:43 | disposition home or self-care (01) ==
LOC: C.EDB 17:43 → C.EDD 21:43
DX: M51.16 Intervertebral disc disorders with radiculopathy, lumbar region (principal); R03.0 Elevated blood-pressure reading, without diagnosis of hypertension; E11.9 Type 2 diabetes mellitus without complications; F41.9 Anxiety disorder, unspecified; F32.9 Major depressive disorder, single episode, unspecified; J45.909 Unspecified asthma, uncomplicated; K21.9 Gastro-esophageal reflux disease without esophagitis; E78.5 Hyperlipidemia, unspecified; Z79.01 Long term (current) use of anticoagulants; Z79.899 Other long term (current) drug therapy; Z86.711 Personal history of pulmonary embolism; Z98.1 Arthrodesis status; Z82.49 Family history of ischemic heart disease and other diseases of the circulatory system; F17.200 Nicotine dependence, unspecified, uncomplicated

== ENCOUNTER 2017-04-28 16:30 | Observation (INO) | payer OTHER ==
[~2017-04-28] VITALS: Ht 154.9 cm; Wt 102.5 kg
[~2017-04-28 16:30] MED LIST changes: +GABA-1219 PO; -GABA1CAP4 PO; -LEVO25TA PO; -Lovenox SQ; +MELO-83 PO; -MELO15TA4 PO; +OXYC1TAB3 PO; -WARF-237 PO
[2017-04-28] MEDS ORDERED: MoRPHine SULFATE 4 MG/ML 1 ML CARP\\VIAL IV STA (16:51)
[2017-04-28 17:28] LABS: BASO % 0.2 %; BASO ABS # 0.03 K/uL (0-0.2); EOS % 1.8 %; EOS ABS # 0.26 K/uL (0-0.5); HEMOGLOBIN 12.2 g/dL (12.0-16.0); IG# 0.05 K/uL (0.00-0.02); LYMPH % 20.4 %; LYMPH ABS # 2.97 K/uL (1.2-3.4); MEAN CELL VOLUME 87.2 fL (80-100); MEAN CORPUSCULAR HEMOGLOBIN 27.3 pg (25-34); MEAN CORPUSCULAR HGB CONC 31.3 g/dl (32-36); MEAN PLATELET VOLUME 9.7 fL (7.4-10.4); MONO % 6.2 %; NEUT % 71.1 %; NEUT ABS # 10.32 K/uL (1.4-6.5); PLATELET COUNT 254 K/uL (130-400); RED CELL DISTRIBUTION WIDTH CV 16.1 % (11.5-14.5); RED CELL DISTRIBUTION WIDTH SD 51.8 fL (36.4-46.3); WHITE BLOOD COUNT 14.53 K/uL (4.8-10.8)
[2017-04-28 17:59] LABS: CALCIUM 9.5 mg/dl (8.5-10.1); CREATININE 0.8 mg/dl (0.60-1.20); POTASSIUM 3.6 mmol/L (3.5-5.1)
[2017-04-28] MEDS ORDERED: HYDROmorphone INJ 1 MG/ML SYR IV STA (18:02)
--- NOTE | 2017-04-28 18:45 | EMERGENCY ROOM VISIT NOTE ---
ED Visit Note First contact with patient: 16:42 This Patient was discussed with the physician information services assistant, Shen Zafar PA-C. The pertinent historical and physical exam findings were confirmed. I agree with the studies ordered and with the interpretations of these studies. I agree with the disposition and care plan.
[2017-04-28] MEDS ORDERED: HYDROmorphone INJ 0.5 MG/0.5 ML SYR IV STA (19:38)
[2017-04-28] MEDS ORDERED: ONDANSETRON INJ 2 MG/ML 2 ML VIAL IV PRN (20:15)
[2017-04-28] MEDS ORDERED: ACETAMINOPHEN 325 MG TAB PO PRN (20:15)
[2017-04-28] MEDS ORDERED: POLYETHYLENE (MIRALAX) 17 GM PACK PO PRN (20:15)
[2017-04-28] MEDS ORDERED: HYDROmorphone INJ 1 MG/ML SYR IV PRN (20:15)
[2017-04-28] MEDS ORDERED: XPNINS INH (20:20)
[2017-04-28 20:24] LABS: INR 2.3 (0.9-1.1)
[2017-04-28] MEDS ORDERED: ALBUTEROL HFA 8 GM INHALER INH PRN (20:30)
[2017-04-28 20:55] VITALS: BP 133/84; PULSE 80; TEMP 36.5; O2SAT 94; Ht 154.9 cm; Wt 102.5 kg
--- NOTE | 2017-04-28 21:45 | EMERGENCY ROOM VISIT NOTE ---
History First contact with patient: 16:42 Chief Complaint: BACK PAIN Stated Complaint: INTRACTABLE BACK PAIN History of Present Illness The patient is a 56 year old female who presents to the Emergency Room via private vehicle with complaints of "back pain". The patient states that she has a history of low back pain predominantly with radicular symptoms down the right leg. She states that she follows locally with Dr. Brown of orthopedics spine. She notes that she recently had an MRI, and is to have surgery scheduled in the near future. She states that she did have her pain well controlled at home with oxycodone, but has ran out of this prescription and now her pain is worsening. She rates her overall pain currently is a 9/10. She denies any problems with her bowel or bladder. She does not however that the right leg will give out on her from time to time. She notes that she fell last week because her right leg gave out on her. She denies any new areas of pain, and notes this is the same pain it is just worse. She also notes that she called Dr. Brown's office today and was instructed to come here if her pain was severe. Review of Systems A complete 10-point Review of Systems was discussed with the patient, with pertinent positives and negatives listed in the History of Present Illness. All remaining Review of Systems questions can be considered negative unless otherwise specified. Past Medical/Surgical History Medical Problems: (1) Anxiety (2) Asthma (3) Back pain without radiculopathy (4) Chronic pain (5) Depression (6) Depression (7) Diabetes 1.5, managed as type 2 (8) DM2 (diabetes mellitus, type 2) (9) GERD (gastroesophageal reflux disease) (10) Greater trochanteric bursitis of right hip (11) HLD (hyperlipidemia) (12) Intractable back pain (13) Lumbar stenosis with neurogenic claudication (14) Pulmonary embolism (15) Stroke-like symptoms (16) Tachycardia (17) TOBACCO USE DISORDER Surgical Problems: (1) H/O neck surgery (2) H/O shoulder surgery (3) History of total abdominal hysterectomy (4) Hx of total knee arthroplasty (5) S/P IVC filter Family History Hypertension Social History Smoking Status: Heavy Tobacco Smoker Alcohol Use: occasionally Drug Use: none Marital Status: single Housing Status: lives with family Occupation Status: employed Current/Historical Medications Scheduled Cholecalciferol (Vitamin D), 1 TAB PO DAILY Fluticasone Furoate-Vilanterol (Breo Ellipta), 1 PUFF INH QAM Furosemide (Furosemide), 20 MG PO QAM Gabapentin (Gabapentin), 300 MG PO TID Levalbuterol (Levalbuterol HCl), 3 ML INH TID Lorazepam (Lorazepam), 0.5 MG PO TID Meloxicam (Meloxicam), 15 MG PO QPM Pantoprazole (Protonix), 40 MG PO QAM Potassium Chloride (K-Tab), 1 TAB PO DAILY Quetiapine Fumarate (Seroquel), 200 MG PO HS Rosuvastatin Calcium (Crestor), 40 MG PO QPM Tizanidine (Tizanidine HCl), 8 MG PO TID Venlafaxine Hcl (Effexor Extended Rel), 150 MG PO QAM Warfarin Sodium (Coumadin), 5 MG PO WK Warfarin Sodium (Coumadin), 7.5 MG PO 6XWK Scheduled PRN Albuterol Hfa (Ventolin Hfa), 2 PUFFS INH Q4H PRN for Shortness of Breath Arformoterol Tartrate (Brovana), 15 MCG NEB BID PRN for Shortness of Breath Physical Exam Vital Signs Date Time Temp Pulse Resp B/P (MAP) Pulse Ox O2 Delivery O2 Flow Rate FiO2 04/28/17 19:50 92 18 153/81 95 Room Air 04/28/17 16:34 36.7 113 18 151/86 95 Room Air Physical Exam VITAL SIGNS - Vital signs and nursing notes were reviewed. Stable. Hypertensive. Tachycardic. GENERAL -56-year-old female appearing her stated age who is in no acute distress. Communicates well with provider and answers questions appropriately. SKIN - Without rashes. No petechial rashes. HEART: RRR LUNGS: Clear MUSCULOSKELETAL: There is tenderness to palpation overlying the inferior lumbar spine. EXTREMITIES - No clubbing or peripheral cyanosis. No pretibial edema present. She is neurovascularly intact in lower extremity. patellar reflexes intact. +5/ 5 strength noted in UE/LE Medical Decision & Procedures Laboratory Results 04/28/17 17:15 Red Blood Count 4.47, Mean Corpuscular Volume 87.2, Mean Corpuscular Hemoglobin 27.3, Mean Corpuscular Hemoglobin Concent 31.3, Mean Platelet Volume 9.7, Neutrophils (%) (Auto) 71.1, Lymphocytes (%) (Auto) 20.4, Monocytes (%) (Auto) 6.2, Eosinophils (%) (Auto) 1.8, Basophils (%) (Auto) 0.2, Neutrophils # (Auto) 10.32, Lymphocytes # (Auto) 2.97, Monocytes # (Auto) 0.90, Eosinophils # (Auto) 0.26, Basophils # (Auto) 0.03 04/28/17 17:15 Test 04/28/17 17:15 White Blood Count 14.53 K/uL (4.8-10.8) Red Blood Count 4.47 M/uL (4.2-5.4) Hemoglobin 12.2 g/dL (12.0-16.0) Hematocrit 39.0 % (37-47) Mean Corpuscular Volume 87.2 fL (80-100) Mean Corpuscular Hemoglobin 27.3 pg (25-34) Mean Corpuscular Hemoglobin Concent 31.3 g/dl (32-36) Platelet Count 254 K/uL (130-400) Mean Platelet Volume 9.7 fL (7.4-10.4) Neutrophils (%) (Auto) 71.1 % Lymphocytes (%) (Auto) 20.4 % Monocytes (%) (Auto) 6.2 % Eosinophils (%) (Auto) 1.8 % Basophils (%) (Auto) 0.2 % Neutrophils # (Auto) 10.32 K/uL (1.4-6.5) Lymphocytes # (Auto) 2.97 K/uL (1.2-3.4) Monocytes # (Auto) 0.90 K/uL (0.11-0.59) Eosinophils # (Auto) 0.26 K/uL (0-0.5) Basophils # (Auto) 0.03 K/uL (0-0.2) RDW Standard Deviation 51.8 fL (36.4-46.3) RDW Coefficient of Variation 16.1 % (11.5-14.5) Immature Granulocyte % (Auto) 0.3 % Immature Granulocyte # (Auto) 0.05 K/uL (0.00-0.02) Prothrombin Time 23.4 SECONDS (9.0-12.0) Prothromb Time International Ratio 2.3 (0.9-1.1) Anion Gap 9.0 mmol/L (3-11) Est Creatinine Clear Calc Drug Dose 85.1 ml/min Estimated GFR () 95.5 Estimated GFR (Non- 82.4 BUN/Creatinine Ratio 17.7 (10-20) Calcium Level 9.5 mg/dl (8.5-10.1) Medications Administered Medications (Trade) Dose Ordered Sig/Michael Route Start Time Stop Time Status Last Admin Dose Admin Morphine Sulfate (MoRPHine SULFATE INJ) 4 mg NOW STAT IV 04/28/17 16:51 04/28/17 16:52 DC 04/28/17 17:21 4 MG Hydromorphone HCl (Dilaudid Inj) 1 mg NOW STAT IV 04/28/17 18:02 04/28/17 18:04 DC 04/28/17 18:10 1 MG Hydromorphone HCl (Dilaudid Inj) 0.5 mg NOW STAT IV 04/28/17 19:38 04/28/17 19:39 DC 04/28/17 20:12 0.5 MG Medical Decision Patient was seen and evaluated as above. After obtaining a thorough history and physical examination it was evident the patient was experiencing acute on chronic back pain. It appears that she ran out of her pain medication therefore prompting her visit here today however now the pain is worse. I did discuss this with the on-call regional telecommunications specialist for Dr. Brown, and spoke with Caryn Quiroz PA-C. It appears that Dr. Brown will be out of the office until Monday, and notes that they are unable to admit the patient to their service at this time and recommend management here either controlling the pain with IV pain medication and outpatient management with oral pain meds or admission via the medicine team. IV access was initiated, and the above workup was performed. I did attempt to manage her pain intravenously here with morphine and Dilaudid with little success. Her pain persisted. She was offered discharge or pain meds versus inpatient management. She expressed great concern over going back home given the long drive as well as her pain currently. It seems as though inpatient management is warranted. This was discussed with the attending physician who personally also evaluated the patient. She was given more Dilaudid. Blood work does not reveal any concerning leukocytosis as this appears to be stable compared to previous. She did recently finish a steroid pack. No concerning anemia. No evidence of kidney failure on the PRP. Medications list reviewed. Patient's blood pressure was elevated. I believe secondary to situation. In evaluation treatment this patient following differential diagnoses were entertained: Fracture, dislocation, acute on chronic low back pain, herniated disc, among others. Impression Primary Impression: Intractable back pain Departure Information Dispostion Admitted as an inpatient Condition FAIR Referrals Soham Hayes D.O. (PCP) Forms HOME CARE DOCUMENTATION FORM, IMPORTANT VISIT INFORMATION Patient Instructions My [facility]
[2017-04-28] MEDS: LORAZEPAM 0.5 MG TAB PO SCH (21:56)
--- NOTE | 2017-04-28 22:45 | History and Physical ---
History & Physical Date & Time of Service: Apr 28, 2017 at 20:28 Chief Complaint: Ruptured Disc In Back,Sob, Rt Leg Pain Primary Care Physician: Soham Hayes D.O. History of Present Illness Source: patient, clinic records, hospital records Pt is 56 y/o F with PMH depression, anxiety, asthma, DM II diet controlled, HLD , PE on coumadin, low back pain presented to ER with c/o low back pain. Pt with hx L4-L5 discectomy 2016. Pt states past couple of months with onset of lumbar back pain again with radiation down R lateral leg with associated tingling sensation to R leg. Follows with Dr Brown and had lumbar spine MRI. Pt reports is planning on surgical procedure. She reports intermittent R leg weakness and fell once last week from this. Denies other injury or worsening pain. Pt states that she ran out of her oxycodone yesterday. She called her dr and pt states was told sending her an Rx, however pt states never received it. States her pain was being controlled previous with the oxycodone, however since she has been out had increased pain and "pain got a head of me and my anxiety kicked in and couldn't get comfortable". Pt denies any new areas of pain. She had recently finished steroid taper. Denies saddle paresthesias, loss control of bowel/bladder, dysuria, hematuria, fever/chills. Pt given morphine 4mg and dilaudid 1mg in ER with some relief. Dr Brown out of town until 05/01/17. ER spoke to Dr Brown staff - Caryn. MRI on 04/15/17: S/P L4-L5 discectomy, post decompression and bilateral pedicle screw fusion. Developmental R paracentral disc protrusion at L3-L4, mild- moderate narrowing R neural foramen L3-L4, no acute fracture. Past Medical/Surgical History Medical Problems: (1) Anxiety Status: Chronic (2) Asthma Status: Chronic (3) Chronic pain Status: Chronic (4) Depression Status: Chronic (5) Depression Status: Chronic (6) DM2 (diabetes mellitus, type 2) Status: Chronic (7) GERD (gastroesophageal reflux disease) Status: Chronic (8) HLD (hyperlipidemia) Status: Chronic (9) Pulmonary embolism Status: Chronic (10) TOBACCO USE DISORDER Status: Resolved Surgical Problems: (1) H/O neck surgery Status: Resolved (2) H/O shoulder surgery Status: Resolved (3) History of spinal surgery Permanent Comment: 08/2016 - L4-L5 spinal fusion Status: Resolved (4) History of total abdominal hysterectomy Status: Resolved (5) Hx of total knee arthroplasty Status: Resolved (6) S/P IVC filter Status: Resolved (7) S/P knee replacement Status: Resolved Family History Hypertension Social History Smoking Status: Current Every Day Smoker (pt states trying to quit and smoking a couple cigarettes a day, previous smoked 0.5ppd x 15 years) Smokeless Tobacco Use: No Alcohol Use: occasionally Drug Use: none Marital Status: single Housing status: lives alone Occupational Status: employed Immunizations History of Influenza Vaccine: N/A History of Tetanus Vaccine?: Yes History of Pneumococcal: Yes History of Hepatitis B Vaccine: No Allergies Coded Allergies: Phenytoin (Verified Allergy, Intermediate, Facial swelling, 04/28/17) Home Medications Scheduled Cholecalciferol (Vitamin D), 1 TAB PO DAILY Fluticasone Furoate-Vilanterol (Breo Ellipta), 1 PUFF INH QAM Furosemide (Furosemide), 20 MG PO QAM Gabapentin (Gabapentin), 300 MG PO TID Levalbuterol (Levalbuterol HCl), 3 ML INH TID Lorazepam (Lorazepam), 0.5 MG PO TID Meloxicam (Meloxicam), 15 MG PO QPM Pantoprazole (Protonix), 40 MG PO QAM Potassium Chloride (K-Tab), 1 TAB PO DAILY Quetiapine Fumarate (Seroquel), 200 MG PO HS Rosuvastatin Calcium (Crestor), 40 MG PO QPM Tizanidine (Tizanidine HCl), 8 MG PO TID Venlafaxine Hcl (Effexor Extended Rel), 150 MG PO QAM Warfarin Sodium (Coumadin), 5 MG PO WK Warfarin Sodium (Coumadin), 7.5 MG PO [id number] Scheduled PRN Albuterol Hfa (Ventolin Hfa), 2 PUFFS INH Q4H PRN for Shortness of Breath Arformoterol Tartrate (Brovana), 15 MCG NEB BID PRN for Shortness of Breath Oxycodone HCl (Oxycodone HCl), 10 MG PO Q6 PRN for Moderate pain Review of Systems Constitutional: No fever, No chills, No sweats, No weight loss, No fatigue Eyes: No eye pain, No redness, No discharge, No diplopia ENT: No nasal symptoms, No sore throat, No trouble swallowing Respiratory: No cough, No shortness of breath Cardiovascular: No chest pain, No orthopnea, No PND, No edema, No palpitations Abdomen: No pain, No nausea, No vomiting, No diarrhea, No constipation, No GI bleeding Musculoskeletal: + problem reported (see HPI) Genitourinary - Female: No dysuria, No urinary frequency, No urinary urgency, No urinary incontinence, No urinary retention, No hematuria Neurologic: No vertigo Hematologic / Lymphatic: No abnormal bleeding/bruising, No night sweats Integumentary: No rash, No itch Physical Exam Vital Signs Date Time Temp Pulse Resp B/P (MAP) Pulse Ox O2 Delivery O2 Flow Rate FiO2 04/28/17 19:50 92 18 153/81 95 Room Air 04/28/17 16:34 36.7 113 18 151/86 95 Room Air General Appearance: WD/WN, no apparent distress Head: normocephalic, atraumatic Eyes: normal inspection, PERRL, EOMI, sclerae normal ENT: hearing grossly normal, pharynx normal, + pertinent finding (mucous membranes moist) Neck: supple, trachea midline, + pertinent finding (non-tender) Respiratory/Chest: lungs clear, normal breath sounds, no respiratory distress, no accessory muscle use Cardiovascular: regular rate, rhythm, no murmur, normal peripheral pulses Abdomen/GI: normal bowel sounds, non tender, soft Back: no CVA tenderness, + decreased range of motion, + pertinent finding (+ tenderness to palpation lumbar region, greater on right side) Extremities/Musculoskelatal: no calf tenderness, normal capillary refill, no pedal edema, non-tender, + pertinent finding (strength 4/5 on right leg, 5/5 on left leg. LE reflexes intact. ) Neurologic/Psych: alert, normal mood/affect, oriented x 3 Skin: normal color, warm/dry Diagnostics Laboratory Results Results Past 24 Hours Test 04/28/17 17:15 Range/Units White Blood Count 14.53 4.8-10.8 K/uL Red Blood Count 4.47 4.2-5.4 M/uL Hemoglobin 12.2 12.0-16.0 g/dL Hematocrit 39.0 37-47 % Mean Corpuscular Volume 87.2 80-100 fL Mean Corpuscular Hemoglobin 27.3 25-34 pg Mean Corpuscular Hemoglobin Concent 31.3 32-36 g/dl Platelet Count 254 130-400 K/uL Mean Platelet Volume 9.7 7.4-10.4 fL Neutrophils (%) (Auto) 71.1 % Lymphocytes (%) (Auto) 20.4 % Monocytes (%) (Auto) 6.2 % Eosinophils (%) (Auto) 1.8 % Basophils (%) (Auto) 0.2 % Neutrophils # (Auto) 10.32 1.4-6.5 K/uL Lymphocytes # (Auto) 2.97 1.2-3.4 K/uL Monocytes # (Auto) 0.90 0.11-0.59 K/uL Eosinophils # (Auto) 0.26 0-0.5 K/uL Basophils # (Auto) 0.03 0-0.2 K/uL RDW Standard Deviation 51.8 36.4-46.3 fL RDW Coefficient of Variation 16.1 11.5-14.5 % Immature Granulocyte % (Auto) 0.3 % Immature Granulocyte # (Auto) 0.05 0.00-0.02 K/uL Prothrombin Time 23.4 9.0-12.0 SECONDS Prothromb Time International Ratio 2.3 0.9-1.1 Sodium Level 138 136-145 mmol/L Potassium Level 3.6 3.5-5.1 mmol/L Chloride Level 106 98-107 mmol/L Carbon Dioxide Level 24 21-32 mmol/L Anion Gap 9.0 3-11 mmol/L Blood Urea Nitrogen 14 7-18 mg/dl Creatinine 0.80 0.60-1.20 mg/dl Est Creatinine Clear Calc Drug Dose 85.1 ml/min Estimated GFR () 95.5 Estimated GFR (Non- 82.4 BUN/Creatinine Ratio 17.7 10-20 Random Glucose 104 70-99 mg/dl Calcium Level 9.5 8.5-10.1 mg/dl Diagnostic Radiology LUMBAR MRI FROM 04/15/17: IMPRESSION: 1. Status post interval L4-L5 discectomy, posterior decompression and bilateral pedicle screw fusion. 2. Interval development of a right paracentral disc protrusion at L3-L4 with superior subligamentous migration. This results in moderate narrowing of the right lateral recess and could be correlated with a right L4 radiculopathy. Mild to moderate narrowing of the right neural foramen at L3-L4. 3. No lumbar spine fracture. Impression Assessment and Plan INTRACTABLE BACK PAIN/R RADICULOPATHY Pt with hx previous lumbar spinal fusion L4-L5 in 2017. Hx recurrent lumbar back pain with R leg radiculopathy with disc protrusion at L3-L4 noted on MRI on 04/15/17. Following with Dr Brown. Pain was being controlled with oxycodone, however pt ran out and increased pain, not completely controlled in ER. Pt is hoping to go home tomorrow after some pain control. -admit med/surg for pain control -dilaudid 1mg Q4h prn severe pain -oxycodone Q4h prn moderate pain -if pain not controlled consider pain management consult -Dr Brown out until 05/01/17, suspect can get pain controlled and pt can f/u out pt on 05/01/17 -continue gabapentin and tizanidine -PT/OT consult LEUKOCYTOSIS WBC: 14. Pt finished steroid taper. Suspect from steroids vs stress reaction. Afebrile -repeat cbc and continue to monitor HX PE ON COUMADIN No SOB or CP. INR: 2.3 -continue coumadin ANXIETY/DEPRESSION: -continue Seroquel, Effexor and Ativan ASTHMA No SOB or wheezing. No cough -continue breo and albuterol inhaler prn DM II - diet controlled -NovoLog sliding scale HLD -continue crestor DVT Prophylaxis -On coumadin Disposition admit med surg Full Code Follows with Dr Hayes for routine care Pt was seen with Dr Sigala. See addendum ATTENDING ADDENDUM : pt seen and examined, care co-ordinated with Maria Teresa Martinez PA-C 56 yo F recently underwent L4-L5 lumber decompression surgery by Dr Brown few months back presents with intractable back pain , not getting relief with pain meds MRI Of lumber spine : MRI on 04/15/17: S/P L4-L5 discectomy, post decompression and bilateral pedicle screw fusion. Developmental R paracentral disc protrusion at L3-L4, mild- moderate narrowing R neural foramen L3-L4, no acute fracture. admit to medical floor for pain control PT/OT eval pt is scheduled to see Dr Brown in office next week Lynn Sigala MD Level of Care Med/Surg Resuscitation Status FULL RESUSCITATION VTE Prophylaxis VTE Risk Assessment Done? Y/N: Yes Risk Level: Moderate Given or contraindicated: Warfarin (Coumadin) Additional Copies To Soham Hayes D.O.
[2017-04-28 22:55] VITALS: BP 120/77; PULSE 91; TEMP 36.7; O2SAT 92
[2017-04-28] MEDS: GABAPENTIN 300 MG CAP PO SCH (23:10)
[2017-04-28] MEDS: ROSUVASTATIN CALCIUM 20 MG TAB PO SCH (23:10)
[2017-04-28] MEDS: QUETIAPINE FUMARATE 200 MG TAB PO SCH (23:10)
[2017-04-28] MEDS ORDERED: IV FLUIDS COMPLETED PRN (23:30)
[2017-04-28] MEDS: OXYCODONE HCL IR 5 MG TAB (IMMEDIATE RELEASE) PO PRN (23:34)
[2017-04-28] MEDS ORDERED: DEXTROSE 50% 50 ML SYR IV PRN (23:45)
[2017-04-28] MEDS ORDERED: POLYETHYLENE (MIRALAX) 17 GM PACK PO ONE (23:45)
[2017-04-28] MEDS ORDERED: GLUCAGON FOR INJ 1 MG VIAL SQ PRN (23:45)
[2017-04-28] MEDS ORDERED: GLUCOSE 10 TABS/TUBE PO PRN (23:45)
[2017-04-28] MEDS ORDERED: GLUCOSE 40% GEL 15 GM TUBE PO PRN (23:45)
[2017-04-29] MEDS: HYDROmorphone INJ 1 MG/ML SYR IV PRN ×6 (01:59→21:53)
[2017-04-29 06:27] LABS: HEMATOCRIT 38.3 % (37-47); HEMOGLOBIN 11.8 g/dL (12.0-16.0); MEAN CELL VOLUME 88.9 fL (80-100); MEAN CORPUSCULAR HEMOGLOBIN 27.4 pg (25-34); MEAN CORPUSCULAR HGB CONC 30.8 g/dl (32-36); MEAN PLATELET VOLUME 9.6 fL (7.4-10.4); PLATELET COUNT 237 K/uL (130-400); RED CELL DISTRIBUTION WIDTH CV 16.2 % (11.5-14.5); RED CELL DISTRIBUTION WIDTH SD 53.6 fL (36.4-46.3); WHITE BLOOD COUNT 13.08 K/uL (4.8-10.8)
[2017-04-29 06:41] LABS: INR 2.3 (0.9-1.1)
[2017-04-29 07:16] LABS: CALCIUM 9.1 mg/dl (8.5-10.1); CREATININE 1.15 mg/dl (0.60-1.20); POTASSIUM 4.3 mmol/L (3.5-5.1)
[2017-04-29] MEDS: OXYCODONE HCL IR 5 MG TAB (IMMEDIATE RELEASE) PO PRN ×4 (07:44→20:11)
[2017-04-29 08:04] LABS: HEMOGLOBIN A1C 6.5 % (4.5-5.6)
[2017-04-29 08:07] VITALS: BP 129/69; PULSE 79; TEMP 37.1; O2SAT 91
[2017-04-29] MEDS: LORAZEPAM 0.5 MG TAB PO SCH ×3 (08:40→20:51)
[2017-04-29] MEDS: DOCUSATE SODIUM 100 MG CAP PO SCH ×2 (08:41→20:51)
[2017-04-29] MEDS: VENLAFAXINE HCL XR 150 MG CAPXR PO SCH (08:41)
[2017-04-29] MEDS: POTASSIUM CHLORIDE 20 MEQ TABCR PO SCH (08:42)
[2017-04-29] MEDS: FUROSEMIDE 20 MG TAB PO SCH (08:42)
[2017-04-29] MEDS: POLYETHYLENE (MIRALAX) 17 GM PACK PO SCH (08:43)
[2017-04-29] MEDS: GABAPENTIN 300 MG CAP PO SCH ×3 (08:43→20:51)
[2017-04-29] MEDS: PANTOprazole SOD 40 MG TAB PO SCH (08:45)
[2017-04-29] MEDS: CHOLECALCIFEROL 1000 INTER.UNIT TAB PO SCH (08:45)
[2017-04-29] MEDS: INSULIN HUMAN REGULAR SC SCH ×4 (08:55→20:49)
[2017-04-29] MEDS ORDERED: WARFARIN SOD 5 MG TAB PO SCH (16:00)
[2017-04-29 16:02] VITALS: BP 141/80; PULSE 82; TEMP 36.6; O2SAT 91
--- NOTE | 2017-04-29 18:53 | Progress Note ---
Subjective Date of Service: Apr 29, 2017. Subjective Pt evaluation today including: conversation w/ patient, physical exam, lab review, review of studies, review of inpatient medication list Saw/examined the patient in room 377 Back pain improving, but persists There is radicular pain in the RLE Problem List Medical Problems: (1) Abdominal pain Status: Acute (2) Elevated blood pressure reading Status: Acute (3) Leukocytosis Status: Acute (4) Lumbar back pain Status: Acute (5) Lumbar back pain with radiculopathy affecting right lower extremity Status: Acute (6) Numbness on right side Status: Acute (7) Radiculopathy of lumbosacral region Status: Acute (8) Right hip pain Status: Acute (9) Right lumbar radiculopathy Status: Acute (10) Urinary tract infection Status: Acute Review of Systems Constitutional: No fever, No chills Respiratory: No cough, No sputum, No shortness of breath Cardiac: No chest pain, No edema, No palpitations Abdomen: No pain, No nausea, No vomiting, No diarrhea, No constipation, No GI bleeding Musculoskeletal: + joint pain, + muscle pain Medications Current Inpatient Medications Medications (Trade) Dose Ordered Sig/Michael Route Start Time Stop Time Status Last Admin Dose Admin Acetaminophen (Tylenol Tab) 650 mg Q4H PRN PO 04/28/17 20:15 05/28/17 20:14 Ondansetron HCl (Zofran Inj) 4 mg Q6H PRN IV 04/28/17 20:15 05/28/17 20:14 Oxycodone HCl (Roxicodone Immediate Rel Tab) 5 mg Q4 PRN PO 04/28/17 20:15 05/12/17 20:14 04/29/17 16:25 5 MG Albuterol (Ventolin Hfa Inhaler) 2 puffs Q4H PRN INH 04/28/17 20:30 05/28/17 20:29 Furosemide (Lasix Tab) 20 mg QAM PO 04/29/17 09:00 05/29/17 08:59 04/29/17 08:42 20 MG Gabapentin (Neurontin Cap) 300 mg TID PO 04/28/17 21:00 05/28/17 20:59 04/29/17 14:22 300 MG Lorazepam (Ativan Tab) 0.5 mg TID PO 04/28/17 21:00 05/28/17 20:59 04/29/17 14:22 0.5 MG Pantoprazole Sodium (Protonix Tab) 40 mg QAM PO 04/29/17 09:00 05/29/17 08:59 04/29/17 08:45 40 MG Quetiapine Fumarate (seroQUEL TAB) 200 mg HS PO 04/28/17 21:00 05/28/17 20:59 04/28/17 23:10 200 MG Rosuvastatin Calcium (Crestor Tab) 40 mg QPM PO 04/28/17 21:00 05/28/17 20:59 04/28/17 23:10 40 MG Tizanidine HCl (Zanaflex Tab) 8 mg TID PO 04/28/17 21:00 05/28/17 20:59 04/29/17 14:22 8 MG Venlafaxine HCl (effeXOR EXTENDED REL CAP) 150 mg QAM PO 04/29/17 09:00 05/29/17 08:59 04/29/17 08:41 150 MG Cholecalciferol (Vitamin D Tab) 2,000 inter.unit DAILY PO 04/29/17 09:00 05/29/17 08:59 04/29/17 08:45 2,000 INTER.UNIT Miscellaneous Information (Order Awaiting Action) 1 ea QS N/A 04/29/17 00:00 05/29/17 00:00 Potassium Chloride (Klor-Con Tab) 20 meq DAILY PO 04/29/17 09:00 05/29/17 08:59 04/29/17 08:42 20 MEQ Warfarin Sodium (Coumadin Tab) 5 mg DAILY@16 PO 04/29/17 16:00 05/29/17 15:59 04/29/17 16:26 5 MG Miscellaneous (Iv Fluids Completed) 1 ea PRN PRN N/A 04/28/17 23:30 04/28/18 23:29 Hydromorphone HCl (Dilaudid Inj) 1 mg Q3HWA PRN IV 04/28/17 23:45 05/12/17 20:14 04/29/17 17:42 1 MG Polyethylene (Miralax Powder Packet) 17 gm QAM PO 04/29/17 09:00 05/29/17 08:59 04/29/17 08:43 17 GM Docusate Sodium (coLACE CAP) 100 mg BID PO 04/29/17 09:00 05/29/17 08:59 04/29/17 08:41 100 MG Prednisone (PredniSONE TAB) 30 mg Taper DAILY PO 04/29/17 09:00 05/02/17 08:59 04/29/17 08:45 30 MG Insulin Human Regular (novoLIN-R) SLIDING SCALE IF C... ACHS SC 04/29/17 08:00 05/29/17 07:59 04/29/17 18:16 7 UNITS Glucose (Glucose 40% Gel) 15-30 GRAMS 15 GRAMS... UD PRN PO 04/28/17 23:45 05/28/17 23:44 Glucose (Glucose Chew Tab) 4-8 Tablets 4 Tabl... UD PRN PO 04/28/17 23:45 05/28/17 23:44 Dextrose (Dextrose 50% 50ML Syringe) 25-50ML OF 50% DW IV FOR... UD PRN IV 04/28/17 23:45 05/28/17 23:44 Glucagon (Glucagon Inj) 1 mg UD PRN SQ 04/28/17 23:45 05/28/17 23:44 Objective Vital Signs Date Time Temp Pulse Resp B/P (MAP) Pulse Ox O2 Delivery O2 Flow Rate FiO2 04/29/17 16:02 36.6 82 18 141/80 (100) 91 Room Air 04/29/17 15:30 Room Air 04/29/17 08:07 37.1 79 18 129/69 (89) 91 Room Air 04/29/17 07:40 Room Air 04/28/17 23:27 Room Air 04/28/17 22:55 36.7 91 18 120/77 (91) 92 Room Air 04/28/17 20:55 36.5 80 18 133/84 94 Room Air 04/28/17 20:39 77 14 126/86 93 04/28/17 19:50 92 18 153/81 95 Room Air Physical Exam General Appearance: no apparent distress Respiratory/Chest: no respiratory distress, no accessory muscle use Cardiovascular: regular rate, rhythm Extremities: normal inspection, no pedal edema, + pertinent finding Laboratory Results Last 24 Hours Test 2/16/18 22:02 04/29/17 06:03 04/29/17 08:21 04/29/17 13:41 Bedside Glucose 117 mg/dl 151 mg/dl 215 mg/dl White Blood Count 13.08 K/uL Red Blood Count 4.31 M/uL Hemoglobin 11.8 g/dL Hematocrit 38.3 % Mean Corpuscular Volume 88.9 fL Mean Corpuscular Hemoglobin 27.4 pg Mean Corpuscular Hemoglobin Concent 30.8 g/dl RDW Standard Deviation 53.6 fL RDW Coefficient of Variation 16.2 % Platelet Count 237 K/uL Mean Platelet Volume 9.6 fL Prothrombin Time 23.7 SECONDS Prothromb Time International Ratio 2.3 Sodium Level 136 mmol/L Potassium Level 4.3 mmol/L Chloride Level 105 mmol/L Carbon Dioxide Level 22 mmol/L Anion Gap 9.0 mmol/L Blood Urea Nitrogen 20 mg/dl Creatinine 1.15 mg/dl Est Creatinine Clear Calc Drug Dose 60.1 ml/min Estimated GFR () 61.6 Estimated GFR (Non- 53.1 BUN/Creatinine Ratio 17.2 Random Glucose 165 mg/dl Estimated Average Glucose 140 mg/dl Hemoglobin A1c 6.5 % Calcium Level 9.1 mg/dl Test 04/29/17 16:57 Bedside Glucose 228 mg/dl Assessment and Plan Pt is 56 y/o F with PMH depression, anxiety, asthma, DM II diet controlled, HLD , PE on Coumadin, low back pain Low Back Pain Hx. of Lumbar Surgery hx. of lumbar surgery; has had L2-L5 surgeries in the past was seen in Dr. Brown's office, plan for future surgical intervention was prescribed Oxycodone for pain, it was working, but she ran out and pain returned currently, on Gabapentin, Zanaflex Oxycodone PRN - increasing this dose in hopes of decreasing Dilaudid Prednisone taper Hx. of Pulmonary Embolism continue Coumadin; goal INR 2-3 Depression/Anxiety continue home medications DVT ppx Coumadin FULL CODE
[2017-04-29] MEDS: ROSUVASTATIN CALCIUM 20 MG TAB PO SCH (20:51)
[2017-04-29] MEDS: QUETIAPINE FUMARATE 200 MG TAB PO SCH (20:51)
[2017-04-29 22:54] VITALS: BP 113/67; PULSE 85; TEMP 37; O2SAT 91
[2017-04-30] MEDS: OXYCODONE HCL IR 5 MG TAB (IMMEDIATE RELEASE) PO PRN ×3 (00:22→10:48)
[2017-04-30] MEDS: HYDROmorphone INJ 1 MG/ML SYR IV PRN ×3 (03:52→13:44)
[2017-04-30 06:06] LABS: HEMATOCRIT 33.2 % (37-47); HEMOGLOBIN 10.7 g/dL (12.0-16.0); MEAN CELL VOLUME 86.9 fL (80-100); MEAN CORPUSCULAR HGB CONC 32.2 g/dl (32-36); MEAN PLATELET VOLUME 9.3 fL (7.4-10.4); PLATELET COUNT 210 K/uL (130-400); RED CELL DISTRIBUTION WIDTH SD 51.4 fL (36.4-46.3); WHITE BLOOD COUNT 13.32 K/uL (4.8-10.8)
[2017-04-30 06:45] LABS: CREATININE 0.89 mg/dl (0.60-1.20); POTASSIUM 3.8 mmol/L (3.5-5.1)
[2017-04-30 07:57] VITALS: BP 105/69; PULSE 79; TEMP 36.6; O2SAT 96
[2017-04-30] MEDS: POLYETHYLENE (MIRALAX) 17 GM PACK PO SCH (09:00)
[2017-04-30] MEDS ORDERED: FLUTICASONE FUROATE-VILANTEROL 30 PUFFS/INHALER INH INH SCH (09:00)
[2017-04-30] MEDS: DOCUSATE SODIUM 100 MG CAP PO SCH (09:00)
[2017-04-30] MEDS: LORAZEPAM 0.5 MG TAB PO SCH (09:55)
[2017-04-30] MEDS: VENLAFAXINE HCL XR 150 MG CAPXR PO SCH (09:56)
[2017-04-30] MEDS: FUROSEMIDE 20 MG TAB PO SCH (09:56)
[2017-04-30] MEDS: POTASSIUM CHLORIDE 20 MEQ TABCR PO SCH (09:56)
[2017-04-30] MEDS: GABAPENTIN 300 MG CAP PO SCH (09:57)
[2017-04-30] MEDS: PANTOprazole SOD 40 MG TAB PO SCH (09:57)
[2017-04-30] MEDS: CHOLECALCIFEROL 1000 INTER.UNIT TAB PO SCH (09:57)
[2017-04-30] MEDS: INSULIN HUMAN REGULAR SC SCH ×2 (10:01→12:00)
--- NOTE | 2017-04-30 11:33 | Progress Note ---
Subjective Date of Service: Apr 30, 2017. Subjective Pt evaluation today including: conversation w/ patient, physical exam, lab review, review of studies, review of inpatient medication list Saw/examined the patient in room 377 her back pain has been improving she has ambulated using a walker Problem List Medical Problems: (1) Abdominal pain Status: Acute (2) Elevated blood pressure reading Status: Acute (3) Leukocytosis Status: Acute (4) Lumbar back pain Status: Acute (5) Lumbar back pain with radiculopathy affecting right lower extremity Status: Acute (6) Numbness on right side Status: Acute (7) Radiculopathy of lumbosacral region Status: Acute (8) Right hip pain Status: Acute (9) Right lumbar radiculopathy Status: Acute (10) Urinary tract infection Status: Acute Review of Systems Constitutional: No fever, No chills Respiratory: No shortness of breath Cardiac: No chest pain Abdomen: No pain, No nausea, No vomiting, No diarrhea Musculoskeletal: + joint pain, + muscle pain Neurologic: + numbness/tingling (RLE) Medications Current Inpatient Medications Medications (Trade) Dose Ordered Sig/Michael Route Start Time Stop Time Status Last Admin Dose Admin Acetaminophen (Tylenol Tab) 650 mg Q4H PRN PO 04/28/17 20:15 05/28/17 20:14 Ondansetron HCl (Zofran Inj) 4 mg Q6H PRN IV 04/28/17 20:15 05/28/17 20:14 Albuterol (Ventolin Hfa Inhaler) 2 puffs Q4H PRN INH 04/28/17 20:30 05/28/17 20:29 04/29/17 20:46 2 PUFFS Furosemide (Lasix Tab) 20 mg QAM PO 04/29/17 09:00 05/29/17 08:59 04/30/17 09:56 20 MG Gabapentin (Neurontin Cap) 300 mg TID PO 04/28/17 21:00 05/28/17 20:59 04/30/17 09:57 300 MG Lorazepam (Ativan Tab) 0.5 mg TID PO 04/28/17 21:00 05/28/17 20:59 04/30/17 09:55 0.5 MG Pantoprazole Sodium (Protonix Tab) 40 mg QAM PO 04/29/17 09:00 05/29/17 08:59 04/30/17 09:57 40 MG Quetiapine Fumarate (seroQUEL TAB) 200 mg HS PO 04/28/17 21:00 05/28/17 20:59 04/29/17 20:51 200 MG Rosuvastatin Calcium (Crestor Tab) 40 mg QPM PO 04/28/17 21:00 05/28/17 20:59 04/29/17 20:51 40 MG Tizanidine HCl (Zanaflex Tab) 8 mg TID PO 04/28/17 21:00 05/28/17 20:59 04/30/17 09:57 8 MG Venlafaxine HCl (effeXOR EXTENDED REL CAP) 150 mg QAM PO 04/29/17 09:00 05/29/17 08:59 04/30/17 09:56 150 MG Cholecalciferol (Vitamin D Tab) 2,000 inter.unit DAILY PO 04/29/17 09:00 05/29/17 08:59 04/30/17 09:57 2,000 INTER.UNIT Potassium Chloride (Klor-Con Tab) 20 meq DAILY PO 04/29/17 09:00 05/29/17 08:59 04/30/17 09:56 20 MEQ Warfarin Sodium (Coumadin Tab) 5 mg DAILY@16 PO 04/29/17 16:00 05/29/17 15:59 04/29/17 16:26 5 MG Miscellaneous (Iv Fluids Completed) 1 ea PRN PRN N/A 04/28/17 23:30 04/28/18 23:29 Hydromorphone HCl (Dilaudid Inj) 1 mg Q3HWA PRN IV 04/28/17 23:45 05/12/17 20:14 04/30/17 08:29 1 MG Polyethylene (Miralax Powder Packet) 17 gm QAM PO 04/29/17 09:00 05/29/17 08:59 04/29/17 08:43 17 GM Docusate Sodium (coLACE CAP) 100 mg BID PO 04/29/17 09:00 05/29/17 08:59 04/29/17 20:51 100 MG Prednisone (PredniSONE TAB) 20 mg Taper DAILY PO 04/29/17 09:00 05/02/17 08:59 04/30/17 09:57 20 MG Insulin Human Regular (novoLIN-R) SLIDING SCALE IF C... ACHS SC 04/29/17 08:00 05/29/17 07:59 04/30/17 10:01 4 UNITS Glucose (Glucose 40% Gel) 15-30 GRAMS 15 GRAMS... UD PRN PO 04/28/17 23:45 05/28/17 23:44 Glucose (Glucose Chew Tab) 4-8 Tablets 4 Tabl... UD PRN PO 04/28/17 23:45 05/28/17 23:44 Dextrose (Dextrose 50% 50ML Syringe) 25-50ML OF 50% DW IV FOR... UD PRN IV 04/28/17 23:45 05/28/17 23:44 Glucagon (Glucagon Inj) 1 mg UD PRN SQ 04/28/17 23:45 05/28/17 23:44 Oxycodone HCl (Roxicodone Immediate Rel Tab) 10 mg Q4H PRN PO 04/29/17 19:00 05/13/17 18:59 04/30/17 10:48 10 MG Fluticasone/ Vilanterol (Breo Ellipta 100-25 Mcg/Inh) 1 puffs DAILY INH 04/30/17 09:00 05/30/17 08:59 04/30/17 09:54 1 PUFFS Objective Vital Signs Date Time Temp Pulse Resp B/P (MAP) Pulse Ox O2 Delivery O2 Flow Rate FiO2 04/30/17 07:57 36.6 79 16 105/69 (81) 96 Room Air 04/30/17 07:30 Room Air 04/29/17 22:54 37.0 85 16 113/67 (82) 91 Room Air 04/29/17 20:00 Room Air 04/29/17 16:02 36.6 82 18 141/80 (100) 91 Room Air 04/29/17 15:30 Room Air Physical Exam General Appearance: no apparent distress, + obese Respiratory/Chest: no respiratory distress, no accessory muscle use Neurologic/Psychiatric: + pertinent finding (painful ROM, worsening pain with R leg raising) Laboratory Results Last 24 Hours Test 04/29/17 13:41 04/29/17 16:57 04/29/17 20:33 04/30/17 05:45 Bedside Glucose 215 mg/dl 228 mg/dl 200 mg/dl White Blood Count 13.32 K/uL Red Blood Count 3.82 M/uL Hemoglobin 10.7 g/dL Hematocrit 33.2 % Mean Corpuscular Volume 86.9 fL Mean Corpuscular Hemoglobin 28.0 pg Mean Corpuscular Hemoglobin Concent 32.2 g/dl RDW Standard Deviation 51.4 fL RDW Coefficient of Variation 16.0 % Platelet Count 210 K/uL Mean Platelet Volume 9.3 fL Sodium Level 138 mmol/L Potassium Level 3.8 mmol/L Chloride Level 104 mmol/L Carbon Dioxide Level 26 mmol/L Anion Gap 8.0 mmol/L Blood Urea Nitrogen 21 mg/dl Creatinine 0.89 mg/dl Est Creatinine Clear Calc Drug Dose 77.6 ml/min Estimated GFR () 84.0 Estimated GFR (Non- 72.5 BUN/Creatinine Ratio 23.2 Random Glucose 121 mg/dl Calcium Level 9.0 mg/dl Test 04/30/17 07:59 Bedside Glucose 118 mg/dl Assessment and Plan Pt is 56 y/o F with PMH depression, anxiety, asthma, DM II diet controlled, HLD , PE on Coumadin, low back pain Low Back Pain Hx. of Lumbar Surgery 04/30 plan is to d/c patient with a few day supply of Roxicodone PRN for pain she can continue Gabapentin, Zanaflex one dose of Prednisone 10mg in AM - 05/01 04/29 hx. of lumbar surgery; has had L2-L5 surgeries in the past was seen in Dr. Brown's office, plan for future surgical intervention was prescribed Oxycodone for pain, it was working, but she ran out and pain returned currently, on Gabapentin, Zanaflex Oxycodone PRN - increasing this dose in hopes of decreasing Dilaudid Prednisone taper Hx. of Pulmonary Embolism continue Coumadin; goal INR 2-3 Depression/Anxiety continue home medications DVT ppx Coumadin FULL CODE
[2017-04-30] MEDS ORDERED: RXC5 PO (11:36)
[2017-04-30] MEDS ORDERED: PRED10TA PO (11:47)
--- NOTE | 2017-04-30 11:48 | Discharge Instructions ---
Discharge Instructions Date of Service Apr 30, 2017. Admission Reason for Admission: Intractable Back Pain Discharge Discharge Diagnosis / Problem: Lumbar Back Pain Discharge Goals Goal(s): Decrease discomfort, Improve function, Diagnostic testing, Therapeutic intervention Activity Recommendations Activity Limitations: resume your previous activity . Instructions / Follow-Up Instructions / Follow-Up Please follow-up with Dr. Hayes - you will get a phone call with a date/time * Please do not drive if you take Oxycodone - only take this as needed up to 4 times daily * Continue taking Gabapentin and Zanaflex * Take prednisone 10mg on 05/01 * Follow-up with Dr. Brown as an outpatient Current Hospital Diet Patient's current hospital diet: Diabetes Type 2 Diet Discharge Diet Recommended Diet: Diabetes Type 2 Diet Pending Studies Studies pending at discharge: no Laboratory Results Hemoglobin A1c Test 04/29/17 06:03 Range/Units Estimated Average Glucose 140 mg/dl Hemoglobin A1c 6.5 H 4.5-5.6 % Medical Emergencies . Who to Call and When: Medical Emergencies: If at any time you feel your situation is an emergency, please call 911 immediately. . Non-Emergent Contact Non-Emergency issues call your: Primary Care Provider, Surgeon . . "Provider Documentation" section prepared by Anel Groves. . VTE Core Measure Inpt VTE Proph given/why not?: Warfarin (Coumadin) [place] Drug Monitoring Program Search Results: patient reviewed within database, no issues identified
--- NOTE | 2017-04-30 11:50 | Discharge Summary ---
Discharge Summary Date of Service Apr 30, 2017. Discharge Summary Admission Date: Apr 28, 2017 at 20:10 Discharge Date: Apr 30, 2017 Discharge Disposition: Home Principal Diagnosis: Lumbago, Radicular RLE pain COPD Hx. of PE on long-term anticoagulation Medication Reconciliation New Medications: Prednisone Tab (Prednisone) 10 Mg Tab 10 MG PO DAILY for 1 Day, #1 TAB Oxycodone HCl (Oxycodone HCl) 5 Mg Tab 10 MG PO Q6 PRN for Moderate pain for 3 Days, #24 TAB Continued Medications: Albuterol Hfa (Ventolin Hfa) 200 Puffs/11701 Mcg Aers 2 PUFFS INH Q4H PRN for Shortness of Breath Arformoterol Tartrate (Brovana) 15 Mcg/2 Ml Neb 15 MCG NEB BID PRN for Shortness of Breath Cholecalciferol (Vitamin D) 2,000 Unit Tab 1 TAB PO DAILY Fluticasone Furoate-Vilanterol (Breo Ellipta) 1 Inh Inh 1 PUFF INH QAM Furosemide (Furosemide) 20 Mg Tab 20 MG PO QAM Gabapentin (Gabapentin) 300 Mg Cap 300 MG PO TID Levalbuterol (Levalbuterol HCl) 0.63 Mg/3 Ml Nebu 3 ML INH TID for SOB/Wheezing Lorazepam (Lorazepam) 0.5 Mg Tab 0.5 MG PO TID Meloxicam (Meloxicam) 15 Mg Tab 15 MG PO QPM Pantoprazole (Protonix) 40 Mg Tab 40 MG PO QAM, TAB Potassium Chloride (K-Tab) 20 Meq Tab 1 TAB PO DAILY Quetiapine Fumarate (Seroquel) 200 Mg Tab 200 MG PO HS Rosuvastatin Calcium (Crestor) 40 Mg Tab 40 MG PO QPM, TAB Tizanidine (Tizanidine HCl) 4 Mg Tab 8 MG PO TID Venlafaxine Hcl (Effexor Extended Rel) 150 Mg Capcr 150 MG PO QAM Warfarin Sodium (Coumadin) 5 Mg Tab 5 MG PO WK, TAB TAKES ON SUNDAYS ONLY Warfarin Sodium (Coumadin) 5 Mg Tab 7.5 MG PO 6XWK, TAB TAKES EVERY DAY EXCEPT SUNDAYS. Admission Information HPI (per Admitting provider): Pt is 56 y/o F with PMH depression, anxiety, asthma, DM II diet controlled, HLD , PE on coumadin, low back pain presented to ER with c/o low back pain. Pt with hx L4-L5 discectomy 2017. Pt states past couple of months with onset of lumbar back pain again with radiation down R lateral leg with associated tingling sensation to R leg. Follows with Dr Brown and had lumbar spine MRI. Pt reports is planning on surgical procedure. She reports intermittent R leg weakness and fell once last week from this. Denies other injury or worsening pain. Pt states that she ran out of her oxycodone yesterday. She called her dr and pt states was told sending her an Rx, however pt states never received it. States her pain was being controlled previous with the oxycodone, however since she has been out had increased pain and "pain got a head of me and my anxiety kicked in and couldn't get comfortable". Pt denies any new areas of pain. She had recently finished steroid taper. Denies saddle paresthesias, loss control of bowel/bladder, dysuria, hematuria, fever/chills. Pt given morphine 4mg and dilaudid 1mg in ER with some relief. Dr Brown out of town until 05/01/17. ER spoke to Dr Brown staff - Caryn. MRI on 04/15/17: S/P L4-L5 discectomy, post decompression and bilateral pedicle screw fusion. Developmental R paracentral disc protrusion at L3-L4, mild- moderate narrowing R neural foramen L3-L4, no acute fracture. Physical Exam (per Admitting): General Appearance: WD/WN, no apparent distress Head: normocephalic, atraumatic Eyes: normal inspection, PERRL, EOMI, sclerae normal ENT: hearing grossly normal, pharynx normal, + pertinent finding (mucous membranes moist) Neck: supple, trachea midline, + pertinent finding (non-tender) Respiratory/Chest: lungs clear, normal breath sounds, no respiratory distress, no accessory muscle use Cardiovascular: regular rate, rhythm, no murmur, normal peripheral pulses Abdomen/GI: normal bowel sounds, non tender, soft Back: no CVA tenderness, + decreased range of motion, + pertinent finding (+ tenderness to palpation lumbar region, greater on right side) Extremities/Musculoskelatal: no calf tenderness, normal capillary refill, no pedal edema, non-tender, + pertinent finding (strength 4/5 on right leg, 5/5 on left leg. LE reflexes intact. ) Neurologic/Psych: alert, normal mood/affect, oriented x 3 Skin: normal color, warm/dry Hospital Course Pt is 56 y/o F with PMH depression, anxiety, asthma, DM II diet controlled, HLD , PE on Coumadin, low back pain Low Back Pain Hx. of Lumbar Surgery 04/30 plan is to d/c patient with a few day supply of Roxicodone PRN for pain she can continue Gabapentin, Zanaflex one dose of Prednisone 10mg in AM - 05/01 04/29 hx. of lumbar surgery; has had L2-L5 surgeries in the past was seen in Dr. Brown's office, plan for future surgical intervention was prescribed Oxycodone for pain, it was working, but she ran out and pain returned currently, on Gabapentin, Zanaflex Oxycodone PRN - increasing this dose in hopes of decreasing Dilaudid Prednisone taper Hx. of Pulmonary Embolism continue Coumadin; goal INR 2-3 Depression/Anxiety continue home medications DVT ppx Coumadin FULL CODE Total time spent on discharge = 25 minutes This includes examination of the patient, discharge planning, medication reconciliation, and communication with other providers. Discharge Instructions Please follow-up with Dr. Hayes - you will get a phone call with a date/time * Please do not drive if you take Oxycodone - only take this as needed up to 4 times daily * Continue taking Gabapentin and Zanaflex * Take prednisone 10mg on 05/01 * Follow-up with Dr. Brown as an outpatient
[2017-04-30 12:14] VITALS: BP 105/69; PULSE 79; TEMP 36.6; O2SAT 96
== END 2017-04-30 14:00 | disposition home or self-care (01) ==
LOC: C.EDB 16:32 → C.MSN 20:10 → ENRESERV 20:22
PROVIDERS: ADMIT Hospitalist; ATTEND Family Medicine
DX: M54.5 Low back pain (principal); M54.16 Radiculopathy, lumbar region; J44.9 Chronic obstructive pulmonary disease, unspecified; F32.9 Major depressive disorder, single episode, unspecified; F41.9 Anxiety disorder, unspecified; J45.909 Unspecified asthma, uncomplicated; E11.9 Type 2 diabetes mellitus without complications; Z96.659 Presence of unspecified artificial knee joint; K21.9 Gastro-esophageal reflux disease without esophagitis; F17.200 Nicotine dependence, unspecified, uncomplicated; Z98.890 Other specified postprocedural states; Z86.711 Personal history of pulmonary embolism; Z90.710 Acquired absence of both cervix and uterus; Z88.8 Allergy status to other drugs, medicaments and biological substances; Z79.4 Long term (current) use of insulin; Z79.01 Long term (current) use of anticoagulants; Z79.899 Other long term (current) drug therapy; Z82.49 Family history of ischemic heart disease and other diseases of the circulatory system

== ENCOUNTER → 2017-05-15 | Outpatient (CLI) | payer OTHER ==
[~2017-05-15] MED LIST changes: +ENOX120I SQ; +XPNINS INH
[2017-05-15 13:16] LABS: BASO % 0.2 %; BASO ABS # 0.03 K/uL (0-0.2); EOS % 0.3 %; EOS ABS # 0.04 K/uL (0-0.5); HEMATOCRIT 39.5 % (37-47); HEMOGLOBIN 12.7 g/dL (12.0-16.0); IG# 0.07 K/uL (0.00-0.02); LYMPH % 13.6 %; LYMPH ABS # 2.17 K/uL (1.2-3.4); MEAN CELL VOLUME 86.1 fL (80-100); MEAN CORPUSCULAR HEMOGLOBIN 27.7 pg (25-34); MEAN CORPUSCULAR HGB CONC 32.2 g/dl (32-36); MEAN PLATELET VOLUME 9.5 fL (7.4-10.4); MONO % 4.6 %; MONO ABS # 0.74 K/uL (0.11-0.59); NEUT % 80.9 %; NEUT ABS # 12.87 K/uL (1.4-6.5); PLATELET COUNT 279 K/uL (130-400); RED CELL DISTRIBUTION WIDTH CV 16.3 % (11.5-14.5); RED CELL DISTRIBUTION WIDTH SD 51.2 fL (36.4-46.3); WHITE BLOOD COUNT 15.92 K/uL (4.8-10.8)
[2017-05-15 14:19] LABS: BLOOD UREA NITROGEN 14 mg/dl (7-18); CALCIUM 10.6 mg/dl (8.5-10.1); CARBON DIOXIDE 24 mmol/L (21-32); CREATININE 0.96 mg/dl (0.60-1.20); GLUCOSE 155 mg/dl (70-99); POTASSIUM 3.4 mmol/L (3.5-5.1); SODIUM 138 mmol/L (136-145)
== END | disposition home or self-care (01) ==
LOC: C.LAB 12:28
PROVIDERS: ATTEND Physician Assistant
DX: M51.26 Other intervertebral disc displacement, lumbar region (principal)

== ENCOUNTER 2017-05-23 09:20 | Inpatient (IN) | payer OTHER ==
[2017-05-04 10:25] VITALS: BMI 43.0
[2017-05-23] VITALS (10 sets, daily range): BP systolic 115–130; BP diastolic 71–94; PULSE 79–111; TEMP 36.6–37.1; O2SAT 91–97; Ht 152.4 cm; Wt 100.0 kg
[~2017-05-23] VITALS: Ht 152.4 cm; Wt 100.0 kg
[~2017-05-23 09:20] MED LIST changes: +ATROPINE SULFATE 0.1 MG/ML 5ML SYR IV PRN; +CEFAZOLIN 2000MG IV PUSH 15 ML IV SCH; -ENOX120I SQ; +EpHEDrine SULFATE INJ 50 MG/ML AMP IV PRN; +HYDROmorphone INJ 0.5 MG/0.5 ML SYR IV PRN; +LACTATED RINGER'S 1000ML 1,000 ML IV SCH; +ONDANSETRON INJ 2 MG/ML 2 ML VIAL IV PRN; +PHENYLEPHRINE 100MCG/ML 5ML SYR IV PRN
[2017-05-23] MEDS ORDERED: ENOX120I SQ (09:46)
[2017-05-23 10:08] LABS: PTT PATIENT 29.4 SECONDS (21.0-31.0)
[2017-05-23] MEDS ORDERED: FENTANYL CITRATE INJ 50 MCG/1 ML 2 ML VIAL ONE ×4 (10:33→13:04)
[2017-05-23] MEDS ORDERED: MIDAZOLAM HCL 1 MG/ML 2ML VIAL ONE (10:33)
--- NOTE | 2017-05-23 11:09 | History and Physical ---
History & Physical Date May 23, 2017. Chief Complaint Back and leg pain History of Present Illness The patient is a 56 year old female with complaints of back and leg pain Past Medical/Surgical History Medical Problems: (1) Anxiety (2) Asthma (3) Back pain without radiculopathy (4) Chronic pain (5) Depression (6) Depression (7) Diabetes 1.5, managed as type 2 (8) DM2 (diabetes mellitus, type 2) (9) GERD (gastroesophageal reflux disease) (10) Greater trochanteric bursitis of right hip (11) HLD (hyperlipidemia) (12) Intractable back pain (13) Lumbar stenosis with neurogenic claudication (14) Pulmonary embolism (15) Stroke-like symptoms (16) Tachycardia (17) TOBACCO USE DISORDER Surgical Problems: (1) H/O neck surgery (2) H/O shoulder surgery (3) History of spinal surgery (4) History of total abdominal hysterectomy (5) Hx of total knee arthroplasty (6) S/P IVC filter (7) S/P knee replacement Additional History Hepatic Disease: No Endocrine Disorder: No Kidney Disease: No Hypertension: Yes Heart Disease: No Bleeding Tendencies: No Infectious Diseases: No Allergies Coded Allergies: Phenytoin (Verified Allergy, Intermediate, Facial swelling, 05/23/17) Home Medications Scheduled Cholecalciferol (Vitamin D), 1 TAB PO DAILY Enoxaparin (Lovenox), 150 MG SQ DIRECTED Fluticasone Furoate-Vilanterol (Breo Ellipta), 1 PUFF INH QAM Furosemide (Furosemide), 20 MG PO QAM Gabapentin (Gabapentin), 300 MG PO TID Levalbuterol (Levalbuterol HCl), 3 ML INH TID Lorazepam (Lorazepam), 0.5 MG PO TID Meloxicam (Meloxicam), 15 MG PO QPM Pantoprazole (Protonix), 40 MG PO QAM Potassium Chloride (K-Tab), 1 TAB PO DAILY Quetiapine Fumarate (Seroquel), 200 MG PO HS Rosuvastatin Calcium (Crestor), 40 MG PO QPM Tizanidine (Tizanidine HCl), 8 MG PO TID Venlafaxine Hcl (Effexor Extended Rel), 150 MG PO QAM Warfarin Sodium (Coumadin), 5 MG PO WK Warfarin Sodium (Coumadin), 7.5 MG PO 6XWK Scheduled PRN Albuterol Hfa (Ventolin Hfa), 2 PUFFS INH Q4H PRN for Shortness of Breath Arformoterol Tartrate (Brovana), 15 MCG NEB BID PRN for Shortness of Breath Oxycodone Ir (Roxicodone Ir), 10 MG PO Q4H PRN for Severe Pain Physical Examination Skin: warm/dry, no rash Eyes: normal inspection, EOMI, sclerae normal ENT: normal ENT inspection, pharynx normal Head: normocephalic, atraumatic Neck: supple, no adenopathy, trachea midline Respiratory/Chest: lungs clear, normal breath sounds, no respiratory distress Cardiovascular: regular rate, rhythm, no edema, no murmur Abdomen / GI: normal bowel sounds, non tender Back: normal inspection Extremities: normal inspection, normal range of motion Neurologic/Psych: no motor/sensory deficits, alert, normal reflexes, oriented x 3 Diagnosis Lumbar spinal stenosis Plan of Treatment L4-5 removal of hardware L3-4 decompression and fusion
[2017-05-23] MEDS ORDERED: BACITRACIN 50000 UNIT VIAL ONE (11:20)
[2017-05-23] MEDS ORDERED: BUPIVACAINE/EPINEPHRINE 0.5% MPF 1:200,000 30 ML VIAL ONE (11:20)
[2017-05-23] MEDS ORDERED: HYDROmorphone INJ 2 MG/ML SYR/VIAL ONE ×2 (12:10→13:24)
[2017-05-23] MEDS ORDERED: ESMOLOL HCL 10 MG/ML 10 ML VIAL ONE (13:27)
[2017-05-23] MEDS ORDERED: LIDOCAINE HCL 2% 2 ML VIAL (20MG/ML) ONE (13:27)
[2017-05-23] MEDS ORDERED: DEXAMETHASONE SOD INJ 4 MG/ML VIAL ONE (13:27)
[2017-05-23] MEDS ORDERED: ONDANSETRON INJ 2 MG/ML 2 ML VIAL ONE ×2 (13:27)
[2017-05-23] MEDS ORDERED: PROPOFOL IV EMULSION 10 MG/ML 20 ML VIAL IV ONE (13:27)
[2017-05-23] MEDS ORDERED: KETOROLAC TROMETHAMINE 30 MG/ML VIAL ONE (13:27)
[2017-05-23] MEDS ORDERED: GLYCOPYRROLATE INJ 0.2 MG/ML VIAL ONE (13:27)
[2017-05-23] MEDS ORDERED: NEOSTIGMINE METHYLSULFATE 1 MG/ML 10ML VIAL ONE (13:27)
[2017-05-23] MEDS ORDERED: ROCURONIUM BROMIDE 10 MG/ML 5 ML VIAL IV ONE (13:27)
[2017-05-23] MEDS ORDERED: FLOSEAL HEMOSTATIC MATRIX 10ML TOP ONE (13:33)
[2017-05-23] MEDS ORDERED: SODIUM CHLORIDE 0.9% 1000ML 1,000 ML IV SCH (13:41)
--- NOTE | 2017-05-23 13:41 | [facility] Operative Report ---
Operative Report Operative Date May 23, 2017. Pre-Operative Diagnosis Lumbar Spinal Stenosis Post-Operative Diagnosis Lumbar Spinal Stenosis Procedure(s) Performed 1. Removal of posterior instrumentation L4-5. #2 exploration of fusion L4-5. #3 number decompression medial facetectomies and foraminotomies L3-4. #4 posterior spinal fusion L3-4. #5 placement posterior instrumentation at L3-4 L4-5. #6 interbody fusion L3-4. #7 placement peek cage 10 x 22 mm L3-4. #8 placement of locally harvested morselized autograft in the posterior lateral gutters. #9 please need to scrub sponge, mass graft in the posterior lateral gutters and ostially and bone graft in the interbody space. Surgeon Fire Alarm Installer Surgeon(s) None Estimated Blood Loss 300ml Findings Severe spinal stenosis Specimens A. Removed Lumbar Hardware Anesthesia Type General Description of Procedure Patient was met with preoperatively case discussed all questions addressed. After informed consent obtained patient was taken to the operative suite underwent intubation and placed in a prone position on the Elbert table on top of the Kaden frame. All bony prominences were well-padded the eyes were inspected to ensure no external pressure placed upon the. This point the lumbar spine was prepped and draped in normal sterile fashion. Sharp dissection with the assistance of Bovie cautery was performed down to and exposing the lamina and transverse processes of L3 and the instrumentation at L4 -5 bilaterally. I then proceeded remove the hardware bilaterally explain the fusion mass noting a paucity of lateral graft. I then performed a complete laminectomy of L3 addressing severe lateral recess and foraminal disease. Pedicle screws then placed in L3-L4 and L5 bilaterally with the assistance of fluoroscopy and the appropriate size alee placed. Through a transforaminal approach on the right a complete discectomy of L3-4 was performed endplates created to subcortical bleeding bone and a 10 x 22 mm peek cage for the ostium bone graft tapped in position. The rods were then locked in the final position bilaterally. The transverse processes of L3-L4 and L5 burred to subcortical bleeding bone. InFUSE collagen sponge mesh graft and locally harvested Combs's Was placed in the posterior gutters. 15 round ABRIL drain inserted. Incision was then closed with 1 Vicryl fascia 2-0 Vicryl superonasally 4-0 Monocryl for fashion closure Steri-Strips sterile dressings placed. Patient will continue to PACU stable condition. I attest to the content of the Intraoperative Record and any orders documented therein. Any exceptions are noted below.
[2017-05-23] MEDS ORDERED: FAMOTIDINE 20 MG TAB PO PRN (13:45)
[2017-05-23] MEDS ORDERED: DO NOT ADMINISTER FLU VACCINE PRN (13:45)
[2017-05-23] MEDS ORDERED: MAGNESIUM HYDROXIDE SUSP 30 ML UDC PO PRN (13:45)
[2017-05-23] MEDS ORDERED: PROMETHAZINE HCL INJ 12.5 MG in SODIUM CHLORIDE 0.9% 50ML 50 ML IV PRN (13:45)
[2017-05-23] MEDS ORDERED: METOCLOPRAMIDE HCL INJ 5 MG/ML 2 ML VIAL IV PRN (13:45)
[2017-05-23] MEDS ORDERED: hydrOXYzine HCL 25 MG TAB PO PRN (13:45)
[2017-05-23] MEDS ORDERED: BISACODYL 10 MG SUPP PR PRN (13:45)
[2017-05-23] MEDS ORDERED: NALOXONE HCL 0.4 MG/1 ML VIAL/CARP IV PRN ×2 (13:45)
[2017-05-23] MEDS ORDERED: SOD PHOSPHATE/SOD BIPHOSPHATE ENEMA 132 ML BTL PR PRN (13:45)
[2017-05-23] MEDS ORDERED: ACETAMINOPHEN 500 MG TAB PO PRN (13:45)
[2017-05-23] MEDS ORDERED: ALBUTEROL HFA 8 GM INHALER INH PRN (13:45)
[2017-05-23] MEDS ORDERED: LORAZEPAM INJ 0.5 MG in SYRINGE 0.75 ML IV PRN (13:45)
[2017-05-23] MEDS ORDERED: DO NOT ADMINISTER PNEUMOCOCCAL VACCINE PRN (13:45)
[2017-05-23] MEDS ORDERED: LORAZEPAM 0.5 MG TAB PO PRN (13:45)
[2017-05-23] MEDS ORDERED: ACETAMINOPHEN IV 100 ML IV PRN (13:45)
[2017-05-23] MEDS ORDERED: ONDANSETRON INJ 2 MG/ML 2 ML VIAL IV PRN (13:45)
[2017-05-23] MEDS ORDERED: ALUMINUM/MAGNESIUM SUSP 30 ML UDC PO PRN (13:45)
--- NOTE | 2017-05-23 13:57 | DIAGNOSTIC IMAGING REPORT ---
LUMBAR SPINE, INTRAOPERATIVE FLUOROSCOPY HISTORY: L4-L5 hardware removal. L3-L4 decompression and fusion. FLUOROSCOPY TIME: 12 seconds.. FINDINGS: Intraoperative fluoroscopy was provided for the lumbar spine. 2 fluoroscopic spot images were obtained. Posterior decompression and fusion from L3 through L5 with pedicle screws and rods. The hardware appears intact. Incidental note is made of an IVC filter. IMPRESSION: Fluoroscopy provided for a L3-L5 posterior decompression and fusion. Electronically signed by: Michael Cary M.D. 05/23/2017 1:55 PM Dictated Date/Time: 05/23/2017 1:54 PM
[2017-05-23] MEDS ORDERED: NURSING VERBAL MED ORDER ONE (14:15)
[2017-05-23] MEDS ORDERED: HYDROmorphone HCL 0.5MG/ML 50 ML CASSETTE ONE (14:21)
--- NOTE | 2017-05-23 14:26 | Anesthesiology Progress Note ---
Anesthesia Post Op Note Date & Time May 23, 2017 at 14:26 Vital Signs Pain Intensity: 0 Vital Signs Past 12 Hours Date Time Temp Pulse Resp B/P (MAP) Pulse Ox O2 Delivery O2 Flow Rate FiO2 05/23/17 09:52 37.1 111 20 119/71 94 Room Air Notes Mental Status: alert / awake / arousable, participated in evaluation Pt Amnestic to Procedure: Yes Nausea / Vomiting: adequately controlled Pain: adequately controlled Airway Patency, RR, SpO2: stable & adequate BP & HR: stable & adequate Hydration State: stable & adequate Anesthetic Complications: no major complications apparent
[2017-05-23] MEDS ORDERED: HYDROmorphone INJ 0.5 MG/0.5 ML SYR ONE (14:34)
[2017-05-23] MEDS ORDERED: ALBUT/IPRATROP 3MG/0.5MG NEB 3 ML VIAL INH ONE (15:15)
[2017-05-23] MEDS: HYDROmorphone HCL 0.5MG/ML 50 ML CASSETTE IV PRN ×2 (15:39→22:54)
[2017-05-23] MEDS: LEVALBUTEROL 0.63MG/3 ML NEB INH SCH ×2 (16:00→18:59)
[2017-05-23] MEDS: SODIUM CHLORIDE 0.9% 1000ML 1,000 ML IV SCH ×2 (16:00→22:03)
[2017-05-23] MEDS: CEFAZOLIN IV 2,000 MG in SYRINGE 0 ML IV SCH (20:11)
[2017-05-23] MEDS: LORAZEPAM 0.5 MG TAB PO SCH (20:30)
[2017-05-23] MEDS: GABAPENTIN 300 MG CAP PO SCH (20:31)
[2017-05-23] MEDS: DOCUSATE SODIUM/SENNA 50/8.6MG TAB PO SCH (20:32)
[2017-05-23] MEDS: ROSUVASTATIN CALCIUM 20 MG TAB PO SCH (20:32)
[2017-05-23] MEDS: QUETIAPINE FUMARATE 200 MG TAB PO SCH (20:32)
--- NOTE | 2017-05-23 21:08 | Medical Consult ---
Consultation Date of Consultation: May 23, 2017. Attending Physician: David Brown D.O. Reason for Consultation: Medical management . History of Present Illness 56-year-old female followed by Dr. Hayes for Internal Medicine. History of asthma, pulmonary embolism, diet-controlled diabetes mellitus type 2 , and other problems as noted. Lumbar decompression/fusion performed earlier today by Dr. Brown. Doing well postoperatively. No chest pain. Mild cough, no dyspnea. No nausea or vomiting. Gold catheter postoperatively. Having some postop discomfort. . Past Medical/Surgical History Chronic and Resolved Medical Problems: (1) Asthma Status: Chronic (2) Depression Status: Chronic (3) Diabetes mellitus type 2, controlled Status: Chronic (4) Dyslipidemia Status: Chronic (5) GERD (gastroesophageal reflux disease) Status: Chronic (6) History of pulmonary embolism Status: Chronic Surgical Problems: (1) H/O neck surgery Status: Resolved (2) H/O shoulder surgery Status: Resolved (3) History of spinal surgery Permanent Comment: 08/2016 - L4-L5 spinal fusion Status: Resolved (4) History of total abdominal hysterectomy Status: Resolved (5) Hx of total knee arthroplasty Status: Resolved (8) Status post appendectomy Status: Chronic (9) Status post hysterectomy Status: Chronic (10) Status post insertion of inferior vena caval filter Status: Chronic . Family History FATHER Heart disease Stroke MOTHER Hypertension Heart disease Social History Smoking Status: Current Every Day Smoker Drug Use: none Marital Status: single Housing Status: lives with family Occupation Status: employed Allergies Coded Allergies: Phenytoin (Verified Allergy, Intermediate, Facial swelling, 05/23/17) Home Medications Reported Home Medications Medications Dose Route/Sig Max Daily Dose Days Date Category Dose Instructions Lovenox (Enoxaparin Sodium) 120 Mg/0.8 Ml Inj 150 Mg SQ DIRECTED 05/23/17 Reported Roxicodone Ir (Oxycodone HCl) 5 Mg Tab 10 Mg PO Q4H PRN 05/04/17 Reported Levalbuterol HCl (Levalbuterol) 0.63 Mg/3 Ml Nebu 3 Ml INH TID 04/28/17 Reported K-Tab (Potassium Chloride) 20 Meq Tab 1 Tab PO DAILY 01/13/17 Reported Meloxicam 15 Mg Tab 15 Mg PO QPM 12/29/16 Reported Lorazepam 0.5 Mg Tab 0.5 Mg PO TID 12/29/16 Reported Gabapentin 300 Mg Cap 300 Mg PO TID 12/29/16 Reported Ventolin Hfa (Albuterol) 200 Puffs/62942 Mcg Aers 2 Puffs INH Q4H PRN 08/27/16 Reported Breo Ellipta (Fluticasone Furoate-Vilanterol) 1 Inh Inh 1 Puff INH QAM 10/20/15 Reported Coumadin (Warfarin Sodium) 5 Mg Tab 7.5 Mg PO 6XWK 10/20/15 Reported TAKES EVERY DAY EXCEPT SUNDAYS. Coumadin (Warfarin Sodium) 5 Mg Tab 5 Mg PO WK 10/20/15 Reported TAKES ON SUNDAYS ONLY Tizanidine HCl (Tizanidine) 4 Mg Tab 8 Mg PO TID 10/20/15 Reported Seroquel (Quetiapine Fumarate) 200 Mg Tab 200 Mg PO HS 10/20/15 Reported Effexor Extended Rel (Venlafaxine Hcl) 150 Mg Capcr 150 Mg PO QAM 10/20/15 Reported Furosemide 20 Mg Tab 20 Mg PO QAM 10/20/15 Reported Vitamin D (Cholecalciferol) 2,000 Unit Tab 1 Tab PO DAILY 01/19/15 Reported Protonix (Pantoprazole) 40 Mg Tab 40 Mg PO QAM 01/19/15 Reported Crestor (Rosuvastatin Calcium) 40 Mg Tab 40 Mg PO QPM 01/19/15 Reported Brovana (Arformoterol Tartrate) 15 Mcg/2 Ml Neb 15 Mcg NEB BID PRN 10/23/11 Reported Current Inpatient Medications Current Inpatient Medications Medications (Trade) Dose Ordered Sig/Michael Route Start Time Stop Time Status Last Admin Dose Admin Lactated Ringer's 1,000 ml @ 15 mls/hr Q24H IV 05/23/17 06:00 05/24/17 05:59 Promethazine HCl 12.5 mg/Sodium Chloride 50.5 ml @ 202 mls/hr Q6H PRN IV 05/23/17 13:45 06/22/17 13:44 Ondansetron HCl (Zofran Inj) 4 mg Q6H PRN IV 05/23/17 13:45 06/22/17 13:44 Metoclopramide HCl (Reglan Inj) 10 mg Q6H PRN IV 05/23/17 13:45 06/22/17 13:44 Lorazepam (Ativan Tab) 0.5 mg Q8H PRN PO 05/23/17 13:45 06/22/17 13:44 Lorazepam 0.5 mg/ Syringe 1 ml @ 1 mls/min Q8H PRN IV 05/23/17 13:45 06/22/17 13:44 Pneumococcal Polysaccharide Vaccine 1 ea PRN PRN N/A 05/23/17 13:45 06/22/17 13:44 Influenza Virus Vacc Triv Types A&B 1 ea PRN PRN N/A 05/23/17 13:45 06/22/17 13:44 Polyethylene (Miralax Powder Packet) 17 gm Q6 PO 05/25/17 06:00 06/24/17 05:59 Bisacodyl (Dulcolax Supp) 10 mg DAILY PRN [place] 05/23/17 13:45 06/22/17 13:44 Magnesium Hydroxide (Milk Of Magnesia Susp) 30 ml DAILY PRN PO 05/23/17 13:45 06/22/17 13:44 Hydromorphone HCl (Dilaudid Inj) 0.5 mg Q3H PRN IV 05/24/17 06:00 06/07/17 05:59 Oxycodone HCl (Roxicodone Immediate Rel Tab) 5-10mg prn moderate to sev... Q4H PRN PO 05/24/17 06:00 06/07/17 05:59 Cefazolin Sodium 2000 mg/Syringe 15 ml @ 3.75 mls/ min Q8H IV 05/23/17 20:00 05/24/17 04:38 05/23/17 20:11 3.75 MLS/MIN Sodium Chloride 1,000 ml @ 150 mls/hr Q6H40M IV 05/23/17 16:00 06/22/17 15:59 Acetaminophen (Tylenol Tab) 1,000 mg Q8H PRN PO 05/23/17 13:45 06/22/17 13:44 Acetaminophen 100 ml @ 400 mls/hr Q8H PRN IV 05/23/17 13:45 06/22/17 13:44 Naloxone HCl (Narcan Inj) 0.1 mg Q5M PRN IV 05/23/17 13:45 06/22/17 13:44 Senna/Docusate Sodium (Senokot S Tab) 2 tab HS PO 05/23/17 21:00 06/22/17 20:59 05/23/17 20:32 2 TAB Sodium Biphosphate/ Sodium Phosphate (Fleet Enema) 132 ml ONE PRN [place] 05/23/17 13:45 06/22/17 13:44 Hydroxyzine HCl (Vistaril Tab) 25 mg Q8H PRN PO 05/23/17 13:45 06/22/17 13:44 Al Hydroxide/Mg Hydroxide (Maalox Susp) 30 ml Q6H PRN PO 05/23/17 13:45 06/22/17 13:44 Famotidine (Pepcid Tab) 20 mg Q12 PRN PO 05/23/17 13:45 06/22/17 13:44 Diphenhydramine HCl (Benadryl Cap) 25 mg Q6H PRN PO 05/23/17 13:45 06/22/17 13:44 Miscellaneous Information (Discontinue PAINTING WORKER) 1 ea 0600 ONCE N/A 05/24/17 06:00 05/24/17 06:01 Naloxone HCl (Narcan Inj) 0.1 mg Q5M PRN IV 05/23/17 13:45 05/24/17 06:00 Hydromorphone HCl (Dilaudid Mechanical Maintenance Engineer) 25 mg PRN PRN IV 05/23/17 13:45 05/24/17 06:00 05/23/17 15:39 25 MG Sodium Chloride 1,000 ml @ 15 mls/hr Q24H IV 05/23/17 13:41 05/24/17 06:00 Albuterol (Ventolin Hfa Inhaler) 2 puffs Q4H PRN INH 05/23/17 13:45 06/22/17 13:44 Furosemide (Lasix Tab) 20 mg QAM PO 05/24/17 09:00 06/23/17 08:59 Gabapentin (Neurontin Cap) 300 mg TID PO 05/23/17 21:00 06/22/17 20:59 05/23/17 20:31 300 MG Levalbuterol (Xopenex 0.63 Mg/ 3 Ml Neb) 0.63 mg TIDR INH 05/23/17 16:00 06/22/17 15:59 05/23/17 18:59 0.63 MG Lorazepam (Ativan Tab) 0.5 mg TID PO 05/23/17 21:00 06/22/17 20:59 05/23/17 20:30 0.5 MG Pantoprazole Sodium (Protonix Tab) 40 mg QAM PO 05/24/17 09:00 06/23/17 08:59 Quetiapine Fumarate (seroQUEL TAB) 200 mg HS PO 05/23/17 21:00 06/22/17 20:59 05/23/17 20:32 200 MG Rosuvastatin Calcium (Crestor Tab) 40 mg QPM PO 05/23/17 21:00 06/22/17 20:59 05/23/17 20:32 40 MG Tizanidine HCl (Zanaflex Tab) 8 mg TID PO 05/23/17 21:00 06/22/17 20:59 05/23/17 20:31 8 MG Venlafaxine HCl (effeXOR EXTENDED REL CAP) 150 mg QAM PO 05/24/17 09:00 06/23/17 08:59 Potassium Chloride (Klor-Con Tab) 20 meq DAILY PO 05/24/17 09:00 06/23/17 08:59 Hydromorphone HCl (Dilaudid Inj) 1 mg Q3H PRN IV 05/24/17 06:00 06/07/17 05:59 Review of Systems Constitutional: No fever Respiratory: + cough (Occasional), + wheezing (Intermittent), + shortness of breath (Intermittent) Cardiovascular: No chest pain Abdomen: No nausea, No vomiting, No GI bleeding Musculoskeletal: + joint pain (Back pain) Genitourinary - Female: No dysuria, No hematuria Physical Exam Date Time Temp Pulse Resp B/P (MAP) Pulse Ox O2 Delivery O2 Flow Rate FiO2 05/23/17 19:02 98 16 94 Nasal Cannula 2.0 05/23/17 18:34 36.7 98 18 128/73 (91) 95 Nasal Cannula 2.0 05/23/17 17:26 36.8 93 18 130/79 (96) 94 Nasal Cannula 05/23/17 16:22 37.0 79 18 119/71 (87) 94 Nasal Cannula 2.0 05/23/17 16:09 36.6 81 126/77 (93) 94 Nasal Cannula 2.0 05/23/17 15:56 36.6 79 18 129/94 (106) 94 Nasal Cannula 2.0 05/23/17 15:54 Nasal Cannula 2.0 05/23/17 15:40 95 Nasal Cannula 2.0 05/23/17 15:30 88 16 150/79 95 Nasal Cannula 3 05/23/17 15:20 81 18 145/98 95 Nasal Cannula 3 05/23/17 15:10 36.3 86 18 146/77 95 Nasal Cannula 3 05/23/17 15:00 91 18 122/91 95 Nasal Cannula 3 05/23/17 14:56 87 18 97 Mask 5.0 05/23/17 14:50 87 18 156/81 97 Oxymask 3 05/23/17 14:40 90 18 139/79 98 Oxymask 5 05/23/17 14:30 94 18 134/74 98 Oxymask 10 05/23/17 14:20 95 16 124/75 96 Oxymask 10 05/23/17 14:14 36.2 94 16 131/68 96 Oxymask 10 05/23/17 09:52 37.1 111 20 119/71 94 Room Air CONSTITUTIONAL vital signs as noted above well-developed, well-nourished, no acute distress EYES conjunctivae clear; lids normal pupils equal and reactive to light EARS, NOSE, MOUTH AND THROAT external inspection of ears and nose unremarkable hearing grossly intact to spoken voice oropharynx clear NECK no masses; trachea midline thyroid normal RESPIRATORY normal respiratory effort; no respiratory distress clear to auscultation CARDIOVASCULAR regular rate and rhythm no murmur, gallop, rub appreciated no pretibial edema GASTROINTESTINAL normal bowel sounds, soft, nontender; no palpable masses no hepatomegaly; no splenomegaly LYMPHATIC no cervical adenopathy MUSCULOSKELETAL no cyanosis; no digital clubbing no calf tenderness motor strength extremities grossly intact TEDS and SCD's applied SKIN no rash warm and dry NEUROLOGIC PERRL, EOMI, no facial palsy, no dysarthria, tongue midline somewhat sedated postoperatively PSYCHIATRIC oriented to person, place, time . Laboratory Results Last 24 Hours Test 05/23/17 09:42 05/23/17 09:46 05/23/17 14:25 05/23/17 16:51 Bedside Glucose 109 mg/dl 168 mg/dl 146 mg/dl Prothrombin Time 10.1 SECONDS Prothromb Time International Ratio 1.0 Activated Partial Thromboplast Time 29.4 SECONDS Partial Thromboplastin Ratio 1.1 Test 05/23/17 20:38 Bedside Glucose 242 mg/dl Assessment & Plan S/P LUMBAR DECOMPRESSION / FUSION Doing well postoperatively. ASTHMA Pulmonary status stable. Continue usual inhalers and nebs.. Incentive spirometry. DM TYPE 2 Usually diet controlled. Blood sugars may be elevated preoperatively due to preoperative dexamethasone, physiologic stress, postoperative discomfort, decreased motility. Monitor blood sugars and cover with insulin as necessary. HISTORY OF PULMONARY EMBOLISM History of pulmonary embolism on chronic warfarin therapy. Warfarin was held preoperatively and patient received enoxaparin for bridge therapy. Resume anticoagulation postoperatively if okay from surgical perspective. Thank you for this consultation. We will follow the patient with you during their hospital stay. Dr. Santoyo will be assuming medical management on 05/24/17. You can reach a member of the [facility] Medicine Team 03/10 via pager @ [phone]. You can reach me via cell @ [phone]. .
[2017-05-23] MEDS ORDERED: INSULIN GLARGINE SOLOSTAR 100 UNITS/ML 3 ML PEN SC ONE (21:20)
[2017-05-23] MEDS ORDERED: GLUCOSE 10 TABS/TUBE PO PRN (21:45)
[2017-05-23] MEDS ORDERED: DEXTROSE 50% 50 ML SYR IV PRN (21:45)
[2017-05-23] MEDS ORDERED: GLUCOSE 40% GEL 15 GM TUBE PO PRN (21:45)
[2017-05-23] MEDS ORDERED: GLUCAGON FOR INJ 1 MG VIAL SQ PRN (21:45)
[2017-05-24 03:41] VITALS: BP 120/73; PULSE 89; TEMP 36.9; O2SAT 91
[2017-05-24] MEDS: CEFAZOLIN IV 2,000 MG in SYRINGE 0 ML IV SCH (03:52)
[2017-05-24] MEDS ORDERED: NURSING VERBAL MED ORDER ONE ×2 (05:00→14:30)
[2017-05-24] MEDS ORDERED: HYDROmorphone INJ 0.5 MG/0.5 ML SYR IV PRN (06:00)
[2017-05-24] MEDS ORDERED: DC PCA ONE (06:00)
[2017-05-24] MEDS: OXYCODONE HCL IR 5 MG TAB (IMMEDIATE RELEASE) PO PRN ×4 (06:04→20:37)
[2017-05-24 06:18] LABS: BASO % 0.1 %; BASO ABS # 0.01 K/uL (0-0.2); HEMATOCRIT 28.8 % (37-47); HEMOGLOBIN 9.1 g/dL (12.0-16.0); IG# 0.07 K/uL (0.00-0.02); LYMPH % 4.9 %; LYMPH ABS # 0.97 K/uL (1.2-3.4); MEAN CORPUSCULAR HEMOGLOBIN 27.5 pg (25-34); MEAN CORPUSCULAR HGB CONC 31.6 g/dl (32-36); MEAN PLATELET VOLUME 9.7 fL (7.4-10.4); MONO % 6.8 %; MONO ABS # 1.34 K/uL (0.11-0.59); NEUT % 87.8 %; NEUT ABS # 17.27 K/uL (1.4-6.5); PLATELET COUNT 212 K/uL (130-400); RED CELL DISTRIBUTION WIDTH CV 16.2 % (11.5-14.5); WHITE BLOOD COUNT 19.66 K/uL (4.8-10.8)
[2017-05-24 06:27] LABS: INR 1.3 (0.9-1.1)
[2017-05-24 06:47] LABS: HEMOGLOBIN A1C 6.7 % (4.5-5.6)
[2017-05-24 06:52] LABS: CALCIUM 8.8 mg/dl (8.5-10.1); CREATININE 0.8 mg/dl (0.60-1.20); POTASSIUM 4.5 mmol/L (3.5-5.1)
[2017-05-24] MEDS: HYDROmorphone INJ 1 MG/ML SYR IV PRN ×6 (07:07→23:25)
[2017-05-24 07:26] VITALS: BP 113/68; PULSE 92; TEMP 36.8; O2SAT 91
[2017-05-24 07:34] VITALS: PULSE 103; O2SAT 92
[2017-05-24] MEDS: LEVALBUTEROL 0.63MG/3 ML NEB INH SCH ×2 (07:34→14:44)
--- NOTE | 2017-05-24 07:58 | Clinical Documentation Query ---
SONIA JcORY : CLINICAL DOCUMENTATION QUERY Patient is a 56 year old female who on 05/23 underwent posterior lumbar decompression and interbody fusion. Preoperative H&H was 12.7 g/dl and 39.5% on 05/15/17. POD #1, repeat values are 9.1 g/dl and 28.8%. EBL for the procedure was 300 ml's with subsequent losses to date totaling an additional 110 ml's. Additionally, net I/O is positive at this time for 668 ml's at this time. She is being monitored with serial hematology and I/O. As appropriate, consider documentation as suggested below. Thank you. In your clinical opinion is this patient being managed for: ( x ) Acute blood loss and hemodilutional anemia ( ) Not Agree ( ) Other explanation of clinical findings (Please Explain) ( ) Unable to determine (Please Define) ( ) Need to Discuss The medical record reflects the following clinical findings, treatment, and risk factors. Clinical Indicators: As above Treatment: She is being monitored with serial hematology and I/O. Risk Factors: Acute blood loss and IVF administration Please clarify and document your clinical opinion in the progress notes and discharge summary. Terms such as "probable", "suspected", "likely", "questionable", "possible", or "still to be ruled out" are acceptable. IF IN AGREEMENT, YOU MUST DOCUMENT ABOVE DIAGNOSTIC STATEMENT IN DAILY PROGRESS NOTES AND DISCHARGE SUMMARY. This document is not part of the patient's record. Thank You, Nitish Jang, RUSLAN [phone]
[2017-05-24] MEDS: LORAZEPAM 0.5 MG TAB PO SCH ×3 (08:17→21:37)
[2017-05-24] MEDS: GABAPENTIN 300 MG CAP PO SCH ×3 (08:18→20:38)
[2017-05-24] MEDS: FUROSEMIDE 20 MG TAB PO SCH (08:21)
[2017-05-24] MEDS: VENLAFAXINE HCL XR 150 MG CAPXR PO SCH (08:21)
[2017-05-24] MEDS: PANTOprazole SOD 40 MG TAB PO SCH (08:21)
[2017-05-24] MEDS: POTASSIUM CHLORIDE 20 MEQ TABCR PO SCH (08:22)
--- NOTE | 2017-05-24 08:32 | Anesthesiology Progress Note ---
Anesthesia Post Op Note Date & Time May 24, 2017 at 08:31 Vital Signs Pain Intensity: 8.0 Vital Signs Past 12 Hours Date Time Temp Pulse Resp B/P (MAP) Pulse Ox O2 Delivery O2 Flow Rate FiO2 05/24/17 08:00 Room Air 05/24/17 07:34 103 18 92 Room Air 05/24/17 07:26 36.8 92 15 113/68 (83) 91 Room Air 05/24/17 03:41 36.9 89 15 120/73 (89) 91 Room Air 05/23/17 23:25 Room Air 05/23/17 22:43 36.6 89 15 115/72 (86) 91 Room Air Notes Mental Status: alert / awake / arousable, participated in evaluation Pt Amnestic to Procedure: Yes Nausea / Vomiting: adequately controlled Pain: adequately controlled Airway Patency, RR, SpO2: stable & adequate BP & HR: stable & adequate Hydration State: stable & adequate Anesthetic Complications: no major complications apparent
[2017-05-24] MEDS: INSULIN ASPART 100 UNITS/ML 3 ML PEN SC SCH ×4 (09:15→20:41)
[2017-05-24] MEDS: INSULIN GLARGINE SOLOSTAR 100 UNITS/ML 3 ML PEN SC SCH ×2 (09:16→20:42)
[2017-05-24 10:45] VITALS: BP 101/65; PULSE 94; O2SAT 93
[2017-05-24] MEDS: DEXAMETHASONE INJ 8 MG in SYRINGE 0 ML IV SCH ×2 (13:14→21:37)
[2017-05-24] MEDS ORDERED: RXC5 PO (13:37)
--- NOTE | 2017-05-24 13:38 | Discharge Instructions ---
Discharge Instructions Date of Service May 24, 2017. Admission Reason for Admission: Spinal Stenosis Discharge Discharge Diagnosis / Problem: lumbar stenosis Discharge Goals Goal(s): Improve function Activity Recommendations Activity Limitations: per Instructions/Follow-up section . Instructions / Follow-Up Instructions / Follow-Up ACTIVITY RECOMMENDATIONS: SELF CARE INSTRUCTIONS AFTER THORACIC/LUMBAR FUSIONS 1. You may walk to your tolerance. It is good exercise for your legs and back. Expect some back and intermittent leg aches and pains. 2. You may perform "counter-top" level activities (make a sandwich, evelyn with a project, etc.). 3. No bending or lifting of more than 10 pounds or back twisting of any nature (roll like a log when turning in bed). 4. You may ride in a car for 20-30 minutes at a time. No driving until after your first visit with your doctor. 5. Frequent changes of position and restricting sitting to 30 minutes at a time will help limit the amount of back spasms and stiffness you may experience. 6. You may discontinue the use of ambulatory aids (cane, crutches, etc.) once your strength and confidence allow. 7. You may matting press tender the shower and let water strike your incision when you arrive home at least once daily. Do not take a tub bath, sit in a hot tub or go into a swimming pool until after your first recheck in the office. SPECIAL CARE INSTRUCTIONS: VERY IMPORTANT TO READ AND REVIEW A. Your surgical incision has been closed with a cosmetic suture under the skin that will dissolve in about 6 weeks. In 14 days, you can use a pair of clean scissors and cut the suture that is left outside of the skin at the ends of your incision. 1. The small skin tapes can be removed 7 days after surgery if they have not fallen off by that point. 2. You may keep the wound open to air as much as possible to promote healing after post-op day number 5 unless told otherwise by your doctor. 3. If you think the wound looks like it is becoming infected (redness or worsening drainage) and/or you are experiencing fever, chill or worsening back pain and muscle spasms, contact the office so that we may evaluate you as soon as possible. B. Complications are uncommon, but please contact us if you have any signs or symptoms of: 1. wound infection (fever higher than 102.5 degrees F, redness, separation of wound, drainage, or increasing pain from the incision) 2. blood clots in legs (pain, swelling, redness and warmth in legs) 3. urinary tract infection (fever higher than 102.5 degrees F, burning upon urination or increased frequency of urination) 4. nerve problems (inability to walk on your toes or heels, numbness, loss of bowel or bladder control) 5. any other symptoms that concern you C. Please call the office at if you have any concerns or questions about your operation or recovery. D. No smoking! Smoking drastically decreases the chance of a solid fusion. E. Do not take any anti-inflammatory medications (Indocin, Advil, Motrin, Aspirin, Naprosyn, etc.) as these may inhibit the chance of a solid fusion. Tylenol is okay to take for pain. MANAGING PAIN AFTER SPINAL SURGERY 1. Narcotic medication is intended for short-term use and will be provided for surgical pain. Surgical pain usually lasts for a period of 4-6 weeks. Narcotic medication includes Percocet, Vicodin, Darvocet, Tylenol #3 or Lortab. 2. Longer-term pain is more appropriately treated with non-narcotic medication such as Tylenol ES. 3. Muscle spasm is not appropriately treated with narcotics. Muscle relaxers such as Soma, Flexeril or Skelaxin can be used along with Tylenol ES. 4. Remember that we all live with some "aches and pains". This is not unusual or uncommon after an injury or as we get older. a. Back pain is expected and may include muscle spasms for 4 to 6 weeks after surgery. The pain should gradually improve. If the pain worsens for no apparent reason, please contact the office. b. Intermittent leg pain may also be experienced and should not be concerned about unless it worsens for no apparent reason. If so, please contact the office. 5. We will provide appropriate medication within the normal guidelines of their prescribed use. We will also be very cautious and aware of potential abuse and extended duration of patients' medication needs. a. Pain medications are for your comfort and to assist with sleep and rest so that the tissue can heal. They are not provided in order to return to normal activity and should not be used through the day. To do so or worsening pain at night can result from ongoing tissue damage and development of tolerance to the prescribed medicine. 6. Please allow 2-3 days to process refills. Prescriptions will not be mailed but must be picked up at the office. FOLLOW UP VISIT: Keep your scheduled follow-up appointment. Any questions, please call the office at . Current Hospital Diet Patient's current hospital diet: Diabetes Type 2 Diet Discharge Diet Recommended Diet: Regular Diet Procedures Procedures Performed: 1. Removal of posterior instrumentation L4-5. #2 exploration of fusion L4-5. #3 number decompression medial facetectomies and foraminotomies L3-4. #4 posterior spinal fusion L3-4. #5 placement posterior instrumentation at L3-4 L4-5. #6 interbody fusion L3-4. #7 placement peek cage 10 x 22 mm L3-4. #8 placement of locally harvested morselized autograft in the posterior lateral gutters. #9 please need to scrub sponge, mass graft in the posterior lateral gutters and ostially and bone graft in the interbody space. Pending Studies Studies pending at discharge: no Laboratory Results Hemoglobin A1c Test 05/24/17 05:11 Range/Units Estimated Average Glucose 146 mg/dl Hemoglobin A1c 6.7 H 4.5-5.6 % Medical Emergencies . Who to Call and When: Medical Emergencies: If at any time you feel your situation is an emergency, please call 911 immediately. . Non-Emergent Contact Non-Emergency issues call your: Primary Care Provider . "Provider Documentation" section prepared by David Brown. .
[2017-05-24] MEDS ORDERED: LEVALBUTEROL 0.63MG/3 ML NEB INH PRN (15:00)
[2017-05-24 15:14] VITALS: BP 99/66; PULSE 81; TEMP 36.7; O2SAT 92
--- NOTE | 2017-05-24 15:57 | Progress Note ---
Progress Note Date of Service May 24, 2017. Progress Note patient's back pain is controlled. Leg symptoms improved. Vital signs are stable. On exam she has excellent strength testing is stable but appears relatively comfortable. Assessment status post lumbar depression fusion will continue with physical therapy I did add IV Decadron for some plan at this time pain control. Will assess her progress and hopefully discharge home in next few days.
[2017-05-24] MEDS: DOCUSATE SODIUM/SENNA 50/8.6MG TAB PO SCH (21:36)
[2017-05-24] MEDS: QUETIAPINE FUMARATE 200 MG TAB PO SCH (21:36)
[2017-05-24] MEDS: ROSUVASTATIN CALCIUM 20 MG TAB PO SCH (21:36)
[2017-05-24 22:54] VITALS: BP 110/71; PULSE 82; TEMP 36.9; O2SAT 92
[2017-05-25] MEDS: OXYCODONE HCL IR 5 MG TAB (IMMEDIATE RELEASE) PO PRN ×5 (01:15→20:04)
[2017-05-25] MEDS: HYDROmorphone INJ 1 MG/ML SYR IV PRN ×6 (02:46→21:53)
[2017-05-25] MEDS: DEXAMETHASONE INJ 8 MG in SYRINGE 0 ML IV SCH ×4 (05:52→23:29)
[2017-05-25] MEDS: POLYETHYLENE (MIRALAX) 17 GM PACK PO SCH ×2 (05:52→12:46)
[2017-05-25 06:57] VITALS: BP 130/79; PULSE 90; TEMP 36.8; O2SAT 93
[2017-05-25] MEDS: INSULIN ASPART 100 UNITS/ML 3 ML PEN SC SCH ×4 (09:04→21:09)
[2017-05-25] MEDS: INSULIN GLARGINE SOLOSTAR 100 UNITS/ML 3 ML PEN SC SCH ×2 (09:04→21:10)
[2017-05-25] MEDS: POM~FLUTICASONE FUROATE-VILANTEROL 30 PUFFS/INHALER INH INH SCH (09:09)
[2017-05-25] MEDS: LORAZEPAM 0.5 MG TAB PO SCH ×3 (09:09→21:01)
[2017-05-25] MEDS: TIOTROPIUM BROMIDE INH SCH (09:10)
[2017-05-25] MEDS: GABAPENTIN 300 MG CAP PO SCH ×3 (09:10→21:02)
[2017-05-25] MEDS: VENLAFAXINE HCL XR 150 MG CAPXR PO SCH (09:10)
[2017-05-25] MEDS: PANTOprazole SOD 40 MG TAB PO SCH (09:10)
[2017-05-25] MEDS: POTASSIUM CHLORIDE 20 MEQ TABCR PO SCH (09:11)
[2017-05-25] MEDS: FUROSEMIDE 20 MG TAB PO SCH (09:11)
--- NOTE | 2017-05-25 09:45 | Progress Note ---
Progress Note Date of Service May 25, 2017. Progress Note Patient's leg symptoms are improved. She is tolerating therapy well. Vital signs are stable. ABRIL drain decreasing probably. Assessment status post lumbar decompression fusion. Plan at this time we anticipate possible discharge home tomorrow.
[2017-05-25] MEDS ORDERED: NURSING DECISION MEDICATION ORDER SCH (14:15)
[2017-05-25 15:00] VITALS: BP 106/68; PULSE 73; TEMP 36.8; O2SAT 91
[2017-05-25 17:56] VITALS: BP 142/83; PULSE 87; TEMP 36.8; O2SAT 94
--- NOTE | 2017-05-25 18:43 | Progress Note ---
Internal Med Progress Note Date of Service: May 24, 2017. Provider Documentation: SUBJECTIVE: has some pain in the back' ambulated ok denies chest pain or sob afebrile no nausea OBJECTIVE: Vital Signs-as noted below Exam: General-alert and oriented. Not in distress ENT-Normal hearing Neck-no neck masses Lungs-cta b/l no wheezing or crackles Heart-S1 and S2 heard regular rate and rhythm no murmurs Abdomen-Soft bowel sounds present non tender no distension musculoskeletal s/p back surgery dressing and drain intact Extremities-no edema no erythema Neuro-alert and awake moves extremities Lab data as noted below. ASSESSMENT & PLAN: S/P LUMBAR DECOMPRESSION / FUSION post op management as per ortho ASTHMA stable on home inhalers Incentive spirometry. DM TYPE 2 Usually diet controlled. ISS while in hospital HISTORY OF PULMONARY EMBOLISM History of pulmonary embolism on chronic warfarin therapy. Warfarin held for surgery To resume as soon as possible as per ortho DVT PROPHYLAXIS as per ortho DISPOSITION as per ortho Vital Signs: Date Time Temp Pulse Resp B/P (MAP) Pulse Ox O2 Delivery O2 Flow Rate FiO2 05/25/17 17:56 36.8 87 18 142/83 (102) 94 Room Air 05/25/17 15:30 Room Air 05/25/17 15:00 36.8 73 17 106/68 (81) 91 Room Air 05/25/17 07:45 Room Air 05/25/17 06:57 36.8 90 16 130/79 (96) 93 Room Air 05/24/17 23:25 Room Air 05/24/17 22:54 36.9 82 16 110/71 (84) 92 Room Air Lab Results: Results Past 24 Hours Test 05/24/17 20:05 05/25/17 07:57 05/25/17 11:47 05/25/17 17:04 Range/Units Bedside Glucose 327 144 134 168 70-90 mg/dl
--- NOTE | 2017-05-25 19:01 | Progress Note ---
Internal Med Progress Note Date of Service: May 25, 2017. Provider Documentation: SUBJECTIVE: having pain after ambulation denies sob or cough no nausea plan to go home in am OBJECTIVE: Vital Signs-as noted below Exam: General-alert and oriented. Not in distress ENT-Normal hearing Neck-no neck masses Lungs-cta b/l no wheezing or crackles Heart-S1 and S2 heard regular rate and rhythm no murmurs Abdomen-Soft bowel sounds present non tender no distension musculoskeletal s/p back surgery dressing and drain intact Extremities-no edema no erythema Neuro-alert and awake moves extremities Lab data as noted below. ASSESSMENT & PLAN: S/P LUMBAR DECOMPRESSION / FUSION post op management as per ortho ASTHMA stable on home inhalers will monitor Incentive spirometry. DM TYPE 2 Usually diet controlled. ISS while in hospital HISTORY OF PULMONARY EMBOLISM History of pulmonary embolism on chronic warfarin therapy. Warfarin held for surgery To resume as soon as possible as per ortho DVT PROPHYLAXIS as per ortho DISPOSITION as per ortho Vital Signs: Date Time Temp Pulse Resp B/P (MAP) Pulse Ox O2 Delivery O2 Flow Rate FiO2 05/25/17 17:56 36.8 87 18 142/83 (102) 94 Room Air 05/25/17 15:30 Room Air 05/25/17 15:00 36.8 73 17 106/68 (81) 91 Room Air 05/25/17 07:45 Room Air 05/25/17 06:57 36.8 90 16 130/79 (96) 93 Room Air 05/24/17 23:25 Room Air 05/24/17 22:54 36.9 82 16 110/71 (84) 92 Room Air Lab Results: Results Past 24 Hours Test 05/24/17 20:05 05/25/17 07:57 05/25/17 11:47 05/25/17 17:04 Range/Units Bedside Glucose 327 144 134 168 70-90 mg/dl
[2017-05-25] MEDS: ROSUVASTATIN CALCIUM 20 MG TAB PO SCH (21:03)
[2017-05-25] MEDS: DOCUSATE SODIUM/SENNA 50/8.6MG TAB PO SCH (21:03)
[2017-05-25] MEDS: QUETIAPINE FUMARATE 200 MG TAB PO SCH (21:03)
[2017-05-25 22:52] VITALS: BP 115/68; PULSE 68; TEMP 36.4; O2SAT 92
[2017-05-26] MEDS: OXYCODONE HCL IR 5 MG TAB (IMMEDIATE RELEASE) PO PRN ×4 (01:37→14:33)
[2017-05-26] MEDS: HYDROmorphone INJ 1 MG/ML SYR IV PRN ×3 (03:13→11:50)
[2017-05-26] MEDS: DEXAMETHASONE INJ 8 MG in SYRINGE 0 ML IV SCH (07:44)
[2017-05-26 07:53] VITALS: BP 138/84; PULSE 84; TEMP 36.8; O2SAT 93
[2017-05-26 08:05] VITALS: O2SAT 93
[2017-05-26] MEDS: POM~FLUTICASONE FUROATE-VILANTEROL 30 PUFFS/INHALER INH INH SCH (08:33)
[2017-05-26] MEDS: TIOTROPIUM BROMIDE INH SCH (08:34)
[2017-05-26] MEDS: LORAZEPAM 0.5 MG TAB PO SCH ×2 (08:35→13:35)
[2017-05-26] MEDS: VENLAFAXINE HCL XR 150 MG CAPXR PO SCH (08:36)
[2017-05-26] MEDS: POTASSIUM CHLORIDE 20 MEQ TABCR PO SCH (08:37)
[2017-05-26] MEDS: FUROSEMIDE 20 MG TAB PO SCH (08:37)
[2017-05-26] MEDS: GABAPENTIN 300 MG CAP PO SCH ×2 (08:38→13:36)
[2017-05-26] MEDS: PANTOprazole SOD 40 MG TAB PO SCH (08:39)
[2017-05-26] MEDS: INSULIN ASPART 100 UNITS/ML 3 ML PEN SC SCH ×2 (08:57→13:12)
[2017-05-26] MEDS: INSULIN GLARGINE SOLOSTAR 100 UNITS/ML 3 ML PEN SC SCH (08:58)
[2017-05-26 11:37] VITALS: BP 130/83; PULSE 75; TEMP 36.6; O2SAT 91
[2017-05-26 12:08] VITALS: BP 130/83; PULSE 75; TEMP 36.6; O2SAT 91
--- NOTE | 2017-05-26 14:06 | Discharge Summary ---
Orthopedic Discharge Summary Admission Date/Reason May 23, 2017 at 11:00 Spinal Stenosis. Discharge Date/Disposition May 26, 2017 Home Diagnosis Principal Diagnosis: Lumbar spinal stenosis Admission Physical Exam As per Admitting History & Physical. Hospital Course Patient underwent lumbar decompression fusion tolerated as well as taken to the orthopedic floor paracervically. Postop day #1 she was up and amatory progress nicely through postop day #2. Her ABRIL drain decreased appropriately. Separately she is discharged home on postop day #3. Discharge orders and instructions can be found in chart for further review. Discharge Instructions Please refer to the electronic Patient Visit Report (Discharge Instructions) for additional information.
--- NOTE | 2017-05-29 07:29 | EDITING REQUIRED CODING QUERY ---
BMI To promote full compliance with coding requirements relating to patient care, physician participation is requested in all cases of coat operator uncertainty. Please assist us with the question(s) below: Please place an X within the parenthesis (x). If other, please document: BMI 43 was documented in this record for this patient. If the BMI is significant, please check the box that provides a more specific associated diagnosis: ( ) Overweight/Obese (x ) Obesity ( ) Morbid obesity ( ) Obesity Hypoventilation Syndrome (OHS) ( ) Heathy weight, not significant ( ) Underweight/Thin ( ) Other, please specify Thank you Ana Mccord
== END 2017-05-26 15:00 | disposition home health service (06) | DRG 454 ==
LOC: C.ACU 09:20 → C.3E 11:00 → ENRESERV 15:22
PROVIDERS: ADMIT Orthopaedic Surgery Orthopaedic Surgery of the Spine; ATTEND Orthopaedic Surgery Orthopaedic Surgery of the Spine
PROC: 0SP004Z Removal of Internal Fixation Device from Lumbar Vertebral Joint, Open Approach (ICD-10-PCS; principal; 2017-05-23 11:15)
PROC: 0SG00AJ Fusion of Lumbar Vertebral Joint with Interbody Fusion Device, Posterior Approach, Anterior Column, Open Approach (ICD-10-PCS; principal; 2017-05-23 11:15)
PROC: 0SG0071 Fusion of Lumbar Vertebral Joint with Autologous Tissue Substitute, Posterior Approach, Posterior Column, Open Approach (ICD-10-PCS; principal; 2017-05-23 11:15)
PROC: 0ST20ZZ Resection of Lumbar Vertebral Disc, Open Approach (ICD-10-PCS; principal; 2017-05-23 11:15)
DX: M48.061 Spinal stenosis, lumbar region without neurogenic claudication (principal); Z68.41 Body mass index [BMI] 40.0-44.9, adult; F41.9 Anxiety disorder, unspecified; J45.909 Unspecified asthma, uncomplicated; G89.29 Other chronic pain; F32.9 Major depressive disorder, single episode, unspecified; E11.9 Type 2 diabetes mellitus without complications; K21.9 Gastro-esophageal reflux disease without esophagitis; E78.5 Hyperlipidemia, unspecified; E66.9 Obesity, unspecified; F17.200 Nicotine dependence, unspecified, uncomplicated; Z79.899 Other long term (current) drug therapy; Z79.01 Long term (current) use of anticoagulants; Z79.1 Long term (current) use of non-steroidal anti-inflammatories (NSAID); Z86.711 Personal history of pulmonary embolism; Z88.8 Allergy status to other drugs, medicaments and biological substances; Z82.49 Family history of ischemic heart disease and other diseases of the circulatory system; Z82.3 Family history of stroke

== ENCOUNTER 2020-09-28 16:30 | Inpatient (IN) ==
[2020-09-28] MEDS ORDERED: ONDANSETRON INJ 2 MG/ML 2 ML VIAL IV STA (19:41)
--- NOTE | 2020-09-28 19:41 | Emergency Department Note ---
Impression & Plan Acute low back pain, Sciatica, DDD (degenerative disc disease) ED Provider Note INFORMANT: Patient ED PROVIDER(S): Jordon Pearce MD CHIEF COMPLAINT: Intractable back pain PLAN: Disposition: Admitted Condition: Good Outpatient prescription management: none Referral: None MEDICAL DECISION MAKING: Patient presented because of intractable back pain. Her outpatient imaging revealed significant degenerative disc disease. She was directed here by her spine surgeon for admission and definitive management. An IV was established. She was given Dilaudid and Zofran. Her CBC and chemistry panel showed a mild anemia but was otherwise unremarkable. A consultation was placed with the [facility]. Patient was evaluated in the ER for further management. Triage Nursing notes reviewed and agree them. Vital Signs: reviewed and remarkable for mildly low blood pressure which improved spontaneously. Prior record review indicates patient has had this before. Differential diagnosis: Musculoskeletal, disc herniation, fracture, metastatic disease, cord compression, discitis, sciatica, cauda equina, infection, aortic disease, renal colic, gastrointestinal, as well as other pathologies. Diagnostics interpreted by me: Cardiac Monitoring: Cardiac monitoring ordered by me: The patient was placed on continuous cardiac monitoring and observed. It revealed a sinus bradycardia 55 bpm. Imaging studies: Deferred HPI: The patient is a 60 year old female who presents to the Emergency Room with complaints of low back pain. SHe has hx of fusion and outpatient work up revealed severe DDD above fusion. Dr. Brown directed her to ED as she can't function at home. This started 4 weeks ago and is rapidly worsening over last week. The patient also notes the following associated symptoms, right leg n umbness and weakness. The patient has tried tramadol and muscle relaxers for relieving factors. Current pain is rated as 8/10. Pt denies LOC, headache, fevers, chills, diaphoresis, visual changes, neck pain, chest pain, breathing difficulties, nausea, vomiting, abdominal pain, melena, hematochezia, urinary symptoms, saddle anesthesia, lymphadenopathy, rash, or other complaints. ROS: See above HPI for pertinent positives & negatives. A total of 10 systems reviewed and were otherwise negative. PAST MEDICAL HISTORY:See Below , DDD PAST SURGICAL HISTORY:See Below, fusion FAMILY HISTORY:See Below SOCIAL HISTORY:See Below, lives with family. HOME MEDICATIONS:See Below ALLERGIES:See Below VITALS:See Below PHYSICAL EXAMINATION: GENERAL: Awake, alert, uncomfortable-appearing, in no distress HENT: Normocephalic, atraumatic. Oropharynx unremarkable. EYES: Normal conjunctiva. Sclera non-icteric. NECK: Inspection normal. Non-tender. Supple. No nuchal rigidity. FROM. No masses. RESPIRATORY: Clear to auscultation. No wheezes. No rales. Normal respiratory effort. CARDIAC: Normal rate. Normal rhythm. No murmurs. No rubs. Extremities warm and well perfused. Pulses equal. No JVD. GI: Soft, non-distended. No tenderness to palpation. No rebound or guarding. No masses. RECTAL: Deferred. MUSCULOSKELETAL: Atraumatic. Chest examination reveals no tenderness. The back is symmetrical on inspection without obvious abnormality. There is no CVA te nderness to palpation. No joint edema. LOWER EXTREMITIES: Calves are equal size bilaterally and non-tender. No edema. No discoloration. NEURO: Normal sensorium. No sensory or motor deficits noted. No saddle anesthesia. +R SLR. SKIN: No rash or jaundice noted. Jordon Pearce MD Past Med/Surg History Medical History (Updated 09/28/20 @ 19:41 by Jordon Pearce MD) YULIA (acute kidney injury) Back pain without radiculopathy Depression Diabetes mellitus type 2, controlled Dyslipidemia GERD (gastroesophageal reflux disease) History of pulmonary embolism Intractable back pain Lumbar stenosis with neurogenic claudication Surgical History Status post appendectomy Status post hysterectomy Status post insertion of inferior vena caval filter Status post lumbar surgery Family History Other No significant family history Social History Smoking Status: Never smoker Tobacco Type: E-cigarettes / Vaping Preferred Language: Ghanaian Current Living Situation: Family Feels Safe at Home: Yes Allergies Allergies Allergy/AdvReac Type Severity Reaction Status Date / Time phenytoin Allergy Intermediate Facial Verified 09/28/20 20:20 swelling Home Meds Home Medications Medication Instructions Recorded Confirmed cholecalciferol (vitamin D3) 50 2,000 unit PO QAM 03/20/18 09/28/20 mcg (2,000 unit) tablet (Vitamin D3) furosemide 20 mg tablet (Lasix) 20 mg PO DAILY PRN 03/20/18 09/28/20 lorazepam 0.5 mg tablet (Ativan) 0.5 mg PO TID PRN 03/20/18 09/28/20 pantoprazole 40 mg tablet,delayed 40 mg PO QAM 03/20/18 09/28/20 release potassium chloride 20 mEq 20 meq PO QAM 03/20/18 09/28/20 tablet,extended release rosuvastatin 40 mg tablet (Crestor) 40 mg PO QPM 03/20/18 09/28/20 ibuprofen 200 mg tablet (Advil) 600 mg PO Q8H PRN 12/18/18 09/28/20 quetiapine 300 mg tablet 300 mg PO HS 12/18/18 09/28/20 tizanidine 4 mg tablet 8 mg PO TID 12/18/18 09/28/20 warfarin 5 mg tablet 2.5 - 5 mg PO DIRECTED 05/14/20 09/28/20 duloxetine 60 mg capsule,delayed 60 mg PO PM 09/28/20 09/28/20 release tramadol 50 mg tablet 50 mg PO Q6H PRN 09/28/20 09/28/20 Previous Rx's Medication Instructions Recorded albuterol sulfate 90 mcg/actuation 2 puff INHALATION Q4H PRN #18 gm 03/27/20 aerosol inhaler Results & Data (ED) Vital Signs Vital Signs - 24 hr 09/28/20 16:41 09/28/20 20:05 09/28/20 20:16 Temperature 36.8 C Temperature Source Temporal Artery Scan Pulse Rate 50 L Pulse Rate [Finger] 57 L Pulse Rate from SpO2 Sensor 53 L Pulse Rhythm [Finger] Regular Pulse Strength [Finger] Normal Respiratory Rate 18 18 Respiratory Effort / Characteristics Non-Labored Respiratory Depth Normal Respiratory Pattern Regular Blood Pressure 106/65 Blood Pressure [Right Arm] 87/58 L Blood Pressure Mean 78 Blood Pressure Mean [Right Arm] 67 Blood Pressure Position Sitting Pulse Oximetry 99 97 95 Oxygen Delivery Method Room Air Room Air Sepsis Recent Fever Within 48 Hours No Sepsis New/Unexplained Change in Mental Status No Sepsis Action Taken by Nursing No Action Required 09/28/20 22:00 09/28/20 22:29 Temperature Temperature Source Pulse Rate 58 L 55 L Pulse Rate [Finger] Pulse Rate from SpO2 Sensor Pulse Rhythm [Finger] Pulse Strength [Finger] Respiratory Rate 18 18 Respiratory Effort / Characteristics Respiratory Depth Respiratory Pattern Blood Pressure 94/56 L 102/43 L Blood Pressure [Right Arm] Blood Pressure Mean 68 Blood Pressure Mean [Right Arm] Blood Pressure Position Pulse Oximetry 95 95 Oxygen Delivery Method Room Air Sepsis Recent Fever Within 48 Hours Sepsis New/Unexplained Change in Mental Status Sepsis Action Taken by Nursing Laboratory Data Result diagrams: 09/28/20 19:53 09/28/20 19:53 Lab Results 09/28/20 09/28/20 09/28/20 Range/Units 19:07 19:07 19:53 WBC 10.32 (4.8-10.8) K/uL RBC 3.77 L (4.2-5.4) M/uL Hgb 9.6 L (12.0-16.0) g/dL Hct 31.3 L (37-47) % MCV 83.0 (80-100) fL MCH 25.5 (25-34) pg MCHC 30.7 L (32-36) g/dL RDW Std Deviation 51.6 H (36.4-46.3) fL RDW Coeff of Jerrell 17.0 H (11.5-14.5) % Plt Count 300 (130-400) K/uL MPV 9.1 (7.4-10.4) fL Immature Gran % (Auto) 0.5 % Neut % (Auto) 66.5 % Lymph % (Auto) 23.7 % [place] % (Auto) 6.7 % Eos % (Auto) 2.5 % Baso % (Auto) 0.1 % Neut # (Auto) 6.86 H (1.4-6.5) K/uL Lymph # (Auto) 2.45 (1.2-3.4) K/uL [place] # (Auto) 0.69 H (0.11-0.59) K/uL Eos # (Auto) 0.26 (0-0.5) K/uL Baso # (Auto) 0.01 (0-0.2) K/uL Immature Gran # (Auto) 0.05 H (0.00-0.02) K/uL PT (9.0-12.0) Seconds INR (0.9-1.1) APTT (21.0-31.0) Seconds PTT Ratio Sodium (136-145) mmol/L Potassium (3.5-5.1) mmol/L Chloride (98-107) mmol/L Carbon Dioxide (21-32) mmol/L Anion Gap (3-11) BUN (7-18) mg/dl Creatinine (0.6-1.2) mg/dl Est Cr Clr Drug Dosing ml/min Est GFR ( Amer) ml/min Est GFR (Non-Af Amer) ml/min BUN/Creatinine Ratio (10-20) Glucose (70-99) mg/dl Calcium (8.5-10.1) mg/dl Total Bilirubin (0.2-1) mg/dl AST (15-37) U/L ALT (12-78) U/L Alkaline Phosphatase (45-117) U/L Total Protein (6.4-8.2) gm/dl Albumin (3.4-5.0) gm/dl Globulin (2.5-4.0) gm/dl Albumin/Globulin Ratio (0.9-2) COVID-19 Eval Order Covid19 at [facility] SARS-CoV-2 (PCR) NEGATIVE (Negative) Blood Type Antibody Screen 09/28/20 09/28/20 09/28/20 Range/Units 19:53 19:53 19:53 WBC (4.8-10.8) K/uL RBC (4.2-5.4) M/uL Hgb (12.0-16.0) g/dL Hct (37-47) % MCV (80-100) fL MCH (25-34) pg MCHC (32-36) g/dL RDW Std Deviation (36.4-46.3) fL RDW Coeff of Jerrell (11.5-14.5) % Plt Count (130-400) K/uL MPV (7.4-10.4) fL Immature Gran % (Auto) % Neut % (Auto) % Lymph % (Auto) % [place] % (Auto) % Eos % (Auto) % Baso % (Auto) % Neut # (Auto) (1.4-6.5) K/uL Lymph # (Auto) (1.2-3.4) K/uL [place] # (Auto) (0.11-0.59) K/uL Eos # (Auto) (0-0.5) K/uL Baso # (Auto) (0-0.2) K/uL Immature Gran # (Auto) (0.00-0.02) K/uL PT 13.1 H (9.0-12.0) Seconds INR 1.3 H (0.9-1.1) APTT 26.6 (21.0-31.0) Seconds PTT Ratio 1.0 Sodium 135 L (136-145) mmol/L Potassium 3.5 (3.5-5.1) mmol/L Chloride 102 (98-107) mmol/L Carbon Dioxide 27 (21-32) mmol/L Anion Gap 6.0 (3-11) BUN 16 (7-18) mg/dl Creatinine 0.99 (0.6-1.2) mg/dl Est Cr Clr Drug Dosing 66.3 ml/min Est GFR ( Amer) 71.8 ml/min Est GFR (Non-Af Amer) 61.9 ml/min BUN/Creatinine Ratio 16.3 (10-20) Glucose 95 (70-99) mg/dl Calcium 9.2 (8.5-10.1) mg/dl Total Bilirubin 1.1 H (0.2-1) mg/dl AST 12 L (15-37) U/L ALT 22 (12-78) U/L Alkaline Phosphatase 96 (45-117) U/L Total Protein 6.8 (6.4-8.2) gm/dl Albumin 3.5 (3.4-5.0) gm/dl Globulin 3.3 (2.5-4.0) gm/dl Albumin/Globulin Ratio 1.1 (0.9-2) COVID-19 Eval Order SARS-CoV-2 (PCR) (Negative) Blood Type A Positive Antibody Screen NEGATIVE Administered Medications Hydromorphone HCl (Hydromorphone Inj 0.5 Mg/0.5 Ml Syr) 0.5 mg IV Q15M PRN PRN Reason: Pain Stop: 10/12/20 19:40 Last Admin: 09/28/20 21:53 Dose: 0.5 mg Documented by: [id number] Admin: 09/28/20 20:02 Dose: 0.5 mg Documented by: [id number] Discontinued Medications Ondansetron HCl (Ondansetron Inj 2 Mg/Ml 2 Ml Vial) 4 mg IV NOW STA Stop: 09/28/20 19:42 Last Admin: 09/28/20 20:02 Dose: 4 mg Documented by: [id number] Discharge Plan Visit Data Chief Complaint: Back Injury/Pain Stated Complaint: COLLAPSED DISK, HAVING SEVERE BACK PAIN ED Provider: Jordon Pearce Discharge Problem: Acute low back pain, Sciatica, DDD (degenerative disc disease) Forms Stand Alone Forms: [employer] Prescriptions Prescriptions: No Action albuterol sulfate 90 mcg/actuation HFA aerosol inhaler 2 puff INHALATION Q4H PRN (Reason: sob) Qty: 18 RF: 5 cholecalciferol (vitamin D3) [Vitamin D3] 2,000 unit Tablet 2,000 unit PO QAM RF: 0 furosemide [Lasix] 20 mg Tablet 20 mg PO DAILY PRN (Reason: Edema) RF: 0 lorazepam [Ativan] 0.5 mg Tablet 0.5 mg PO TID PRN (Reason: Anxiety) RF: 0 pantoprazole 40 mg Tablet,Delayed Release (Dr/Ec) 40 mg PO QAM RF: 0 potassium chloride 20 mEq Tablet Extended Release 20 meq PO QAM RF: 0 rosuvastatin [Crestor] 40 mg Tablet 40 mg PO QPM RF: 0 warfarin 5 mg tablet 2.5 - 5 mg PO DIRECTED RF: 0 quetiapine 300 mg tablet 300 mg PO HS RF: 0 tizanidine 4 mg tablet 8 mg PO TID RF: 0 ibuprofen [Advil] 200 mg Tablet 600 mg PO Q8H PRN (Reason: fever/pain) RF: 0 tramadol 50 mg tablet 50 mg PO Q6H PRN (Reason: Pain) RF: 0 duloxetine 60 mg capsule,delayed release(DR/EC) 60 mg PO PM RF: 0 Referrals Referrals: Soham Hayes DO [Primary Care Provider] -
[2020-09-28] MEDS: HYDROmorphone INJ 0.5 MG/0.5 ML SYR IV PRN ×2 (20:02→21:53)
[2020-09-28 20:06] LABS: Hematocrit (blood only) 31.3 % (37-47); Hemoglobin 9.6 g/dL (12.0-16.0); Mean Corpuscular Hemoglobin 25.5 pg (25-34); Mean Corpuscular Hgb Conc 30.7 g/dL (32-36); Mean Platelet Volume 9.1 fL (7.4-10.4); Platelet Count 300 K/uL (130-400); RDW Standard Deviation 51.6 fL (36.4-46.3); Red Blood Count 3.77 M/uL (4.2-5.4); White Blood Count 10.32 K/uL (4.8-10.8)
[2020-09-28 20:17] LABS: INR 1.3 (0.9-1.1); Partial Thromboplastin Time 26.6 Seconds (21.0-31.0); Prothrombin Time 13.1 Seconds (9.0-12.0)
[2020-09-28 20:23] LABS: Albumin Level 3.5 gm/dl (3.4-5.0); BUN Creatinine Ratio 16.3 (10-20); Calcium 9.2 mg/dl (8.5-10.1); Creatinine Clr Calc Pharmacy 66.3 ml/min; Est GFR (African American) 71.8 ml/min; Est GFR (Non-African American) 61.9 ml/min; Potassium 3.5 mmol/L (3.5-5.1)
[2020-09-28 20:26] LABS: Albumin Globulin Ratio 1.1 (0.9-2); Bilirubin,Total 1.1 mg/dl (0.2-1); Globulin 3.3 gm/dl (2.5-4.0); Total Protein 6.8 gm/dl (6.4-8.2)
[2020-09-28 20:28] LABS: Basophils # (auto) 0.01 K/uL (0-0.2); Basophils % (auto) 0.1 %; Eosinophils # (auto) 0.26 K/uL (0-0.5); Eosinophils % (auto) 2.5 %; Immature Granulocytes # (auto) 0.05 K/uL (0.00-0.02); Immature Granulocytes % (auto) 0.5 %; Lymphocytes # (auto) 2.45 K/uL (1.2-3.4); Lymphocytes % (auto) 23.7 %; Monocytes # (auto) 0.69 K/uL (0.11-0.59); Monocytes % (auto) 6.7 %; Neutrophils # (auto) 6.86 K/uL (1.4-6.5); Neutrophils % (auto) 66.5 %
[2020-09-28] MEDS ORDERED: POLYETHYLENE (MIRALAX) 17 GM PACK PO PRN (23:01)
[2020-09-28] MEDS ORDERED: ALBUTEROL HFA 8 GM INHALER INH PRN (23:01)
[2020-09-28] MEDS ORDERED: traMADol HCL 50 MG TABLET PO PRN (23:01)
[2020-09-28] MEDS ORDERED: FUROSEMIDE 20 MG TAB PO PRN (23:01)
[2020-09-28] MEDS ORDERED: ACETAMINOPHEN 325 MG TAB PO PRN (23:01)
[2020-09-28] MEDS ORDERED: LORazepam 0.5 MG TAB PO PRN (23:01)
[2020-09-28] MEDS ORDERED: ONDANSETRON INJ 2 MG/ML 2 ML VIAL IV PRN (23:01)
[2020-09-28 23:12] LABS: Appearance Urine Turbid (Clear); Bacteria Urine Automated Negative (Negative); Bilirubin Urine Negative (Negative); Blood Urine Negative (Negative); Color Urine Dark Yellow; Epithelial Cell Urine Auto >30 /lpf (0-5); Glucose Urine UA Negative (Negative); Ketones Urine Trace (Negative); Leukocyte Esterase Urine Negative (Negative); Nitrite Urine Negative (Negative); Protein Urine Negative (Negative); RBC Urine Automated 0-4 /hpf (0-4); Specific Gravity Urine 1.026 (1.000-1.030); Urobilinogen Urine Negative (Negative)
[2020-09-28 23:33] LABS: Amorphous Sediment Urine Present (None Prsent); Calcium Oxalate Crystals Urine Present (None Prsent)
[2020-09-28 23:34] LABS: Cast Urine Automated 0 /lpf (0-5)
[2020-09-28] MEDS: SODIUM CHLORIDE 0.9% 1000ML 1,000 ML IV SCH (23:36)
[2020-09-28] MEDS: HYDROmorphone INJ 1 MG/ML SYRINGE IV PRN (23:36)
--- NOTE | 2020-09-29 00:17 | History and Physical Report ---
DATE OF ADMISSION: 09/28/2020. CHIEF COMPLAINT: Severe back pain. HISTORY OF PRESENT ILLNESS: This is a 60-year-old female with past medical history significant for type 2 diabetes, not on any medications, hyperlipidemia, asthma, moderate persistent GERD, cervical disk disease, osteoarthritis of knee, lumbar degenerative arthritis, chronic pain syndrome, iron deficiency anemia, history of pulmonary embolism, history of depression, status post cervical spinal fusion surgery, status post lumbar fusion surgery, anxiety, who presents with severe back pain. The patient says the severe back pain is going on for last 4 weeks, but for the last one week it got really worse. She said last Monday, she had MRI done as outpatient with Dr. Brown and was found to have severe degenerative disk disease above fusion and she was sent here for further management. The patient states she is having some numbness in lower extremity and some mild weakness, but she is able to ambulate with difficulty. She has no bowel and bladder incontinence, but she thinks her control is slightly lower than before. Denies any abdominal pain. No fever, no chills, no chest pain or shortness of breath. No cough. Appetite is okay. No difficulty swallowing. No headache, no blurred visions. She has some headache and neck pain and arm pain. She says the back pain is going up, traveling up to her head and neck, causing spasms. Currently resting comfortably and hemodynamically stable. ALLERGIES: PHENYTOIN. PAST MEDICAL HISTORY: As mentioned above. PAST SURGICAL HISTORY: Left knee arthroplasty, right knee arthroplasty, laparoscopic appendectomy, multiple surgeries to the abdomen, cervical fusion surgery, reconstructive replacement of left shoulder joint, repair of right ruptured rotator cuff, sacroiliac joint injection, right shoulder arthroscopy, lumbar spinal fusion surgery, total abdominal hysterectomy with removal of tubes, right total hip replacement. MEDICATIONS: The patient is on albuterol sulfate 2 puffs inhalation q. 4 hours p.r.n., vitamin D 2000 units p.o. a.m., duloxetine 60 mg p.o. a.m., Lasix 20 mg p.o. daily p.r.n., Ativan 0.5 mg p.o. t.i.d. p.r.n., Protonix 40 mg p.o. a.m., potassium chloride 20 mEq p.o. a.m., quetiapine 300 mg p.o. at bedtime, Crestor 40 mg p.o. a.m., tizanidine 8 mg p.o. t.i.d., tramadol 50 mg p.o. q. 6 hours p.r.n., warfarin 2.5 to 5 mg p.o. p.r.n. FAMILY HISTORY: Significant for father has glaucoma, high cholesterol, stroke; mother had heart disorder, hypertension; brother has lung cancer. SOCIAL HISTORY: . Former smoker, quit in 2018. Smoked 1 pack a day for 24 years. Alcohol 2 times a month. Drug use, history of medical marijuana. REVIEW OF SYSTEMS: As per HPI. Rest of the review of systems is negative. PHYSICAL EXAMINATION: GENERAL: The patient is obese, not in acute distress. VITAL SIGNS: Temperature 36.8, pulse 57, respiratory rate 18, blood pressure 106/65, oxygen 95% on room air. HEENT: Pupils equal, round and reactive to light. Extraocular movements intact. Vision is good. NECK: No JVD. No neck masses. HEART: S1 and S2 heard. Regular rate and rhythm. No murmur, no gallop. RESPIRATORY SYSTEM: Normal AP diameter. No accessory muscle use. No wheezing, no crackles. ABDOMEN: Soft, bowel sounds present, nontender, no distention. CENTRAL NERVOUS SYSTEM: Cranial nerves II-XII grossly intact, nonfocal. EXTREMITIES: No edema, no erythema. Sensation is intact. Right leg straight leg test positive. LABORATORY DATA: WBC 10.3, hemoglobin 9.6, hematocrit 31.3, platelets 300. PT 13.1, INR 1.3, APTT 26.6. Sodium 135, potassium 3.5, chloride 102, bicarbonate 27, BUN 16, creatinine 0.9, serum glucose 95, calcium 9.2, total bilirubin 1.1, AST 12, ALT 22, alkaline phosphatase 96. Urinalysis is pending. SARS-CoV-2 PCR negative. ASSESSMENT AND PLAN: This is a 60-year-old female who presents with severe back pain. 1. Severe back pain with ambulatory dysfunction: Recent MRI showed severe degenerative disk disease above fusion surgery. Pain control with IV Dilaudid p.r.n. We will keep her n.p.o., IV fluids and consult orthopedics in a.m. for further recommendations. 2. History of type 2 diabetes: Not on any medication. Follow HbA1c levels. Currently n.p.o. 3. History of pulmonary embolism in 2012: Currently holding Coumadin for any procedures.Follow inr. 4. History of depression: Duloxetine and Seroquel. 5. Chronic hyperlipidemia: On statin. 6. History of iron deficiency anemia: Hemoglobin is 9.6, will follow her stool for Hemoccult, iron studies. 7. History of gastroesophageal reflux disease: Continue her Protonix. 8. Anxiety: Continue on Ativan p.r.n. 9. Asthma: Moderate, persistent. Currently stable. Continue her home inhalers. 10. Deep venous thrombosis prophylaxis: We will place her on sequential compression devices for now. Restart Coumadin when able to. DISPOSITION: Closely monitor in medical floor. PT/OT prior to discharge. Social service to help with discharge planning. Level 1 full code. Job ID: [id number] MTDD
[2020-09-29] MEDS: HYDROmorphone INJ 1 MG/ML SYRINGE IV PRN ×2 (03:06→06:17)
[2020-09-29 06:16] LABS: Basophils # (auto) 0.01 K/uL (0-0.2); Basophils % (auto) 0.1 %; Eosinophils # (auto) 0.16 K/uL (0-0.5); Eosinophils % (auto) 2.2 %; Hematocrit (blood only) 32.8 % (37-47); Hemoglobin 10.3 g/dL (12.0-16.0); Immature Granulocytes # (auto) 0.03 K/uL (0.00-0.02); Immature Granulocytes % (auto) 0.4 %; Lymphocytes # (auto) 1.38 K/uL (1.2-3.4); Mean Corpuscular Hemoglobin 25.8 pg (25-34); Mean Corpuscular Hgb Conc 31.4 g/dL (32-36); Mean Corpuscular Volume 82.2 fL (80-100); Mean Platelet Volume 9.1 fL (7.4-10.4); Monocytes # (auto) 0.53 K/uL (0.11-0.59); Monocytes % (auto) 7.3 %; Neutrophils # (auto) 5.14 K/uL (1.4-6.5); Platelet Count 279 K/uL (130-400); RDW Coefficient of Variation 16.9 % (11.5-14.5); RDW Standard Deviation 50.6 fL (36.4-46.3); Red Blood Count 3.99 M/uL (4.2-5.4); White Blood Count 7.25 K/uL (4.8-10.8)
[2020-09-29 06:23] LABS: INR 1.2 (0.9-1.1)
[2020-09-29 06:50] LABS: BUN Creatinine Ratio 17.3 (10-20); Calcium 8.9 mg/dl (8.5-10.1); Est GFR (African American) 92.9 ml/min; Est GFR (Non-African American) 80.1 ml/min; Potassium 3.4 mmol/L (3.5-5.1)
[2020-09-29 06:55] LABS: Ferritin 213.9 ng/ml (8-388)
[2020-09-29 07:15] LABS: Folate (Folic Acid) 13.2 ng/ml (>5.38)
[2020-09-29 08:03] LABS: Estimated Average Glucose 154 mg/dl
[2020-09-29] MEDS ORDERED: ceFAZolin 2000MG 2,000 MG/15 ML SYR IV ONE (09:15)
--- NOTE | 2020-09-29 09:15 | Consultation ---
Date of Consultation September 29, 2020 Assessment & Plan (1) Acute low back pain: Dr. Brown and I have been able to review her updated x-rays and MRI of her lumbar spine from September 22 on our [facility] PACS system. It reveals breakdown/degenerative disc disease with associated retrolisthesis of L2-3. Hardware intact L3-4, L4-5. Options have been reviewed with the patient including conservative treatment in the form of pain management versus ultimate surgical fixation. Surgery would require hardware removal of L3-4, L4-5, posterior lumbar decompression and instrumented fusion with possible interbody cage at L2-3. Risk, benefits, pros cons on transfer in detail. These include but are not limited to anesthesia, blindness, stroke, paralysis, chronic nerve pain, hardware failure, nonunion, adjacent level disease, DVT/PE, wound infection requiring reoperation. At this point in time we will try and arrange surgical intervention at the nearest opportune time, Possibly at the earliest to be tomorrow. I will make her n.p.o. for tomorrow Supervising Physician Co-Signing Physician Notes Dr. David Brown History of Present Illness Reason for Consultation: Severe lower back pain Attending Physician: Aden Arnold MD History of Present Illness This is a 60-year-old female well-known to our practice. She was seen last week by Dr. Brown in our outpatient office. Options were reviewed including surgical intervention. She states pain has been ongoing for the past couple of weeks but she has declined over the weekend. She presented to the emergency room last evening because of pain along the lower back region rating down the right groin and anterior thigh. She also notes numbness down her left lower extremity. Denies bowel or bladder changes. [place] independently at home. States Dr. Brown gave her tramadol prescription last week in the office which she has been taking as needed for pain control. She has a history of undergoing an L3-5 decompression [place] [address] Brown. Allergies Allergy/AdvReac Type Severity Reaction Status Date / Time phenytoin Allergy Intermediate Facial Verified 09/28/20 20:20 swelling Home Medications Medication Instructions Recorded Confirmed Type cholecalciferol (vitamin D3) 50 2,000 unit PO QAM 03/20/18 09/28/20 History mcg (2,000 unit) tablet (Vitamin D3) furosemide 20 mg tablet (Lasix) 20 mg PO DAILY PRN 03/20/18 09/28/20 History lorazepam 0.5 mg tablet (Ativan) 0.5 mg PO TID PRN 03/20/18 09/28/20 History pantoprazole 40 mg tablet,delayed 40 mg PO QAM 03/20/18 09/28/20 History release potassium chloride 20 mEq 20 meq PO QAM 03/20/18 09/28/20 History tablet,extended release rosuvastatin 40 mg tablet (Crestor) 40 mg PO QPM 03/20/18 09/28/20 History ibuprofen 200 mg tablet (Advil) 600 mg PO Q8H PRN 12/18/18 09/28/20 History quetiapine 300 mg tablet 300 mg PO HS 12/18/18 09/28/20 History tizanidine 4 mg tablet 8 mg PO TID 12/18/18 09/28/20 History albuterol sulfate 90 mcg/actuation 2 puff INHALATION Q4H PRN #18 gm 03/27/20 09/28/20 Rx aerosol inhaler warfarin 5 mg tablet 2.5 - 5 mg PO DIRECTED 05/14/20 09/28/20 History duloxetine 60 mg capsule,delayed 60 mg PO PM 09/28/20 09/28/20 History release tramadol 50 mg tablet 50 mg PO Q6H PRN 09/28/20 09/28/20 History Patient History Medical History YULIA (acute kidney injury) Back pain without radiculopathy Depression Diabetes mellitus type 2, controlled Dyslipidemia GERD (gastroesophageal reflux disease) History of pulmonary embolism Intractable back pain Lumbar stenosis with neurogenic claudication Surgical History Status post appendectomy Status post hysterectomy Status post insertion of inferior vena caval filter Status post lumbar surgery Family History Other No significant family history Social History Smoking Status: Former smoker Tobacco Type: E-cigarettes / Vaping Second Hand Exposure: No; Do You Dip or Chew Tobacco: No; Hx Alcohol Use: Yes Alcohol type: wine Hx Substance Use: Yes Last Used Substance: Days (ago) Preferred Language: Beninese Communication Ability: Effective Autotransfusionist Required: No Beliefs That Will Affect Care: None Current Living Situation: Family Feels Safe at Home: Yes Safety Concerns: Feels Safe At This Time Assistive Devices: Walker Review of Systems Review of Systems: See HPI Physical Exam Physical Exam: Patient is lying in bed. Moderate distress. Alert and oriented x3. Well-healed midline lumbar incision strength is 5 5 bilateral EHL, dorsiflexion, plantarflexion, quadriceps, hamstrings, hip flexors, hip abductor's and hip adductor's. Negative tension signs bilaterally. Calf soft nontender bilaterally. Constitutional: WD/WN, vitals as above Eyes: PERRL, conjunctivae normal, anicteric sclerae Respiratory: normal respiratory effort, lungs clear to auscultation Cardiovascular: Extremities: normal capillary refill Gastrointestinal (Abdomen): normal bowel sounds, soft, nontender, no hepatosplenomegaly Musculoskeletal: no cyanosis or clubbing, extremities motor strength 5/5 Skin: no rashes, warm and dry Neurologic: PERRL, EOMI, accommodation nl, no face palsy, no dysarthria Psychiatric: A+Ox3, euthymic affect Results & Data ([facility]) Vital Signs (Past 12 Hours) Vital Signs Temp Pulse Pulse Resp BP BP Pulse Ox 09/29/20 08:34 36.8 C 94 H 18 183/81 H 96 09/28/20 23:16 36.6 C 63 16 98/65 L 96 09/28/20 22:29 55 L 18 102/43 L 95 09/28/20 22:00 58 L 18 94/56 L 95
[2020-09-29] MEDS: CHOLECALCIFEROL 1,000 UNITS 25 MCG TAB PO SCH (09:19)
[2020-09-29] MEDS: POTASSIUM CHLORIDE CRTAB 20 MEQ TABCR PO SCH (09:20)
[2020-09-29] MEDS: PANTOprazole 40 MG TAB PO SCH (09:20)
[2020-09-29] MEDS: tiZANidine HCL 4 MG TABLET PO SCH ×3 (09:21→20:25)
[2020-09-29] MEDS: HYDROmorphone INJ 0.5 MG/0.5 ML SYR IV PRN ×5 (09:21→23:59)
[2020-09-29] MEDS: SODIUM CHLORIDE 0.9% 1000ML 1,000 ML IV SCH ×2 (10:01→17:04)
--- NOTE | 2020-09-29 10:37 | Anesthesiology Consultation ---
Date of Service September 29, 2020 Assessment & Plan (1) Encounter for pre-operative examination: Chart Review Chart Review: Acceptable Risk for Surgery and Patient NOT seen in Pre Admission Testing Consults Requested none History Surgery Operation Date: 09/30/20 13:45 Proposed Procedures p L3-5 Hardware Removal, L2-3 Decompression Fusion, Spinal Cord Monitoring - David Brown, Height/Weight Height: 5 ft 2 in Weight: 98.5 kg Allergies Allergy/AdvReac Type Severity Reaction Status Date / Time phenytoin Allergy Intermediate Facial Verified 09/28/20 20:20 swelling Medications Home Medications Medication Instructions Recorded Confirmed Last Taken cholecalciferol (vitamin D3) 50 2,000 unit PO QAM 03/20/18 09/28/20 09/28/20 mcg (2,000 unit) tablet (Vitamin D3) furosemide 20 mg tablet (Lasix) 20 mg PO DAILY PRN 03/20/18 09/28/20 09/26/20 lorazepam 0.5 mg tablet (Ativan) 0.5 mg PO TID PRN 03/20/18 09/28/20 09/28/20 pantoprazole 40 mg tablet,delayed 40 mg PO QAM 03/20/18 09/28/20 09/28/20 release potassium chloride 20 mEq 20 meq PO QAM 03/20/18 09/28/20 09/28/20 tablet,extended release rosuvastatin 40 mg tablet (Crestor) 40 mg PO QPM 03/20/18 09/28/20 09/27/20 ibuprofen 200 mg tablet (Advil) 600 mg PO Q8H PRN 12/18/18 09/28/20 12/17/18 quetiapine 300 mg tablet 300 mg PO HS 12/18/18 09/28/20 09/27/20 tizanidine 4 mg tablet 8 mg PO TID 12/18/18 09/28/20 09/28/20 albuterol sulfate 90 mcg/actuation 2 puff INHALATION Q4H PRN #18 gm 03/27/20 09/28/20 Unknown aerosol inhaler warfarin 5 mg tablet 2.5 - 5 mg PO DIRECTED 05/14/20 09/28/20 09/26/20 5 mg duloxetine 60 mg capsule,delayed 60 mg PO PM 07/19/21 07/19/21 07/18/21 release tramadol 50 mg tablet 50 mg PO Q6H PRN 09/28/20 09/28/20 09/28/20 Active Medications Generic Name Dose Route Start Last Admin Trade Name Rae PRN Reason Stop Dose Admin Hydromorphone HCl 0.5 mg 09/29/20 06:27 09/29/20 09:21 Hydromorphone Inj 0.5 Mg/0.5 Ml Syr IV 10/13/20 06:26 0.5 mg Q3H PRN Administration Pain Sodium Chloride 1,000 mls @ 125 mls/hr 09/28/20 23:30 09/29/20 10:01 Nss 1000ml IV 10/28/20 23:29 125 mls/hr .Q8H ALEX Administration Pantoprazole Sodium 40 mg 09/29/20 09:00 09/29/20 09:20 Pantoprazole 40 Mg Tab PO 10/29/20 08:59 40 mg QAM ALEX Administration Potassium Chloride 20 meq 09/29/20 09:00 09/29/20 09:20 Potassium Chloride Crtab 20 Meq Tabcr PO 10/29/20 08:59 20 meq QAM ALEX Administration Tizanidine HCl 8 mg 09/29/20 09:00 09/29/20 09:21 Tizanidine Hcl 4 Mg Tablet PO 10/29/20 08:59 8 mg TID ALEX Administration Vitamin D 2,000 units 09/29/20 09:00 09/29/20 09:19 Cholecalciferol 1,000 Units 25 Mcg Tab PO 10/29/20 08:59 2,000 units QAM ALEX Administration Past Medical History Medical History YULIA (acute kidney injury) Anemia Back pain without radiculopathy Depression Diabetes mellitus type 2, controlled Dyslipidemia GERD (gastroesophageal reflux disease) History of pulmonary embolism Intractable back pain Lumbar stenosis with neurogenic claudication Past Family History Family History Other No significant family history Past Surgical History Surgical History Status post appendectomy Status post hysterectomy Status post insertion of inferior vena caval filter Status post lumbar surgery Social History Smoking Status: Former smoker tobacco type: cigarettes Do You Dip or Chew Tobacco: No Hx Alcohol Use: Yes Alcohol type: wine alcohol intake frequency: holidays/special occasions only Hx Substance Use: Yes substance use type: marijuana Last Used Substance: Days (ago) Physical Exam Vital Signs Last Vital Signs Temp 36.8 C 09/29/20 08:34 Pulse 94 H 09/29/20 08:34 Resp 18 09/29/20 08:34 BP 183/81 H 09/29/20 08:34 Pulse Ox 96 09/29/20 08:34 Testing Laboratory Results 09/29/20 05:27 09/29/20 05:27 PT 12.0 Seconds (9.0-12.0) 09/29/20 05:27 INR 1.2 (0.9-1.1) H 09/29/20 05:27 APTT 26.6 Seconds (21.0-31.0) 09/28/20 19:53 Hemoglobin A1c 7.0 % (4.5-5.6) H 09/29/20 05:27 Urine Color Dark Yellow 09/28/20 20:40 Urine Appearance Turbid (Clear) A 09/28/20 20:40 Urine pH 5.0 (4.5-7.5) 09/28/20 20:40 Ur Specific [place] 1.026 (1.000-1.030) 09/28/20 20:40 Urine Protein Negative (Negative) 09/28/20 20:40 Urine Glucose (UA) Negative (Negative) 09/28/20 20:40 Urine Ketones Trace (Negative) H 09/28/20 20:40 Urine Nitrite Negative (Negative) 09/28/20 20:40 Ur Leukocyte Esterase Negative (Negative) 09/28/20 20:40 Urine WBC (Auto) 1-5 /hpf (0-5) 09/28/20 20:40 Urine RBC (Auto) 0-4 /hpf (0-4) 09/28/20 20:40 U Hyaline Cast (Auto) 0 /lpf (0-5) 09/28/20 20:40 U Epithel Cells (Auto) >30 /lpf (0-5) H 09/28/20 20:40 Urine Bacteria (Auto) Negative (Negative) 09/28/20 20:40 Blood Type A Positive 09/28/20 19:53 Antibody Screen NEGATIVE 09/28/20 19:53 Electrocardiogram Date: 05/14/20 Findings: + SB @ (56) Chest X-Ray Date: 05/14/20 XR chest 1V portable HISTORY: 59 years-old Female Chest Pain . Acute atypical chest pain COMPARISON: Chest radiograph 08/09/2017 TECHNIQUE: Portable AP view of the chest FINDINGS: Cardiac silhouette is mildly enlarged, unchanged. No pneumothorax, pleural effusion, airspace consolidation or overt pulmonary edema. Degenerative changes of the spine and right shoulder. Cannulated screw projects over the right humeral head. Cervical spinal fusion hardware. Reverse left shoulder total joint arthroplasty with overlying skin reva. IMPRESSION: Cardiomegaly without acute process. ACT 112: Negative or not required by law. The above report was generated using voice recognition software. It may contain grammatical, syntax or spelling errors. Electronically signed by: Polo Pina M.D. 05/14/2020 10:53 AM Dictated: 05/14/20 1052 Echocardiogram Date: 08/11/17 EF: 60-65 LV Function: normal Other Testing CT ANGIOGRAPHY OF THE CHEST, PULMONARY EMBOLUS PROTOCOL CLINICAL HISTORY: Chest pain. Recent shoulder surgery. COMPARISON STUDY: Chest CT October 30, 2015. Chest radiograph May 14, 2020. TECHNIQUE: Following IV administration of 118 mL of Optiray-320, helical axial images of the chest were obtained utilizing the pulmonary embolus protocol. Maximal intensity projections and sagittal and coronal reformats were viewed on an independent 3D workstation. IV contrast was administered without complication. Automated exposure control was utilized for the study. A dose lowering technique was utilized adhering to the principles of ALARA. CT DOSE: 792.12 mGy.cm FINDINGS: No pulmonary emboli are identified. There is no thoracic aortic dissection. Mild cardiomegaly is noted. There is no pericardial effusion. No pne umothorax is present. There is a trace left pleural effusion. No consolidation is identified to suggest pneumonia. Mild groundglass opacities favor atelectasis. There is mild bilateral lower lobe bronchial wall thickening. Right middle lobe and lingular opacities reflect atelectasis. Central airways are patent. A right lobe thyroid nodule was previously biopsied. Mild compression deformities of T3, T4 and T5 are likely old. A screw within the right humeral head is partially imaged. There are postoperative findings from recent left shoulder arthroplasty with expected infiltration and soft tissue gas as well as skin reva. Evaluation is difficult given streak artifact. There is a probable nondisplaced periprosthetic fracture within the posterior cortex of the proximal left humerus. A low-attenuation left adrenal nodule is unchanged. This represents an adenoma. There is probable hepatic steatosis and hepatomegaly, as shown on prior CT. IMPRESSION: 1. No pulmonary emboli identified. 2. No consolidation to suggest pneumonia. 3. Trace left pleural effusion. 4. Status post recent reverse total left shoulder arthroplasty. Probable nondisplaced proximal left humeral periprosthetic fracture. Evaluation difficult given streak artifact from the hardware. ACT 112: Negative or not required by law. Electronically signed by: Vahid Josue M.D. 05/14/2020 12:55 PM Dictated: 05/14/20 1240Transcribed: 05/14/20 1240
--- NOTE | 2020-09-29 18:16 | Hospitalist Progress Note ---
Date of Service September 29, 2020 Assessment & Plan (1) Acute low back pain: Plan: ASSESSMENT AND PLAN: This is a 60-year-old female who presents with severe back pain. 1. Severe back pain with ambulatory dysfunction: per Ortho PA notes: Dr. Brown and I have been able to review her updated x-rays and MRI of her lumbar spine from September 22 on our [facility] PACS system. It reveals breakdown/degenerative disc disease with associated retrolisthesis of L2-3. Hardware intact L3-4, L4-5. Options have been reviewed with the patient including conservative treatment in the form of pain management versus ultimate surgical fixation. Surgery would require hardware removal of L3-4, L4-5, posterior lumbar decompression and instrumented fusion with possible interbody cage at L2-3. -- no medical contraindication for planned surgery patient at moderate risk for cardiopulmonary complications due to co morbidities -- patient has history of PE, please order DVT prophylaxis after surgery also has DM 2 a1c 7.0, monitor blood glucose, especially if being given steroids 2. History of type 2 diabetes: -- a1c 7.0 -- BSG 111 monitor 3. History of pulmonary embolism in 2011: -- INR 1.2 coumadin on hold -- resume as soon as hemostasis stable per Ortho 4. History of depression: Duloxetine and Seroquel. 5. Chronic hyperlipidemia: On statin. 6. History of iron deficiency anemia: Hemoglobin is 9.6, ff up Hemoccult, iron studies. 7. History of gastroesophageal reflux disease: Continue her Protonix. 8. Anxiety: Continue on Ativan p.r.n. 9. Asthma: Moderate, persistent; not in exacerbation 10. Deep venous thrombosis prophylaxis: SCDs ;patient has history of PE, please order DVT prophylaxis after surgery Admission and Anticipated Discharge Date Admission Date: September 28, 2020 Subjective ff up for spinal stenosis, etc seen resting in bed, not in distress sitting up states back pain is well controlled by PRN meds denies headache, dizziness, chest pain, palpitations, dyspnea, abdominal pain, nausea states prior to back pain, she can walk a few blocks and climb up steps with no problems no other symptoms Review of Systems Review of Systems: all noted and negative, except for above Physical Exam Physical Exam: General- oriented x 3, not in distress, speaks in sentences with no effort or accessory muscle use Head- atraumatic Eyes- PERRL, EOMI, anicteric ENT- oropharynx clear Neck- supple, no JVD, no adenopathy, no thyromegaly; carotids +2/2, no bruits appreciated Lungs- clear to auscultation bilaterally, no rales/wheezes Heart- normal rate, regular rhythm; no murmur, no gallop, no rub appreciated Abdomen- normal bowel sounds, nondistended, soft, nontender, no masses or hepatosplenomegaly Extremities- no pretibial edema, no calf tenderness; peripheral pulses intact Neuro- alert, oriented x 3; CN 2-12 grossly intact; motor 5/5 bilaterally;sensation 100% on all extremities; no other gross focal neurologic deficits Skin- warm & dry Results & Data Results & Data ([facility]) Vital Signs (Past 12 Hours) Vital Signs Temp Pulse Resp BP Pulse Ox 09/29/20 14:49 36.7 C 66 18 103/68 96 09/29/20 08:34 36.8 C 94 H 18 183/81 H 96 all noted and reviewed including below
[2020-09-29] MEDS: ROSUVASTATIN CALCIUM 20 MG TAB PO SCH (20:26)
[2020-09-29] MEDS: QUEtiapine FUMARATE 300 MG TABLET PO SCH (20:26)
[2020-09-30] MEDS: SODIUM CHLORIDE 0.9% 1000ML 1,000 ML IV SCH ×4 (00:03→18:11)
[2020-09-30] MEDS: HYDROmorphone INJ 0.5 MG/0.5 ML SYR IV PRN ×4 (03:51→21:10)
[2020-09-30] MEDS: CHOLECALCIFEROL 1,000 UNITS 25 MCG TAB PO SCH (07:58)
[2020-09-30] MEDS: POTASSIUM CHLORIDE CRTAB 20 MEQ TABCR PO SCH (07:59)
[2020-09-30] MEDS: PANTOprazole 40 MG TAB PO SCH (07:59)
[2020-09-30] MEDS: tiZANidine HCL 4 MG TABLET PO SCH ×3 (08:00→20:43)
[2020-09-30 08:49] LABS: Prothrombin Time 10.6 Seconds (9.0-12.0)
--- NOTE | 2020-09-30 09:17 | Hospitalist Progress Note ---
Date of Service September 30, 2020 Assessment & Plan (1) Acute low back pain: Plan: ASSESSMENT AND PLAN: This is a 60-year-old female who presents with severe back pain. 1. Severe back pain with ambulatory dysfunction: per Ortho PA notes: Dr. Brown and I have been able to review her updated x-rays and MRI of her lumbar spine from September 22 on our [facility] PACS system. It reveals breakdown/degenerative disc disease with associated retrolisthesis of L2-3. Hardware intact L3-4, L4-5. Options have been reviewed with the patient including conservative treatment in the form of pain management versus ultimate surgical fixation. Surgery would require hardware removal of L3-4, L4-5, posterior lumbar decompression and instrumented fusion with possible interbody cage at L2-3. -- no medical contraindication for planned surgery patient at moderate risk for cardiopulmonary complications due to co morbidities -- patient has history of PE, please order DVT prophylaxis after surgery also has DM 2 a1c 7.0, monitor blood glucose, especially if being given steroids 2. History of type 2 diabetes: -- a1c 7.0 -- BSG 111 monitor 3. History of pulmonary embolism in 2011: -- INR 1.2 coumadin on hold -- resume as soon as hemostasis stable per Ortho 4. History of depression: Duloxetine and Seroquel. 5. Chronic hyperlipidemia: On statin. 6. History of iron deficiency anemia: Hemoglobin is 9.6, ff up Hemoccult, iron studies. 7. History of gastroesophageal reflux disease: Continue her Protonix. 8. Anxiety: Continue on Ativan p.r.n. 9. Asthma: Moderate, persistent; not in exacerbation DVT prophylaxis: SCDs ;patient has history of PE, please order DVT prophylaxis after surgery Admission and Anticipated Discharge Date Admission Date: September 28, 2020 Subjective Patient seen in follow-up for spinal stenosis, plan for spine surgery today seen resting in bed, not in distress states back pain is well controlled by PRN meds denies headache, dizziness, chest pain, palpitations, dyspnea, abdominal pain, nausea also denies any fever or chills states prior to back pain, she can walk a few blocks and climb up steps with no problems no other symptoms Review of Systems Review of Systems: all noted and negative, except for above Physical Exam Physical Exam: General- oriented x 3, not in distress, speaks in sentences with no effort or accessory muscle use Head- atraumatic Eyes- PERRL, EOMI, anicteric ENT- oropharynx clear Neck- supple, no JVD, no adenopathy Lungs- clear to auscultation bilaterally, no rales/wheezes Heart- normal rate, regular rhythm; no murmur, no gallop, no rub appreciated Abdomen- normal bowel sounds, nondistended, soft, nontender Extremities- no pretibial edema, no calf tenderness; peripheral pulses intact Neuro- alert, oriented x 3; no facial symmetry, speech fluent, moves extremities, sensation 100% on all extremities Skin- warm & dry Results & Data Results & [facility] ([facility]) Vital Signs (Past 12 Hours) Vital Signs Temp Pulse Resp BP Pulse Ox 09/30/20 08:41 36.4 C L 78 20 128/81 94 09/29/20 21:40 36.4 C L 61 17 96/59 L 95 Laboratory Results 09/30/20 Range/Units 08:23 PT 10.6 (9.0-12.0) Seconds INR 1.0 (0.9-1.1) Medications Administered Current Inpatient Medications Acetaminophen (Acetaminophen 325 Mg Tab) 650 mg PO Q4H PRN PRN Reason: pain/fever Stop: 10/28/20 23:00 Albuterol (Albuterol Hfa 8 Gm Inhaler) 2 puffs INH Q4R PRN PRN Reason: sob Stop: 10/28/20 23:00 Furosemide (Furosemide 20 Mg Tab) 20 mg PO DAILY PRN PRN Reason: Edema Stop: 10/28/20 23:00 Hydromorphone HCl (Hydromorphone Inj 0.5 Mg/0.5 Ml Syr) 0.5 mg IV Q3H PRN PRN Reason: Pain Stop: 10/13/20 06:26 Last Admin: 09/30/20 08:01 Dose: 0.5 mg Documented by: Sodium Chloride (Nss 1000ml) 1,000 mls @ 125 mls/hr IV .Q8H ALEX Stop: 10/28/20 23:29 Last Admin: 09/30/20 07:57 Dose: 125 mls/hr Documented by: Lorazepam (Lorazepam 0.5 Mg Tab) 0.5 mg PO TID PRN PRN Reason: Anxiety Stop: 10/28/20 23:00 Ondansetron HCl (Ondansetron Inj 2 Mg/Ml 2 Ml Vial) 4 mg IV Q6H PRN PRN Reason: Nausea Stop: 10/28/20 23:00 Pantoprazole Sodium (Pantoprazole 40 Mg Tab) 40 mg PO QAM [facility] Stop: 10/29/20 08:59 Last Admin: 09/30/20 07:59 Dose: 40 mg Documented by: Polyethylene Glycol (Polyethylene (Miralax) 17 Gm Pack) 17 gm PO DAILY PRN PRN Reason: Constipation Stop: 10/28/20 23:00 Potassium Chloride (Potassium Chloride Crtab 20 Meq Tabcr) [facility] Stop: 10/29/20 08:59 Last Admin: 09/30/20 07:59 Dose: 20 meq Documented by: Quetiapine Fumarate (Quetiapine Fumarate 300 Mg Tablet) 300 mg PO HS [facility] Stop: 10/29/20 20:59 Last Admin: 09/29/20 20:26 Dose: 300 mg Documented by: Rosuvastatin Calcium (Rosuvastatin Calcium 20 Mg Tab) 40 mg PO QPM [facility] Stop: 10/29/20 20:59 Last Admin: 09/29/20 20:26 Dose: 40 mg Documented by: Tizanidine HCl (Tizanidine Hcl 4 Mg Tablet) 8 mg PO TID [facility] Stop: 10/29/20 08:59 Last Admin: 09/30/20 08:00 Dose: 8 mg Documented by: Tramadol HCl (Tramadol Hcl 50 Mg Tablet) 50 mg PO Q6H PRN PRN Reason: Pain Stop: 10/28/20 23:00 Vitamin D (Cholecalciferol 1,000 Units 25 Mcg Tab) 2,[facility] Stop: 10/29/20 08:59 Last Admin: 09/30/20 07:58 Dose: 2,000 units Documented by:
[2020-09-30 09:53] LABS: Hematocrit (blood only) 32.1 % (37-47); Hemoglobin 9.6 g/dL (12.0-16.0); Mean Corpuscular Hemoglobin 25.5 pg (25-34); Mean Corpuscular Hgb Conc 29.9 g/dL (32-36); Mean Corpuscular Volume 85.4 fL (80-100); Mean Platelet Volume 9.2 fL (7.4-10.4); Platelet Count 288 K/uL (130-400); RDW Coefficient of Variation 17.4 % (11.5-14.5); RDW Standard Deviation 54.5 fL (36.4-46.3); Red Blood Count 3.76 M/uL (4.2-5.4); White Blood Count 5.47 K/uL (4.8-10.8)
[2020-09-30 10:00] LABS: BUN Creatinine Ratio 11.9 (10-20); Calcium 8.5 mg/dl (8.5-10.1); Creatinine Clr Calc Pharmacy 70.5 ml/min; Est GFR (African American) 77.4 ml/min; Est GFR (Non-African American) 66.8 ml/min; Potassium 3.4 mmol/L (3.5-5.1)
[2020-09-30] MEDS ORDERED: PROPOFOL IV EMULSION 10 MG/ML 20 ML VIAL IV ONE (12:16)
[2020-09-30] MEDS ORDERED: ROCURONIUM BROMIDE 10 MG/ML 5 ML VIAL IV ONE (12:16)
[2020-09-30] MEDS ORDERED: ONDANSETRON INJ 2 MG/ML 2 ML VIAL ONE (12:16)
[2020-09-30] MEDS ORDERED: LIDOCAINE 2% 2 ML VIAL/AMP(20MG/ML) INFIL ONE (12:16)
[2020-09-30] MEDS ORDERED: DEXAMETHASONE SOD INJ 4 MG/ML VIAL ONE (12:16)
[2020-09-30] MEDS ORDERED: MIDAZOLAM HCL 1 MG/ML 2ML VIAL ONE (13:14)
[2020-09-30] MEDS ORDERED: fentaNYL citrate 100 MCG/2 ML VIAL ONE ×2 (13:14→15:02)
[2020-09-30] MEDS ORDERED: BUPIVACAINE/EPINEPHRINE 0.5% MPF 1:200,000 30 ML VIAL ONE (13:24)
[2020-09-30] MEDS ORDERED: ceFAZolin 2,000 MG/15 ML IV PUSH IV ONE (13:31)
--- NOTE | 2020-09-30 13:56 | History & Physical Bridge Note ---
Date of Service September 30, 2020 History & Physical Bridge Note I have examined the patient, reviewed the History & Physical and in the interval since the performance of the History & Physical I have noted the following changes of clinical significance: no changes noted Surgery will be a lumbar decompression fusion L2-L3 with hardware removal L3-L4 L4-L5
[2020-09-30] MEDS ORDERED: ePHEDrine sulfate 50 MG/ML AMP IV PRN (14:14)
[2020-09-30] MEDS ORDERED: ATROPINE SULFATE 0.1 MG/ML 10ML SYR IV PRN (14:14)
[2020-09-30] MEDS ORDERED: ONDANSETRON INJ 2 MG/ML 2 ML VIAL IV PRN ×2 (14:14→17:24)
[2020-09-30] MEDS ORDERED: SUCCINYLCHOLINE 100MG/5ML SYR IV ONE (14:48)
[2020-09-30] MEDS ORDERED: FLOSEAL HEMOSTATIC MATRIX 10ML TOP ONE (15:02)
[2020-09-30] MEDS ORDERED: NEOSTIGMINE METHYLSULFATE 1 MG/ML 10ML VIAL ONE (15:39)
[2020-09-30] MEDS ORDERED: GLYCOPYRROLATE 0.2 MG/ML VIAL ONE ×2 (15:39)
--- NOTE | 2020-09-30 15:51 | Operative Report ---
Post Operative Report Pre & Post Diagnosis Operation Date: 09/30/20 13:45 Pre-Op Diagnosis: Lumbar spinal stenosis L2-L3 Post-Op Diagnosis: Same I identified the patient and participated in the time-out.: Yes Procedure Operation Date: 09/30/20 13:45 Actual Procedures #1 removal of posterior instrumentation L3-L4 L4-5. #2 exploration of fusion L3-L4 L4-5. #3 lumbar decompression with bilateral medial facetectomies and foraminotomies L2-L3. #4 posterior spinal fusion L2-3. #5 placed posterior instrumentation L2-L3. #6 interbody fusion L2-L3. #7 placement peek cage 10 x 22 mm L2-L3. #8 placement locally harvested morselized autograft in the posterior lateral gutters. #9 placement infuse collagen sponge, master graft in the posterior lateral gutters and I factor in the interbody space. Surgeon David Brown, Nutritional Services Director Caryn Hyatt Estimated Blood Loss 100 Findings See Below The patient is 5 foot 2 inches tall weighing over 98 kg with a BMI in excess of 39. The patient's body habitus did contribute to significant technical difficulty requiring her deepest retractors longus instruments in order to perform her procedure. There is at least 50% increase to the operative time. Specimens None Indications This is a 60-year-old female who presents with above-mentioned diagnosis after failing course of nonoperative care she is here for the above-mentioned procedure. Description of Procedure Patient was met with identified informed consent obtained. Patient was then taken to the operative suite underwent ablation placed in a prone position the Elbert table Fuad frame. All bony prominences well-padded eyes inspected to ensure no external pressure placed upon the. This point lumbar spine was prepped and draped in a sterile fashion. Sharp dissection with the assistance of bipolar electrocautery down to and exposing the lamina and transverse processes of L2 and instrumentation at L3-L4-L5 bilaterally. And then proceeded to remove the hardware bilaterally explore the fusion mass noting it to be mature and intact. Then performed a complete laminectomy L2 including bilateral medial facetectomies and foraminotomies addressing severe spinal stenosis. Pedicle screws then placed L2 and L3 bilaterally with assistance of fluoroscopy and the process alee placed. Bilateral transforaminal approach on the right complete discectomy was performed endplates curetted to subcortically bone and a 10 x 22 mm peek cage filled with I factor tapped in position. Rods were locked in final position bilaterally. The transverse processes of L to L3 burred to subcortical bleeding bone infuse collagen sponge, mass graft local autograft was placed in the posterior gutters. 15 round ABRIL drain inserted. Incision was then closed with 1 Vicryl fascia 2-0 Vicryl subcutaneously and 4 Monocryl for final skin closure. Steri-Strip sterile dressings placed. Patient waken taken back in stable condition. Please note spinal cord quadrant was utilized at the procedure no changes noted. Lastly Caryn Hyatt was present at the entire procedure and all the patient positioning complex portions of the surgery and final skin closure. I attest to the content of the Intraoperative Record and any orders documented t herein. Any exceptions are noted below.
--- NOTE | 2020-09-30 15:55 | Fluoroscopy Report ---
INTRAOPERATIVE RADIOGRAPHS CLINICAL HISTORY: Lumbar spinal fusion. Fluoroscopy time: 13 seconds. FINDINGS: 3 spot fluoroscopic views of the lumbar spine are presented. Correlation is made with lumba r spine radiographs dated 12/18/2018. There is evidence of discectomy at L2-L3, L3-L4, and L4-L5. Post laminectomy change is seen throughout the lumbar spine. Interpedicular screws are now seen at L2-L3. Hardware in the lower lumbar spine has been removed. An IVC filter is noted. IMPRESSION: Intraoperative images from lumbar spine surgery as above. Electronically signed by: Sb Mendez M.D. 09/30/2020 3:54 PM
[2020-09-30] MEDS: fentaNYL citrate 100 MCG/2 ML VIAL IV PRN ×4 (16:11→16:26)
[2020-09-30] MEDS: HYDROmorphone INJ 2 MG/ML SYR/VIAL IV PRN ×4 (16:31→16:46)
--- NOTE | 2020-09-30 16:57 | Anesthesiology Progress Note ---
Date of Service September 30, 2020 Anesthesia Post Procedure Vital Signs Vital Signs: Temp Pulse Pulse Resp BP Pulse Ox 09/30/20 16:48 98 H 16 181/97 H 99 09/30/20 16:40 90 18 196/97 H 100 09/30/20 16:30 89 12 185/101 H 100 09/30/20 16:20 95 H 13 194/103 H 100 09/30/20 16:10 98 H 16 195/104 H 100 09/30/20 16:03 37.2 C 109 H 24 198/93 H 97 09/30/20 13:28 36.5 C 69 18 114/61 94 09/30/20 08:41 36.4 C L 78 20 128/81 94 09/29/20 21:40 36.4 C L 61 17 96/59 L 95 Pain Intensity Back: Pain Intensity: 7 Transfer of Care Handoff Completed per policy Notes Mental Status: alert / awake / arousable and participated in evaluation Patient Amnestic to Procedure: Yes Nausea / Vomiting: adequately controlled Pain: adequately controlled Airway Patency, RR, SpO2: stable & adequate BP & HR: stable & adequate Hydration State: stable & adequate Anesthetic Complications: no major complications apparent and Pt Satisfied with anesthetic care
[2020-09-30] MEDS ORDERED: HYDROmorphone INJ 1 MG/ML SYRINGE IV PRN (17:24)
[2020-09-30] MEDS ORDERED: METOCLOPRAMIDE HCL INJ 5 MG/ML 2 ML VIAL IV PRN (17:24)
[2020-09-30] MEDS ORDERED: hydrOXYzine HCl 25 MG TAB PO PRN (17:24)
[2020-09-30] MEDS ORDERED: FAMOTIDINE 20 MG TAB PO PRN (17:24)
[2020-09-30] MEDS ORDERED: LORazepam 0.5 MG/1 ML VIAL IV PRN (17:24)
[2020-09-30] MEDS ORDERED: NALOXONE HCL 0.4 MG/1 ML VIAL/CARP IV PRN (17:24)
[2020-09-30] MEDS ORDERED: DO NOT ADMINISTER FLU VACCINE PRN (17:24)
[2020-09-30] MEDS ORDERED: DO NOT ADMINISTER PNEUMOCOCCAL VACCINE PRN (17:24)
[2020-09-30] MEDS ORDERED: diphenhydrAMINE Capsule 25 MG CAP PO PRN (17:24)
[2020-09-30] MEDS ORDERED: MAGNESIUM HYDROXIDE SUSP 30 ML UDC PO PRN (17:24)
[2020-09-30] MEDS ORDERED: LORazepam 0.5 MG TAB PO PRN (17:24)
[2020-09-30] MEDS ORDERED: PROMETHAZINE HCL 12.5 MG in SODIUM CHLORIDE 0.9% 50 ML IV PRN (17:24)
[2020-09-30] MEDS ORDERED: ACETAMINOPHEN 500 MG TAB PO PRN (17:24)
[2020-09-30] MEDS ORDERED: SOD PHOSPHATE/SOD BIPHOSPHATE ENEMA 132 ML BTL PR PRN (17:24)
[2020-09-30] MEDS ORDERED: ONDANSETRON 4 MG OD TAB PO PRN (17:24)
[2020-09-30] MEDS ORDERED: ACETAMINOPHEN 1,000 MG/100 ML VIAL IV PRN (17:24)
[2020-09-30] MEDS ORDERED: ALUMINUM/MAGNESIUM SUSP 30 ML UDC PO PRN (17:24)
[2020-09-30] MEDS: oxyCODONE HCL IR 5 MG TAB (IMMEDIATE RELEASE) PO PRN (19:51)
[2020-09-30] MEDS: DOCUSATE SODIUM/SENNA 50/8.6MG TAB PO SCH (20:43)
[2020-09-30] MEDS: ROSUVASTATIN CALCIUM 20 MG TAB PO SCH (20:43)
[2020-09-30] MEDS: DULoxetine HCL 60 MG CAP PO SCH (20:44)
[2020-09-30] MEDS: ceFAZolin 2000MG 2,000 MG/15 ML SYR IV SCH (21:10)
[2020-09-30] MEDS: QUEtiapine FUMARATE 300 MG TABLET PO SCH (22:42)
[2020-10-01] MEDS: HYDROmorphone INJ 0.5 MG/0.5 ML SYR IV PRN ×3 (00:25→09:00)
[2020-10-01] MEDS: SODIUM CHLORIDE 0.9% 1000ML 1,000 ML IV SCH ×2 (01:47→02:01)
[2020-10-01] MEDS: oxyCODONE HCL IR 5 MG TAB (IMMEDIATE RELEASE) PO PRN ×4 (01:58→20:29)
[2020-10-01] MEDS: ceFAZolin 2000MG 2,000 MG/15 ML SYR IV SCH (05:23)
[2020-10-01] MEDS: POLYETHYLENE (MIRALAX) 17 GM PACK PO SCH ×3 (05:24→17:30)
--- NOTE | 2020-10-01 08:57 | Hospitalist Progress Note ---
Date of Service October 01, 2020 Assessment & Plan (1) Acute low back pain: Plan: ASSESSMENT AND PLAN: This is a 60-year-old female who presents with severe back pain. 1. Severe back pain with ambulatory dysfunction Lumbar stenosis L2-L3: per Ortho PA notes: Dr. Brown and I have been able to review her updated x-rays and MRI of her lumbar spine from September 22 on our [facility] PACS system. It reveals breakdown/degenerative disc disease with associated retrolisthesis of L2-3. Hardware intact L3-4, L4-5. Options have been reviewed with the patient including conservative treatment in the form of pain management versus ultimate surgical fixation. Surgery would require hardware removal of L3-4, L4-5, posterior lumbar decompression and instrumented fusion with possible interbody cage at L2-3. -- no medical contraindication for planned surgery patient at moderate risk for cardiopulmonary complications due to co morbidities -- pt is now s/p #1 removal of posterior instrumentation L3-L4 L4-5. #2 exploration of fusion L3-L4 L4-5. #3 lumbar decompression with bilateral medial facetectomies and foraminotomies L2-L3. #4 posterior spinal fusion L2-3. #5 placed posterior instrumentation L2-L3. #6 interbody fusion L2-L3. #7 placement peek cage 10 x 22 mm L2-L3. #8 placement locally harvested morselized autograft in the posterior lateral gutters. #9 placement infuse collagen sponge, master graft in the posterior lateral gutters and I factor in the interbody space. with Dr. Wise, on 09/30/2020 -- patient has history of PE, please order DVT prophylaxis after surgery also has DM 2 a1c 7.0, monitor blood glucose, especially if being given steroids 2. History of type 2 diabetes: -- a1c 7.0 -- BSG 111 monitor 3. History of pulmonary embolism in 2011: -- INR 1.2 coumadin on hold -- resume as soon as hemostasis stable per Ortho Acute on chronic anemia Acute blood loss anemia, dilutional, post-op Chronic anemia secondary to ?nutritional deficiencies, history of iron deficiency anemia Preop Hgb ~10, now 8.6, some blood loss expected, no need for blood transfusion Cont. to closely monitor ff up iron studies Patient states she takes iron pills as outpatient, will continue 4. History of depression: Duloxetine and Seroquel. 5. Chronic hyperlipidemia: On statin. 6. History of gastroesophageal reflux disease: Continue her Protonix. 7. Anxiety: Continue on Ativan p.r.n. 8. Asthma: Moderate, persistent; not in exacerbation DVT prophylaxis: SCDs ;patient has history of PE, please order DVT prophylaxis after surgery Admission and Anticipated Discharge Date Admission Date: September 28, 2020 Subjective Patient seen in follow-up for spinal stenosis, s/p spinal surgery yesterday seen resting in bed, not in distress, currently eating lunch Reported that with physical therapy, patient became a little dizzy and blood p ressure was on low side Patient states that this happens to her occasionally at home as well, and that her blood pressure is usually on lower side however it seems to fluctuate Per patient, not on any blood pressure medications because her blood pressure fluctuating We will have her follow-up with PCP after her hospitalization Says that her leg pain already feels much better and she was able to ambulate to bathroom No chest pain, shortness of breath, palpitations, dyspnea or nausea also no fevers or chills Review of Systems Review of Systems: All systems reviewed, negative unless as above Physical Exam Physical Exam: General- oriented x 3, not in distress, speaks in sentences with no effort or accessory muscle use Head- atraumatic Eyes- PERRL, EOMI, anicteric ENT- oropharynx clear Neck- supple, no JVD, no adenopathy Lungs- clear to auscultation bilaterally, no rales/wheezes Heart- normal rate, regular rhythm; no murmur, no gallop, no rub appreciated Abdomen- normal bowel sounds, nondistended, soft, nontender Extremities- no pretibial edema, no calf tenderness; peripheral pulses intact Neuro- alert, oriented x 3; no facial symmetry, speech fluent, moves extremities, sensation 100% on all extremities Skin- warm & dry Results & Data Results & Data ([facility]) Vital Signs (Past 12 Hours) Vital Signs Temp Pulse Resp BP Pulse Ox 10/01/20 03:40 36.7 C 87 16 177/93 H 95 10/01/20 00:24 36.5 C 77 16 177/100 H 98 Laboratory Results 10/01/20 10/01/20 10/01/20 Range/Units 11:04 11:04 11:04 WBC 14.11 H (4.8-10.8) K/uL RBC 3.36 L (4.2-5.4) M/uL Hgb 8.6 L (12.0-16.0) g/dL Hct 28.1 L (37-47) % MCV 83.6 (80-100) fL MCH 25.6 (25-34) pg MCHC 30.6 L (32-36) g/dL RDW Std Deviation 54.1 H (36.4-46.3) fL RDW Coeff of Jerrell 17.6 H (11.5-14.5) % Plt Count 310 (130-400) K/uL MPV 8.9 (7.4-10.4) fL Immature Gran % (Auto) 0.6 % Neut % (Auto) 80.8 % Lymph % (Auto) 9.3 % [place] % (Auto) 8.9 % Eos % (Auto) 0.3 % Baso % (Auto) 0.1 % Neut # (Auto) 11.42 H (1.4-6.5) K/uL Lymph # (Auto) 1.31 (1.2-3.4) K/uL [place] # (Auto) 1.25 H (0.11-0.59) K/uL Eos # (Auto) 0.04 (0-0.5) K/uL Baso # (Auto) 0.01 (0-0.2) K/uL Immature Gran # (Auto) 0.08 H (0.00-0.02) K/uL PT 10.7 INR 1.1 Sodium 135 L D (136-145) mmol/L Potassium 4.4 D (3.5-5.1) mmol/L Chloride 105 (98-107) mmol/L Carbon Dioxide 26 (21-32) mmol/L Anion Gap 4.0 (3-11) BUN 7 (7-18) mg/dl Creatinine 0.94 (0.6-1.2) mg/dl Est Cr Clr Drug Dosing 69.8 ml/min Est GFR ( Amer) 76.4 ml/min Est GFR (Non-Af Amer) 65.9 ml/min BUN/Creatinine Ratio 7.8 L (10-20) Glucose 155 H (70-99) mg/dl POC Glucose (70-99) mg/dl Calcium 8.6 (8.5-10.1) mg/dl 10/01/20 09/30/20 Range/Units 05:20 16:04 WBC (4.8-10.8) K/uL RBC (4.2-5.4) M/uL Hgb (12.0-16.0) g/dL Hct (37-47) % MCV (80-100) fL MCH (25-34) pg MCHC (32-36) g/dL RDW Std Deviation (36.4-46.3) fL RDW Coeff of Jerrell (11.5-14.5) % Plt Count (130-400) K/uL MPV (7.4-10.4) fL Immature Gran % (Auto) % Neut % (Auto) % Lymph % (Auto) % [place] % (Auto) % Eos % (Auto) % Baso % (Auto) % Neut # (Auto) (1.4-6.5) K/uL Lymph # (Auto) (1.2-3.4) K/uL [place] # (Auto) (0.11-0.59) K/uL Eos # (Auto) (0-0.5) K/uL Baso # (Auto) (0-0.2) K/uL Immature Gran # (Auto) (0.00-0.02) K/uL PT Pending INR Pending Sodium (136-145) mmol/L Potassium (3.5-5.1) mmol/L Chloride (98-107) mmol/L Carbon Dioxide (21-32) mmol/L Anion Gap (3-11) BUN (7-18) mg/dl Creatinine (0.6-1.2) mg/dl Est Cr Clr Drug Dosing ml/min Est GFR ( Amer) ml/min Est GFR (Non-Af Amer) ml/min BUN/Creatinine Ratio (10-20) Glucose (70-99) mg/dl POC Glucose 117 H (70-99) mg/dl Calcium (8.5-10.1) mg/dl Medications Administered Current Inpatient Medications Acetaminophen (Acetaminophen 325 Mg Tab) 650 mg PO Q4H PRN PRN Reason: pain/fever Stop: 10/28/20 23:00 Acetaminophen (Acetaminophen 500 Mg Tab) 1,000 mg PO Q8H PRN PRN Reason: MILD Pain Scale 1,2,3 & Pre PT Stop: 10/30/20 17:23 Last Admin: 10/01/20 14:03 Dose: 1,000 mg Documented by: Al Hydrox/Mg Hydrox/Simethicone (Aluminum/Magnesium Susp 30 Ml Udc) 30 ml PO Q6H PRN PRN Reason: Dyspepsia Stop: 10/30/20 17:23 Albuterol (Albuterol Hfa 8 Gm Inhaler) 2 puffs INH Q4R PRN PRN Reason: sob Stop: 10/28/20 23:00 Bisacodyl (Bisacodyl 10 Mg Supp) 10 mg MN DAILY PRN PRN Reason: Constipation Stop: 11/01/20 07:59 Diphenhydramine HCl (Diphenhydramine Capsule 25 Mg Cap) 25 mg PO Q6H PRN PRN Reason: Allergic Rhinitis/Insomnia Stop: 10/30/20 17:23 Duloxetine HCl (Duloxetine Hcl 60 Mg Cap) 60 mg PO PM ALEX Stop: 10/30/20 20:59 Last Admin: 09/30/20 20:44 Dose: 60 mg Documented by: Famotidine (Famotidine 20 Mg Tab) 20 mg PO Q12H PRN PRN Reason: Dyspepsia Stop: 10/30/20 17:23 Furosemide (Furosemide 20 Mg Tab) 20 mg PO DAILY PRN PRN Reason: Edema Stop: 10/28/20 23:00 Hydromorphone HCl (Hydromorphone Inj 0.5 Mg/0.5 Ml Syr) 0.5 mg IV Q3H PRN PRN Reason: Pain Stop: 10/13/20 06:26 Last Admin: 10/01/20 09:00 Dose: 0.5 mg Documented by: Hydromorphone HCl (Hydromorphone Inj 0.5 Mg/0.5 Ml Syr) 0.5 mg IV Q3H PRN PRN Reason: MOD pain (scale 4-6) & Pre PT Stop: 10/14/20 17:23 Last Admin: 10/01/20 00:25 Dose: 0.5 mg Documented by: Hydromorphone HCl (Hydromorphone Inj 1 Mg/Ml Syringe) 1 mg IV Q3H PRN PRN Reason: severe pain (scale 7-10) Stop: 10/14/20 17:23 Hydroxyzine HCl (Hydroxyzine Hcl 25 Mg Tab) 25 mg PO Q8H PRN PRN Reason: Anxiety Stop: 10/30/20 17:23 Promethazine HCl 12.5 mg/ (Sodium Chloride) 50.5 mls @ 202 mls/hr IV Q6H PRN PRN Reason: Nausea &/or Vomiting Stop: 10/30/20 17:23 Acetaminophen (Ofirmev) 1,000 mg in 100 mls @ 400 mls/hr IV Q8H PRN PRN Reason: Pain Rating 1-3 & Pre PT Stop: 10/03/20 17:23 Lorazepam (Ativan) 0.5 mg in 1 mls @ 1 mls/min IV Q8H PRN PRN Reason: Sedation/Anxiety Stop: 10/30/20 17:23 Dexamethasone 8 mg/ Syringe 2 mls @ 1 mls/min IV DAILY ALEX Stop: 11/01/20 08:59 Sodium Chloride (Nss) 500 mls @ 120 mls/hr IV .Q4H10M ONE Stop: 10/01/20 21:39 Last Admin: 10/01/20 17:29 Dose: 120 mls/hr Documented by: Influenza Virus Vaccine Quadrival (Do Not Administer Flu Vaccine) 1 ea N/A PRN PRN PRN Reason: Notification Stop: 10/30/20 17:23 Lorazepam (Lorazepam 0.5 Mg Tab) 0.5 mg PO TID PRN PRN Reason: Anxiety Stop: 10/28/20 23:00 Lorazepam (Lorazepam 0.5 Mg Tab) 0.5 mg PO Q8H PRN PRN Reason: sedation/anxiety Stop: 10/30/20 17:23 Magnesium Hydroxide (Magnesium Hydroxide Susp 30 Ml Udc) 30 ml PO Q24H PRN PRN Reason: Constipation Stop: 10/30/20 17:23 Metoclopramide HCl (Metoclopramide Hcl Inj 5 Mg/Ml 2 Ml Vial) 10 mg IV Q6H PRN PRN Reason: Nausea &/or Vomiting Stop: 10/30/20 17:23 Naloxone HCl (Naloxone Hcl 0.4 Mg/1 Ml Vial/Carp) 0.1 mg IV Q5M PRN PRN Reason: Oversedation/respiratory dep Stop: 10/30/20 17:23 Ondansetron HCl (Ondansetron Inj 2 Mg/Ml 2 Ml Vial) 4 mg IV Q6H PRN PRN Reason: Nausea &/or Vomiting Stop: 10/30/20 17:23 Ondansetron HCl (Ondansetron 4 Mg Od Tab) 4 mg PO Q6H PRN PRN Reason: Nausea Stop: 10/30/20 17:23 Oxycodone HCl (Oxycodone Hcl Ir 5 Mg Tab (Immediate Release)) 5 - 10 mg PO Q4H PRN PRN Reason: Pain & Pre PT Stop: 10/14/20 17:23 Last Admin: 10/01/20 14:43 Dose: 10 mg Documented by: Pantoprazole Sodium (Pantoprazole 40 Mg Tab) 40 mg PO QAM [facility] Stop: 10/29/20 08:59 Last Admin: 10/01/20 08:59 Dose: 40 mg Documented by: Pneumococcal Polyvalent Vaccine (Do Not Administer Pneumococcal Vaccine) 1 ea N/A PRN PRN PRN Reason: Notification Stop: 10/30/20 17:23 Polyethylene Glycol (Polyethylene (Miralax) 17 Gm Pack) 17 gm PO DAILY PRN PRN Reason: Constipation Stop: 10/28/20 23:00 Polyethylene Glycol (Polyethylene (Miralax) 17 Gm Pack) 17 gm PO Q6 ALEX Stop: 10/31/20 05:59 Last Admin: 10/01/20 17:30 Dose: 17 gm Documented by: Potassium Chloride (Potassium Chloride Crtab 20 Meq Tabcr) 20 meq PO QAM [facility] Stop: 10/29/20 08:59 Last Admin: 10/01/20 08:59 Dose: 20 meq Documented by: Quetiapine Fumarate (Quetiapine Fumarate 300 Mg Tablet) 300 mg PO HS [facility] Stop: 10/29/20 20:59 Last Admin: 09/30/20 22:42 Dose: 300 mg Documented by: Rosuvastatin Calcium (Rosuvastatin Calcium 20 Mg Tab) 40 mg PO QPM ALEX Stop: 10/29/20 20:59 Last Admin: 09/30/20 20:43 Dose: 40 mg Documented by: Senna/Docusate Sodium (Docusate Sodium/Senna 50/8.6mg Tab) 2 tab PO HS [facility] Stop: 10/30/20 20:59 Last Admin: 09/30/20 20:43 Dose: 2 tab Documented by: Sodium Biphosphate/Sodium Phosphate (Sod Phosphate/Sod Biphosphate Enema 132 Ml Btl) 132 ml MN ONE PRN PRN Reason: Constipation Stop: 10/30/20 17:23 Tizanidine HCl (Tizanidine Hcl 4 Mg Tablet) 8 mg PO TID [facility] Stop: 10/29/20 08:59 Last Admin: 10/01/20 14:43 Dose: 8 mg Documented by: Tramadol HCl (Tramadol Hcl 50 Mg Tablet) 50 mg PO Q6H PRN PRN Reason: Pain Stop: 10/28/20 23:00 Tramadol HCl (Tramadol Hcl 50 Mg Tablet) 50 - 100 mg PO Q4H PRN PRN Reason: Moderate-Severe pain & Pre PT Stop: 10/30/20 17:23 Vitamin D (Cholecalciferol 1,000 Units 25 Mcg Tab) 2,000 units PO QAM [facility] Stop: 10/29/20 08:59 Last Admin: 10/01/20 08:59 Dose: 2,000 units Documented by:
[2020-10-01] MEDS: tiZANidine HCL 4 MG TABLET PO SCH ×3 (08:58→20:24)
[2020-10-01] MEDS: CHOLECALCIFEROL 1,000 UNITS 25 MCG TAB PO SCH (08:59)
[2020-10-01] MEDS: PANTOprazole 40 MG TAB PO SCH (08:59)
[2020-10-01] MEDS: POTASSIUM CHLORIDE CRTAB 20 MEQ TABCR PO SCH (08:59)
[2020-10-01 11:26] LABS: Basophils # (auto) 0.01 K/uL (0-0.2); Basophils % (auto) 0.1 %; Eosinophils # (auto) 0.04 K/uL (0-0.5); Eosinophils % (auto) 0.3 %; Hematocrit (blood only) 28.1 % (37-47); Hemoglobin 8.6 g/dL (12.0-16.0); Immature Granulocytes # (auto) 0.08 K/uL (0.00-0.02); Immature Granulocytes % (auto) 0.6 %; Lymphocytes # (auto) 1.31 K/uL (1.2-3.4); Lymphocytes % (auto) 9.3 %; Mean Corpuscular Hemoglobin 25.6 pg (25-34); Mean Corpuscular Hgb Conc 30.6 g/dL (32-36); Mean Corpuscular Volume 83.6 fL (80-100); Mean Platelet Volume 8.9 fL (7.4-10.4); Monocytes # (auto) 1.25 K/uL (0.11-0.59); Monocytes % (auto) 8.9 %; Neutrophils # (auto) 11.42 K/uL (1.4-6.5); Neutrophils % (auto) 80.8 %; Platelet Count 310 K/uL (130-400); RDW Coefficient of Variation 17.6 % (11.5-14.5); RDW Standard Deviation 54.1 fL (36.4-46.3); Red Blood Count 3.36 M/uL (4.2-5.4); White Blood Count 14.11 K/uL (4.8-10.8)
[2020-10-01 11:39] LABS: INR 1.1 (0.9-1.1); Prothrombin Time 10.7 Seconds (9.0-12.0)
[2020-10-01 11:46] LABS: BUN Creatinine Ratio 7.8 (10-20); Calcium 8.6 mg/dl (8.5-10.1); Creatinine Clr Calc Pharmacy 69.8 ml/min; Est GFR (African American) 76.4 ml/min; Est GFR (Non-African American) 65.9 ml/min; Potassium 4.4 mmol/L (3.5-5.1)
--- NOTE | 2020-10-01 12:00 | Orthopedic Progress Note ---
Date of Service October 01, 2020 Assessment & Plan (1) Lumbar stenosis with neurogenic claudication: Plan: Some continue physical therapy monitor ABRIL operatively discharge home in the next few days. Admission and Anticipated Discharge Date Admission Date: September 28, 2020 Subjective Back pain controlled leg symptoms markedly improved. Physical Exam Physical Exam: Patient appears comfortable. Is good strength testing. Results & Data ([facility]) Vital Signs (Past 12 Hours) Vital Signs Temp Pulse Resp BP Pulse Ox 10/01/20 07:00 36.7 C 65 20 101/68 96 10/01/20 03:40 36.7 C 87 16 177/93 H 95 10/01/20 00:24 36.5 C 77 16 177/100 H 98
[2020-10-01] MEDS ORDERED: SODIUM CHLORIDE 0.9% 500 ML IV SCH (12:45)
[2020-10-01] MEDS ORDERED: SODIUM CHLORIDE 0.9% 1000ML 500 ML IV ONE (16:55)
[2020-10-01] MEDS ORDERED: SODIUM CHLORIDE 0.9% 500 ML IV ONE (17:30)
[2020-10-01] MEDS: FERROUS SULFATE 325 MG TAB PO SCH (19:30)
[2020-10-01] MEDS: ROSUVASTATIN CALCIUM 20 MG TAB PO SCH (20:24)
[2020-10-01] MEDS: DULoxetine HCL 60 MG CAP PO SCH (20:24)
[2020-10-01] MEDS: DOCUSATE SODIUM/SENNA 50/8.6MG TAB PO SCH (20:24)
[2020-10-01] MEDS: QUEtiapine FUMARATE 300 MG TABLET PO SCH (20:24)
[2020-10-01 21:09] LABS: Hematocrit (blood only) 28.5 % (37-47); Hemoglobin 8.8 g/dL (12.0-16.0)
[2020-10-02] MEDS: POLYETHYLENE (MIRALAX) 17 GM PACK PO SCH ×3 (00:39→12:04)
[2020-10-02] MEDS: oxyCODONE HCL IR 5 MG TAB (IMMEDIATE RELEASE) PO PRN ×5 (00:43→21:13)
[2020-10-02 06:44] LABS: Mean Corpuscular Hemoglobin 25.8 pg (25-34); Mean Corpuscular Hgb Conc 30.8 g/dL (32-36); Mean Corpuscular Volume 83.9 fL (80-100); Platelet Count 282 K/uL (130-400); RDW Coefficient of Variation 17.9 % (11.5-14.5); White Blood Count 9.41 K/uL (4.8-10.8)
[2020-10-02 06:50] LABS: Prothrombin Time 10.3 Seconds (9.0-12.0)
[2020-10-02 07:09] LABS: BUN Creatinine Ratio 10.6 (10-20); Calcium 8.8 mg/dl (8.5-10.1); Est GFR (African American) 90.1 ml/min; Est GFR (Non-African American) 77.8 ml/min; Magnesium 2.1 mg/dl (1.8-2.4); Phosphorus 2.7 mg/dl (2.5-4.9); Potassium 3.8 mmol/L (3.5-5.1)
[2020-10-02] MEDS ORDERED: bisacodyL 10 MG SUPP PR PRN (08:00)
[2020-10-02] MEDS ORDERED: SODIUM CHLORIDE 0.9% 250 ML IV PRN (08:12)
--- NOTE | 2020-10-02 08:16 | Hospitalist Progress Note ---
Date of Service October 02, 2020 Assessment & Plan (1) Acute low back pain: Plan: ASSESSMENT AND PLAN: This is a 60-year-old female who presents with severe back pain. 1. Severe back pain with ambulatory dysfunction Lumbar stenosis L2-L3: per Ortho PA notes: Dr. Brown and I have been able to review her updated x-rays and MRI of her lumbar spine from September 22 on our [facility] PACS system. It reveals breakdown/degenerative disc disease with associated retrolisthesis of L2-3. Hardware intact L3-4, L4-5. Options have been reviewed with the patient including conservative treatment in the form of pain management versus ultimate surgical fixation. Surgery would require hardware removal of L3-4, L4-5, posterior lumbar decompression and instrumented fusion with possible interbody cage at L2-3. -- no medical contraindication for planned surgery patient at moderate risk for cardiopulmonary complications due to co morbidities -- pt is now s/p #1 removal of posterior instrumentation L3-L4 L4-5. #2 exploration of fusion L3-L4 L4-5. #3 lumbar decompression with bilateral medial facetectomies and foraminotomies L2-L3. #4 posterior spinal fusion L2-3. #5 placed posterior instrumentation L2-L3. #6 interbody fusion L2-L3. #7 placement peek cage 10 x 22 mm L2-L3. #8 placement locally harvested morselized autograft in the posterior lateral gutters. #9 placement infuse collagen sponge, master graft in the posterior lateral gutters and I factor in the interbody space. with Dr. Wise, on 09/30/2020 -- patient has history of PE, please order DVT prophylaxis after surgery also has DM 2 a1c 7.0, monitor blood glucose, especially if being given steroids 2. History of type 2 diabetes: -- a1c 7.0 -- BSG 111 monitor 3. History of pulmonary embolism in 2011: -- INR 1.2 coumadin on hold -- resume as soon as hemostasis stable per Ortho Acute on chronic anemia Acute blood loss anemia, dilutional, post-op Chronic anemia secondary to ?nutritional deficiencies, history of iron deficiency anemia Preop Hgb ~10, then 8.6 post-op, some blood loss expected Current Hgb 8.0 - will transfuse 1 unit of pRBC (patient's hemoglobin low not mainly secondary to her surgery but mostly because of her chronic anemia even preop) Cont. to closely monitor H&H ff up iron studies Patient states she takes iron pills as outpatient, will continue 4. History of depression: Duloxetine and Seroquel. 5. Chronic hyperlipidemia: On statin. 6. History of gastroesophageal reflux disease: Continue her Protonix. 7. Anxiety: Continue on Ativan p.r.n. 8. Asthma: Moderate, persistent; not in exacerbation DVT prophylaxis: SCDs ;patient has history of PE, please order DVT prophylaxis after surgery Admission and Anticipated Discharge Date Admission Date: September 28, 2020 Subjective Patient seen in follow-up for spinal stenosis, s/p spinal surgery 2 days ago Hgb down to 8.0 now, and she has history of chronic anemia even prior to surgery Yesterday reported that with physical therapy, patient became a little dizzy and blood pressure was on low side Patient states that this happens to her occasionally at home as well, and that her blood pressure is usually on lower side however it seems to fluctuate Per patient, not on any blood pressure medications because her blood pressure fluctuating We will have her follow-up with PCP after her hospitalization Says that her leg pain already feels much better and she was able to ambulate to bathroom No chest pain, shortness of breath, palpitations, dyspnea or nausea also no fevers or chills Will transfuse 1 unit of pRBC Review of Systems Review of Systems: All systems reviewed, negative unless as above Physical Exam Physical Exam: General- oriented x 3, not in distress, speaks in sentences with no effort or accessory muscle use Head- atraumatic Eyes- PERRL, EOMI, anicteric ENT- oropharynx clear Neck- supple, no JVD, no adenopathy Lungs- clear to auscultation bilaterally, no rales/wheezes Heart- normal rate, regular rhythm; no murmur, no gallop, no rub appreciated Abdomen- normal bowel sounds, nondistended, soft, nontender Extremities- no pretibial edema, no calf tenderness; peripheral pulses intact Neuro- alert, oriented x 3; no facial symmetry, speech fluent, moves extremities, sensation 100% on all extremities Skin- warm & dry Results & Data Results & Data ([facility]) Vital Signs (Past 12 Hours) Vital Signs Temp Pulse Resp BP Pulse Ox 10/02/20 07:00 37.1 C 94 H 20 110/67 94 07/22/21 23:22 36.7 C 69 16 100/66 96 10/01/20 21:25 97/62 L 10/01/20 20:28 135/73 Laboratory Results 10/02/20 10/02/20 10/02/20 Range/Units 06:02 06:02 06:02 WBC 9.41 (4.8-10.8) K/uL RBC 3.10 L (4.2-5.4) M/uL Hgb 8.0 L (12.0-16.0) g/dL Hct 26.0 L (37-47) % MCV 83.9 (80-100) fL MCH 25.8 (25-34) pg MCHC 30.8 L (32-36) g/dL RDW Std Deviation 55.0 H (36.4-46.3) fL RDW Coeff of Jerrell 17.9 H (11.5-14.5) % Plt Count 282 (130-400) K/uL MPV 9.0 (7.4-10.4) fL Immature Gran % (Auto) % Neut % (Auto) % Lymph % (Auto) % Dickenson % (Auto) % Eos % (Auto) % Baso % (Auto) % Neut # (Auto) (1.4-6.5) K/uL Lymph # (Auto) (1.2-3.4) K/uL Dickenson # (Auto) (0.11-0.59) K/uL Eos # (Auto) (0-0.5) K/uL Baso # (Auto) (0-0.2) K/uL Immature Gran # (Auto) (0.00-0.02) K/uL PT 10.3 (9.0-12.0) Seconds INR 1.0 (0.9-1.1) Sodium 139 (136-145) mmol/L Potassium 3.8 (3.5-5.1) mmol/L Chloride 108 H (98-107) mmol/L Carbon Dioxide 27 (21-32) mmol/L Anion Gap 4.0 (3-11) BUN 9 (7-18) mg/dl Creatinine 0.82 (0.6-1.2) mg/dl Est Cr Clr Drug Dosing 80.0 ml/min Est GFR ( Amer) 90.1 ml/min Est GFR (Non-Af Amer) 77.8 ml/min BUN/Creatinine Ratio 10.6 (10-20) Glucose 100 H (70-99) mg/dl Calcium 8.8 (8.5-10.1) mg/dl Phosphorus 2.7 (2.5-4.9) mg/dl Magnesium 2.1 (1.8-2.4) mg/dl 10/01/20 10/01/20 10/01/20 Range/Units 21:02 11:04 11:04 WBC (4.8-10.8) K/uL RBC (4.2-5.4) M/uL Hgb 8.8 L (12.0-16.0) g/dL Hct 28.5 L (37-47) % MCV (80-100) fL MCH (25-34) pg MCHC (32-36) g/dL RDW Std Deviation (36.4-46.3) fL RDW Coeff of Jerrell (11.5-14.5) % Plt Count (130-400) K/uL MPV (7.4-10.4) fL Immature Gran % (Auto) % Neut % (Auto) % Lymph % (Auto) % Dickenson % (Auto) % Eos % (Auto) % Baso % (Auto) % Neut # (Auto) (1.4-6.5) K/uL Lymph # (Auto) (1.2-3.4) K/uL Dickenson # (Auto) (0.11-0.59) K/uL Eos # (Auto) (0-0.5) K/uL Baso # (Auto) (0-0.2) K/uL Immature Gran # (Auto) (0.00-0.02) K/uL PT 10.7 (9.0-12.0) Seconds INR 1.1 (0.9-1.1) Sodium 135 L D (136-145) mmol/L Potassium 4.4 D (3.5-5.1) mmol/L Chloride 105 (98-107) mmol/L Carbon Dioxide 26 (21-32) mmol/L Anion Gap 4.0 (3-11) BUN 7 (7-18) mg/dl Creatinine 0.94 (0.6-1.2) mg/dl Est Cr Clr Drug Dosing 69.8 ml/min Est GFR ( Amer) 76.4 ml/min Est GFR (Non-Af Amer) 65.9 ml/min BUN/Creatinine Ratio 7.8 L (10-20) Glucose 155 H (70-99) mg/dl Calcium 8.6 (8.5-10.1) mg/dl Phosphorus (2.5-4.9) mg/dl Magnesium (1.8-2.4) mg/dl 10/01/20 10/01/20 Range/Units 11:04 05:20 WBC 14.11 H (4.8-10.8) K/uL RBC 3.36 L (4.2-5.4) M/uL Hgb 8.6 L (12.0-16.0) g/dL Hct 28.1 L (37-47) % MCV 83.6 (80-100) fL MCH 25.6 (25-34) pg MCHC 30.6 L (32-36) g/dL RDW Std Deviation 54.1 H (36.4-46.3) fL RDW Coeff of Jerrell 17.6 H (11.5-14.5) % Plt Count 310 (130-400) K/uL MPV 8.9 (7.4-10.4) fL Immature Gran % (Auto) 0.6 % Neut % (Auto) 80.8 % Lymph % (Auto) 9.3 % Dickenson % (Auto) 8.9 % Eos % (Auto) 0.3 % Baso % (Auto) 0.1 % Neut # (Auto) 11.42 H (1.4-6.5) K/uL Lymph # (Auto) 1.31 (1.2-3.4) K/uL Dickenson # (Auto) 1.25 H (0.11-0.59) K/uL Eos # (Auto) 0.04 (0-0.5) K/uL Baso # (Auto) 0.01 (0-0.2) K/uL Immature Gran # (Auto) 0.08 H (0.00-0.02) K/uL PT (9.0-12.0) Seconds INR (0.9-1.1) Sodium (136-145) mmol/L Potassium (3.5-5.1) mmol/L Chloride (98-107) mmol/L Carbon Dioxide (21-32) mmol/L Anion Gap (3-11) BUN (7-18) mg/dl Creatinine (0.6-1.2) mg/dl Est Cr Clr Drug Dosing ml/min Est GFR ( Amer) ml/min Est GFR (Non-Af Amer) ml/min BUN/Creatinine Ratio (10-20) Glucose (70-99) mg/dl Calcium (8.5-10.1) mg/dl Phosphorus (2.5-4.9) mg/dl Magnesium (1.8-2.4) mg/dl Medications Administered Current Inpatient Medications Acetaminophen (Acetaminophen 325 Mg Tab) 650 mg PO Q4H PRN PRN Reason: pain/fever Stop: 10/28/20 23:00 Acetaminophen (Acetaminophen 500 Mg Tab) 1,000 mg PO Q8H PRN PRN Reason: MILD Pain Scale 1,2,3 & Pre PT Stop: 10/30/20 17:23 Last Admin: 10/01/20 14:03 Dose: 1,000 mg Documented by: Al Hydrox/Mg Hydrox/Simethicone (Aluminum/Magnesium Susp 30 Ml Udc) 30 ml PO Q6H PRN PRN Reason: Dyspepsia Stop: 10/30/20 17:23 Albuterol (Albuterol Hfa 8 Gm Inhaler) 2 puffs INH Q4R PRN PRN Reason: sob Stop: 10/28/20 23:00 Bisacodyl (Bisacodyl 10 Mg Supp) 10 mg CA DAILY PRN PRN Reason: Constipation Stop: 11/01/20 07:59 Diphenhydramine HCl (Diphenhydramine Capsule 25 Mg Cap) 25 mg PO Q6H PRN PRN Reason: Allergic Rhinitis/Insomnia Stop: 10/30/20 17:23 Duloxetine HCl (Duloxetine Hcl 60 Mg Cap) 60 mg PO PM ALEX Stop: 10/30/20 20:59 Last Admin: 10/01/20 20:24 Dose: 60 mg Documented by: Famotidine (Famotidine 20 Mg Tab) 20 mg PO Q12H PRN PRN Reason: Dyspepsia Stop: 10/30/20 17:23 Ferrous Sulfate (Ferrous Sulfate 325 Mg Tab) 325 mg PO BIDM ALEX Stop: 10/31/20 18:29 Last Admin: 10/01/20 19:30 Dose: 325 mg Documented by: Furosemide (Furosemide 20 Mg Tab) 20 mg PO DAILY PRN PRN Reason: Edema Stop: 10/28/20 23:00 Hydromorphone HCl (Hydromorphone Inj 0.5 Mg/0.5 Ml Syr) 0.5 mg IV Q3H PRN PRN Reason: Pain Stop: 10/13/20 06:26 Last Admin: 10/01/20 09:00 Dose: 0.5 mg Documented by: Hydromorphone HCl (Hydromorphone Inj 0.5 Mg/0.5 Ml Syr) 0.5 mg IV Q3H PRN PRN Reason: MOD pain (scale 4-6) & Pre PT Stop: 10/14/20 17:23 Last Admin: 10/01/20 00:25 Dose: 0.5 mg Documented by: Hydromorphone HCl (Hydromorphone Inj 1 Mg/Ml Syringe) 1 mg IV Q3H PRN PRN Reason: severe pain (scale 7-10) Stop: 10/14/20 17:23 Hydroxyzine HCl (Hydroxyzine Hcl 25 Mg Tab) 25 mg PO Q8H PRN PRN Reason: Anxiety Stop: 10/30/20 17:23 Promethazine HCl 12.5 mg/ (Sodium Chloride) 50.5 mls @ 202 mls/hr IV Q6H PRN PRN Reason: Nausea &/or Vomiting Stop: 10/30/20 17:23 Acetaminophen (Ofirmev) 1,000 mg in 100 mls @ 400 mls/hr IV Q8H PRN PRN Reason: Pain Rating 1-3 & Pre PT Stop: 10/03/20 17:23 Lorazepam (Ativan) 0.5 mg in 1 mls @ 1 mls/min IV Q8H PRN PRN Reason: Sedation/Anxiety Stop: 10/30/20 17:23 Dexamethasone 8 mg/ Syringe 2 mls @ 1 mls/min IV DAILY ALEX Stop: 11/01/20 08:59 Sodium Chloride (Nss) 250 mls @ 15 mls/hr IV .[id number] PRN PRN Reason: For Transfusion Stop: 10/02/20 18:12 Influenza Virus Vaccine Quadrival (Do Not Administer Flu Vaccine) 1 ea N/A PRN PRN PRN Reason: Notification Stop: 10/30/20 17:23 Lorazepam (Lorazepam 0.5 Mg Tab) 0.5 mg PO TID PRN PRN Reason: Anxiety Stop: 10/28/20 23:00 Lorazepam (Lorazepam 0.5 Mg Tab) 0.5 mg PO Q8H PRN PRN Reason: sedation/anxiety Stop: 10/30/20 17:23 Magnesium Hydroxide (Magnesium Hydroxide Susp 30 Ml Udc) 30 ml PO Q24H PRN PRN Reason: Constipation Stop: 10/30/20 17:23 Metoclopramide HCl (Metoclopramide Hcl Inj 5 Mg/Ml 2 Ml Vial) 10 mg IV Q6H PRN PRN Reason: Nausea &/or Vomiting Stop: 10/30/20 17:23 Naloxone HCl (Naloxone Hcl 0.4 Mg/1 Ml Vial/Carp) 0.1 mg IV Q5M PRN PRN Reason: Oversedation/respiratory dep Stop: 10/30/20 17:23 Ondansetron HCl (Ondansetron Inj 2 Mg/Ml 2 Ml Vial) 4 mg IV Q6H PRN PRN Reason: Nausea &/or Vomiting Stop: 10/30/20 17:23 Ondansetron HCl (Ondansetron 4 Mg Od Tab) 4 mg PO Q6H PRN PRN Reason: Nausea Stop: 10/30/20 17:23 Oxycodone HCl (Oxycodone Hcl Ir 5 Mg Tab (Immediate Release)) 5 - 10 mg PO Q4H PRN PRN Reason: Pain & Pre PT Stop: 10/14/20 17:23 Last Admin: 10/02/20 06:48 Dose: 10 mg Documented by: Pantoprazole Sodium (Pantoprazole 40 Mg Tab) 40 mg PO QAM ALEX Stop: 10/29/20 08:59 Last Admin: 10/01/20 08:59 Dose: 40 mg Documented by: Pneumococcal Polyvalent Vaccine (Do Not Administer Pneumococcal Vaccine) 1 ea N/A PRN PRN PRN Reason: Notification Stop: 10/30/20 17:23 Polyethylene Glycol (Polyethylene (Miralax) 17 Gm Pack) 17 gm PO DAILY PRN PRN Reason: Constipation Stop: 10/28/20 23:00 Polyethylene Glycol (Polyethylene (Miralax) 17 Gm Pack) 17 gm PO Q6 ALEX Stop: 10/31/20 05:59 Last Admin: 10/02/20 06:48 Dose: 17 gm Documented by: Potassium Chloride (Potassium Chloride Crtab 20 Meq Tabcr) 20 meq PO QAM [facility] Stop: 10/29/20 08:59 Last Admin: 10/01/20 08:59 Dose: 20 meq Documented by: Quetiapine Fumarate (Quetiapine Fumarate 300 Mg Tablet) 300 mg PO HS [facility] Stop: 10/29/20 20:59 Last Admin: 10/01/20 20:24 Dose: 300 mg Documented by: Rosuvastatin Calcium (Rosuvastatin Calcium 20 Mg Tab) 40 mg PO QPM [facility] Stop: 10/29/20 20:59 Last Admin: 10/01/20 20:24 Dose: 40 mg Documented by: Senna/Docusate Sodium (Docusate Sodium/Senna 50/8.6mg Tab) 2 tab PO HS [facility] Stop: 10/30/20 20:59 Last Admin: 10/01/20 20:24 Dose: 2 tab Documented by: Sodium Biphosphate/Sodium Phosphate (Sod Phosphate/Sod Biphosphate Enema 132 Ml Btl) 132 ml CA ONE PRN PRN Reason: Constipation Stop: 10/30/20 17:23 Tizanidine HCl (Tizanidine Hcl 4 Mg Tablet) 8 mg PO TID [facility] Stop: 10/29/20 08:59 Last Admin: 10/01/20 20:24 Dose: 8 mg Documented by: Tramadol HCl (Tramadol Hcl 50 Mg Tablet) 50 mg PO Q6H PRN PRN Reason: Pain Stop: 10/28/20 23:00 Tramadol HCl (Tramadol Hcl 50 Mg Tablet) 50 - 100 mg PO Q4H PRN PRN Reason: Moderate-Severe pain & Pre PT Stop: 10/30/20 17:23 Vitamin D (Cholecalciferol 1,000 Units 25 Mcg Tab) 2,000 units PO QAM [facility] Stop: 10/29/20 08:59 Last Admin: 10/01/20 08:59 Dose: 2,000 units Documented by:
[2020-10-02] MEDS: HYDROmorphone INJ 0.5 MG/0.5 ML SYR IV PRN ×3 (08:38→19:57)
[2020-10-02] MEDS: POTASSIUM CHLORIDE CRTAB 20 MEQ TABCR PO SCH (08:39)
[2020-10-02] MEDS: dexAMETHasone 8 MG in SYRINGE 0 ML IV SCH (08:39)
[2020-10-02] MEDS: tiZANidine HCL 4 MG TABLET PO SCH ×3 (08:39→21:13)
[2020-10-02] MEDS: CHOLECALCIFEROL 1,000 UNITS 25 MCG TAB PO SCH (08:40)
[2020-10-02] MEDS: PANTOprazole 40 MG TAB PO SCH (08:40)
[2020-10-02] MEDS: FERROUS SULFATE 325 MG TAB PO SCH ×2 (08:40→16:41)
--- NOTE | 2020-10-02 12:24 | Orthopedic Progress Note ---
Date of Service October 02, 2020 Assessment & Plan (1) Lumbar stenosis with neurogenic claudication: Plan: This time we will continue physical therapy monitor ABRIL output anticipate discharge home this weekend with home health. Admission and Anticipated Discharge Date Admission Date: September 28, 2020 Subjective Patient's back pain is controlled leg symptoms markedly improved. Physical Exam Physical Exam: Patient is good strength testing. She appears comfortable. Results & Data ([facility]) Vital Signs (Past 12 Hours) Vital Signs Temp Pulse Pulse Resp BP BP Pulse Ox 10/02/20 12:01 36.8 C 86 18 110/67 92 10/02/20 11:35 37 C 82 20 109/70 92 10/02/20 10:53 37.0 C 84 18 105/67 94 10/02/20 10:38 36.9 C 88 20 99/65 L 94 10/02/20 10:19 37.0 C 97 H 18 87/58 L 10/02/20 07:00 37.1 C 94 H 20 110/67 94
[2020-10-02 21:01] LABS: Hematocrit (blood only) 28.6 % (37-47)
[2020-10-02] MEDS: DULoxetine HCL 60 MG CAP PO SCH (21:11)
[2020-10-02] MEDS: DOCUSATE SODIUM/SENNA 50/8.6MG TAB PO SCH (21:11)
[2020-10-02] MEDS: QUEtiapine FUMARATE 300 MG TABLET PO SCH (21:12)
[2020-10-02] MEDS: ROSUVASTATIN CALCIUM 20 MG TAB PO SCH (21:12)
[2020-10-03] MEDS: HYDROmorphone INJ 0.5 MG/0.5 ML SYR IV PRN ×2 (00:25→04:50)
[2020-10-03] MEDS: traMADol HCL 50 MG TABLET PO PRN ×2 (06:00→10:05)
[2020-10-03 06:25] VITALS: BP 105/72; PULSE 70; TEMP 97.7; O2SAT 96
[2020-10-03 07:07] LABS: Hematocrit (blood only) 27.9 % (37-47); Hemoglobin 8.7 g/dL (12.0-16.0); Mean Corpuscular Hgb Conc 31.2 g/dL (32-36); Mean Corpuscular Volume 83.5 fL (80-100); Mean Platelet Volume 8.9 fL (7.4-10.4); Platelet Count 264 K/uL (130-400); RDW Coefficient of Variation 16.9 % (11.5-14.5); RDW Standard Deviation 51.5 fL (36.4-46.3); Red Blood Count 3.34 M/uL (4.2-5.4); White Blood Count 9.71 K/uL (4.8-10.8)
[2020-10-03 07:22] LABS: Prothrombin Time 10.2 Seconds (9.0-12.0)
[2020-10-03 07:28] LABS: BUN Creatinine Ratio 12.7 (10-20); Calcium 9.6 mg/dl (8.5-10.1); Creatinine Clr Calc Pharmacy 86.3 ml/min; Est GFR (African American) 98.8 ml/min; Est GFR (Non-African American) 85.3 ml/min; Potassium 3.7 mmol/L (3.5-5.1)
[2020-10-03] MEDS ORDERED: POTASSIUM CHLORIDE CRTAB 20 MEQ TABCR PO STA (08:07)
[2020-10-03] MEDS: oxyCODONE HCL IR 5 MG TAB (IMMEDIATE RELEASE) PO PRN ×2 (08:13→12:18)
[2020-10-03] MEDS: FERROUS SULFATE 325 MG TAB PO SCH (08:14)
[2020-10-03] MEDS: tiZANidine HCL 4 MG TABLET PO SCH (08:14)
[2020-10-03] MEDS: POTASSIUM CHLORIDE CRTAB 20 MEQ TABCR PO SCH (08:15)
[2020-10-03] MEDS: PANTOprazole 40 MG TAB PO SCH (08:15)
[2020-10-03] MEDS: dexAMETHasone 8 MG in SYRINGE 0 ML IV SCH (08:16)
[2020-10-03] MEDS: CHOLECALCIFEROL 1,000 UNITS 25 MCG TAB PO SCH (08:16)
--- NOTE | 2020-10-03 08:54 | Hospitalist Progress Note ---
Date of Service October 03, 2020 Assessment & Plan (1) Acute low back pain: Plan: ASSESSMENT AND PLAN: This is a 60-year-old female who presents with severe back pain. 1. Severe back pain with ambulatory dysfunction Lumbar stenosis L2-L3: per Ortho PA notes: Dr. Brown and I have been able to review her updated x-rays and MRI of her lumbar spine from September 22 on our [facility] PACS system. It reveals breakdown/degenerative disc disease with associated retrolisthesis of L2-3. Hardware intact L3-4, L4-5. Options have been reviewed with the patient including conservative treatment in the form of pain management versus ultimate surgical fixation. Surgery would require hardware removal of L3-4, L4-5, posterior lumbar decompression and instrumented fusion with possible interbody cage at L2-3. -- no medical contraindication for planned surgery patient at moderate risk for cardiopulmonary complications due to co morbidities -- pt is now s/p #1 removal of posterior instrumentation L3-L4 L4-5. #2 exploration of fusion L3-L4 L4-5. #3 lumbar decompression with bilateral medial facetectomies and foraminotomies L2-L3. #4 posterior spinal fusion L2-3. #5 placed posterior instrumentation L2-L3. #6 interbody fusion L2-L3. #7 placement peek cage 10 x 22 mm L2-L3. #8 placement locally harvested morselized autograft in the posterior lateral gutters. #9 placement infuse collagen sponge, master graft in the posterior lateral gutters and I factor in the interbody space. with Dr. Wise, on 09/30/2020 -- patient has history of PE, please order DVT prophylaxis after surgery also has DM 2 a1c 7.0, monitor blood glucose, especially if being given steroids 2. History of type 2 diabetes: -- a1c 7.0 -- BSG 111 monitor 3. History of pulmonary embolism in 2011: -- INR 1.2 coumadin on hold -- resume as soon as hemostasis stable per Ortho Acute on chronic anemia Acute blood loss anemia, dilutional, post-op Chronic anemia secondary to ?nutritional deficiencies, history of iron deficiency anemia Preop Hgb ~10, then 8.6 post-op, some blood loss expected on 10/02/2020 - Hgb 8.0 - transfused 1 unit of pRBC (patient's hemoglobin low not mainly secondary to her surgery but mostly because of her chronic anemia even preop) Current Hgb 8.7 Cont. to monitor H&H as outpt - PCP notified (given patient's anemia, and history of PE, patient may need consultation with hematology if have not done so previously) ff up iron studies Patient states she takes iron pills as outpatient, will continue 4. History of depression: Duloxetine and Seroquel. 5. Chronic hyperlipidemia: On statin. 6. History of gastroesophageal reflux disease: Continue her Protonix. 7. Anxiety: Continue on Ativan p.r.n. 8. Asthma: Moderate, persistent; not in exacerbation DVT prophylaxis: SCDs ;patient has history of PE, please order DVT prophylaxis after surgery Admission and Anticipated Discharge Date Admission Date: September 28, 2020 Subjective Patient seen in follow-up for spinal stenosis, s/p spinal surgery Yesterday Hgb down to 8.0, now s/p transfusion of 1 unit pRBC she has history of chronic anemia even prior to surgery, now Hgb stable Patient is feeling much better, denies any chest pain, shortness of breath, fevers or chills Able to work with PT without much difficulty Says she has a walker at home Seen by orthopedics today, okay to discharge home Review of Systems Constitutional: no fever and no chills Respiratory: no cough and no dyspnea Cardiovascular: no chest pain and no palpitations Gastrointestinal: no abdominal pain, no nausea and no vomiting Physical Exam Physical Exam: General- oriented x 3, not in distress, speaks in sentences with no effort or accessory muscle use Head- atraumatic Eyes- PERRL, EOMI, anicteric ENT- oropharynx clear Neck- supple, no JVD, no adenopathy Lungs- clear to auscultation bilaterally, no rales/wheezes Heart- normal rate, regular rhythm; no murmur, no gallop, no rub appreciated Abdomen- normal bowel sounds, nondistended, soft, nontender Extremities- no pretibial edema, no calf tenderness; peripheral pulses intact Neuro- alert, oriented x 3; no facial symmetry, speech fluent, moves extremities, sensation 100% on all extremities Skin- warm & dry Results & Data Results & Data ([facility]) Vital Signs (Past 12 Hours) Vital Signs Temp Pulse Resp BP Pulse Ox 10/03/20 06:24 36.5 C 70 16 105/72 96 07/23/21 22:20 36.6 C 73 15 114/71 94 Laboratory Results 10/03/20 10/03/20 10/03/20 Range/Units 06:48 06:48 06:48 WBC 9.71 (4.8-10.8) K/uL RBC 3.34 L (4.2-5.4) M/uL Hgb 8.7 L (12.0-16.0) g/dL Hct 27.9 L (37-47) % MCV 83.5 (80-100) fL MCH 26.0 (25-34) pg MCHC 31.2 L (32-36) g/dL RDW Std Deviation 51.5 H (36.4-46.3) fL RDW Coeff of Jerrell 16.9 H (11.5-14.5) % Plt Count 264 (130-400) K/uL MPV 8.9 (7.4-10.4) fL PT 10.2 (9.0-12.0) Seconds INR 1.0 (0.9-1.1) Sodium 138 (136-145) mmol/L Potassium 3.7 (3.5-5.1) mmol/L Chloride 106 (98-107) mmol/L Carbon Dioxide 28 (21-32) mmol/L Anion Gap 4.0 (3-11) BUN 10 (7-18) mg/dl Creatinine 0.76 (0.6-1.2) mg/dl Est Cr Clr Drug Dosing 86.3 ml/min Est GFR ( Amer) 98.8 ml/min Est GFR (Non-Af Amer) 85.3 ml/min BUN/Creatinine Ratio 12.7 (10-20) Glucose 136 H (70-99) mg/dl Calcium 9.6 (8.5-10.1) mg/dl Blood Type Antibody Screen Crossmatch 10/02/20 10/02/20 Range/Units 20:31 08:23 WBC (4.8-10.8) K/uL RBC (4.2-5.4) M/uL Hgb 9.0 L (12.0-16.0) g/dL Hct 28.6 L (37-47) % MCV (80-100) fL MCH (25-34) pg MCHC (32-36) g/dL RDW Std Deviation (36.4-46.3) fL RDW Coeff of Jerrell (11.5-14.5) % Plt Count (130-400) K/uL MPV (7.4-10.4) fL PT (9.0-12.0) Seconds INR (0.9-1.1) Sodium (136-145) mmol/L Potassium (3.5-5.1) mmol/L Chloride (98-107) mmol/L Carbon Dioxide (21-32) mmol/L Anion Gap (3-11) BUN (7-18) mg/dl Creatinine (0.6-1.2) mg/dl Est Cr Clr Drug Dosing ml/min Est GFR ( Amer) ml/min Est GFR (Non-Af Amer) ml/min BUN/Creatinine Ratio (10-20) Glucose (70-99) mg/dl Calcium (8.5-10.1) mg/dl Blood Type A Positive Antibody Screen NEGATIVE Crossmatch See Detail Medications Administered Current Inpatient Medications Acetaminophen (Acetaminophen 325 Mg Tab) 650 mg PO Q4H PRN PRN Reason: pain/fever Stop: 10/28/20 23:00 Acetaminophen (Acetaminophen 500 Mg Tab) 1,000 mg PO Q8H PRN PRN Reason: MILD Pain Scale 1,2,3 & Pre PT Stop: 10/30/20 17:23 Last Admin: 10/01/20 14:03 Dose: 1,000 mg Documented by: Al Hydrox/Mg Hydrox/Simethicone (Aluminum/Magnesium Susp 30 Ml Udc) 30 ml PO Q6H PRN PRN Reason: Dyspepsia Stop: 10/30/20 17:23 Albuterol (Albuterol Hfa 8 Gm Inhaler) 2 puffs INH Q4R PRN PRN Reason: sob Stop: 10/28/20 23:00 Bisacodyl (Bisacodyl 10 Mg Supp) 10 mg MA DAILY PRN PRN Reason: Constipation Stop: 11/01/20 07:59 Diphenhydramine HCl (Diphenhydramine Capsule 25 Mg Cap) 25 mg PO Q6H PRN PRN Reason: Allergic Rhinitis/Insomnia Stop: 10/30/20 17:23 Duloxetine HCl (Duloxetine Hcl 60 Mg Cap) 60 mg PO PM ALEX Stop: 10/30/20 20:59 Last Admin: 10/02/20 21:11 Dose: 60 mg Documented by: Famotidine (Famotidine 20 Mg Tab) 20 mg PO Q12H PRN PRN Reason: Dyspepsia Stop: 10/30/20 17:23 Ferrous Sulfate (Ferrous Sulfate 325 Mg Tab) 325 mg PO BIDM ALEX Stop: 10/31/20 18:29 Last Admin: 10/03/20 08:14 Dose: 325 mg Documented by: Furosemide (Furosemide 20 Mg Tab) 20 mg PO DAILY PRN PRN Reason: Edema Stop: 10/28/20 23:00 Hydromorphone HCl (Hydromorphone Inj 0.5 Mg/0.5 Ml Syr) 0.5 mg IV Q3H PRN PRN Reason: Pain Stop: 10/13/20 06:26 Last Admin: 10/03/20 04:50 Dose: 0.5 mg Documented by: Hydromorphone HCl (Hydromorphone Inj 0.5 Mg/0.5 Ml Syr) 0.5 mg IV Q3H PRN PRN Reason: MOD pain (scale 4-6) & Pre PT Stop: 10/14/20 17:23 Last Admin: 10/01/20 00:25 Dose: 0.5 mg Documented by: Hydromorphone HCl (Hydromorphone Inj 1 Mg/Ml Syringe) 1 mg IV Q3H PRN PRN Reason: severe pain (scale 7-10) Stop: 10/14/20 17:23 Hydroxyzine HCl (Hydroxyzine Hcl 25 Mg Tab) 25 mg PO Q8H PRN PRN Reason: Anxiety Stop: 10/30/20 17:23 Promethazine HCl 12.5 mg/ (Sodium Chloride) 50.5 mls @ 202 mls/hr IV Q6H PRN PRN Reason: Nausea &/or Vomiting Stop: 10/30/20 17:23 Acetaminophen (Ofirmev) 1,000 mg in 100 mls @ 400 mls/hr IV Q8H PRN PRN Reason: Pain Rating 1-3 & Pre PT Stop: 10/03/20 17:23 Lorazepam (Ativan) 0.5 mg in 1 mls @ 1 mls/min IV Q8H PRN PRN Reason: Sedation/Anxiety Stop: 10/30/20 17:23 Dexamethasone 8 mg/ Syringe 2 mls @ 1 mls/min IV DAILY ALEX Stop: 11/01/20 08:59 Last Admin: 10/03/20 08:16 Dose: 1 mls/min Documented by: Influenza Virus Vaccine Quadrival (Do Not Administer Flu Vaccine) 1 ea N/A PRN PRN PRN Reason: Notification Stop: 10/30/20 17:23 Lorazepam (Lorazepam 0.5 Mg Tab) 0.5 mg PO TID PRN PRN Reason: Anxiety Stop: 10/28/20 23:00 Lorazepam (Lorazepam 0.5 Mg Tab) 0.5 mg PO Q8H PRN PRN Reason: sedation/anxiety Stop: 10/30/20 17:23 Magnesium Hydroxide (Magnesium Hydroxide Susp 30 Ml Udc) 30 ml PO Q24H PRN PRN Reason: Constipation Stop: 10/30/20 17:23 Metoclopramide HCl (Metoclopramide Hcl Inj 5 Mg/Ml 2 Ml Vial) 10 mg IV Q6H PRN PRN Reason: Nausea &/or Vomiting Stop: 10/30/20 17:23 Naloxone HCl (Naloxone Hcl 0.4 Mg/1 Ml Vial/Carp) 0.1 mg IV Q5M PRN PRN Reason: Oversedation/respiratory dep Stop: 10/30/20 17:23 Ondansetron HCl (Ondansetron Inj 2 Mg/Ml 2 Ml Vial) 4 mg IV Q6H PRN PRN Reason: Nausea &/or Vomiting Stop: 10/30/20 17:23 Ondansetron HCl (Ondansetron 4 Mg Od Tab) 4 mg PO Q6H PRN PRN Reason: Nausea Stop: 10/30/20 17:23 Oxycodone HCl (Oxycodone Hcl Ir 5 Mg Tab (Immediate Release)) 5 - 10 mg PO Q4H PRN PRN Reason: Pain & Pre PT Stop: 10/14/20 17:23 Last Admin: 10/03/20 08:13 Dose: 10 mg Documented by: Pantoprazole Sodium (Pantoprazole 40 Mg Tab) 40 mg PO QAM ALEX Stop: 10/29/20 08:59 Last Admin: 10/03/20 08:15 Dose: 40 mg Documented by: Pneumococcal Polyvalent Vaccine (Do Not Administer Pneumococcal Vaccine) 1 ea N/A PRN PRN PRN Reason: Notification Stop: 10/30/20 17:23 Polyethylene Glycol (Polyethylene (Miralax) 17 Gm Pack) 17 gm PO DAILY PRN PRN Reason: Constipation Stop: 10/28/20 23:00 Potassium Chloride (Potassium Chloride Crtab 20 Meq Tabcr) 20 meq PO QAM [facility] Stop: 10/29/20 08:59 Last Admin: 10/03/20 08:15 Dose: 20 meq Documented by: Quetiapine Fumarate (Quetiapine Fumarate 300 Mg Tablet) 300 mg PO [facility] Stop: 10/29/20 20:59 Last Admin: 10/02/20 21:12 Dose: 300 mg Documented by: Rosuvastatin Calcium (Rosuvastatin Calcium 20 Mg Tab) 40 mg PO QPM [facility] Stop: 10/29/20 20:59 Last Admin: 10/02/20 21:12 Dose: 40 mg Documented by: Senna/Docusate Sodium (Docusate Sodium/Senna 50/8.6mg Tab) 2 tab PO [facility] Stop: 10/30/20 20:59 Last Admin: 10/02/20 21:11 Dose: 2 tab Documented by: Sodium Biphosphate/Sodium Phosphate (Sod Phosphate/Sod Biphosphate Enema 132 Ml Btl) 132 ml MA ONE PRN PRN Reason: Constipation Stop: 10/30/20 17:23 Tizanidine HCl (Tizanidine Hcl 4 Mg Tablet) 8 mg PO TID [facility] Stop: 10/29/20 08:59 Last Admin: 10/03/20 08:14 Dose: 8 mg Documented by: Tramadol HCl (Tramadol Hcl 50 Mg Tablet) 50 mg PO Q6H PRN PRN Reason: Pain Stop: 10/28/20 23:00 Tramadol HCl (Tramadol Hcl 50 Mg Tablet) 50 - 100 mg PO Q4H PRN PRN Reason: Moderate-Severe pain & Pre PT Stop: 10/30/20 17:23 Last Admin: 10/03/20 06:00 Dose: 100 mg Documented by: Vitamin D (Cholecalciferol 1,000 Units 25 Mcg Tab) 2,000 units PO QAM [facility] Stop: 10/29/20 08:59 Last Admin: 10/03/20 08:16 Dose: 2,000 units Documented by:
--- NOTE | 2020-10-03 10:32 | Discharge Summary ---
Date of Service October 03, 2020 Admission HPI Per Admitting Provider This is a 60-year-old female with past medical history significant for type 2 diabetes, not on any medications, hyperlipidemia, asthma, moderate persistent GERD, cervical disk disease, osteoarthritis of knee, lumbar degenerative arthritis, chronic pain syndrome, iron deficiency anemia, history of pulmonary embolism, history of depression, status post cervical spinal fusion surgery, status post lumbar fusion surgery, anxiety, who presents with severe back pain. The patient says the severe back pain is going on for last 4 weeks, but for the last one week it got really worse. She said last Monday, she had MRI done as outpatient with Dr. Brown and was found to have severe degenerative disk disease above fusion and she was sent here for further management. The patient states she is having some numbness in lower extremity and some mild weakness, but she is able to ambulate with difficulty. She has no bowel and bladder incontinence, but she thinks her control is slightly lower than before. Denies any abdominal pain. No fever, no chills, no chest pain or shortness of breath. No cough. Appetite is okay. No difficulty swallowing. No headache, no blurred visions. She has some headache and neck pain and arm pain. She says the back pain is going up, traveling up to her head and neck, causing spasms. Currently resting comfortably and hemodynamically stable. Admission Exam Per Admitting Provider GENERAL: The patient is obese, not in acute distress. VITAL SIGNS: Temperature 36.8, pulse 57, respiratory rate 18, blood pressure 106/65, oxygen 95% on room air. HEENT: Pupils equal, round and reactive to light. Extraocular movements intact. Vision is good. NECK: No JVD. No neck masses. HEART: S1 and S2 heard. Regular rate and rhythm. No murmur, no gallop. RESPIRATORY SYSTEM: Normal AP diameter. No accessory muscle use. No wheezing, no crackles. ABDOMEN: Soft, bowel sounds present, nontender, no distention. CENTRAL NERVOUS SYSTEM: Cranial nerves II-XII grossly intact, nonfocal. EXTREMITIES: No edema, no erythema. Sensation is intact. Right leg straight leg test positive. Principal Diagnosis Lumbar spinal stenosis with neurogenic claudication Discharge Exam General- oriented x 3, not in distress, speaks in sentences with no effort or accessory muscle use Head- atraumatic Eyes- PERRL, EOMI, anicteric ENT- oropharynx clear Neck- supple, no JVD, no adenopathy Lungs- clear to auscultation bilaterally, no rales/wheezes Heart- normal rate, regular rhythm; no murmur, no gallop, no rub appreciated Abdomen- normal bowel sounds, nondistended, soft, nontender Extremities- no pretibial edema, no calf tenderness; peripheral pulses intact Neuro- alert, oriented x 3; no facial symmetry, speech fluent, moves extremities, sensation 100% on all extremities Skin- warm & dry Discharge Data Allergies Allergy/AdvReac Type Severity Reaction Status Date / Time phenytoin Allergy Intermediate Facial Verified 09/28/20 20:20 swelling Consultations 09/28/20 19:56 ED Decision to Admit Stat 09/29/20 09:23 Consult Anesthesiology Routine 09/29/20 09:42 Consult Orthopedic Surgery Routine Procedures Performed Operation Date: 09/30/20 13:45 Actual Procedures p L2-3 Decompression Fusion, Spinal Cord Monitoring(Not Applicable) - David Borwn DO s L3-5 Hardware Removal(Not Applicable) - David Brown DO Ordered Studies 09/30/20 13:45 FL lumbar spine 2-3V Routine Hospital Course (1) Acute low back pain: ASSESSMENT AND PLAN: This is a 60-year-old female who presents with severe back pain. 1. Severe back pain with ambulatory dysfunction Lumbar stenosis L2-L3: per Ortho PA notes: Dr. Brown and I have been able to review her updated x-rays and MRI of her lumbar spine from September 22 on our [facility] PACS system. It reveals breakdown/degenerative disc disease with associated retrolisthesis of L2-3. Hardware intact L3-4, L4-5. Options have been reviewed with the patient including conservative treatment in the form of pain management versus ultimate surgical fixation. Surgery would require hardware removal of L3-4, L4-5, posterior lumbar decompression and instrumented fusion with possible interbody cage at L2-3. -- no medical contraindication for planned surgery patient at moderate risk for cardiopulmonary complications due to co morbidities -- pt is now s/p #1 removal of posterior instrumentation L3-L4 L4-5. #2 exploration of fusion L3-L4 L4-5. #3 lumbar decompression with bilateral medial facetectomies and foraminotomies L2-L3. #4 posterior spinal fusion L2-3. #5 placed posterior instrumentation L2-L3. #6 interbody fusion L2-L3. #7 placement peek cage 10 x 22 mm L2-L3. #8 placement locally harvested morselized autograft in the posterior lateral gutters. #9 placement infuse collagen sponge, master graft in the posterior lateral gutters and I factor in the interbody space. with Dr. Wise, on 09/30/2020 -- patient has history of PE, please order DVT prophylaxis after surgery also has DM 2 a1c 7.0, monitor blood glucose, especially if being given steroids 2. History of type 2 diabetes: -- a1c 7.0 -- BSG 111 monitor 3. History of pulmonary embolism in 2011: -- INR 1.2 coumadin on hold -- resume as soon as hemostasis stable per Ortho Acute on chronic anemia Acute blood loss anemia, dilutional, post-op Chronic anemia secondary to ?nutritional deficiencies, history of iron deficiency anemia Preop Hgb ~10, then 8.6 post-op, some blood loss expected on 10/02/2020 - Hgb 8.0 - transfused 1 unit of pRBC (patient's hemoglobin low not mainly secondary to her surgery but mostly because of her chronic anemia even preop) Current Hgb 8.7 Cont. to monitor H&H as outpt - PCP notified (given patient's anemia, and history of PE, patient may need consultation with hematology if have not done so previously) ff up iron studies Patient states she takes iron pills as outpatient, will continue 4. History of depression: Duloxetine and Seroquel. 5. Chronic hyperlipidemia: On statin. 6. History of gastroesophageal reflux disease: Continue her Protonix. 7. Anxiety: Continue on Ativan p.r.n. 8. Asthma: Moderate, persistent; not in exacerbation DVT prophylaxis: SCDs ;patient has history of PE, please order DVT prophylaxis after surgery Total Time Total Time Spent Total Time Spent (In Minutes): 35 Discharge Plan Discharge Items Patient Disposition: Home - Home Health Services Reason For Visit: SEVERE BACK PAIN Discharge Diagnosis: Lumbar spinal stenosis with neurogenic claudication Activity: As commented below Non-emergency contact: Primary Care Provider and Surgeon Call non-emergency contact if: you have any medication questions Follow-up/Referrals: Soham Hayes DO [Primary Care Provider] - (Date & Time 10/07/2020 10:00 AM Provider Chio Miller MD Department General Internal Medicine [facility] ) Diet: Regular Addtl Attending Provider Instructions: ACTIVITY RECOMMENDATIONS: SELF CARE INSTRUCTIONS AFTER THORACIC/LUMBAR FUSIONS 1. You may walk to your tolerance. It is good exercise for your legs and back. Expect some back and intermittent leg aches and pains. 2. You may perform "counter-top" level activities (make a sandwich, evelyn with a project, etc.). 3. No bending or lifting of more than 10 pounds or back twisting of any nature (roll like a log when turning in bed). 4. You may ride in a car for 20-30 minutes at a time. No driving until after your first visit with your doctor. 5. Frequent changes of position and restricting sitting to 30 minutes at a time will help limit the amount of back spasms and stiffness you may experience. 6. You may discontinue the use of ambulatory aids (cane, crutches, etc.) once your strength and confidence allow. 7. You may email marketing processor the shower and let water strike your incision when you arrive home at least once daily. Do not take a tub bath, sit in a hot tub or go into a swimming pool until after your first recheck in the office. SPECIAL CARE INSTRUCTIONS: VERY IMPORTANT TO READ AND REVIEW A. Your surgical incision has been closed with a cosmetic suture under the skin that will dissolve in about 6 weeks. In 14 days, you can use a pair of clean scissors and cut the suture that is left outside of the skin at the ends of your incision. 1. The small skin tapes can be removed 7 days after surgery if they have not fallen off by that point. 2. You may keep the wound open to air as much as possible to promote healing after post-op day number 5 unless told otherwise by your doctor. 3. If you think the wound looks like it is becoming infected (redness or worsening drainage) and/or you are experiencing fever, chill or worsening back pain and muscle spasms, contact the office so that we may evaluate you as soon as possible. B. Complications are uncommon, but please contact us if you have any signs or symptoms of: 1. wound infection (fever higher than 102.5 degrees F, redness, separation of wound, drainage, or increasing pain from the incision) 2. blood clots in legs (pain, swelling, redness and warmth in legs) 3. urinary tract infection (fever higher than 102.5 degrees F, burning upon urination or increased frequency of urination) 4. nerve problems (inability to walk on your toes or heels, numbness, loss of bowel or bladder control) 5. any other symptoms that concern you C. Please call the office at if you have any concerns or questions about your operation or recovery. D. No smoking! Smoking drastically decreases the chance of a solid fusion. E. Do not take any anti-inflammatory medications (Indocin, Advil, Motrin, Aspirin, Naprosyn, etc.) as these may inhibit the chance of a solid fusion. Tylenol is okay to take for pain. MANAGING PAIN AFTER SPINAL SURGERY 1. Narcotic medication is intended for short-term use and will be provided for surgical pain. Surgical pain usually lasts for a period of 4-6 weeks. Narcotic medication includes Percocet, Vicodin, Darvocet, Tylenol #3 or Lortab. 2. Longer-term pain is more appropriately treated with non-narcotic medication such as Tylenol ES. 3. Muscle spasm is not appropriately treated with narcotics. Muscle relaxers such as Soma, Flexeril or Skelaxin can be used along with Tylenol ES. 4. Remember that we all live with some "aches and pains". This is not unusual or uncommon after an injury or as we get older. a. Back pain is expected and may include muscle spasms for 4 to 6 weeks after surgery. The pain should gradually improve. If the pain worsens for no apparent reason, please contact the office. b. Intermittent leg pain may also be experienced and should not be concerned about unless it worsens for no apparent reason. If so, please contact the office. 5. We will provide appropriate medication within the normal guidelines of their prescribed use. We will also be very cautious and aware of potential abuse and extended duration of patients' medication needs. a. Pain medications are for your comfort and to assist with sleep and rest so that the tissue can heal. They are not provided in order to return to normal activity and should not be used through the day. To do so or worsening pain at night can result from ongoing tissue damage and development of tolerance to the prescribed medicine. 6. Please allow 2-3 days to process refills. Prescriptions will not be mailed but must be picked up at the office. FOLLOW UP VISIT: Keep your scheduled follow-up appointment. Any questions, please call the office at . Addtl Car Cooper Provider Instructions: Follow-up with primary care doctor, your appointment was scheduled for you for October 07. For now do not take your warfarin, discuss further with your primary care doctor at your next appointment when you should restart warfarin. Your blood counts/anemia should be closely monitored and you may need a referral to hematology. For back pain and postsurgical care and follow-up, read instructions above from your orthopedic surgeon, Dr. Brown. Pending Studies at Discharge: No Stand-Alone Forms: [facility] Astonish Results, Smoking Cessation Medications and DC Order Prescriptions: New tramadol 50 mg tablet 50 mg PO Q6H PRN (Reason: pain, moderate) Qty: 30 RF: 0 oxycodone 5 mg tablet 5 mg PO Q6H PRN (Reason: pain, severe) Qty: 30 RF: 0 Continued albuterol sulfate 90 mcg/actuation HFA aerosol inhaler 2 puff INHALATION Q4H PRN (Reason: sob) Qty: 18 RF: 5 cholecalciferol (vitamin D3) [Vitamin D3] 2,000 unit Tablet 2,000 unit PO QAM RF: 0 furosemide [Lasix] 20 mg Tablet 20 mg PO DAILY PRN (Reason: Edema) RF: 0 lorazepam [Ativan] 0.5 mg Tablet 0.5 mg PO TID PRN (Reason: Anxiety) RF: 0 pantoprazole 40 mg Tablet,Delayed Release (Dr/Ec) 40 mg PO QAM RF: 0 potassium chloride 20 mEq Tablet Extended Release 20 meq PO QAM RF: 0 rosuvastatin [Crestor] 40 mg Tablet 40 mg PO QPM RF: 0 warfarin 5 mg tablet 2.5 - 5 mg PO DIRECTED RF: 0 quetiapine 300 mg tablet 300 mg PO HS RF: 0 tizanidine 4 mg tablet 8 mg PO TID RF: 0 tramadol 50 mg tablet 50 mg PO Q6H PRN (Reason: Pain) RF: 0 duloxetine 60 mg capsule,delayed release(DR/EC) 60 mg PO PM RF: 0 Discontinued ibuprofen [Advil] 200 mg Tablet 600 mg PO Q8H PRN (Reason: fever/pain) RF: 0 Discharge Orders: Discharge Order (Routine); Ordered 10/03/20 Ordered By: Robert Gutierrez/Other Patient Handouts: A1C, Managing Type 2 Diabetes Admission Data Admit Date/Time: 09/28/20 21:04 Attending Provider: Robert Buenrostro Admit Provider: David Brown Primary Care Provider: Soham Hayes Other Providers: Aden Arnold ; Douglas Santoyo ; Esthela Samuel ; Brie Mathew ; Jamila Alexander ; Ashley Levine ; Fiona Gonzalez ; Julien Kidd ; Giuseppe Atkins ; Favio Doe ; Michael French ; Kaycee French ; Nitish Vance ; Anastacia Chaudhari ; Devan Perkins ; Calvin Washington ; Jeronimo Zayas ; Alvarado Hollins ; Vanita Mauricio ; Adama Lin ; Donna Reyes ; Marylin Lin ; Daniel Castelan ; Carol Kwan ; Ayan Sherman. ; Maxine Garces ; Elza Henry ; Carol Cortes. ; Inga Sher ; Kwan Amado ; Roxanne Ross ; Jerilyn Baer ; Kristy Urena ; Anaya Jose ; Renny Jose V ; Michel Stevenson ; Brie Bermudez ; Paul Reed ; Chari Pritchard ; Kaleigh Nolan ; Renny Varghese ; Milan Mauricio ; Kevin Dumas ; Rebeca Borrero ; Kristy Jenkins ; Joey Segura ; Jordon Hollins ; Honey Hunt ; Wander Moralez ; Rhonda Griffin ; William Velez ; Evaristo Bo ; Wander Bowles ; Julien Barajas Jr ; Karmen Panda ; David Brown
== END 2020-10-03 13:38 | disposition home or self-care (01) | DRG 454 ==
LOC: ED 16:30 → SUATTDRO 21:04 → 3E 21:04

== ENCOUNTER 2023-08-21 13:05 | Inpatient (IN) ==
--- NOTE | 2023-08-21 13:33 | ED Triage Note ---
Date of Service August 21, 2023 Provider in Triage Author: Millie Moore History of Present Illness This patient was briefly evaluated while in triage. An abbreviated physical exam was performed. This patient is a 63-year-old Female who presents to the ED for evaluation of back pain, acute on chronic. She reports hx bulging discs, fell in February, and fractured her femur. Since then back pain has been worsening. took a nap then couldn't walk after getting groceries. Reports pain in lumbar spine with pressure into her abdomen and groin. Physical Exam Initial orders for labs and / or imaging were placed and patient was placed in the waiting area until a bed is available. Please see further documentation for the full ED course.
[2023-08-21] MEDS: LIDOCAINE 5% 1 PATCH TD STA (13:48)
[2023-08-21] MEDS: KETOROLAC TROMETHAMINE 60 MG/2 ML VIAL IM STA (13:48)
[2023-08-21] MEDS: ACETAMINOPHEN 500 MG TAB PO STA (13:49)
--- NOTE | 2023-08-21 14:46 | XRay Report ---
XR lumbar spine min 4V routine CLINICAL HISTORY: Low back pain. COMPARISON STUDY: Lumbar spine radiographs December 18, 2018. Lumbar spine CT February 18, 2021. FINDINGS: IVC filter and right hip arthroplasty are incidentally noted. Postoperative findings consis tent with L2-L5 decompression are noted with L2-L3 pedicle screw fusion. Discectomies at the L2-L3, L 3-L4 and L4-L5 levels. The hardware is intact. There is no lumbar spine fractures. Endplate irregular ity adjacent to the L3-L4 disc space was shown on prior CT. IMPRESSION: 1. No lumbar spine fractures. 2. Status post L2-L5 decompression, multilevel discectomy and L2-L3 fusion. Hardware intact. 3. Endplate irregularity centered on the L3-L4 disc, similar to prior lumbar spine CT. ACT 112: Negative or not required by law. Electronically signed by: Vahid Josue M.D. 08/21/2023 2:44 PM
[2023-08-21] MEDS: CYCLOBENZAPRINE HCL 10 MG TAB PO STA (15:24)
[2023-08-21] MEDS: oxyCODONE HCL IR 5 MG TAB (IMMEDIATE RELEASE) PO STA (15:24)
[2023-08-21] MEDS: dexAMETHasone**PF** 10 MG/ML VIAL IM ONE (15:24)
[2023-08-21] MEDS: MoRPHine SULFATE 4 MG/ML 1 ML CARP\\VIAL IV STA (17:49)
--- NOTE | 2023-08-21 17:59 | History & Physical Report ---
Date of Service August 21, 2023 Assessment & Plan (1) Acute back pain: (2) History of chronic pain: (3) History of degenerative disc disease: Plan: Fiona De Leon is a 63y/o F with PMHx of hyperlipidemia, DM type II, moderate persistent asthma, GERD without esophagitis, cervical disc disease s/p cervical spinal fusion, chronic pain syndrome, osteoarthritis, hx of iron deficiency anemia, depression/anxiety, hx of pulmonary embolism on Warfarin, lumbar degenerative arthritis s/p lumbar fusion surgery and other problems listed below who presented to the ED for evaluation of intractable/severe back pain. Lumbar spine x-ray revealed the following: * NO lumbar spinal fractures. * S/p L2-L5 decompression, multilevel discectomy and L2-L3 fusion. Hardware intact. * Endplate irregularity centered on the L3-L4 disc --> Unchanged from previous lumbar spine CT. Patient was given the following medications in the ED for pain: Toradol, lidocaine patch, acetaminophen, oxycodone, Flexeril, dexamethasone, morphine and Dilaudid. -Ortho spine consulted, appreciate their input/recommendations -Pain management consulted, appreciate their input/recommendations -PRN IV Dilaudid for severe pain -PRN PO oxycodone for moderate pain -PRN heat application on back -Can continue APPLIANCE REPAIRER tizanidine, Celebrex, duloxetine and gabapentin -Keep NPO at midnight pending ortho spine evaluation in AM -EKG to establish baseline findings -MRI pending, follow results -UA pending, follow results -Medrol dose pack in AM (4) Anxiety: (5) Depression: Plan: -Continue quetiapine, lorazepam & duloxetine -Consult placed for behavioral health liaison (6) GERD (gastroesophageal reflux disease): Plan: -Continue pantoprazole (7) Dyslipidemia: Plan: -Continue rosuvastatin (8) Diabetes mellitus type 2, controlled: Plan: Currently diet-controlled, glucose on admission is 139. Most recent A1C 7.2 on 07/11/23. -No need to repeat A1C at this time, repeat BMP in AM (9) Asthma: Plan: -Can continue PRN medications, Breztri Aerosphere (10) History of pulmonary embolism: (11) Chronic anticoagulation: Plan: -On Warfarin APPLIANCE REPAIRER, PT/INR elevated (16.7/1.6 respectively) on admission. -Will give dose of Warfarin tonight, and then will continue w/ APPLIANCE REPAIRER prescribed dosing in AM. -Repeat PT/INR in AM, reassess (12) History of anemia: Plan: Hgb 10.7 and Hct 34.1 on admission --> Baseline Hgb ~9-11. -Repeat CBC in AM, trend Hgb level DVT Prophylaxis: Warfarin - Patient on this medication APPLIANCE REPAIRER, will continue for now. Code Status: Full Code PCP: Chio Miller MD Dispo: Admit to Med/Surg Patient seen in collaboration with Dr. Louis. Please see addendum. I spent a total of 75 minutes coordinating, documenting, and providing care for this patient excluding time spent in the performance of separately billed services. This included personally reviewing all current laboratories and imaging studies, medical reconciliation, outpatient chart review and discussion with specialists. This chart was completed in part utilizing Speech Voice Recognition Software. Grammatical errors, random word insertions, pronoun errors, and incomplete sentences are an occasional consequence of this system due to software limitations, ambient noise, and hardware issues. Any formal questions or concerns about the content, text, or information contained within the body of this dictation should be directly addressed to the provider for clarification. History of Present Illness Chief Complaint: Severe Back Pain Primary Care Provider: Chio Miller MD Fiona De Leon is a 63y/o F with PMHx of hyperlipidemia, DM type II, moderate persistent asthma, GERD without esophagitis, cervical disc disease s/p cervical spinal fusion, chronic pain syndrome, osteoarthritis, hx of iron deficiency anemia, depression/anxiety, hx of pulmonary embolism on Warfarin, lumbar degenerative arthritis s/p lumbar fusion surgery and other problems listed below who presented to the ED for evaluation of intractable/severe back pain. History obtained from patient, and associated ED/PCP/previous hospitalization records. Patient has had multiple back operations per chart review. Patient seen at bedside. Patient states she has chronic back pain, but has had an acute flare x 5 days. Patient states that it is extremely painful to even walk, and that even going to the grocery store "puts her out for the next days or so." She states the back pain is more localized to the lower region, and complains of bilateral groin pain that is worse upon standing as well. Patient mentions that the right groin pain is more significant than the left. States that standing is more painful than walking. Describes the groin pain as sharp. Currently endorses 7/10 pain, but states her daily pain is "through the roof, more than 10/10." Patient is unable to perform ADLs without significant hindrance from the pain. States the pain often makes her cry uncontrollably, have palpitations. Not currently endorsing any chest pain or SOB. Patient does already see pain management in [place], but states this regimen is not even "touching" her pain. Has been taking multiple Percocet at home without any relief. Patient states that she is becoming increasingly depressed due to this ongoing pain. Not currently suicidal, but states that she has had thoughts of no longer living with pain. Patient is really looking forward to having a new grandchild in the next 2 weeks or so and states her children are her "motivation to live." Patient states she has had 3 spinal fusions of her lumbar region in the past for tx of herniations/disc ruptures. She did have a fall following an episode of "passing out" back in February where she fracture her L femur. She wonders if this pain may be sequelae from the fall, such as a potential fracture that has gone untreated. She does have some tingling in both of her feet, and reports pain radiating from her lower back down to her knees bilaterally. Did have some diarrhea last night, but she thinks this is due to the increase in pain and anxiety she was feeling. No blood in her bowel movements. Diarrhea has since subsided, she denies any sick contacts or recent illnesses. No nausea or vomiting. Denies any recent headaches, chills or body aches. Further denies any current abdominal pain or swelling in her b/l lower extremities. Patient is agreeable to seeing pain management while hospitalized. CBC reveals bump in WBC count at 11.94, Hgb 10.7 and Hct 34.1 on admission --> Baseline Hgb ~9-11 per chart review. No acute electrolyte abnormality seen on CMP. LFTs w/in normal range, no evidence of YULIA. Lumbar spine x-ray revealed the following: * NO lumbar spinal fractures. * S/p L2-L5 decompression, multilevel discectomy and L2-L3 fusion. Hardware intact. * Endplate irregularity centered on the L3-L4 disc --> Unchanged from previous lumbar spine CT. Patient was given the following medications in the ED for pain: Toradol, lidocaine patch, acetaminophen, oxycodone, Flexeril, dexamethasone, morphine and Dilaudid. Allergies Allergy/AdvReac Type Severity Reaction Status Date / Time phenytoin Allergy Intermediate Facial Verified 08/21/23 17:57 swelling Home Medications Medication Instructions Recorded Confirmed Type cholecalciferol (vitamin D3) 50 2,000 unit PO QAM 03/20/18 08/21/23 History mcg (2,000 unit) tablet (Vitamin D3) furosemide 20 mg tablet (Lasix) 20 mg PO DAILY PRN Edema 03/20/18 08/21/23 History lorazepam 0.5 mg tablet (Ativan) 0.5 mg PO TID Anxiety 03/20/18 08/21/23 History pantoprazole 40 mg tablet,delayed 40 mg PO QAM 03/20/18 08/21/23 History release potassium chloride 20 mEq 20 meq PO QAM 03/20/18 08/21/23 History tablet,extended release rosuvastatin 40 mg tablet (Crestor) 40 mg PO QPM 03/20/18 08/21/23 History quetiapine 300 mg tablet 300 mg PO HS 12/18/18 08/21/23 History tizanidine 4 mg tablet 8 mg PO TID 12/18/18 08/21/23 History albuterol sulfate 90 mcg/actuation 2 puff inhalation Q4H PRN sob #18 03/27/20 08/21/23 Rx aerosol inhaler grams warfarin 5 mg tablet 5 mg PO DAILY 05/14/20 08/21/23 History duloxetine 60 mg capsule,delayed 60 mg PO PM 09/28/20 08/21/23 History release albuterol sulfate 2.5 mg/3 mL 2.5 mg inhalation UD PRN sob 08/21/23 08/21/23 History (0.083 %) solution for nebulization budesonide 160 mcg-glycopyr 9 2 inh inhalation BID 08/21/23 08/21/23 History mcg-formot 4.8 mcg/actuation HFA inhaler (Breztri Aerosphere) celecoxib 200 mg capsule 200 mg PO BID 08/21/23 08/21/23 History gabapentin 100 mg capsule 200 mg PO TID 08/21/23 08/21/23 History oxycodone-acetaminophen 5 mg-325 1 tab PO QID PRN Pain 08/21/23 08/21/23 History mg tablet Past Med/Surg History Problem List (Updated 08/21/23 @ 20:26 by Theodora Albert PA-C) Asthma Anxiety Chronic anticoagulation History of degenerative disc disease Acute back pain (Acute) History of chronic pain (Acute) History of anemia Depression (Chronic) GERD (gastroesophageal reflux disease) (Chronic) History of pulmonary embolism (Chronic) Diabetes mellitus type 2, controlled (Chronic) Dyslipidemia (Chronic) Medical History DDD (degenerative disc disease) Sciatica Acute low back pain YULIA (acute kidney injury) Intractable back pain Lumbar stenosis with neurogenic claudication Back pain without radiculopathy Asthma Surgical History Status post hysterectomy Status post appendectomy Status post insertion of inferior vena caval filter Status post lumbar surgery Family History Other No significant family history Social History Smoking Status: Current every day smoker Tobacco Type: E-cigarettes / Vaping Second Hand Exposure: No; Do You Dip or Chew Tobacco: No; Hx Alcohol Use: Yes Alcohol type: wine Hx Substance Use: Yes Last Used Substance: Days (ago) Preferred Language: Croatian Communication Ability: Effective 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 Physical Exam Physical Exam: General Appearance: Laying in bed, no acute distress. Appears rather uncomfortable with any sort of movement. Head: Normocephalic, atraumatic. Eyes: Normal inspection, PERRL, conjunctivae normal, anicteric sclerae. ENT: External ear and nose normal, oropharynx normal. Neck: Normal visual inspection, trachea midline, no thyromegaly. Respiratory: Normal respiratory effort, lungs clear to auscultation, no wheeze, rales, rhonchi. No accessory muscle use. Cardiovascular: Regular rate, rhythm, no murmur, normal peripheral pulses, no BLE edema. Vessels: No JVD. Chest: Normal inspection of chest. Abdomen/GI: Normal bowel sounds, soft, nontender, no hepatosplenomegaly. Extremities/Musculoskeletal: No cyanosis or clubbing, tender to palpation in b/l groin regions. Very tender to palpation of lower back region. Neurologic: PERRL, EOMI, accommodation nl, no face palsy, no dysarthria, CN's II-XI grossly intact bilaterally. Pain w/ any extremity movement. Psychiatric: A+Ox3, tearful affect. Skin: No rashes, normal color, warm/dry. Results & Data Results & Data Vital Signs (Past 12 Hours) Vital Signs Temp Pulse Resp BP Pulse Ox O2 Del Method 08/21/23 13:36 36.8 C 103 H 18 141/81 H 95 Room Air Laboratory Results Short CBC 08/21/23 Range/Units 17:42 WBC 11.94 H (4.8-10.8) K/ul Hgb 10.7 L (12.0-16.0) g/dl Hct 34.1 L (37.0-47.0) % Plt Count 244 (130-400) K/uL BMP 08/21/23 17:42 Sodium 138 Potassium 3.7 Chloride 105 Carbon Dioxide 25 BUN 16 Creatinine 0.86 Glucose 139 H Calcium 9.8 Liver Function 08/21/23 Range/Units 17:42 Total Bilirubin 1.1 H (0.2-1.0) mg/dl AST 13 (13-39) U/L ALT 12 (7-52) U/L Alkaline Phosphatase 74 (34-104) U/L Albumin 4.7 (3.4-5.0) gm/dl Diagnostic Findings Lumbar Spine X-Ray 08/21/23 13:33 XR lumbar spine min 4V routine CLINICAL HISTORY: Low back pain. COMPARISON STUDY: Lumbar spine radiographs December 18, 2018. Lumbar spine CT February 18, 2021. FINDINGS: IVC filter and right hip arthroplasty are incidentally noted. Postoperative findings consistent with L2-L5 decompression are noted with L2-L3 pedicle screw fusion. Discectomies at the L2-L3, L3-L4 and L4-L5 levels. The hardware is intact. There is no lumbar spine fractures. Endplate irregularity adjacent to the L3-L4 disc space was shown on prior CT. IMPRESSION: 1. No lumbar spine fractures. 2. Status post L2-L5 decompression, multilevel discectomy and L2-L3 fusion. Hardware intact. 3. Endplate irregularity centered on the L3-L4 disc, similar to prior lumbar spine CT. ACT 112: Negative or not required by law. Electronically signed by: Vahid Josue M.D. 08/21/2023 2:44 PM Medications Administered Discontinued Medications Acetaminophen (Acetaminophen 500 Mg Tab) 1,000 mg PO NOW STA Stop: 08/21/23 13:34 Last Admin: 08/21/23 13:49 Dose: 1,000 mg Documented By: AB Cyclobenzaprine HCl (Cyclobenzaprine Hcl 10 Mg Tab) 10 mg PO NOW STA Stop: 08/21/23 15:00 Last Admin: 08/21/23 15:24 Dose: 10 mg Documented By: OAC Dexamethasone Sodium Phosphate (DexamethasonePf 10 Mg/Ml Vial) 10 mg IM NOW ONE Stop: 08/21/23 15:04 Last Admin: 08/21/23 15:24 Dose: 10 mg Documented By: OAC Ketorolac Tromethamine (Ketorolac Tromethamine 60 Mg/2 Ml Vial) 30 mg IM NOW STA Stop: 08/21/23 13:34 Last Admin: 08/21/23 13:48 Dose: 30 mg Documented By: AB Lidocaine (Lidocaine 5% 1 Patch) 1 patch TD NOW STA Stop: 08/21/23 13:34 Last Admin: 08/21/23 13:48 Dose: 1 patch Documented By: AB Morphine Sulfate (Morphine Sulfate 4 Mg/Ml 1 Ml Carp\\Vial) 4 mg IV NOW STA Stop: 08/21/23 17:28 Last Admin: 08/21/23 17:49 Dose: 4 mg Documented By: AVM Oxycodone HCl (Oxycodone Hcl Ir 5 Mg Tab (Immediate Release)) 5 mg PO NOW STA Stop: 08/21/23 15:00 Last Admin: 08/21/23 15:24 Dose: 5 mg Documented By: OAC Code Status & VTE Plan Code Status FULL CODE VTE Prophylaxis Plan VTE Prophylaxis will be ordered: Yes Supervising Physician Co-Signing Physician Notes I have seen and discussed the case with the collaborating advanced practitioner. I agree with the above H&P. I have reviewed and confirmed the patients medical history, the findings on physical examination, and the patients diagnosis and treatment plan with Jessika COOPER and agree with the information documented. In short, Ms. De Leon is a 63y/o F with PMHx of hyperlipidemia, DM type II, moderate persistent asthma, GERD without esophagitis, cervical disc disease s/p cervical spinal fusion, chronic pain syndrome, osteoarthritis, hx of iron deficiency anemia, depression/anxiety, hx of pulmonary embolism on Warfarin, lumbar degenerative arthritis s/p lumbar fusion surgery who is admitted for management of acute on chronic back pain. Patient with radiculopathic pain down bilateral legs right and intermittently left. Patient with prior surgery with Stephanie. follows pain management. GENERAL APPEARANCE: AxOx4,uncomfortable appearing woman HEENT: NC, AT. MMM. EOMI, clear conjunctiva, oropharynx clear. NECK: Supple without lymphadenopathy. No stiffness or restricted ROM. HEART: Normal rate and regular rhythm, normal S1/S1, no m/r/g LUNGS: CTAB, moving air well. No crackles or wheezes are heard. ABDOMEN: Soft, nontender, nondistended with good bowel sounds heard EXTREMITIES: Without cyanosis, clubbing or edema. NEUROLOGICAL: Grossly nonfocal. Alert and oriented, moving all 4 extremities, however, lower extremities ROM limited 2/2 back pain CN not formally tested but appear grossly intact Skin: Warm and dry without any rash. #Acute on chronic back pain MRI pain management as above medrol dose pack pain mgmt consult ortho spine #Hx Pulm Embolism on Warfarin repeat inr in am rest of plan as above I spent a total of 25 minutes coordinating, documenting, and providing care for this patient excluding time spent in the performance of separately billed services. All of the aforementioned completed outside of collaborating with the assigned advanced practitioner for a full treatment plan. I have reviewed the advanced practitioner's documentation, and I agree with, and take responsibility for the plan of care (1) Acute back pain Back pain laterality: unspecified Back pain location: back pain in unspecified location Qualified Code(s): M54.9 - Dorsalgia, unspecified (5) Depression Depression Type: unspecified Qualified Code(s): F32.A - Depression, unspecified (6) GERD (gastroesophageal reflux disease) Esophagitis presence: without esophagitis Qualified Code(s): K21.9 - Gastro- esophageal reflux disease without esophagitis (8) Diabetes mellitus type 2, controlled Diabetes mellitus complication status: without complication 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
[2023-08-21 18:03] LABS: Basophils # (auto) 0.03 K/uL (0.00-0.20); Basophils % (auto) 0.3 %; Eosinophils % (auto) 0.8 %; Hematocrit (blood only) 34.1 % (37.0-47.0); Hemoglobin 10.7 g/dl (12.0-16.0); Immature Granulocytes # (auto) 0.07 K/uL (0.01-0.20); Immature Granulocytes % (auto) 0.6 %; Lymphocytes # (auto) 0.96 K/uL (1.20-3.40); Mean Corpuscular Hemoglobin 24.5 pg (25.0-34.0); Mean Corpuscular Hgb Conc 31.4 g/dL (32.0-36.0); Mean Platelet Volume 9.6 fL (9.4-12.4); Monocytes # (auto) 0.32 K/uL (0.11-0.59); Monocytes % (auto) 2.7 %; Neutrophils # (auto) 10.46 K/uL (1.40-6.50); Neutrophils % (auto) 87.6 %; Platelet Count 244 K/uL (130-400); RDW Coefficient of Variation 16.9 % (11.5-14.5); RDW Standard Deviation 47.8 fL (36.4-46.3); Red Blood Count 4.37 M/uL (4.20-5.40); White Blood Count 11.94 K/ul (4.8-10.8)
[2023-08-21 18:19] LABS: Albumin Globulin Ratio 1.8 (0.9-2); Albumin Level 4.7 gm/dl (3.4-5.0); BUN Creatinine Ratio 18.6 (10-20); Bilirubin,Total 1.1 mg/dl (0.2-1.0); Calcium 9.8 mg/dl (8.6-10.3); Creatinine Clr Calc Pharmacy 71.6 ml/min; Est GFR (African American) 83.3 ml/min; Est GFR (Non-African American) 71.9 ml/min; Globulin 2.6 gm/dl (2.5-4.0); Potassium 3.7 mmol/L (3.5-5.1); Total Protein 7.3 gm/dl (6.0-8.3)
[2023-08-21 18:30] LABS: INR 1.6 (0.9-1.1); Prothrombin Time 16.7 Seconds (9.0-12.0)
[2023-08-21] MEDS ORDERED: ALBUTEROL HFA 8 GM INHALER INH PRN (18:35)
[2023-08-21] MEDS ORDERED: ALBUTEROL 0.083% NEBU SOLN 3 ML VIAL INH PRN (18:35)
--- NOTE | 2023-08-21 20:04 | Emergency Department Note ---
History of Present Illness General Chief complaint: Back Injury/Pain Stated complaint: BACK, GROIN, AND LEG PAIN Time Seen by Provider: 08/21/23 14:19 History of Present Illness Maximum Pain Intensity: 7 NAME: MARLON SALDANA AGE: 63 SEX: F : 1960 ARRIVES VIA: Walk-In INFORMANT: Patient ED PROVIDER(S): LUIS King, Tim Castellanos MD The patient is a 63-year-old female who arrives to the emergency department for evaluation of bilateral lower back pain. She reports a history of L2-L5 decompression, multilevel discectomy and L2-L3 fusion. She is currently seeing outpatient pain management for the severe chronic low back pain. She states over the last day she has had an increase in pain that is so severe she is unable to tolerate it. She reports she is unable to bear weight at this time without severe pain. She reports bilateral lower extremity numbness and tingling in her calves and in her feet. She denies loss of bowel or bladder, however does report a episode of persistent diarrhea overnight in the middle of the night. Home Medications Medication Instructions Recorded Confirmed Type cholecalciferol (vitamin D3) 50 2,000 unit PO QAM 03/20/18 08/21/23 History mcg (2,000 unit) tablet (Vitamin D3) furosemide 20 mg tablet (Lasix) 20 mg PO DAILY PRN Edema 03/20/18 08/21/23 History lorazepam 0.5 mg tablet (Ativan) 0.5 mg PO TID Anxiety 03/20/18 08/21/23 History pantoprazole 40 mg tablet,delayed 40 mg PO QAM 03/20/18 08/21/23 History release potassium chloride 20 mEq 20 meq PO QAM 03/20/18 08/21/23 History tablet,extended release rosuvastatin 40 mg tablet (Crestor) 40 mg PO QPM 03/20/18 08/21/23 History quetiapine 300 mg tablet 300 mg PO HS 12/18/18 08/21/23 History tizanidine 4 mg tablet 8 mg PO TID 12/18/18 08/21/23 History albuterol sulfate 90 mcg/actuation 2 puff inhalation Q4H PRN sob #18 03/27/20 08/21/23 Rx aerosol inhaler grams warfarin 5 mg tablet 5 mg PO DAILY 05/14/20 08/21/23 History duloxetine 60 mg capsule,delayed 60 mg PO PM 09/28/20 08/21/23 History release albuterol sulfate 2.5 mg/3 mL 2.5 mg inhalation UD PRN sob 08/21/23 08/21/23 History (0.083 %) solution for nebulization budesonide 160 mcg-glycopyr 9 2 inh inhalation BID 08/21/23 08/21/23 History mcg-formot 4.8 mcg/actuation HFA inhaler (Breztri Aerosphere) celecoxib 200 mg capsule 200 mg PO BID 08/21/23 08/21/23 History gabapentin 100 mg capsule 200 mg PO TID 08/21/23 08/21/23 History oxycodone-acetaminophen 5 mg-325 1 tab PO QID PRN Pain 08/21/23 08/21/23 History mg tablet Allergies Allergy/AdvReac Type Severity Reaction Status Date / Time phenytoin Allergy Intermediate Facial Verified 08/21/23 17:57 swelling Past Med/Surg History Problem List (Updated 08/21/23 @ 20:11 by LUIS Bentley) Anxiety Chronic anticoagulation History of degenerative disc disease Acute back pain (Acute) History of chronic pain (Acute) History of anemia Depression (Chronic) GERD (gastroesophageal reflux disease) (Chronic) History of pulmonary embolism (Chronic) Diabetes mellitus type 2, controlled (Chronic) Dyslipidemia (Chronic) Medical History (Updated 08/21/23 @ 20:11 by LUIS Bentley) DDD (degenerative disc disease) Sciatica Acute low back pain YULIA (acute kidney injury) Intractable back pain Lumbar stenosis with neurogenic claudication Back pain without radiculopathy Asthma Surgical History Status post hysterectomy Status post appendectomy Status post insertion of inferior vena caval filter Status post lumbar surgery Family History Other No significant family history Social History Smoking Status: Current every day smoker Tobacco Type: E-cigarettes / Vaping Second Hand Exposure: No; Do You Dip or Chew Tobacco: No; Hx Alcohol Use: Yes Alcohol type: wine Hx Substance Use: Yes Last Used Substance: Days (ago) Preferred Language: Albanian Communication Ability: Effective Land Examiner Required: No Beliefs That Will Affect Care: None marital status: / Current Living Situation: Family Feels Safe at Home: Yes Assistive Devices: Walker Physical Exam Vital Signs Vital Signs - 24 hr 08/21/23 13:36 08/21/23 19:00 Temperature 36.8 C Temperature Source Temporal Artery Scan Pulse Rate 103 H Pulse Rate [Finger] 89 Respiratory Rate 18 16 Respiratory Effort / Characteristics Non-Labored Spontaneous Non-Labored Respiratory Depth Normal Normal Respiratory Pattern Regular Blood Pressure 141/81 H Blood Pressure Mean 101 Blood Pressure Position Sitting Pulse Oximetry 95 96 Oxygen Delivery Method Room Air Room Air Sepsis Recent Fever Within 48 Hours No Sepsis New/Unexplained Change in Mental Status N/A Sepsis Action Taken by Nursing No Action Required VITALS: Vitals are noted on the nurse's note and reviewed by myself. Vital signs stable. GENERAL: 63-year-old, in mild distress, nondiaphoretic, well-developed well- nourished. SKIN: The skin was without rashes, erythema, edema, or bruising. HEAD: Normocephalic atraumatic. HEART: Regular rate and rhythm without murmurs gallops or rubs. LUNGS: Clear to auscultation bilaterally without wheezes, rales or rhonchi. No retractions or accessory muscle use. ABDOMEN: Positive bowel sounds x 4. Soft, nontender, without masses or organomegaly. Currie sign negative. No guarding or rebound tenderness. MUSCULOSKELETAL: Tenderness to palpation bilateral lumbar region, positive left and right straight leg raise. Altered gait, strength 5/5, distal pulses intact. NEURO: Patient was alert and oriented to person place and time. No focal neurological deficits. Course Administered Medications Discontinued Medications Acetaminophen (Acetaminophen 500 Mg Tab) 1,000 mg PO NOW STA Stop: 08/21/23 13:34 Last Admin: 08/21/23 13:49 Dose: 1,000 mg Documented By: AB Cyclobenzaprine HCl (Cyclobenzaprine Hcl 10 Mg Tab) 10 mg PO NOW STA Stop: 08/21/23 15:00 Last Admin: 08/21/23 15:24 Dose: 10 mg Documented By: OAC Dexamethasone Sodium Phosphate (DexamethasonePf 10 Mg/Ml Vial) 10 mg IM NOW ONE Stop: 08/21/23 15:04 Last Admin: 08/21/23 15:24 Dose: 10 mg Documented By: OAC Ketorolac Tromethamine (Ketorolac Tromethamine 60 Mg/2 Ml Vial) 30 mg IM NOW STA Stop: 08/21/23 13:34 Last Admin: 08/21/23 13:48 Dose: 30 mg Documented By: AB Lidocaine (Lidocaine 5% 1 Patch) 1 patch TD NOW STA Stop: 08/21/23 13:34 Last Admin: 08/21/23 13:48 Dose: 1 patch Documented By: AB Morphine Sulfate (Morphine Sulfate 4 Mg/Ml 1 Ml Carp\Vial) 4 mg IV NOW STA Stop: 08/21/23 17:28 Last Admin: 08/21/23 17:49 Dose: 4 mg Documented By: AVM Oxycodone HCl (Oxycodone Hcl Ir 5 Mg Tab (Immediate Release)) 5 mg PO NOW STA Stop: 08/21/23 15:00 Last Admin: 08/21/23 15:24 Dose: 5 mg Documented By: OAC Medical Decision Making Differential Diagnosis Musculoskeletal, disc herniation, fracture, metastatic disease, cord compression, discitis, sciatica, cauda equina, infection, aortic disease, renal colic, gastrointestinal, as well as other pathologies. Medical Records Attestation: I reviewed the patient's medical records. Home Medications Current Medication List: was personally reviewed by me Laboratory Data Attestation: I reviewed the patient's lab results. Slight leukocytosis 11.94, stable hemoglobin and hematocrit, no significant electrolyte abnormalities. 08/21/23 17:42 08/21/23 17:42 Lab Results 08/21/23 Range/Units 17:42 WBC 11.94 H (4.8-10.8) K/ul RBC 4.37 (4.20-5.40) M/uL Hgb 10.7 L (12.0-16.0) g/dl Hct 34.1 L (37.0-47.0) % MCV 78.0 L (80.0-100.0) fL MCH 24.5 L (25.0-34.0) pg MCHC 31.4 L (32.0-36.0) g/dL RDW Std Deviation 47.8 H (36.4-46.3) fL RDW Coeff of Jerrell 16.9 H (11.5-14.5) % Plt Count 244 (130-400) K/uL MPV 9.6 (9.4-12.4) fL Immature Gran % (Auto) 0.6 % Neut % (Auto) 87.6 % Lymph % (Auto) 8.0 % [place]ome % (Auto) 2.7 % Eos % (Auto) 0.8 % Baso % (Auto) 0.3 % Neut # (Auto) 10.46 H (1.40-6.50) K/uL Lymph # (Auto) 0.96 L (1.20-3.40) K/uL [place]ome # (Auto) 0.32 (0.11-0.59) K/uL Eos # (Auto) 0.10 (0.00-0.50) K/uL Baso # (Auto) 0.03 (0.00-0.20) K/uL Immature Gran # (Auto) 0.07 (0.01-0.20) K/uL PT 16.7 H (9.0-12.0) Seconds INR 1.6 H (0.9-1.1) Sodium 138 (136-145) mmol/L Potassium 3.7 (3.5-5.1) mmol/L Chloride 105 (98-107) mmol/L Carbon Dioxide 25 (21-32) mmol/L Anion Gap 8 (3-11) BUN 16 (6-23) mg/dl Creatinine 0.86 (0.6-1.2) mg/dl Est Cr Clr Drug Dosing 71.6 ml/min Est GFR ( Amer) 83.3 ml/min Est GFR (Non-Af Amer) 71.9 ml/min BUN/Creatinine Ratio 18.6 (10-20) Glucose 139 H (70-99(Fasting)) mg/dl Calcium 9.8 (8.6-10.3) mg/dl Total Bilirubin 1.1 H (0.2-1.0) mg/dl AST 13 (13-39) U/L ALT 12 (7-52) U/L Alkaline Phosphatase 74 (34-104) U/L Total Protein 7.3 (6.0-8.3) gm/dl Albumin 4.7 (3.4-5.0) gm/dl Globulin 2.6 (2.5-4.0) gm/dl Albumin/Globulin Ratio 1.8 (0.9-2) Imaging Data Radiologist's Impression: Lumbar Spine X-Ray 08/21/23 13:33 XR lumbar spine min 4V routine CLINICAL HISTORY: Low back pain. COMPARISON STUDY: Lumbar spine radiographs December 18, 2018. Lumbar spine CT February 18, 2021. FINDINGS: IVC filter and right hip arthroplasty are incidentally noted. Postoperative findings consistent with L2-L5 decompression are noted with L2-L3 pedicle screw fusion. Discectomies at the L2-L3, L3-L4 and L4-L5 levels. The hardware is intact. There is no lumbar spine fractures. Endplate irregularity adjacent to the L3-L4 disc space was shown on prior CT. IMPRESSION: 1. No lumbar spine fractures. 2. Status post L2-L5 decompression, multilevel discectomy and L2-L3 fusion. Hardware intact. 3. Endplate irregularity centered on the L3-L4 disc, similar to prior lumbar spine CT. ACT 112: Negative or not required by law. Electronically signed by: Vahid Josue M.D. 08/21/2023 2:44 PM Prescription Drug Monitoring Prescription Drug Findings: 120 tablets of Percocet and clonazepam provided monthly to the patient. Blood Pressure Blood Pressure Findings: Elevated blood pressure MDM Narrative The patient is a 63-year-old female who arrives to the emergency department for the above-stated complaint. Upon examination the patient is expressing severe low back pain with ambulatory dysfunction. She states when pain is severe she usually requires IV Dilaudid. Initial workup was performed in triage including a lumbar x-ray, oral acetaminophen, topical Lidoderm, and IM Toradol. Upon further evaluation the patient expressed no reduction in pain. Oral oxycodone was provided as well as IV dexamethasone. A saline lock was established, CBC, CMP, urinalysis were obtained. CBC shows a slight leukocytosis, stable hemoglobin and hematocrit. CMP was unremarkable. The patient reports no reduction in pain from the oral oxycodone and dexamethasone. IV morphine was provided to the patient, and she was notified if she was requiring IV pain control that she would need to be admitted to the hospital. She did initially request to skip morphine and go straight to IV Dilaudid, as it works best for her pain. Case management was contacted for facilitate admission to the [facility]. Dr. Louis, from the [facility] accepted the patient for admission. Please refer to her documentation for further patient care. The patient's case was discussed with Dr. Castellanos, who agreed with my evaluation and treatment plan. Impression & Plan History of chronic pain, Acute back pain Discharge Plan Visit Data Chief Complaint: Back Injury/Pain Stated Complaint: BACK, GROIN, AND LEG PAIN ED Provider: Tim Castellanos ED Midlevel Provider: Millie Moore Discharge Problem: History of chronic pain, Acute back pain Forms Stand Alone Forms: My [facility] Prescriptions Prescriptions: No Action albuterol sulfate 90 mcg/actuation HFA aerosol inhaler 2 puff INHALATION Q4H PRN (Reason: sob) Qty: 18 5RF cholecalciferol (vitamin D3) [Vitamin D3] 2,000 unit Tablet 2,000 unit PO QAM furosemide [Lasix] 20 mg Tablet 20 mg PO DAILY PRN (Reason: Edema) lorazepam [Ativan] 0.5 mg Tablet 0.5 mg PO TID pantoprazole 40 mg Tablet,Delayed Release (Dr/Ec) 40 mg PO QAM potassium chloride 20 mEq Tablet Extended Release 20 meq PO QAM rosuvastatin [Crestor] 40 mg Tablet 40 mg PO QPM warfarin 5 mg tablet 5 mg PO DAILY quetiapine 300 mg tablet 300 mg PO HS tizanidine 4 mg tablet 8 mg PO TID duloxetine 60 mg capsule,delayed release(DR/EC) 60 mg PO PM Rx Instructions: 60 mg and 30 mg for total dose of 90 celecoxib 200 mg capsule 200 mg PO BID albuterol sulfate 2.5 mg /3 mL (0.083 %) solution for nebulization 2.5 mg inhalation UD PRN (Reason: sob) oxycodone-acetaminophen 5-325 mg tablet 1 tab PO QID PRN (Reason: Pain) gabapentin 100 mg capsule 200 mg PO TID Breztri Aerosphere 160-9-4.8 mcg/actuation HFA aerosol inhaler 2 inh INHALATION BID Referrals Referrals: Chio Miller MD [Primary Care Provider] - Discharge Problem: Acute back pain Qualifiers: Back pain location: low back pain Back pain laterality: bilateral Sciatica presence: with sciatica Sciatica laterality: bilateral sciatica Qualified Code(s): M54.42 - Lumbago with sciatica, left side; M54.41 - Lumbago with sciatica, right side
[2023-08-21] MEDS ORDERED: ONDANSETRON INJ 2 MG/ML 2 ML VIAL IV PRN (20:26)
[2023-08-21] MEDS ORDERED: MAGNESIUM HYDROXIDE SUSP 30 ML UDC PO PRN (20:26)
[2023-08-21] MEDS ORDERED: ALUMINUM/MAGNESIUM SUSP 30 ML UDC PO PRN (20:26)
[2023-08-21] MEDS ORDERED: POLYETHYLENE (MIRALAX) 17 GM PACK PO PRN (20:26)
[2023-08-21] MEDS: WARFARIN SOD 5 MG TAB PO ONE (20:27)
[2023-08-21] MEDS: HYDROmorphone INJ 1 MG/ML SYRINGE IV STA (20:28)
[2023-08-21] MEDS: GABAPENTIN 100 MG CAP PO SCH (21:07)
[2023-08-21] MEDS: ROSUVASTATIN CALCIUM 20 MG TAB PO SCH (21:07)
[2023-08-21] MEDS: tiZANidine HCL 4 MG TABLET PO SCH (21:07)
[2023-08-21] MEDS: QUEtiapine FUMARATE 300 MG TABLET PO SCH (21:08)
[2023-08-21] MEDS: CeleBREX 200 MG CAP PO SCH (21:08)
[2023-08-21] MEDS: DULoxetine HCL 60 MG CAP PO SCH (21:08)
[2023-08-21] MEDS: oxyCODONE HCL IR 5 MG TAB (IMMEDIATE RELEASE) PO PRN (21:16)
[2023-08-21] MEDS: LORazepam 0.5 MG TAB PO SCH (21:16)
--- NOTE | 2023-08-21 21:34 | Magnetic Resonance Report ---
Exam(s): MRI L SPINE Without Contrast EXAM: MR Lumbar Spine Without Intravenous Contrast CLINICAL HISTORY: Reason for exam: numbness bilateral legs. TECHNIQUE: Magnetic resonance images of the lumbar spine without intravenous contrast in multiple planes. COMPARISON: Lumbar spine x-ray done earlier the same day and CT lumbar spine 02/18/21. FINDINGS: Vertebrae: Metal artifact from orthopedic hardware L2 and L3 as well as inter vertebral disc spacers L2-3, L3-4, L4-5. Chronic endplate flattening L4, stable. No marrow edema or compression deformity. No discitis or osteomyelitis. Incidental hemangioma T10. Conus: Terminates normally. Mild arachnoiditis L2 and L3, chronic. Soft tissues: No retroperitoneal adenopathy. No psoas abscess. Bilateral erector spinae atrophy, most pronounced L4 and L5. No epidural hematoma or abscess. DISCS/SPINAL CANAL/NEURAL FORAMINA: L1-L2: Mild degenerative disc disease. L2-L3: Prosthetic disc, with bilateral pedicle screws and moderate metal artifact. Patent central spinal canal following laminectomy. L3-L4: Prosthetic disc with mild metal artifact. Patent central spinal canal following laminectomy. L4-L5: Prosthetic disc with mild metal artifact. Patent canal following laminectomy. L5-S1: Unremarkable. OTHER: No disc herniation or central spinal stenosis. IMPRESSION: 1. Chronic arachnoiditis L2 and L3. 2. Extensive postoperative change L2-3, L3-4, L4-5, no complicating features. 3. Erector spinae muscle atrophy L4 and L5. 4. No acute finding including disc herniation, spinal stenosis, epidural hematoma, abnormal cord signal, or discitis/osteomyelitis. Electronically signed by: Oliva Barba M.D. 08/21/23 21:33 PM
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
--- OUTSIDE RECORDS SUMMARY | 2023-08-21 23:06 | External Medical Summary | Summary of Care ---
Author Name Unknown Organization [facility] Address [address] [place] [address] Phone [phone] Care Team Providers Care School Supervisor Name Role Phone Chio Miller MD Primary Care Provider [phone] Reason for Visit * Reason Onset Date Comments Test Results 07/12/2023 Encounter Details Date Type Department Care Team (Late st Contact Info) Description 07/12/2023 Telephone General Internal Medicine [facility] [address] [place] [address] Renny Hussein, [address] [place] [address] Test Results Allergies Active Allergy Reactions Criticality Noted Date Comments Phenytoin Edema face/lips/tongue High 01/27/2015 documented as of this encounter (statuses as of 07/28/2023) Medications Medication Sig Dispensed Refills Start Date End Date Status CHOLECALCIFEROL 2000 UNITS PO CAPS one capsule daily 30 Cap 4 4 Active QUEtiapine (SEROQUEL) 200 MG Tablet Take 300 mg by mouth at bedtime. 60 Tab 5 5 Active LORAzepam (ATIVAN) 0.5 MG Tablet TAKE ONE TABLET BY MOUTH THREE TIMES DAILY FOR ANXIETY 1 7 Active Amoxicillin 500 MG Oral Capsule (Amoxil) Take 1 Cap by mouth daily. Prior to dental work as directed 4 Cap 5 1 Active oxyCODONE-Acetami nophen 5-325 MG Oral Tablet (Percocet)Indicat ions:S/P cervical spinal fusion,Disc disorder of lumbar region,S/P lumbar fusion Take by mouth 1 Tablet 2 times a day as needed for Pain, Severe. 20 Tablet 0 2 Active Celecoxib 200 MG Oral Capsule (CeleBREX) Take 1 Capsule by mouth in the morning and 1 Capsule before bedtime. 0 2 Active DULoxetine HCl 60 MG Oral Capsule Delayed Release Particles (Cymbalta) TAKE ONE CAPSULE BY MOUTH EVERY DAY FOR mood AND anxiety 0 2 Active Zoster Vac Recomb Adjuvanted 50 MCG/0.5ML Intramuscular Suspension Reconstituted (Shingrix)Indicat ions:Need for shingles vaccine Inject 0.5 mL into a large muscle now and repeat dose in 60 to 180 days 1 Each 1 3 Active Pantoprazole Sodium 40 MG Oral Tablet Delayed Release (Protonix) TAKE 1 TABLET ONCE DAILY. 90 Tablet 3 3 Active Gabapentin 100 MG Oral Capsule (Neurontin) TAKE 1 CAPSULE BY MOUTH THREE TIMES A DAY FOR 3 DAYS THEN INCREASE TO 2 CAPSULES THREE TIMES A DAY 0 3 Active metFORMIN HCl ER 500 MG Oral Tablet Extended Release 24 Hour (Glucophage XR)Indications:Ty pe 2 diabetes mellitus with hemoglobin A1c goal of less than 7.0% (HCC) Take 2 Tablets by mouth in the morning. 180 Tablet 3 3 Active Furosemide 20 MG Oral Tablet (Lasix) TAKE ONE TABLET BY MOUTH DAILY FOR IN FLUID accumulation OR weight gain 90 Tablet 0 4 Active Albuterol Sulfate HFA 108 (90 Base) MCG/ACT Inhalation Aerosol SolutionIndicatio ns:Moderate persistent asthma without complication,Exac erbation of intermittent asthma, unspecified asthma severity,COPD exacerbation (HCC) INHALE TWO PUFFS BY MOUTH FOUR TIMES DAILY 18 g 3 4 Active Albuterol Sulfate (2.5 MG/3ML) 0.083% Inhalation Nebulization Solution (Proventil)Indica tions:Exacerbatio n of intermittent asthma, unspecified asthma severity,COPD exacerbation (HCC) Inhale 1 Vial via nebulizer every 4 hours as needed for Wheezing. 100 mL 5 4 Active Breztri Aerosphere 160-9-4.8 MCG/ACT Inhalation Aerosol Take 2 Puffs by mouth in the morning and 2 Puffs before bedtime. 0 Active Potassium Chloride Emily ER 20 MEQ Oral Tablet Extended ReleaseIndication s:Type 2 diabetes mellitus with hemoglobin A1c goal of less than 7.0% (HCC),Hyperlipide diana associated with type 2 diabetes mellitus (HCC),Moderate persistent asthma without complication Take 1 Tablet by mouth in the morning. 90 Tablet 3 4 Active Rosuvastatin Calcium 40 MG Oral Tablet (Crestor)Indicati ons:Dyslipidemia, goal LDL below 100 Take 1 Tablet by mouth in the morning. 90 Tablet 3 3 024 Discontinued Warfarin Sodium 5 MG Oral Tablet (Coumadin)Indicat ions:Pulmonary embolism and infarction (HCC) take (1 to 1&1/2) tablets by mouth daily as directed by warfarin clinic 135 Tablet 1 3 024 Discontinued tiZANidine HCl 4 MG Oral Tablet (Zanaflex)Indicat ions:Disc disorder of lumbar region,S/P cervical spinal fusion take 2 tablets by mouth every 8 hours if needed for muscle spasm 180 Tablet 1 4 024 Discontinued(Re fill) documented as of this encounter (statuses as of 07/28/2023) Active Problems Problem Noted Date Diagnosed Date Anemia 04/03/2020 Hyperlipidemia associated with type 2 [...] inactive term OA (osteoarthritis) of knee 01/26/2012 skilled nursing current use of anticoagulant 2 Cervical disc disease 11/24/2011 S/P cervical spinal fusion 11/24/2011 History of pulmonary embolism 10/21/2011 Asthma, moderate persistent 10/21/2011 Anticoagulation management encounter 10/21/2011 documented as of this encounter (statuses as of 07/28/2023) Resolved Problems Problem Noted Date Diagnosed Date [...] Thyroid mass 01/07/2012 10/15/2012 Overview: ?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 10/21/2011 08/18/2017 Overview: ICD-10 update of inactive term documented as of this encounter (statuses as of 07/28/2023) Immunizations Name Administration Dates Next Due COVID-19 mRNA, LNP-s, No Pre serve, 2-Dose Series (Moderna) 08/15/2020,07/18/2020 COVID-19, mRNA, LNP-s, PF, B ooster, 100mcg/0.5mg (Moderna) 04/05/2021 Hepatitis B, 20+ yrs 10/01/2013,05/03/2013,04/03 Pneumococcal Conjugate Vacci ne, 20-valent ([id number]) 03/17/2022 Pneumococcal Polysaccharide PPV23 (Pneumovax) 12/28/2011 Seasonal [...] Answer Date Recorded PHQ Adult Total Score 2 03/17/2022 Hunger Vital Sign Answer Date Recorded Worried About Running Out of Food in the Last Ye ar Never true 01/16/2019 Ran Out of Food in the Last Year Never true 01/16/2019 Sex and Gender Information Value Date Recorded [...] No 01/10/2023 documented as of this encounter Miscellaneous Notes * Addendum Note - Renny Hussein DO - 07/12/2023 1:59 PM EDTAddended by: RENNY HUSSEIN on: 07/12/2023 01:59 PM Modules accepted: Orders * Addendum Note - Alyssia Ogden LPN - 07/12/2023 1:56 PM EDTAddended by: ALYSSIA OGDEN on: 07/12/2023 01:56 PM Modules accepted: Orders * Telephone Encounter - Alyssia Ogden LPN - 07/12/2023 1:55 PM EDT Patient is aware and verbalizes understanding. Agreeable to lab work, pended for approval. * Telephone Encounter - Sera Sher MED ASSIST - 07/12/2023 1:14 PM EDT Called patient, left message to return call. MyG sent * Telephone Encounter - Sera Sher MED ASSIST - 07/12/2023 1:11 PM EDT ----- Message from Renny Hussein DO sent at 07/12/2023 10:24 AM EDT ----- Reviewed patient's lab work. Labs okay overall. A1c okay at 7.2. Continue current metformin Her INR is therapeutic at 2.4. Continue current Coumadin regimen. Follow-up with anticoagulation clinic as scheduled Her TSH is slightly elevated. I would like to repeat TSH, free T4 in 4 weeks. Can order lab work ifpatient is agreeable Otherwise continue other medication documented in this encounter Plan of Treatment Upcoming Encounters Date Type Department Care Team (Late st Contact Info) Description 08/11/2023 11:00 AM EDT Laboratory Laboratory, [address] [place] [phone] Elli Shane [facility] [place] [address] 08/16/2023 6:30 AM EDT Anticoagulation Pharmacy Call Center [phone] Monisha Montalvo [place] [address] [facility], [facility] [address] [facility] [place] [address] 08/21/2023 1:20 PM EDT Office Visit Podiatry [facility] [address] [facility] [place] [address] Christi Carias, [facility] [address] [place] [address] 09/13/2023 1:30 PM EDT Telemedicine Psychology Elizabeth Hagan [place] [address] [place] [phone] Farheen Chan, [facility] [address] [place] [address] 10/10/2023 1:00 PM EDT Office Visit General Internal Medicine [facility] [address] [place] [address] Renny Hussein, [address] [address] 01/17/2024 2:20 PM EST Office Visit Nutrition & Weight Management, [facility] [address] [facility] [place] [address] Roxanne Farley PA-C [address] [facility] [place] [address] Scheduled Orders Name Type Priority Associated Diagnoses Orde r Schedule TSH WITH FREE T4 IF INDICATED Lab Routine Elevated TSH Subclinical hypothyroidism Expected: 07/12/2023 (Approximate), Expires: 07/11/2024 Health Maintenance Due Date Last Done Comments DISCUSS TOBACCO CESSATION (REFER TO SMARTSET #5115) 1960 Colonoscopy 2005 Sigmoidoscopy 2005 Diabetic Eye Exam 07/25/2019 07/24/2018, , 05/25/2015, Additional history exists DTaP,Tdap,and Td Vaccines (2 - Td or Tdap) 11/23/2021 11/24/2011 COVID-19 Vaccine (4 - season) 2022 04/05/2021, 08/15/2020, 07/18/2020 Albumin/Creatinine Ratio 03/17/2023 023, 08/07/2020, 11/07/2019, Additional history exists Fecal Occult Blood Test 2023 06/10/2022, 06/10 Mammogram 10/13/2023 10/12/2022, 0804/2022, 04/13/2022, Additional history exists Influenza Vaccine (FLU [...] as of this encounter Visit Diagnoses Diagnosis Elevated TSH- Primary Other abnormal blood chemistry Subclinical hypothyroidism Other specified acquired hypothyroidism documented in this encounter Advance Directives Latest Code Status on File Code Status Date Activated Date Inactivated Comments Full Code 01/10/2023 3:19 PM 01/11/2023 6:55 PM This order reflects the patients wishes and were consensually agreed upon. Question Answer Comments Discussion of Advance Directives occurred with: Not Discussed due to patient's condition Care Teams School Supervisor Relationship Specialty Start Date End Date Chio Miller MD [address] [place] [address] PCP - General Internal Medicine 01/18/21 documented as of this encounter
--- OUTSIDE RECORDS SUMMARY | 2023-08-21 23:06 | External Medical Summary | Summary of Care ---
Author Name Unknown Organization [facility] Address [address] [place] [address] Phone [phone] Care Team Providers Care Washateria Attendant Name Role Phone Chio Miller MD Primary Care Provider [phone] Reason for Visit * Reason Onset Date Comments Test Results 07/12/2023 Encounter Details Date Type Department Care Team (Late st Contact Info) Description 07/12/2023 Telephone General Internal Medicine [facility] [address] [place] [address] Renny Hussein, [address] [place] [address] Test Results Allergies Active Allergy Reactions Criticality Noted Date Comments Phenytoin Edema face/lips/tongue High 01/27/2015 documented as of this encounter (statuses as of 07/12/2023) Medications Medication Sig Dispensed Refills Start Date [...] needed for Pain, Severe. 20 Tablet 0 09/20/2021 Active Celecoxib 200 MG Oral Capsule (CeleBREX) Take 1 Capsule by mouth in the morning and 1 Capsule before bedtime. 0 03/10/2022 Active DULoxetine HCl 60 MG Oral Capsule Delayed Release Particles (Cymbalta) TAKE ONE CAPSULE BY MOUTH EVERY DAY FOR mood AND anxiety 0 01/25/2022 Active Zoster Vac Recomb Adjuvanted 50 MCG/0.5ML Intramuscular Suspension Reconstituted (Shingrix)Indicatio ns:Need for shingles vaccine Inject 0.5 mL into a large muscle now and repeat dose in 60 to 180 days 1 Each 1 03/17/2022 Active Rosuvastatin Calcium 40 MG Oral Tablet (Crestor)Indication s:Dyslipidemia, goal LDL below 100 Take 1 Tablet by mouth in the morning. 90 Tablet 3 04/27/2022 Active Pantoprazole Sodium 40 MG Oral Tablet Delayed Release (Protonix) TAKE 1 TABLET ONCE DAILY. 90 Tablet 3 04/28/2022 Active Gabapentin 100 MG Oral Capsule (Neurontin) TAKE 1 CAPSULE BY MOUTH THREE TIMES A DAY FOR 3 DAYS THEN INCREASE TO 2 CAPSULES THREE TIMES A DAY 0 08/19/2022 Active metFORMIN HCl ER 500 MG Oral Tablet Extended Release 24 Hour (Glucophage XR)Indications:Type 2 diabetes mellitus with hemoglobin A1c goal of less than 7.0% (HCC) Take 2 Tablets by mouth in the morning. 180 Tablet 3 10/18/2022 Active Warfarin Sodium 5 MG Oral Tablet (Coumadin)Indicatio ns:Pulmonary embolism and infarction (HCC) take (1 to 1&1/2) tablets by mouth daily as directed by warfarin clinic 135 Tablet 1 11/30/2022 Active tiZANidine HCl 4 MG Oral Tablet (Zanaflex)Indicatio ns:Disc disorder of lumbar region,S/P cervical spinal fusion take 2 tablets by mouth every 8 hours if needed for muscle spasm 180 Tablet 1 05/27/2023 Active Furosemide 20 MG Oral Tablet (Lasix) TAKE ONE TABLET BY MOUTH DAILY FOR IN FLUID accumulation OR weight gain 90 Tablet 0 05/29/2023 Active Albuterol Sulfate HFA 108 (90 [...] the morning. 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 2 Cervical disc disease 11/24/2011 S/P cervical spinal fusion 11/24/2011 History of pulmonary embolism 10/21/2011 Asthma, moderate persistent 10/21/2011 Anticoagulation management encounter 10/21/2011 documented as of this encounter (statuses as of 07/12/2023) Resolved Problems Problem Noted Date Diagnosed Date [...] Thyroid mass 01/07/2012 10/15/2012 Overview: ?Dr Morley 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 * Telephone Encounter - eSra Sher MED ASSIST - 07/12/2023 1:14 PM [...] Care Team (Late st Contact Info) Description 07/19/2023 11:00 AM EDT Office Visit Podiatry [address] [place] [address] Christi Carias, ELAD[place] [address] [place] [address] 09/13/2023 1:30 PM EDT Telemedicine Psychology Elizabeth Hagan, [address] [place] [phone] Farheen Chanmena, SENIOR ADMINISTRATIVE SUPPORT [address] [facility] [place] [address] 10/10/2023 1:00 PM EDT Office Visit General Internal Medicine [facility] [address] [facility] [place] [address] Renny Hussein, [address] [address] 01/17/2024 2:20 PM EST Office Visit Nutrition & [facility] Management, [facility] [place] [address] Roxanne Farley PA-C [address] [place] [address] Scheduled Orders Name Type Priority Associated Diagnoses Orde r Schedule TSH WITH FREE T4 IF INDICATED Lab Routine Elevated TSH Subclinical hypothyroidism Expected: 07/12/2023 (Approximate), Expires: 07/11/2024 Health Maintenance Due Date Last Done Comments DISCUSS TOBACCO CESSATION (REFER TO SMARTSET #5499) 1960 Colonoscopy 2005 Sigmoidoscopy 2005 Diabetic Eye Exam 07/25/2019 07/24/2018, , 05/25/2015, Additional history exists DTaP,Tdap,and Td Vaccines (2 - Td or Tdap) 11/23/2021 11/24/2011 COVID-19 Vaccine ( season) 2022 04/05/2021, 08/15/2020, 07/18/2020 Albumin/Creatinine Ratio 03/17/2023 023, 08/07/2020, 11/07/2019, Additional history exists Fecal Occult Blood Test 2023 06/10/2022, 06/10 Mammogram 10/13/2023 10/12/2022, 08/0 04/2022, 04/13/2022, Additional history exists Influenza Vaccine [...] Discussed due to patient's condition Care Teams Washateria Attendant Relationship Specialty Start Date End Date Chio Miller MD [address] [facility] [place] [address] PCP - General Internal Medicine 01/18/21 documented as of this encounter
--- OUTSIDE RECORDS SUMMARY | 2023-08-21 23:06 | External Medical Summary | Summary of Care ---
Author Name Unknown Organization [facility] Address [address] [place] [address] Phone [phone] Care Team Providers Care Axle Bearing Polisher Name Role Phone Bobo Miller MD Primary Care Provider [phone] Reason for Visit * Reason Onset Date Comments Medication Refill 07/24/2023 Encounter Details Date Type Department Care Team (Late st Contact Info) Description 07/24/2023 Refill General Internal Medicine [facility] [address] [place] [address] Bobo Miller MD 200 [place] [address] Disc disorder of lumbar region; S/P cervical spinal fusion Allergies Active Allergy Reactions Criticality Noted Date Comments Phenytoin Edema face/lips/tongue High 01/27/2015 documented as of this encounter (statuses as of 07/25/2023) Medications Medication Sig Dispensed Refills Start Date [...] as directed 4 Cap 5 03/31/2020 Active oxyCODONE-Acetamin ophen 5-325 MG Oral Tablet (Percocet)Indicati ons:S/P cervical spinal fusion,Disc disorder of lumbar region,S/P [...] Recomb Adjuvanted 50 MCG/0.5ML Intramuscular Suspension Reconstituted (Shingrix)Indicati ons:Need for shingles vaccine Inject 0.5 mL into [...] Oral Tablet Extended Release 24 Hour (Glucophage XR)Indications:Typ e 2 diabetes mellitus with hemoglobin A1c goal of less than 7.0% (HCC) Take 2 Tablets by mouth in the morning. 180 Tablet 3 10/18/2022 Active Furosemide 20 MG Oral Tablet (Lasix) TAKE ONE TABLET BY MOUTH DAILY FOR IN FLUID accumulation OR weight gain 90 Tablet 0 05/29/2023 Active Albuterol Sulfate HFA 108 (90 Base) MCG/ACT Inhalation Aerosol SolutionIndication s:Moderate persistent asthma without complication,Exace rbation of intermittent asthma, unspecified asthma severity,COPD exacerbation (HCC) INHALE TWO PUFFS BY MOUTH FOUR TIMES DAILY 18 g 3 06/02/2023 Active Albuterol Sulfate (2.5 MG/3ML) 0.083% Inhalation Nebulization Solution (Proventil)Indicat ions:Exacerbation of intermittent asthma, unspecified asthma severity,COPD exacerbation (HCC) Inhale 1 Vial via nebulizer every 4 hours as needed for Wheezing. 100 mL 5 06/02/2023 Active Breztri Aerosphere 160-9-4.8 MCG/ACT Inhalation Aerosol Take 2 Puffs by mouth in the morning and 2 Puffs before bedtime. 0 Active Potassium Chloride Emily ER 20 MEQ Oral Tablet Extended ReleaseIndications :Type 2 diabetes mellitus with hemoglobin A1c goal of less than 7.0% (HCC),Hyperlipidem ia associated with type 2 diabetes mellitus (HCC),Moderate persistent asthma without complication Take 1 Tablet by mouth in the morning. 90 Tablet 3 07/11/2023 Active Warfarin Sodium 5 MG Oral Tablet (Coumadin)Indicati ons:Pulmonary embolism and infarction (HCC) take 1 tablets by mouth daily as directed by acc clinic 90 Tablet 1 07/20/2023 Active Rosuvastatin Calcium 40 MG Oral Tablet (Crestor)Indicatio ns:Dyslipidemia, goal LDL below 100 take 1 tablet by mouth every morning 90 Tablet 3 07/21/2023 Active tiZANidine HCl 4 MG Oral Tablet (Zanaflex)Indicati ons:Disc disorder of lumbar region,S/P cervical spinal fusion take 2 tablets by mouth every 8 hours if needed for muscle spasm 180 Tablet 1 07/25/2023 Active tiZANidine HCl 4 MG Oral Tablet (Zanaflex)Indicati ons:Disc disorder of lumbar region,S/P cervical spinal fusion take 2 tablets by mouth every 8 hours if needed for muscle spasm 180 Tablet 1 05/27/2023 4 Discontinu ed(Refill) documented as of this encounter (statuses as of 07/25/2023) Active Problems Problem Noted Date Diagnosed Date [...] inactive term OA (osteoarthritis) of knee 01/26/2012 [facility] current use of anticoagulant 2 Cervical disc disease 11/24/2011 S/P cervical spinal fusion 11/24/2011 History of pulmonary embolism 10/21/2011 Asthma, moderate persistent 10/21/2011 Anticoagulation management encounter 10/21/2011 documented as of this encounter (statuses as of 07/25/2023) Resolved Problems Problem Noted Date Diagnosed Date [...] Thyroid mass 01/07/2012 10/15/2012 Overview: ?Dr Morley [facility] current use of ant icoagulant therapy 10/21/2011 08/18/2017 Overview: ICD-10 update of inactive term documented as of this encounter (statuses as of 07/25/2023) Immunizations Name Administration Dates Next Due COVID-19 mRNA, LNP-s, No Pre serve, 2-Dose Series (Moderna) 08/15/2020,07/18/2020 COVID-19, mRNA, LNP-s, PF, B ooster, 100mcg/0.5mg (Moderna) 04/05/2021 Hepatitis B, 20+ yrs 10/01/2013,05/03/2013,04/03 Pneumococcal Conjugate Vacci ne, 20-valent ([id number]) 03/17/2022 Pneumococcal Polysaccharide PPV23 (Pneumovax) 12/28/2011 Seasonal [...] as of this encounter Miscellaneous Notes * Telephone Encounter - Bobo Miller MD - 07/25/2023 4:20 PM EDTSigned Prescriptions: Disp Refills tiZANidine HCl 4 MG Oral Tablet (Zanaflex) 180 Ta*1 Sig: take 2 tablets by mouth every 8 hours if needed for muscle spasm Authorizing Provider: BOBO MILLER * Telephone Encounter - Fernando Jaramillo [facility] - 07/25/2023 3:42 PM EDTPending Prescriptions: Disp Refills tiZANidine HCl 4 MG Oral Tablet (Zanaflex) 180 Ta*1 Sig: take 2 tablets by mouth every 8 hours if needed for muscle spasm * Telephone Encounter - Fernando Jaramillo [facility] - 07/25/2023 3:41 PM EDT [facility] is currently not authorized to approve refills for the pended medication(s) per refill protocol. Please approve if appropriate. Thanks, Fernando Jaramillo Pharm.D. Clinical Pharmacist [facility]Former[facility] [employer]) [phone] 07/25/2023, 3:41 PM Did you pend patient's preferred pharmacy and medication before forwarding?yes Pharmacy: [id number] Pending Prescriptions: Disp Refills tiZANidine HCl 4 MG Oral Tablet (Zanaflex)180 Ta*1 Sig: take 2 tablets by mouth every 8 hours if needed for muscle spasm Last Visit: 07/11/2023 (in office), 01/13/2022 (telemedicine) Next Visit: 10/10/2023 If no future appointments scheduled, and last appointment is greater than a year ago, please schedule patient for a follow-up appointment Last date the medication was ordered: Is this request for a controlled substance?No Urine Drug Screen:No results found. However, due to the size of the patient record, not all encounters were searched. Please check Results Review for a complete set of results. Patient Phone Numbers Home Phone Labs: Lab Results Component Value Date/Time CREAT 1.1 (H) 07/11/2023 02:25 PM CREAT 0.90 01/22/2023 01:14 PM CREAT 1.2 (H) 03/31/2020 05:11 PM POTASSIUM 4.5 07/11/2023 02:25 PM POTASSIUM 4.2 05/10/2022 05:16 AM POTASSIUM 4.0 03/31/2020 05:11 PM TSH 5.16 (H) 07/11/2023 02:25 PM TSH 2.69 11/01/2018 12:14 PM LDLCALC 45 10/10/2022 12:36 PM LDLCALC UNINTERPRETABLE RESULT 03/28/2018 01:12 PM LDLDIRECT 62 07/11/2023 02:25 PM LDLDIRECT 121 11/07/2019 03:27 PM LDLDIRECT 200 (H) 03/29/2017 02:12 PM ALT 19 07/11/2023 02:25 PM ALT 18 03/31/2020 05:11 PM HGBA1C 7.2 (H) 07/11/2023 02:25 PM HGBA1C 7.9 (H) 05/11/2022 03:28 PM HGBA1C 6.3 (H) 03/31/2020 05:11 PM documented in this encounter Plan of Treatment Upcoming Encounters Date Type Department Care Team (Late st Contact Info) Description 08/16/2023 6:30 AM EDT Anticoagulation Pharmacy Call Center [address] [place] [address] C[facility]ps, [facility] [address] [facility] [place] [address] 08/21/2023 1:20 PM EDT Office Visit Podiatry [facility] 132 [facility] [place] [address] Christi Carias, [facility] 400 [facility] [place] [address] 09/13/2023 1:30 PM EDT Telemedicine Psychology [facility] [address] [facility] [place] [address] Farheen Chan, [facility] [address] [facility] [address] 10/10/2023 1:00 PM EDT Office Visit General Internal Medicine [facility] [address] [place] [address] Renny Lau, [address] [address] 01/17/2024 2:20 PM EST Office Visit Nutrition & Weight Management, [facility] 132 [facility] [place] [address] Roxanne Farley, [place] 132 [facility] [place] [address] Health Maintenance Due Date Last Done Comments DISCUSS TOBACCO CESSATION (REFER TO SMARTSET #[id number]) 1960 Colonoscopy 2005 Sigmoidoscopy 2005 Diabetic Eye Exam 07/25/2019 07/24/2018, , 05/25/2015, Additional history exists DTaP,Tdap,and Td Vaccines (2 - Td or Tdap) 11/23/2021 11/24/2011 COVID-19 Vaccine (2022- season) 2022 04/05/2021, 08/15/2020, 07/18/2020 Albumin/Creatinine Ratio [...] as of this encounter Visit Diagnoses Diagnosis Disc disorder of lumbar region Other and unspecified disc disorder of lumbar region S/P cervical spinal fusion Arthrodesis status documented in this encounter Advance Directives Latest Code Status on File Code Status Date Activated Date Inactivated Comments Full Code 01/10/2023 3:19 PM 01/11/2023 6:55 PM This order reflects the patients wishes and were consensually agreed upon. Question Answer Comments Discussion of Advance Directives occurred with: Not Discussed due to patient's condition Care Teams Axle Bearing Polisher Relationship Specialty Start Date End Date Bobo Miller MD [address] [place] [address] PCP - General Internal Medicine 01/18/21 documented as of this encounter
--- OUTSIDE RECORDS SUMMARY | 2023-08-21 23:06 | External Medical Summary | Summary of Care ---
Author Name Unknown Organization [facility] Address [address] [place] [address] Phone [phone] Care Team Providers Care Shirt Folder Name Role Phone Chio Miller MD Primary Care Provider [phone] Reason for Visit * Reason Comments eRx-Medication Refill Encounter Details Date Type Department Care Team (Late st Contact Info) Description 07/20/2023 Refill General Internal Medicine [facility] 200 [facility] [place] [address] Chio Miller MD 200 [place] [address] Dyslipidemia, goal LDL below 100 Allergies Active Allergy Reactions Criticality Noted Date Comments Phenytoin Edema face/lips/tongue High 01/27/2015 documented as of this encounter (statuses as of 07/21/2023) Medications Medication Sig Dispensed Refills Start Date [...] as directed 4 Cap 5 1 Active oxyCODONE-Acetamin ophen 5-325 MG Oral Tablet [...] the morning. 180 Tablet 3 3 Active tiZANidine HCl 4 MG Oral Tablet (Zanaflex)Indicati ons:Disc disorder of lumbar region,S/P cervical spinal fusion take 2 tablets by mouth every 8 hours if needed for muscle spasm 180 Tablet 1 4 Active Furosemide 20 MG Oral Tablet (Lasix) [...] the morning. 90 Tablet 3 4 Active Warfarin Sodium 5 MG Oral Tablet (Coumadin)Indicati ons:Pulmonary embolism and infarction (HCC) take 1 tablets by mouth daily as directed by acc clinic 90 Tablet 1 4 Active Rosuvastatin Calcium 40 MG Oral Tablet (Crestor)Indicatio ns:Dyslipidemia, goal LDL below 100 take 1 tablet by mouth every morning 90 Tablet 3 4 Active Rosuvastatin Calcium 40 MG Oral Tablet (Crestor)Indicatio ns:Dyslipidemia, goal LDL below 100 Take 1 Tablet by mouth in the morning. 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 current use of anticoagulant 2 Cervical disc disease 11/24/2011 S/P cervical spinal fusion 11/24/2011 History of pulmonary embolism 10/21/2011 Asthma, moderate persistent 10/21/2011 Anticoagulation management encounter 10/21/2011 documented as of this encounter (statuses as of 07/21/2023) Resolved Problems Problem Noted Date Diagnosed Date [...] Thyroid mass 01/07/2012 10/15/2012 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 10/21/2011 08/18/2017 Overview: ICD-10 update of inactive term documented as of this encounter (statuses as of 07/21/2023) Immunizations Name Administration Dates Next Due COVID-19 mRNA, LNP-s, No Pre serve, 2-Dose Series (Moderna) 08/15/2020,07/18/2020 COVID-19, mRNA, LNP-s, PF, B ooster, 100mcg/0.5mg (Moderna) 04/05/2021 Hepatitis B, 20+ yrs 10/01/2013,05/03/2013,04/03 Pneumococcal Conjugate Vacci ne, 20-valent ([id number]) 03/17/2022 Pneumococcal Polysaccharide PPV23 (Pneumovax) 12/28/2011 Seasonal [...] encounter Miscellaneous Notes * Telephone Encounter - [facility] - 07/21/2023 9:26 AM EDTSigned Prescriptions: Disp Refills Rosuvastatin Calcium 40 MG Oral Tablet (Cr*90 Tab*3 Sig: take 1 tablet by mouth every morningAuthorizing Provider: Dionne MILLER User: FERNANDO JARAMILLO- Electronically signed by Fernando Jaram[facility] at 07/21/2023 9:26 AM EDT documented in this encounter Plan of Treatment Upcoming Encounters Date Type Department Care Team (Late st Contact Info) Description 08/16/2023 6:30 AM EDT Anticoagulation Pharmacy Call Center [address] [place] [address] [facility] 58 [address] [place] [address] 08/21/2023 1:20 PM EDT Office Visit Podiatry [facility] [address] [place] [address] Christi Carias, [facility] [address] [place] [address] 09/13/2023 1:30 PM EDT Telemedicine Psychology [place] [address] [place] [address] Farheen Chan, [facility] [address] [place] [address] 10/10/2023 1:00 PM EDT Office [facility] 200 [place] [address] Renny Lau [address] [address] 01/17/2024 2:20 PM EST Office Visit Nutrition & Weight Management, [facility] [address] [place] [address] Roxanne Farley PA-C [address] [place] [address] Health Maintenance Due Date Last Done Comments DISCUSS TOBACCO CESSATION (REFER TO SMARTSET #6311) 1960 Colonoscopy 2005 Sigmoidoscopy 2005 Diabetic Eye Exam 07/25/2019 07/24/2018, , 05/25/2015, Additional history exists DTaP,Tdap,and Td Vaccines (2 - Td or Tdap) 11/23/2021 11/24/2011 COVID-19 Vaccine ( - season) 2022 04/05/2021, 08/15/2020, 07/18/2020 Albumin/Creatinine [...] Cancer Screening 04/11/2025 Lipid Panel 07/10/2028 07/11/2023, 07/3 03/2022, 08/03/2022, Additional history exists Hepatitis B Completed [...] as of this encounter Visit Diagnoses Diagnosis Dyslipidemia, goal LDL below 100 Other and unspecified hyperlipidemia documented in this encounter Advance Directives Latest Code Status on File Code Status Date Activated Date Inactivated Comments Full Code 01/10/2023 3:19 PM 01/11/2023 6:55 PM This order reflects the patients wishes and were consensually agreed upon. Question Answer Comments Discussion of Advance Directives occurred with: Not Discussed due to patient's condition Care Teams Shirt Folder Relationship Specialty Start Date End Date Chio Miller MD [address] [place] [address] PCP - General Internal Medicine 01/18/21 documented as of this encounter
--- OUTSIDE RECORDS SUMMARY | 2023-08-21 23:06 | External Medical Summary | Summary of Care ---
Author Name Unknown Organization [facility] Address [address] [place] [address] Phone [phone] Care Team Providers Care Filling Hauler Name Role Phone Chio Miller MD Primary Care Provider [phone] Reason for Visit * Reason Onset Date Comments Medication Refill 07/24/2023 Encounter Details Date Type Department Care Team (Late st Contact Info) Description 07/24/2023 Refill General Internal Medicine [facility] 200 [place] [address] Chio Miller MD 200 [place] [address] Dyslipidemia, goal LDL below 100 Allergies Active [...] the morning. 180 Tablet 3 10/18/2022 Active tiZANidine HCl 4 MG Oral Tablet [...] for Wheezing. 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 2 Cervical disc [...] Thyroid mass 01/07/2012 10/15/2012 Overview: ?Dr Morley half-way current use of ant icoagulant therapy 10/21/2011 08/18/2017 Overview: ICD-10 update of inactive term documented as of this encounter (statuses as of 07/25/2023) Immunizations Name Administration Dates Next Due COVID-19 mRNA, LNP-s, No Pre serve, 2-Dose Series (Moderna) 08/15/2020,07/18/2020 COVID-19, mRNA, LNP-s, PF, B ooster, 100mcg/0.5mg (Moderna) 04/05/2021 Hepatitis B, 20+ yrs 10/01/2013,05/03/2013,04/03 Pneumococcal Conjugate Vacci ne, 20-valent ([id number]) 03/17/2022 Pneumococcal Polysaccharide PPV23 (Pneumovax) 12/28/2011 Seasonal [...] Notes * Telephone Encounter - Fernando Jaramillo [facility] - 07/25/2023 3:35 PM EDTRefused Prescriptions: Disp Refills Rosuvastatin Calcium 40 MG Oral Tablet (Cr*90 Tab*3 Sig: Take 1Tablet by mouth in the morning. In the morning..Refused By: FERNANDO JARAMILLOason for Refusal: Duplicate Request documented in this encounter Plan of Treatment Upcoming Encounters Date Type Department Care Team (Late st Contact Info) Description 08/16/2023 6:30 AM EDT Anticoagulation Pharmacy Call Center [address] [place] [address] Ccps, [facility] [address] [place] [address] 08/21/2023 1:20 PM EDT Office Visit Podiatry [facility] 132 [facility] [place] [address] Christi Carias, DPM 400 [place] [address] 09/13/2023 1:30 PM EDT Telemedicine Psychology [facility] 9 [place] [address] Farheen Chan, [facility] [address] [place] [address] 10/10/2023 1:00 PM EDT Office Visit General Internal Medicine [facility] 200 [place] [address] Renny Lau, [address] [address] 01/17/2024 2:20 PM EST Office Visit Nutrition & Weight Management, [facility] 132 [facility] [place] [address] Roxanne Farley PA-C 132 [facility] [place] [address] Health Maintenance Due Date Last Done Comments DISCUSS TOBACCO CESSATION (REFER TO SMARTSET #9540) 1960 Colonoscopy 2005 Sigmoidoscopy 2005 Diabetic Eye [...] Discussed due to patient's condition Care Teams Filling Hauler Relationship Specialty Start Date End Date Chio Miller MD 200 [facility] [place] [address] PCP - General Internal Medicine 01/18/21 documented as of this encounter
--- OUTSIDE RECORDS SUMMARY | 2023-08-21 23:06 | External Medical Summary | Summary of Care ---
Author Name Unknown Organization [facility] Address [address] [place] [address] Phone [phone] Care Team Providers Care Supervisor Die Casting Name Role Phone Chio Miller MD Primary Care Provider [phone] Reason for Visit * Reason Comments eRx-Medication Refill Encounter Details Date Type Department Care Team (Late st Contact Info) Description 07/24/2023 Refill General Internal Medicine [facility] 200 [facility] [place] [address] Chio Miller MD 200 [place] [address] Disc disorder of lumbar region; S/P cervical spinal fusion; Dyslipidemia, goal LDL below 100 Allergies Active [...] inactive term 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 2 Cervical disc [...] Thyroid mass 01/07/2012 10/15/2012 Overview: ?Dr Morley detention current use of ant icoagulant therapy 10/21/2011 08/18/2017 Overview: ICD-10 update of inactive term documented as of this encounter (statuses as of 07/25/2023) Immunizations Name Administration Dates Next Due COVID-19 mRNA, LNP-s, No Pre serve, 2-Dose Series (Moderna) 08/15/2020,07/18/2020 COVID-19, mRNA, LNP-s, PF, B ooster, 100mcg/0.5mg (Moderna) 04/05/2021 Hepatitis B, 20+ yrs 10/01/2013,05/03/2013,04/03 Pneumococcal Conjugate Vacci ne, 20-valent ([id number]) 03/17/2022 Pneumococcal Polysaccharide PPV23 (Pneumovax) 12/28/2011 Seasonal [...] encounter Miscellaneous Notes * Telephone Encounter - Leon Serna - 07/25/2023 5:36 AM EDTRefused Prescriptions: Disp Refills tiZANidine HCl 4 MG Oral Tablet (Zanaflex) 180 Ta*1 Sig: take 2tablets by mouth every 8 hours if needed for muscle spasmRefused By: Brett SERNA for Refusal: Duplicate Request Rosuvastatin Calcium 40 MG Oral Tablet (Cr*90 Tab*3 Sig: take 1 tablet by mouthevery morningRefused By: Brett SERNA for Refusal: Duplicate Request documented in this encounter Plan of Treatment Upcoming Encounters Date Type Department Care Team (Late st Contact Info) Description 08/16/2023 6:30 AM EDT Anticoagulation Pharmacy Call Center [address] [place] [address] [facility] 58 [address] [place] [address] 08/21/2023 1:20 PM EDT Office Visit Podiatry [facility] [address] [place] [address] Christi Carias, [facility] 400 [place] [address] 09/13/2023 1:30 PM EDT Telemedicine Psychology [place] [address] [place] [address] Farheen Chan, [facility] 100 [place] [address] 10/10/2023 1:00 PM EDT Office Visit General Internal Medicine [facility] 200 [place] [address] Renny Lau, [address] [address] 01/17/2024 2:20 PM EST Office Visit Nutrition & Weight Management, [facility] [address] [place] [address] Roxanne Farley PA-C [address] [place] [address] Health Maintenance Due Date Last Done Comments DISCUSS TOBACCO CESSATION (REFER TO SMARTSET #1868) 1960 Colonoscopy 2005 Sigmoidoscopy 2005 Diabetic Eye [...] region S/P cervical spinal fusion Arthrodesis status Dyslipidemia, goal LDL below 100 Other and unspecified hyperlipidemia documented in this encounter Advance Directives Latest Code Status on File Code Status Date Activated Date Inactivated Comments Full Code 01/10/2023 3:19 PM 01/11/2023 6:55 PM This order reflects the patients wishes and were consensually agreed upon. Question Answer Comments Discussion of Advance Directives occurred with: Not Discussed due to patient's condition Care Teams Supervisor Die Casting Relationship Specialty Start Date End Date Chio Miller MD [address] [place] [address] PCP - General Internal Medicine 01/18/21 documented as of this encounter
--- OUTSIDE RECORDS SUMMARY | 2023-08-21 23:06 | External Medical Summary | Summary of Care ---
Author Name Unknown Organization [facility] Address [address] [place] [address] Phone [phone] Care Team Providers Care Electrical Tryout Person Name Role Phone Chio Miller MD Primary Care Provider [phone] Reason for Visit * Reason Onset Date Comments Appointment 08/17/2023 Encounter Details Date Type Department Care Team (Late st Contact Info) Description 08/17/2023 Telephone Maurisio [place] [address] [place] [address] Tiesha Bhakta, [facility] [address] [place] [address] Appointment Allergies Active Allergy Reactions Criticality Noted Date [...] inactive term OA (osteoarthritis) of knee 01/26/2012 [facility]ent[facility] current use of anticoagulant 2 Cervical disc [...] Thyroid mass 01/07/2012 10/15/2012 Overview: ?Dr Morley [facility] current use of ant icoagulant therapy 10/21/2011 08/18/2017 Overview: ICD-10 update of inactive term documented as of this encounter (statuses as of 08/17/2023) Immunizations Name Administration Dates Next Due COVID-19 mRNA, LNP-s, No Pre serve, 2-Dose Series (Moderna) 08/15/2020,07/18/2020 COVID-19, mRNA, LNP-s, PF, B ooster, 100mcg/0.5mg (Moderna) 04/05/2021 Hepatitis B, 20+ yrs 10/01/2013,05/03/2013,04/03 Pneumococcal Conjugate Vacci ne, 20-valent ([id number]) 03/17/2022 Pneumococcal Polysaccharide PPV23 (Pneumovax) 12/28/2011 Seasonal [...] (15 years old or older) No 01/11/20 Cognitive Status Response Date of Assessm ent Because of a physical, menta l, or emotional condition, do you have serious difficulty concentrating, remembering, or making decisions? (5 years old or older) No 01/10/2023 documented as of this encounter Miscellaneous Notes * Telephone Encounter - Abiola Packer OSA - 08/17/2023 2:55 PM EDT Referral Details after Behavioral Health Intake: Referral: Internal Psych Resource: Per Tiesha OSBORNEW recommendation for therapy and psychiatryand [email or web address] for [facility] with Vanna Harshshashi. Scheduled with Provider Delroy 10/23@10 Provider Beulah 02/27@1130 documented in this encounter Plan of Treatment Upcoming Encounters Date Type Department Care Team (Late st Contact Info) Description 08/21/2023 1:20 PM EDT Office Visit Podiatry [facility] 132 [facility] [place] [address] Christi Carias, [facility] 400 [facility] [place] [address] 08/23/2023 6:30 AM EDT Antico[facility], Monisha Montalvo [address] [place] [address] [place] [address] [facility] 58 60 [facility] [place] [address] 10/10/2023 1:00 PM EDT Office Visit General Internal Medicine [facility] [address] Renny Lau, [address] [place] [address] 10/24/2023 10:00 AM EDT Telemedicine Psychology Maur[place] [address] [place] [phone] Linda Potts LCSW [address] [place] [address] 01/17/2024 2:20 PM EST Office Visit Nutrition & Weight Management, [facility] [place] [address] Roxanne Farley PA-C [address] [place] [address] 02/28/2024 11:30 AM EST Telemedicine Psychiatry [address], Jordyn 9 [place] [address] Britni Riojas DO [address] [facility] [place] [address] Health Maintenance Due Date Last Done Comments DISCUSS TOBACCO CESSATION (REFER TO SMARTSET #[id number]) 1960 Colonoscopy 2005 Sigmoidoscopy 2005 Diabetic Eye [...] Not on filedocumented as of this encounter Advance Directives * Full Code (Latest Code Status on File) Date Activated Date Inactivated Comments 01/10/2023 3:19 PM 01/11/2023 6:55 PM This order reflects the patients wishes and were consensually agreed upon. Question Answer Comments Discussion of Advance Direct mauro occurred with: Not Discussed due to patient's condition Care Teams Electrical Tryout Person Relationship Specialty Start Date End Date Chio Miller MD [address] [place] [address] PCP - General Internal Medicine 01/18/21 documented as of this encounter
--- OUTSIDE RECORDS SUMMARY | 2023-08-21 23:06 | External Medical Summary | Summary of Care ---
Author Name Unknown Organization [facility] Address [address] [place] [address] Phone [phone] Care Team Providers Care Embossing Machine Operator Helper Name Role Phone Chio Miller MD Primary Care Provider [phone] Encounter Details Date Type Department Care Team (Late st Contact Info) Description 07/14/2023 Orders Only PATIENT PORTAL DO NOT DELETE THIS DEPT USED BY [place] [address] Allergies Active Allergy Reactions Criticality Noted Date Comments Phenytoin Edema face/lips/tongue High 01/27/2015 documented as of this encounter (statuses as of 07/14/2023) Medications Medication Sig Dispensed Refills Start Date [...] as of this encounter (statuses as of 07/14/2023) Active Problems Problem Noted Date Diagnosed Date [...] inactive term 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 2 Cervical disc disease 11/24/2011 S/P cervical spinal fusion 11/24/2011 History of pulmonary embolism 10/21/2011 Asthma, moderate persistent 10/21/2011 Anticoagulation management encounter 10/21/2011 documented as of this encounter (statuses as of 07/14/2023) Resolved Problems Problem Noted Date Diagnosed Date [...] Thyroid mass 01/07/2012 10/15/2012 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 10/21/2011 08/18/2017 Overview: ICD-10 update of inactive term documented as of this encounter (statuses as of 07/14/2023) Immunizations Name Administration Dates Next Due COVID-19 mRNA, LNP-s, No Pre serve, 2-Dose Series (Moderna) 08/15/2020,07/18/2020 COVID-19, mRNA, LNP-s, PF, B ooster, 100mcg/0.5mg (Moderna) 04/05/2021 Hepatitis B, 20+ yrs 10/01/2013,05/03/2013,04/03 Pneumococcal Conjugate Vacci ne, 20-valent ([id number]) 03/17/2022 Pneumococcal Polysaccharide PPV23 (Pneumovax) 12/28/2011 Seasonal [...] Frequency of Alcohol Consumption 2-4 times a mon th 12/24/2019 Average Number of Drinks 1 or 2 [...] No 01/10/2023 documented as of this encounter Plan of Treatment Upcoming Encounters Date Type Department Care Team (Late st Contact Info) Description 07/19/2023 11:00 AM EDT Office Visit Podiatry [facility] [address] [place] [address] Christi Carias, DPNhi [address] [address] 08/16/2023 6:30 AM EDT [facility] Call Center [address] [facility] [place] [address] [facility] 58 60 [facility] [place] [address] 09/13/2023 1:30 PM EDT Telemedicine Psychology [address], [place] [address] [place] [phone] Farheen Chan, PATIENT ACCESS REPRESENTATIVE [address] [facility] [place] [address] 10/10/2023 1:00 PM EDT Office Visit General Internal Medicine [facility] 200 [place] [address] Renny Lau, [address] [address] 01/17/2024 2:20 PM EST Office Visit Nutrition & Weight Management, [facility] [place] [address] Roxanne Farley PA-C [address] [place] [address] Health Maintenance Due Date Last Done Comments DISCUSS TOBACCO CESSATION (REFER TO SMARTSET #6952) 1960 Colonoscopy 2005 Sigmoidoscopy 2005 Diabetic Eye [...] filedocumented as of this encounter Advance Directives Latest Code Status on File Code Status Date Activated Date Inactivated Comments Full Code 01/10/2023 3:19 PM 01/11/2023 6:55 PM This order reflects the patients wishes and were consensually agreed upon. Question Answer Comments Discussion of Advance Directives occurred with: Not Discussed due to patient's condition Care Teams Embossing Machine Operator Helper Relationship Specialty Start Date End Date Chio Miller MD 200 [facility] [place] [address] PCP - General Internal Medicine 01/18/21 documented as of this encounter
--- OUTSIDE RECORDS SUMMARY | 2023-08-21 23:06 | External Medical Summary | Summary of Care ---
Author Name Unknown Organization [facility] Address [address] [place] [address] Phone [phone] Care Team Providers Care Threat Analyst Name Role Phone Chio Brown MD Primary Care Provider [phone] Reason for Visit * Reason Comments eRx-Medication Refill Encounter Details Date Type Department Care Team (Late st Contact Info) Description 07/19/2023 Refill General Internal Medicine [facility] 200 [facility] [place] [address] Chio Brown MD [address] [place] [address] Pulmonary embolism and infarction (HCC) Allergies Active Allergy Reactions Criticality Noted Date Comments Phenytoin Edema face/lips/tongue High 01/27/2015 documented as of this encounter (statuses as of 07/20/2023) Medications Medication Sig Dispensed Refills Start Date [...] 180 days 1 Each 1 3 Active Rosuvastatin Calcium 40 MG Oral Tablet (Crestor)Indicatio ns:Dyslipidemia, goal LDL below 100 Take 1 Tablet by mouth in the morning. 90 Tablet 3 3 Active Pantoprazole Sodium 40 MG Oral [...] acc clinic 90 Tablet 1 4 Active Warfarin Sodium 5 MG Oral Tablet (Coumadin)Indicati ons:Pulmonary embolism and infarction (HCC) take (1 to 1&1/2) tablets by mouth daily as directed by warfarin clinic 135 Tablet 1 3 07/20/19 24 Discontinued documented as of this encounter (statuses as of 07/20/2023) Active Problems Problem Noted Date Diagnosed Date [...] inactive term OA (osteoarthritis) of knee 01/26/2012 jail current use of anticoagulant 2 Cervical disc disease 11/24/2011 S/P cervical spinal fusion 11/24/2011 History of pulmonary embolism 10/21/2011 Asthma, moderate persistent 10/21/2011 Anticoagulation management encounter 10/21/2011 documented as of this encounter (statuses as of 07/20/2023) Resolved Problems Problem Noted Date Diagnosed Date [...] Thyroid mass 01/07/2012 10/15/2012 Overview: ?Dr Morley jail current use of ant icoagulant therapy 10/21/2011 08/18/2017 Overview: ICD-10 update of inactive term documented as of this encounter (statuses as of 07/20/2023) Immunizations Name Administration Dates Next Due COVID-19 mRNA, LNP-s, No Pre serve, 2-Dose Series (Moderna) 08/15/2020,07/18/2020 COVID-19, mRNA, LNP-s, PF, B ooster, 100mcg/0.5mg (Moderna) 04/05/2021 Hepatitis B, 20+ yrs 10/01/2013,05/03/2013,04/03 Pneumococcal Conjugate Vacci ne, 20-valent ([id number]) 03/17/2022 Pneumococcal Polysaccharide PPV23 (Pneumovax) 12/28/2011 Seasonal [...] encounter Miscellaneous Notes * Telephone Encounter - Josephine Gee [facility] - 07/20/2023 11:13 AM EDTSigned Prescriptions: Disp Refills Warfarin Sodium 5 MG Oral Tablet (Coumadin)90 Tab*1 Sig: take 1 tablets by mouth daily as directed by acc clinicAuthorizing Provider: Dionne BROWN User: JOSEPHINE GEE documented in this encounter Plan of Treatment Upcoming Encounters Date Type Department Care Team (Late st Contact Info) Description 08/16/2023 6:30 AM EDT Anticoagulation Pharmacy Call Center [address] [place] [address] [facility] 58 [address] [place] [address] 08/21/2023 1:20 PM EDT Office Visit Podiatry [facility] [address] [place] [address] Christi Carias, [facility] [address] [place] [address] 09/13/2023 1:30 PM EDT Telemedicine Psychology Jordyn Beckman [address] [place] [phone] Farheen Chan, [facility] [address] [place] [address] 10/10/2023 1:00 PM EDT Office Visit General Internal Medicine [facility] 200 [place] [address] Renny Lau, [address] [address] 01/17/2024 2:20 PM EST Office Visit Nutrition & Weight Management, [facility] [address] [place] [address] Roxanne Farley PA-C [address] [place] [address] Health Maintenance Due Date Last Done Comments DISCUSS TOBACCO CESSATION (REFER TO SMARTSET #[id number]) 1960 Colonoscopy 2005 Sigmoidoscopy 2005 Diabetic Eye Exam 07/25/2019 07/24/2018, , 05/25/2015, Additional history exists DTaP,Tdap,and Td Vaccines (2 - Td or Tdap) 11/23/2021 11/24/2011 COVID-19 Vaccine ( season) 2022 04/05/2021, 08/15/2020, 07/18/2020 Albumin/Creatinine Ratio 03/17/2023 023, 08/07/2020, 11/07/2019, Additional history exists Fecal Occult Blood Test 2023 06/10/2022, 06/10 Mammogram 10/13/2023 10/12/2022, 04/2022, 04/13/2022, Additional history exists Influenza Vaccine [...] as of this encounter Visit Diagnoses Diagnosis Pulmonary embolism and infarction (HCC) Other pulmonary embolism and infarction documented in this encounter Advance Directives Latest Code Status on File Code Status Date Activated Date Inactivated Comments Full Code 01/10/2023 3:19 PM 01/11/2023 6:55 PM This order reflects the patients wishes and were consensually agreed upon. Question Answer Comments Discussion of Advance Directives occurred with: Not Discussed due to patient's condition Care Teams Threat Analyst Relationship Specialty Start Date End Date Chio Brown MD 200 [place] [address] PCP - General Internal Medicine 01/18/21 documented as of this encounter
--- OUTSIDE RECORDS SUMMARY | 2023-08-21 23:07 | External Medical Summary | Summary of Care ---
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 2 Cervical disc [...] Thyroid mass 01/07/2012 10/15/2012 Overview: ?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 10/21/2011 08/18/2017 Overview: ICD-10 update of inactive term documented as of this encounter (statuses as of 07/12/2023) Immunizations Name Administration Dates Next Due COVID-19 mRNA, LNP-s, No Pre serve, 2-Dose Series (Moderna) 08/15/2020,07/18/2020 COVID-19, mRNA, LNP-s, PF, B ooster, 100mcg/0.5mg (Moderna) 04/05/2021 Hepatitis B, 20+ yrs 10/01/2013,05/03/2013,04/03 Pneumococcal Conjugate Vacci ne, 20-valent ([id number]) 03/17/2022 Pneumococcal Polysaccharide PPV23 (Pneumovax) 12/28/2011 Seasonal [...] encounter Miscellaneous Notes * Telephone Encounter - Sera Sher MED ASSIST - 07/12/2023 1:14 PM EDT Called patient, left message to return call. MyG sent * Telephone Encounter - Sera Sher MED ASSIST - 07/12/2023 1:11 PM EDT ----- Message from Renny Lau DO sent at 07/12/2023 10:24 AM EDT [...] 07/19/2023 11:00 AM EDT Office Visit Podiatry [facility] 132 [facility] [place] [address] Christi Carias, DPM [address] [place] [address] 09/13/2023 1:30 PM EDT Telemedicine Psychology [facility] [address] [place] [address] Farheen Chan, [facility] [address] [place] [address] 10/10/2023 1:00 PM EDT Office Visit General Internal Medicine [facility] 200 [place] [address] Renny Lau DO [address] [place] [address] 01/17/2024 2:20 PM EST Office Visit Nutrition & Weight Management, [facility] 132 [facility] [place] [address] Roxanne Farley PA-C 132 [place] [address] Health Maintenance Due Date Last Done Comments DISCUSS TOBACCO CESSATION (REFER TO SMARTSET #1710) 1960 Colonoscopy 2005 Sigmoidoscopy 2005 Diabetic Eye [...] Discussed due to patient's condition Care Teams Butcher'S Assistant Relationship Specialty Start Date End Date Chio Miller MD 200 [facility] [place] [address] PCP - General Internal Medicine 01/18/21 documented as of this encounter
--- OUTSIDE RECORDS SUMMARY | 2023-08-21 23:07 | External Medical Summary | Summary of Care ---
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 (routine) Morbid obesity due to excess calories (HCC) Ordered: 07/11/2023 PODIATRY REFERRAL OP Referral Within 10 d ays (routine) Onychomycosis of right great toe Ordered: 07/11/2023 Health Maintenance Due Date Last Done Comments DISCUSS TOBACCO CESSATION (REFER TO SMARTSET #1209) 1960 Colonoscopy 2005 Sigmoidoscopy 2005 Diabetic Eye Exam 07/25/2019 07/24/2018, , 05/25/2015, Additional history exists DTaP,Tdap,and Td Vaccines (2 - Td or Tdap) 11/23/2021 11/24/2011 COVID-19 Vaccine ( season) 2022 04/05/2021, 08/15/2020, 07/18/2020 HbA1c 11/11/2022 05/11/2022, 02/10, 08/07/2020, Additional history exists Albumin/Creatinine Ratio 03/17/2023 023, 08/07/2020, 11/07/2019, Additional history exists Fecal Occult Blood Test 2023 06/10/2022, 06/10 Mammogram 10/13/2023 10/12/2022, 08/0 04/2022, 04/13/2022, Additional history exists Influenza Vaccine (FLU shot) (Season Ended) 2023 03/17/2022, 02/25/2021, 12/24/2019, Additional history exists GFR 01/23/2024 01/22/2023, 07/12, 05/16/2022, Additional history exists Diabetic Foot Exam 07/10/2024 07/11/2023, 0 03/17/2022, 08/07/2020, Additional history exists Cologuard 04/11/2025 04/11/2022, 03/14, 04/03/2022, Additional history exists Colorectal Cancer Screening 04/11/2025 Lipid Panel 10/11/2027 10/10/2022, 07/12, 05/27/2021, Additional history exists Hepatitis B Completed 10/01/2013, [...] as of this encounter Visit Diagnoses Diagnosis Type 2 diabetes mellitus with hemoglobin A1c goal of less than 7.0% (HCC)- Primary Hyperlipidemia associated with type 2 diabetes mellitus (HCC) Moderate persistent asthma without complication Unspecified asthma Gastroesophageal reflux disease without esophagitis Esophageal reflux Chronic pain syndrome History of pulmonary embolism Personal history of pulmonary embolism Current moderate episode of major depressive disorder without prior episode (HCC) DONG (generalized anxiety disorder) Generalized anxiety disorder Onychomycosis of right great toe Morbid obesity due to excess calories (HCC) documented in this encounter Advance Directives Latest Code Status on File Code Status Date Activated Date Inactivated Comments Full Code 01/10/2023 3:19 PM 01/11/2023 6:55 PM This order reflects the patients wishes and were consensually agreed upon. Question Answer Comments Discussion of Advance Directives occurred with: Not Discussed due to patient's condition Care Teams Mixing Technician Relationship Specialty Start Date End Date Chio Miller MD [address] [facility] [place] [address] PCP - General Internal Medicine 01/18/21 documented as of this encounter
--- OUTSIDE RECORDS SUMMARY | 2023-08-21 23:07 | External Medical Summary | Summary of Care ---
Author Name Unknown Organization [facility] Address [address] [place] [address] Phone [phone] Care Team Providers Care Bagel Maker Name Role Phone Bobo Miller MD Primary Care Provider [phone] Reason for Visit * Reason Onset Date Comments Medication Refill 06/01/2023 Encounter Details Date Type Department Care Team (Late st Contact Info) Description 06/01/2023 Refill General Internal Medicine [facility] [address] [facility] [place] [address] Bobo Miller MD [address] [place] [address] Moderate persistent asthma without complication; Exacerbation of intermittent asthma, unspecified asthma severity; COPD exacerbation (HCC) Allergies Active Allergy Reactions Criticality Noted Date Comments Phenytoin Edema face/lips/tongue High 01/27/2015 documented as of this encounter (statuses as of 06/02/2023) Medications Medication Sig Dispensed Refills Start Date End Date Status CHOLECALCIFEROL 2000 UNITS PO CAPS one capsule daily 30 Cap 4 01/09/2014 Active QUEtiapine (SEROQUEL) 200 MG Tablet Take 300 mg by mouth at bedtime. 60 Tab 5 01/27/2015 Active LORAzepam (ATIVAN) 0.5 MG Tablet TAKE ONE TABLET BY MOUTH THREE TIMES DAILY FOR ANXIETY 1 08/04/2016 Active Potassium Chloride Emily ER 20 MEQ TBCR Take 1 Tab by mouth daily. 90 Tab 3 08/18/2017 Active fluticasone (FLONASE) 50 MCG/ACT nasal sprayIndications:B enign paroxysmal vertigo of both ears,Nasal sinus congestion Administer 2 Sprays into each nostril daily. 1 Inhaler 5 12/24/2018 Active ferrous sulfate (FEOSOL) 325 (65 FE) MG TabletIndications: Postoperative anemia Take 1 Tablet by mouth in the morning and 1 Tablet before bedtime. 0 08/23/2019 Active Amoxicillin 500 MG Oral Capsule (Amoxil) [...] THREE TIMES A DAY 0 08/19/2022 Active Trelegy Ellipta 100-62.5-25 MCG/ACT Aerosol Powder Breath Activated INHALE 1 PUFF BY MOUTH DAILY 0 09/10/2022 Active metFORMIN HCl ER 500 MG Oral [...] warfarin clinic 135 Tablet 1 11/30/2022 Active Enoxaparin Sodium 100 MG/ML Injection Solution Prefilled Syringe (Lovenox)Indicatio ns:History of pulmonary embolism Inject 100 mg under the skin in the morning and 100 mg before bedtime. As instructed by the [facility]. 10 mL 0 01/03/2023 Active oxyCODONE HCl 5 MG Oral Tablet (Oxy IR) Take 1 tablet by mouth every 4 hours as needed for severe pain. 11 Tablet 0 01/11/2023 Active tiZANidine HCl 4 MG Oral Tablet [...] for Wheezing. 100 mL 5 06/02/2023 Active Albuterol Sulfate (2.5 MG/3ML) 0.083% Inhalation Nebulization Solution (Proventil)Indicat ions:Exacerbation of intermittent asthma, unspecified asthma severity,COPD exacerbation (HCC) Inhale via nebulizer 1 Vial every 4 hours as needed for Wheezing. 100 mL 5 05/27/2021 4 Discontinu ed(Refill) Albuterol Sulfate HFA 108 (90 Base) MCG/ACT Inhalation Aerosol SolutionIndication s:Moderate persistent asthma without complication,Exace rbation of intermittent asthma, unspecified asthma severity,COPD exacerbation (HCC) INHALE TWO PUFFS BY MOUTH FOUR TIMES DAILY 18 g 3 04/28/2022 4 Discontinu ed(Refill) documented as of this encounter (statuses as of 06/02/2023) Active Problems Problem Noted Date Diagnosed Date Anemia 04/03/2020 Dyslipidemia, goal LDL below 100 05/15/2017 S/P lumbar fusion 10/07/2016 Anxiety 09/23/2015 [...] inactive term OA (osteoarthritis) of knee 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 2 Cervical disc disease 11/24/2011 S/P cervical spinal fusion 11/24/2011 History of pulmonary embolism 10/21/2011 Asthma, moderate persistent 10/21/2011 Anticoagulation management encounter 10/21/2011 documented as of this encounter (statuses as of 06/02/2023) Resolved Problems Problem Noted Date Diagnosed Date [...] Thyroid mass 01/07/2012 10/15/2012 Overview: ?Dr Morley assisted current use of ant icoagulant therapy 10/21/2011 08/18/2017 Overview: ICD-10 update of inactive term documented as of this encounter (statuses as of 06/02/2023) Immunizations Name Administration Dates Next Due COVID-19 mRNA, LNP-s, No Pre serve, 2-Dose Series (Moderna) 08/15/2020,07/18/2020 COVID-19, mRNA, LNP-s, PF, B ooster, 100mcg/0.5mg (Moderna) 04/05/2021 Hepatitis B, 20+ yrs 10/01/2013,05/03/2013,04/03 Pneumococcal Conjugate Vacci ne, 20-valent ([id number]) 03/17/2022 Pneumococcal Polysaccharide PPV23 (Pneumovax) 12/28/2011 Seasonal [...] encounter Miscellaneous Notes * Telephone Encounter - Nate Vinson [facility] - 06/02/2023 8:41 AM EDT Signed Prescriptions: Disp Refills Albuterol Sulfate HFA 108 (90 Base) MCG/AC*18 g 3 Sig: INHALE TWO PUFFS BY MOUTH FOUR TIMES DAILY Authorizing Provider: BOBO MILLER Ordering User: NATE VINSON Albuterol Sulfate (2.5 MG/3ML) 0.083% Inha*100 mL 5 Sig: Inhale 1 Vial via nebulizer every 4 hours as needed for Wheezing. Authorizing Provider: Du MILLER Ordering User: NATE VINSON * Telephone Encounter - Dorene Shelton, applications support engineer - 06/01/2023 2:59 PM EDT Did you pend patient's preferred pharmacy and medication before forwarding?yes Pharmacy: [facility] #[id number] [address] [place] [address] Pending Prescriptions: Disp Refills Albuterol Sulfate HFA 108 (90 Base) MCG/A*18 g 3 Sig: INHALE TWO PUFFS BY MOUTH FOUR TIMES DAILY Albuterol Sulfate (2.5 MG/3ML) 0.083% Inh*100 mL 5 Sig: Inhale 1 Vial via nebulizer every 4 hours as needed for Wheezing. Last Visit: 10/18/2022 (in office), 01/13/2022 (telemedicine) Next Visit: Visit date not found If no future appointments scheduled, and last appointment is greater than a year ago, please schedule patient for a follow-up appointment Last date the medication was ordered: 04/28/2022,05/27/2021 Transferred patient to scheduling to schedule appt Is this request for a controlled substance?No Urine Drug Screen:No results found. However, due to the size of the patient record, not all encounters were searched. Please check Results Review for a complete set of results. Patient Phone Numbers Labs: Lab Results Component Value Date/Time CREAT 0.90 01/22/2023 01:14 PM CREAT 1.2 (H) 03/31/2020 05:11 PM POTASSIUM 4.2 05/16/2022 03:18 PM POTASSIUM 4.2 05/10/2022 05:16 AM POTASSIUM 4.0 03/31/2020 05:11 PM TSH 2.69 11/01/2018 12:14 PM LDLCALC 45 10/10/2022 12:36 PM LDLCALC UNINTERPRETABLE RESULT 03/28/2018 01:12 PM LDLDIRECT 59 05/27/2021 02:38 PM LDLDIRECT 121 11/07/2019 03:27 PM LDLDIRECT 200 (H) 03/29/2017 02:12 PM ALT 20 05/27/2021 02:38 PM ALT 18 03/31/2020 05:11 PM HGBA1C 7.9 (H) 05/11/2022 03:28 PM HGBA1C 6.3 (H) 03/31/2020 05:11 PM documented in this encounter Plan of Treatment Upcoming Encounters Date Type Department Care Team (Late st Contact Info) Description 06/15/2023 3:20 PM EDT Office Visit General Internal Medicine [facility] [address] [place] [address] Bobo Miller MD [address] [facility] [place] [address] 06/23/2023 6:45 PM EDT Anticoagulation Pharmacy Call Center [phone] [place] [address] [facility], [facility] [address] [facility] [place] [address] Health Maintenance Due Date Last Done Comments DISCUSS TOBACCO CESSATION (REFER TO SMARTSET #3291) 1960 Colonoscopy 2005 Sigmoidoscopy 2005 Diabetic Eye Exam 07/25/2019 07/24/2018, , 05/25/2015, Additional history exists DTaP,Tdap,and Td Vaccines (2 - Td or Tdap) 11/23/2021 11/24/2011 COVID-19 Vaccine ( - season) 2022 04/05/2021, 08/15/2020, 07/18/2020 HbA1c 11/11/2022 05/11/2022, 02/10, 08/07/2020, Additional history exists Influenza Vaccine (FLU shot) (#1) 2022 03/17/2022, 02/25/2021, 12/24/2019, Additional history exists Albumin/Creatinine Ratio 03/17/2023 023, 08/07/2020, 11/07/2019, Additional history exists Depression Screening 03/17/2023 03/17/2022 Diabetic Foot Exam 03/17/2023 03/17/2022, 0 08/07/2020, 11/07/2019, Additional history exists Fecal Occult Blood Test 2023 06/10/2022, 03/31 /2023 Mammogram 10/13/2023 10/12/2022, 08/0 04/2022, 04/13/2022, Additional history exists GFR 01/23/2024 01/22/2023, 07/12, 05/16/2022, Additional history exists Cologuard 04/11/2025 04/11/2022, 03/14, [...] as of this encounter Visit Diagnoses Diagnosis Moderate persistent asthma without complication Unspecified asthma Exacerbation of intermittent asthma, unspecified asthma severity COPD exacerbation (HCC) Obstructive chronic bronchitis with exacerbation documented in this encounter Advance Directives Latest Code Status on File Code Status Date Activated Date Inactivated Comments Full Code 01/10/2023 3:19 PM 01/11/2023 6:55 PM This order reflects the patients wishes and were consensually agreed upon. Question Answer Comments Discussion of Advance Directives occurred with: Not Discussed due to patient's condition Care Teams Bagel Maker Relationship Specialty Start Date End Date Bobo Miller MD [address] [place] [address] PCP - General Internal Medicine 01/18/21 documented as of this encounter
--- OUTSIDE RECORDS SUMMARY | 2023-08-21 23:07 | External Medical Summary ---
Author Name Unknown Address Unknown Organization [id number]:[facility] [place] [address] [facility] [address] Laboratory Report Ordering Provider Test Date Status BOBOFILIBERTOJACEY 07/11/2023 14:25:46 Final Observation Date Value Abnormality Reference (Units ) Status HbA1C 07/11/2023 14:25:46 7.2 Above high normal 4. 0-5.6 (%) Final The use of HbA1c to monitor glycemic status is based on normal hemoglobin and HbA composition. This test should not be used in patients with abnormal hemoglobin that affects the half life of the red blood cell or the in vivo glycation rates. Glucose, estimated average 07/11/2023 14:25:46 160 Above high normal <126 (mg/dL) Adolph blankenship Performing Location [facility] [address] [facility] [address]
--- OUTSIDE RECORDS SUMMARY | 2023-08-21 23:07 | External Medical Summary ---
Author Name Unknown Address Unknown Organization [id number]:[facility] [place] [address] Laboratory Report Ordering Provider Test Date Status KEENAN VAZ 07/11/2023 14:25:46 Final Observation Date Value Abnormality Reference (Units ) Status SYNC LEUKOCYTES IN BLOOD BY AUTOMATED COUNT 07/11/2023 14:25:46 8.62 4.00-10.80 (K/uL) Final Segs 07/11/2023 14:25:46 68.6 40.0-75.0 (%) Final Lymphs % 07/11/2023 14:25:46 21.0 18.0-42.0 (%) Final Monos 07/11/2023 14:25:46 7.8 1.0-11.0 (%) Final Eosinophils 07/11/2023 14:25:46 2.3 0.0-6.0 (%) Final Basos 07/11/2023 14:25:46 0.3 0.0-2.0 (%) Final Absolute Segs 07/11/2023 14:25:46 5.91 1.80-7.70 (K/uL) Final Lymphs, absolute 07/11/2023 14:25:46 1.81 1.00-4.80 (K/ul) Final Monos, Abs 07/11/2023 14:25:46 0.67 0.00-1.10 (K/uL) Final Eos, Abs 07/11/2023 14:25:46 0.20 0.00-0.70 (K/uL) Final Basos, Abs 07/11/2023 14:25:46 0.03 0.00-0.20 (K/uL) Final Performing Location [facility] [place] [address]
--- OUTSIDE RECORDS SUMMARY | 2023-08-21 23:07 | External Medical Summary | Summary of Care ---
Author Name Unknown Organization [facility] Address [address] [place] [address] Phone [phone] Care Team Providers Care Patch Finisher Name Role Phone Chio Miller MD Primary Care Provider [phone] Reason for Visit * Reason Comments Dosage Adjustment Via Phone (anticoag Cl inic) Encounter Details Date Type Department Care Team (Latest Contact Info) Description 07/12/2023 6:15 AM EDT Anticoagulation Pharmacy Call Center [phone] [place] [address] [facility] [address] [place] [address] History of pulmonary embolism* Allergies Active Allergy Reactions Criticality Noted Date [...] inactive term OA (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 2 Cervical disc [...] Thyroid mass 01/07/2012 10/15/2012 Overview: ?Dr Morley prison current use of ant icoagulant therapy 10/21/2011 08/18/2017 Overview: ICD-10 update of inactive term documented as of this encounter (statuses as of 07/12/2023) Immunizations Name Administration Dates Next Due COVID-19 mRNA, LNP-s, No Pre serve, 2-Dose Series (Moderna) 08/15/2020,07/18/2020 COVID-19, mRNA, LNP-s, PF, B ooster, 100mcg/0.5mg (Moderna) 04/05/2021 Hepatitis B, 20+ yrs 10/01/2013,05/03/2013,04/03 Pneumococcal Conjugate Vacci ne, 20-valent ([id number]) 03/17/2022 Pneumococcal Polysaccharide PPV23 (Pneumovax) 12/28/2011 Seasonal [...] as of this encounter Progress Notes * Taniya Bender, accounts receivable administrator - 07/12/2023 9:56 AM EDT Contacts Type Contact Phone/Fax 07/12/2023 09:49 AM EDT Phone (Outgoing) Fiona De Leon (Self) [phone] (M) Subjective Patient Findings Negatives: Signs/symptoms of bleeding, Change in health, Change in activity, Upcoming invasive procedure, Missed doses, Extra doses, Change in medications, Change in diet/appetite, Bruising Advised patient to contact Anticoagulation Clinic if any unusual bruising or bleeding, recent illness, changes in medication, or questions/concerns. PT/INR results, Coumadin dose instructions, and next PT/INR date communicated as noted by Pharmacist: Yes HAWA GONZALEZ 07/12/2023, 9:56 AM * Anastacia Raines RPh - 07/12/2023 9:15 AM EDT Coumadin Clinic (region specific) Objective Current Warfarin Dose As of 07/12/2023 Warfarin maintenance plan: 5 mg (5 mg x 1) every day INR Result As of 07/12/2023 INR goal: 2.0-3.0 INR used for dosin.4 (07/11/2023) Assessment & Plan Warfarin Plan As of 07/12/2023 Full warfarin instructions: 5 mg every day No change documented: Anastacia Raines RPh Next INR check: 08/15/2023 Repeat PT/INR in 5 week(s) Weekly dose: not changed Additional Dosing Information: Description [facility] Stevenson Tech to contact patient with dose instructions as noted. Anastacia Raines RPh 07/12/2023, 9:15 AM documented in this encounter Plan of Treatment Upcoming Encounters Date Type Department Care Team (Late st Contact Info) Description 07/19/2023 11:00 AM EDT Office Visit Podiatry [facility] [address] [facility] [place] [address] Christi Carias DPM [address] [place] [address] [place] [address] 09/13/2023 1:30 PM EDT Telemedicine Psychology Elizabeth Hagan, Clever [address] [place] [phone] Farheen Chan, DOOR PERSON [address] [facility] [place] [address] 10/10/2023 1:00 PM EDT Office Visit General Internal Medicine [facility] [address] [facility] [place] [address] Renny Lau, [address] [address] 01/17/2024 2:20 PM EST Office Visit Nutrition & Weight Management, [facility] [address] [place] [address] Roxanne Farley PA-C [address] [place] [address] Health Maintenance Due Date Last Done Comments DISCUSS TOBACCO CESSATION (REFER TO SMARTSET #3293) 1960 Colonoscopy 2005 Sigmoidoscopy 2005 Diabetic Eye [...] as of this encounter Visit Diagnoses Diagnosis History of pulmonary embolism- Primary Personal history of pulmonary embolism documented in this encounter Advance Directives Latest Code Status on File Code Status Date Activated Date Inactivated Comments Full Code 01/10/2023 3:19 PM 01/11/2023 6:55 PM This order reflects the patients wishes and were consensually agreed upon. Question Answer Comments Discussion of Advance Directives occurred with: Not Discussed due to patient's condition Care Teams Patch Finisher Relationship Specialty Start Date End Date Chio Miller MD [address] [facility] [place] [address] PCP - General Internal Medicine 01/18/21 documented as of this encounter
--- OUTSIDE RECORDS SUMMARY | 2023-08-21 23:07 | External Medical Summary ---
Author Name Unknown Address Unknown Organization K09:[facility] [place] [address] Laboratory Report Ordering Provider Test Date Status KEENAN VAZ 07/11/2023 14:25:46 Final Observation Date Value Abnormality Reference (Units ) Status WBC, Total 07/11/2023 14:25:46 8.62 4.00-10.8 0 (K/uL) Final RBC 07/11/2023 14:25:46 3.86 3.85-5.15 (M/uL) Final Hemoglobin 07/11/2023 14:25:46 9.3 Below low normal 12 .0-15.3 (g/dL) Final HCT 07/11/2023 14:25:46 31.2 Below low normal 36. 0-45.2 (%) Final MCV 07/11/2023 14:25:46 80.8 81.5-97.5 (fL) Final MCH 07/11/2023 14:25:46 24.1 27.0-34.0 (pg) Final MCHC 07/11/2023 14:25:46 29.8 32.0-36.0 (g/dL) Final RDW 07/11/2023 14:25:46 17.3 11.5-15.5 (%) Final Platelets 07/11/2023 14:25:46 231 140-400 (K /uL) Final MPV 07/11/2023 14:25:46 10.0 6.6-11.1 ( fL) Final Performing Location [facility] [address]
--- OUTSIDE RECORDS SUMMARY | 2023-08-21 23:07 | External Medical Summary ---
Author Name Unknown Address Unknown Organization K01:[facility] [place] [address] [facility] [address] Laboratory Report Ordering Provider Test Date Status STEPHANIE BROUSSARD 07/11/2023 14:25:46 Final Observation Date Value Abnormality Reference (Units ) Status TSH 07/11/2023 14:25:46 5.16 Above high normal 0. 27-4.20 (uIU/mL) Final Performing Location [facility] - [address] [facility] [address]
--- OUTSIDE RECORDS SUMMARY | 2023-08-21 23:07 | External Medical Summary ---
Author Name Unknown Address Unknown Organization [id number]:[facility] [place] [place] [address] [place] [address] Laboratory Report Ordering Provider Test Date Status STEPHANIE BROUSSARD 07/11/2023 14:25:46 Final Observation Date Value Abnormality Reference (Units ) Status LDL, (direct) 07/11/2023 14:25:46 62 <=129 (mg/dL) Final LDL Cholesterol Reference Ra nges (mg/dL):
<70 Target level for high risk ASCVD patient
<100 Optimal for general population
100-129 Near optimal for general population
130-159 Borderline high
160-189 High
>=190 Very high Performing Location [facility] - [address] [place] [address]
--- OUTSIDE RECORDS SUMMARY | 2023-08-21 23:07 | External Medical Summary | Summary of Care ---
Author Name Unknown Organization [facility] Address [address] [place] [address] Phone [phone] Care Team Providers Care Teletype Operator Name Role Phone Chio Miller MD Primary Care Provider [phone] Reason for Visit * Reason Onset Date Comments Advice 06/30/2023 Encounter Details Date Type Department Care Team (Late st Contact Info) Description 06/30/2023 Telephone General Internal Medicine [facility] 200 [facility] [address] Chio Miller MD [address] [place] [address] Advice Allergies Active Allergy Reactions Criticality Noted Date Comments Phenytoin Edema face/lips/tongue High 01/27/2015 documented as of this encounter (statuses as of 06/30/2023) Medications Medication Sig Dispensed Refills Start Date [...] 08/18/2017 Active fluticasone (FLONASE) 50 MCG/ACT nasal sprayIndications:Be nign paroxysmal vertigo of both ears,Nasal sinus congestion Administer 2 Sprays into each nostril daily. 1 Inhaler 5 12/24/2018 Active ferrous sulfate (FEOSOL) 325 (65 FE) MG TabletIndications:P ostoperative anemia Take 1 Tablet by mouth in [...] Sodium 100 MG/ML Injection Solution Prefilled Syringe (Lovenox)Indication s:History of pulmonary embolism Inject 100 mg under the skin in the morning and 100 mg before bedtime. As instructed by the [facility]. 10 mL 0 01/03/2023 Active [...] for Wheezing. 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 2 Cervical disc disease 11/24/2011 S/P cervical spinal fusion 11/24/2011 History of pulmonary embolism 10/21/2011 Asthma, moderate persistent 10/21/2011 Anticoagulation management encounter 10/21/2011 documented as of this encounter (statuses as of 06/30/2023) Resolved Problems Problem Noted Date Diagnosed Date [...] Thyroid mass 01/07/2012 10/15/2012 Overview: ?Dr Morley terminal carman current use of ant icoagulant therapy 10/21/2011 08/18/2017 Overview: ICD-10 update of inactive term documented as of this encounter (statuses as of 06/30/2023) Immunizations Name Administration Dates Next Due COVID-19 mRNA, LNP-s, No Pre serve, 2-Dose Series (Moderna) 08/15/2020,07/18/2020 COVID-19, mRNA, LNP-s, PF, B ooster, 100mcg/0.5mg (Moderna) 04/05/2021 Hepatitis B, 20+ yrs 10/01/2013,05/03/2013,04/03 Pneumococcal Conjugate Vacci ne, 20-valent ([id number]) 03/17/2022 Pneumococcal Polysaccharide PPV23 (Pneumovax) 12/28/2011 Seasonal [...] encounter Miscellaneous Notes * Telephone Encounter - Chio Miller MD - 06/30/2023 4:04 PM EDT See other TE * Telephone Encounter - Ashley Robert OSA - 06/30/2023 2:24 PM EDT Ella Lantigua, Cobol Mainframe Developer at [facility] is calling to speak Dr. Chio Miller on an urgent matter regarding pt. Provider was sent Tigertext. Please have Dr Miller return Dr Lantigua's call. Thank you documented in this encounter Plan of Treatment Upcoming Encounters Date Type Department Care Team (Late st Contact Info) Description 07/04/2023 1:40 PM EDT Office Visit General Internal Medicine [facility] 200 [facility] [place] [address] Renny Lau, [address] [address] 07/24/2023 6:45 PM EDT [facility]tico[facility] [address] [facility] 58 60 [facility] [place] [address] Health Maintenance Due Date Last Done Comments [...] 03/17/2023 023, 08/07/2020, 11/07/2019, Additional history exists Diabetic Foot Exam 03/17/2023 03/17/2022, 0 08/07/2020, [...] Discussed due to patient's condition Care Teams Teletype Operator Relationship Specialty Start Date End Date Chio Miller MD 200 [place] [address] PCP - General Internal Medicine 01/18/21 documented as of this encounter
--- OUTSIDE RECORDS SUMMARY | 2023-08-21 23:07 | External Medical Summary | Summary of Care ---
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 2 Cervical disc [...] Thyroid mass 01/07/2012 10/15/2012 Overview: ?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 10/21/2011 08/18/2017 Overview: ICD-10 update of inactive term documented as of this encounter (statuses as of 07/12/2023) Immunizations Name Administration Dates Next Due COVID-19 mRNA, LNP-s, No Pre serve, 2-Dose Series (Moderna) 08/15/2020,07/18/2020 COVID-19, mRNA, LNP-s, PF, B ooster, 100mcg/0.5mg (Moderna) 04/05/2021 Hepatitis B, 20+ yrs 10/01/2013,05/03/2013,04/03 Pneumococcal Conjugate Vacci ne, 20-valent ([id number]) 03/17/2022 Pneumococcal Polysaccharide PPV23 (Pneumovax) 12/28/2011 Seasonal [...] encounter Miscellaneous Notes * Addendum Note - Alyssia Ogden LPN [...] 07/19/2023 11:00 AM EDT Office Visit Podiatry [facility] 132 [facility] [place] [id number] Christi Carias DPM 400 [facility] [place] [address] 09/13/2023 1:30 PM EDT Telemedicine Psychology Jordyn Beckman 9 [place] [address] Farheen Chan, TRANSPORTATION DESIGN ENGINEER 100 [place] [address] 10/10/2023 1:00 PM EDT Office Visit General Internal Medicine [facility] [address] [facility] [address] [place] [address] Renny Lau, [address] [address] 01/17/2024 2:20 PM EST Office Visit Nutrition & Weight Management, [facility] [address] [place] [address] Roxanne Farley PA-C [address] [place] [address] Health Maintenance Due Date Last Done Comments DISCUSS TOBACCO CESSATION (REFER TO SMARTSET #2480) 1960 Colonoscopy 2005 Sigmoidoscopy 2005 Diabetic Eye [...] Elevated TSH- Primary Other abnormal blood chemistry documented in this encounter Advance Directives Latest Code Status on File Code Status Date Activated Date Inactivated Comments Full Code 01/10/2023 3:19 PM 01/11/2023 6:55 PM This order reflects the patients wishes and were consensually agreed upon. Question Answer Comments Discussion of Advance Directives occurred with: Not Discussed due to patient's condition Care Teams Crisis Counselor Relationship Specialty Start Date End Date Chio Miller MD [address] [place] [address] PCP - General Internal Medicine 01/18/21 documented as of this encounter
--- OUTSIDE RECORDS SUMMARY | 2023-08-21 23:07 | External Medical Summary | Summary of Care ---
Author Name Unknown Organization [facility] Address [address] [place] [address] Phone [phone] Care Team Providers Care Assistant Controller Name Role Phone Chio Miller MD Primary Care Provider [phone] Reason for Visit * Reason Comments Outpatient Testing Encounter Details Date Type Department Care Team (Late st Contact Info) Description 07/11/2023 2:30 PM EDT Laboratory Laboratory 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 2 Cervical disc [...] Thyroid mass 01/07/2012 10/15/2012 Overview: ?Dr Morley 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 10/21/2011 08/18/2017 Overview: ICD-10 update of inactive term documented as of this encounter (statuses as of 07/11/2023) Immunizations Name Administration Dates Next Due COVID-19 mRNA, LNP-s, No Pre serve, 2-Dose Series (Moderna) 08/15/2020,07/18/2020 COVID-19, mRNA, LNP-s, PF, B ooster, 100mcg/0.5mg (Moderna) 04/05/2021 Hepatitis B, 20+ yrs 10/01/2013,05/03/2013,04/03 Pneumococcal Conjugate Vacci ne, 20-valent ([id number]) 03/17/2022 Pneumococcal Polysaccharide PPV23 (Pneumovax) 12/28/2011 Seasonal [...] Anticoagulation Pharmacy Call Center [phone] [place] [address] [facility] 58 60 [facility] [place] [address] 07/19/2023 11:00 AM EDT Office Visit Podiatry [facility] 132 [facility] [place] [address] Christi Carias, DPM 400 [facility] [place] [address] 09/13/2023 1:30 PM EDT Telemedicine Psychology [place] [address] [place] [address] Farheen Chan, [facility] [address] [place] [address] 10/10/2023 1:00 PM EDT Office Visit General Internal Medicine [facility] 200 [place] [address] Renny Lau, [address] [address] 01/17/2024 2:20 PM EST Office Visit Nutrition & Weight Management, [facility] 132 [facility] [place] [address] Roxanne Farley PA-C 132 [facility] [place] [address] Pending Results Name Type Priority Associated Diagnoses Date /Time PT INR Lab Routine History of pulmonary embolism 07/11/2023 2:25 PM EDT COMPREHENSIVE METABOLIC PANEL Lab Routine Dyslipidemia, goal LDL below 100 07/11/2023 2:25 PM EDT HEMOGLOBIN A1C Lab Routine Type 2 diabetes mellitus with hemoglobin A1c goal of less than 7.0% (HCC) 07/11/2023 2:25 PM EDT TSH Lab Routine Weight gain 07/11/2023 2:25 PM EDT LIPID PANEL WITH DIRECT LDL IF TG IS HIGH Lab Routine Dyslipidemia, goal LDL below 100 07/11/2023 2:25 PM EDT Health Maintenance Due Date Last Done Comments DISCUSS TOBACCO CESSATION (REFER TO SMARTSET #5281) 1960 Colonoscopy 2005 Sigmoidoscopy 2005 Diabetic Eye [...] Not on filedocumented as of this encounter Procedures Procedure Name Priority Date/Time Associated Diagnosis Comments DIFFERENTIAL, AUTOMATED Routine 07/11/2023 2:25 PM EDT Type 2 diabetes mellitus with hemoglobin A1c goal of less than 7.0% (HCC) Hyperlipidemia associated with type 2 diabetes mellitus (HCC) Moderate persistent asthma without complication CBC Routine 07/11/2023 2:25 PM EDT Type 2 diabetes mellitus with hemoglobin A1c goal of less than 7.0% (HCC) Hyperlipidemia associated with type 2 diabetes mellitus (HCC) Moderate persistent asthma without complication CBC Routine 07/11/2023 2:25 PM EDT Type 2 diabetes mellitus with hemoglobin A1c goal of less than 7.0% (HCC) Hyperlipidemia associated with type 2 diabetes mellitus (HCC) Moderate persistent asthma without complication documented in this encounter Results * DIFFERENTIAL, AUTOMATED (07/11/2023 2:25 PM EDT) WBC 8.62 4.00 - 10.80 K/uL 07/11/2023 2:41 PM EDT [facility] 56-02 Neutrophils % 68.6 40.0 - 75.0 % 07/11/2023 2:41 PM EDT [facility] 56-02 Lymphocytes % 21.0 18.0 - 42.0 % 07/11/2023 2:41 PM EDT [facility] 56-02 Monocytes % 7.8 1.0 - 11.0 % 07/11/2023 2:41 PM EDT [facility] 56-02 Eosinophils % 2.3 0.0 - 6.0 % 07/11/2023 2:41 PM EDT [facility] 56-02 Basophils % 0.3 0.0 - 2.0 % 07/11/2023 2:41 PM EDT [facility] 56-02 Absolute Neutrophils 5.91 1.80 - 7.70 K/uL 07/11/2023 2:41 PM EDT [facility] Absolute Lymphocytes 1.81 1.00 - 4.80 K/ul 07/11/2023 2:41 PM EDT [facility] Absolute Monocytes 0.67 0.00 - 1.10 K/uL 07/11/2023 2:41 PM EDT [facility] Absolute Eosinophils 0.20 0.00 - 0.70 K/uL 07/11/2023 2:41 PM EDT [facility] Absolute Basophils 0.03 0.00 - 0.20 K/uL 07/11/2023 2:41 PM EDT [facility] Blood Venous blood specimen / Unknown Venipuncture / Unknown 07/11/2023 2:25 PM EDT 07/11/2023 2:26 PM EDT Renny Lau DO LAB BLOOD OR DERABLES [facility] [address] [place] [address] * (ABNORMAL) CBC (07/11/2023 2:25 PM EDT) WBC 8.62 4.00 - 10.80 K/uL 07/11/2023 2:41 PM EDT [facility] RBC 3.86 3.85 - 5.15 M/uL 07/11/2023 2:41 PM EDT [facility] HGB 9.3(L) 12.0 - 15.3 g/dL 07/11/2023 2:41 PM EDT [facility] HCT 31.2(L) 36.0 - 45.2 % 07/11/2023 2:41 PM EDT [facility] MCV 80.8 81.5 - 97.5 fL 07/11/2023 2:41 PM EDT [facility] 56 MCH 24.1 27.0 - 34.0 pg 07/11/2023 2:41 PM EDT [facility] MCHC 29.8 32.0 - 36.0 g/dL 07/11/2023 2:41 PM EDT [facility] 56 RDW 17.3 11.5 - 15.5 % 07/11/2023 2:41 PM EDT [facility] 56 PLT 231 140 - 400 K/uL 07/11/2023 2:41 PM EDT [facility] 56 MPV 10.0 6.6 - 11.1 fL 07/11/2023 2:41 PM EDT [facility] 56 Blood Venous blood specimen / Unknown Venipuncture / Unknown 07/11/2023 2:25 PM EDT 07/11/2023 2:26 PM EDT Renny Delfin Judi DO LAB BLOOD OR DERABLES [facility] 56 200 [facility] [place] [address] documented in this encounter Visit Diagnoses Diagnosis History of pulmonary embolism Personal history of pulmonary embolism Dyslipidemia, goal LDL below 100 Other and unspecified hyperlipidemia Type 2 diabetes mellitus with hemoglobin A1c goal of less than 7.0% (HCC) Weight gain Abnormal weight gain Hyperlipidemia associated with type 2 diabetes mellitus (HCC) Moderate persistent asthma without complication Unspecified asthma documented in this encounter Advance Directives Latest Code Status on File Code Status Date Activated Date Inactivated Comments Full Code 01/10/2023 3:19 PM 01/11/2023 6:55 PM This order reflects the patients wishes and were consensually agreed upon. Question Answer Comments Discussion of Advance Directives occurred with: Not Discussed due to patient's condition Care Teams Assistant Controller Relationship Specialty Start Date End Date Chio Miller MD 200 [facility] [place] [address] PCP - General Internal Medicine 01/18/21 documented as of this encounter
--- OUTSIDE RECORDS SUMMARY | 2023-08-21 23:07 | External Medical Summary | Summary of Care ---
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 2 Cervical [...] Thyroid mass 01/07/2012 10/15/2012 Overview: ?Dr Morley long-term current use of ant icoagulant therapy 10/21/2011 08/18/2017 Overview: ICD-10 update of inactive term documented as of this encounter (statuses as of 07/11/2023) Immunizations Name Administration Dates Next Due COVID-19 mRNA, LNP-s, No Pre serve, 2-Dose Series (Moderna) 08/15/2020,07/18/2020 COVID-19, mRNA, LNP-s, PF, B ooster, 100mcg/0.5mg (Moderna) 04/05/2021 Hepatitis B, 20+ yrs 10/01/2013,05/03/2013,04/03 Pneumococcal Conjugate Vacci ne, 20-valent ([id number]) 03/17/2022 Pneumococcal Polysaccharide PPV23 (Pneumovax) 12/28/2011 Seasonal [...] encounter Miscellaneous Notes * Telephone Encounter - María Vasquez RPh - 07/11/2023 2:25 PM EDT Orders placed. María Vasquez RPh, PharmD Clinical Pharmacist 07/11/2023, 2:25 PM * Telephone Encounter - María Vasquez RPh - 07/11/2023 2:24 PM EDT ----- Message from Joe Bahena RPh sent at 07/11/2023 2:09 PM EDT ----- Regarding: [facility]. Needs order sent to stephanie Mccullough documented in this encounter Plan of Treatment Upcoming Encounters Date Type Department Care Team (Late st Contact Info) Description 07/12/2023 6:15 AM EDT Anticoagulation Pharmacy Call Center [address] [place] [address] [facility], [facility] 58 60 [facility] [address] 07/19/2023 11:00 AM EDT [facility] [address] [facility] [place] [address] Christi Carias, [facility] 400 [place] [address] 09/13/2023 1:30 PM EDT Telemedicine Psychology Maurisio [place] [address] [place] [address] Farheen Chan, [facility] [address] [place] [address] 10/10/2023 1:00 PM EDT Office Visit General Internal Medicine [facility] 200 [place] [address] Renny Lau, [address] [address] 01/17/2024 2:20 PM EST [facility] [address] [place] [address] Roxanne Farley PA-C [address] [place] [address] Scheduled Orders Name Type Priority Associated Diagnoses Orde r Schedule PT INR Lab Routine History of pulmonary embolism Anticoagulation management encounter Other, Please specify in Comments field for 26 Occurrences starting 07/11/2023 until 07/10/2024 Health Maintenance Due Date Last Done Comments [...] embolism- Primary Personal history of pulmonary embolism Anticoagulation management encounter Encounter for therapeutic drug monitoring documented in this encounter Advance Directives Latest Code Status on File Code Status Date Activated Date Inactivated Comments Full Code 01/10/2023 3:19 PM 01/11/2023 6:55 PM This order reflects the patients wishes and were consensually agreed upon. Question Answer Comments Discussion of Advance Directives occurred with: Not Discussed due to patient's condition Care Teams Document Control Coordinator Relationship Specialty Start Date End Date Chio Miller MD 200 [facility] [place] [address] PCP - General Internal Medicine 01/18/21 documented as of this encounter
--- OUTSIDE RECORDS SUMMARY | 2023-08-21 23:07 | External Medical Summary | Summary of Care ---
Author Name Unknown Organization [facility] Address [address] [place] [address] Phone [phone] Care Team Providers Care Retail Financial Analyst Name Role Phone Chio Miller MD Primary Care Provider [phone] Reason for Visit * Reason Onset Date Comments Health Maintenance 07/11/2023 Encounter Details Date Type Department Care Team (Late st Contact Info) Description 07/11/2023 Telephone General Internal Medicine 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 2 Cervical disc [...] Thyroid mass 01/07/2012 10/15/2012 Overview: ?Dr Morley [facility] current use of ant icoagulant therapy 10/21/2011 08/18/2017 Overview: ICD-10 update of inactive term documented as of this encounter (statuses as of 07/11/2023) Immunizations Name Administration Dates Next Due COVID-19 mRNA, LNP-s, No Pre serve, 2-Dose Series (Moderna) 08/15/2020,07/18/2020 COVID-19, mRNA, LNP-s, PF, B ooster, 100mcg/0.5mg (Moderna) 04/05/2021 Hepatitis B, 20+ yrs 10/01/2013,05/03/2013,04/03 Pneumococcal Conjugate Vacci ne, 20-valent ([id number]) 03/17/2022 Pneumococcal Polysaccharide PPV23 (Pneumovax) 12/28/2011 Seasonal [...] encounter Miscellaneous Notes * Telephone Encounter - Sherice Draper LPN - 07/11/2023 3:07 PM EDT Care Gaps Comprehensive Care Outreach Last Office/Telemedicine Visit: 07/11/2023 (in office), 01/13/2022 (telemedicine) Next Office Visit: 10/10/2023 Hemoglobin AIC Results: Lab Results Component Value Date/Time HEMOGLOBIN A1C - [facility] 6.5 (H) 02/25/2021 04:33 PM HEMOGLOBIN A1C - [facility] 6.9 (H) 08/07/2020 01:20 PM HEMOGLOBIN A1C - [facility] 6.3 (H) 03/31/2020 05:11 PM HEMOGLOBIN A1C - [facility] 6.5 (H) 11/07/2019 03:19 PM HEMOGLOBIN A1C - [facility] 6.4 (H) 04/04/2019 04:08 PM BP Readings from Last 1 Encounters: 07/11/23 110/72 Reviewed Health Maintenance below: Health Maintenance Topic Date Due DISCUSS TOBACCO CESSATION (REFER TO StylecrookSET #3296) Never done Diabetic Eye Exam 07/25/2019 DTaP,Tdap,and Td Vaccines (2 - Td or Tdap) 11/23/2021 HbA1c 11/11/2022 COVID-19 Vaccine ( season) 2022 Albumin/Creatinine Ratio 03/17/2023 Mammogram 10/13/2023 Pcp today Care Gap Outreach Action Taken: Outreach not indicated documented in this encounter Plan of Treatment Upcoming Encounters Date Type Department Care Team (Late st Contact Info) Description 07/12/2023 6:15 AM EDT Anticoagulation Pharmacy Call Center WB [address] [facility] [place] [address] [facility] 58 60 [facility] [place] [address] 07/19/2023 11:00 AM EDT Office Visit Podiatry [facility] 132 [facility] [place] [address] Christi Carias DPM 400 [facility] [place] [address] 09/13/2023 1:30 PM EDT Telemedicine Psychology Jordyn Beckman 9 [place] [address] Farheen Chan, READING SPECIALIST [address] [facility] [place] [address] 10/10/2023 1:00 PM EDT Office Visit General Internal Medicine [facility] 200 [place] [address] Renny Lau Delfin, DO [address] [place] [address] 01/17/2024 2:20 PM EST Office Visit Nutrition & Weight Management, [facility] [address] [place] [address] Roxanne Farley PA-C [address] [place] [address] Health Maintenance Due Date Last Done Comments DISCUSS TOBACCO CESSATION (REFER TO SMARTSET #6044) 1960 Colonoscopy 2005 Sigmoidoscopy 2005 Diabetic Eye [...] 02/25/2021, 12/24/2019, Additional history exists GFR 01/23/2024 07/11/2023, 01/11, 08/03/2022, Additional history exists Diabetic Foot Exam 07/10/2024 [...] Discussed due to patient's condition Care Teams Retail Financial Analyst Relationship Specialty Start Date End Date Chio Miller MD [address] [place] [address] PCP - General Internal Medicine 01/18/21 documented as of this encounter
--- OUTSIDE RECORDS SUMMARY | 2023-08-21 23:07 | External Medical Summary ---
Author Name Unknown Address Unknown Organization K09:[facility] [address] [place] [address] Laboratory Report Ordering Provider Test Date Status STEPHANIE BROUSSARD 07/11/2023 14:25:46 Final Observation Date Value Abnormality Reference (Units ) Status BUN 07/11/2023 14:25:46 18 6-20 (mg/dL) Final Creatinine 07/11/2023 14:25:46 1.1 Above high normal 0.5-1.0 (mg/dL) Final Glomerular filtration rate/1.73 sq M.predicted [Volume Rate/Area] in Serum, Plasma or Blood by Creatinine-based formula (CKD-EPI) 07/11/2023 14:25:46 59 Below low normal >=60 (mL/min) Final eGFR is calculated based on the CKD-EPI 2020 equation Sodium 07/11/2023 14:25:46 135 135-146 (m mol/L) Final Potassium 07/11/2023 14:25:46 4.5 3.5-5.1 (m mol/L) Final Cl 07/11/2023 14:25:46 99 98-107 (mm ol/L) Final CO2 07/11/2023 14:25:46 26 22-32 (mmo l/L) Final Anion gap 07/11/2023 14:25:46 10 7-15 (mmol /L) Final Glucose 07/11/2023 14:25:46 114 70-120 (mg /dL) Final Albumin 07/11/2023 14:25:46 4.3 3.8-5.0 (g /dL) Final AST (Aspartate aminotransferase) 07/11/2023 14:25:46 17 10-35 (U/L) Final Alk Phos 07/11/2023 14:25:46 84 35-130 (U/ L) Final Bilirubin, Total 07/11/2023 14:25:46 1.0 <=1 .2 (mg/dL) Final Calcium 07/11/2023 14:25:46 9.0 8.4-10.2 ( mg/dL) Final Protein 07/11/2023 14:25:46 6.1 6.0-8.3 (g /dL) Final ALT (Alanine aminotransferase) 07/11/2023 14:25:46 19 10-35 (U/L) Final Performing Location [facility] [address] [place] [address]
--- OUTSIDE RECORDS SUMMARY | 2023-08-21 23:07 | External Medical Summary ---
Author Name Unknown Address Unknown Organization K01:[facility] [place] - [address] [place] [address] Laboratory Report Ordering Provider Test Date Status STEPHANIE BROUSSARD 07/11/2023 14:25:46 Final Observation Date Value Abnormality Reference (Units ) Status Triglyceride 07/11/2023 14:25:46 228 Above high normal <=174 (mg/dL) Final Triglyceride Reference Range s (mg/dL):
<150 Acceptable
150-174 Borderline high
175-499 High
>=500 Very high Cholesterol 07/11/2023 14:25:46 171 <200 (mg /dL) Final Total Cholesterol Reference Ranges (mg/dL):
<200 Desirable
200-239 Borderline high
>=240 High HDL 07/11/2023 14:25:46 75 >49 (mg/dL ) Final HDL Cholesterol Reference Ra nges (mg/dL):
>=60 High (Desirable)
<50 Low (Undesirable) For Females
<40 Low (Undesirable) For Males NON-HDL CHOLESTEROL 07/11/2023 14:25:46 96 <=159 (mg/dL) Final Non-HDL Cholesterol Referenc e Range (mg/dL):
<100 Target level for high risk ASCVD patient
<130 Optimal for general population
130-159 Near optimal for general population
160-189 Borderline High
190-219 High
>=220 Very High Performing Location [facility] - [address] [place] [address]
--- OUTSIDE RECORDS SUMMARY | 2023-08-21 23:07 | External Medical Summary ---
Author Name Unknown Address Unknown Organization K09:[facility] [place] [address] Laboratory Report Ordering Provider Test Date Status STEPHANIE BROUSSARD 07/11/2023 14:25:46 Final Warfarin Therapy
INR: 2 .0-3.0 conventional anticoagulation
INR: 2.5- 3.5 high intensity anticoagulation Observation Date Value Abnormality Reference (Units ) Status PT 07/11/2023 14:25:46 26.1 Above high normal 11 .6-15.2 (seconds) Final INR 07/11/2023 14:25:46 2.4 Above high normal 0. 8-1.2 Final Performing Location [facility] [place] [address]
--- OUTSIDE RECORDS SUMMARY | 2023-08-21 23:07 | External Medical Summary | Summary of Care ---
Author Name Unknown Organization [facility] Address [address] [place] [address] Phone [phone] Care Team Providers Care Leadlighter Name Role Phone Bobo Miller MD Primary Care Provider [phone] Reason for Visit * Reason Onset Date Comments Medication Refill 05/27/2023 Encounter Details Date Type Department Care Team (Late st Contact Info) Description 05/27/2023 Refill General Internal Medicine [facility] [address] [facility] [place] [address] Bobo Miller MD [address] [place] [address] Allergies Active Allergy Reactions Criticality Noted Date Comments Phenytoin Edema face/lips/tongue High 01/27/2015 documented as of this encounter (statuses as of 05/31/2023) Medications Medication Sig Dispensed Refills Start Date [...] as directed 4 Cap 5 03/31/2020 Active Albuterol Sulfate (2.5 MG/3ML) 0.083% Inhalation Nebulization Solution (Proventil)Indicat ions:Exacerbation of intermittent asthma, unspecified asthma severity,COPD exacerbation (HCC) Inhale via nebulizer 1 Vial every 4 hours as needed for Wheezing. 100 mL 5 05/27/2021 Active oxyCODONE-Acetamin ophen 5-325 MG Oral Tablet [...] the morning. 90 Tablet 3 04/27/2022 Active Albuterol Sulfate HFA 108 (90 Base) MCG/ACT Inhalation Aerosol SolutionIndication s:Moderate persistent asthma without complication,Exace rbation of intermittent asthma, unspecified asthma severity,COPD exacerbation (HCC) INHALE TWO PUFFS BY MOUTH FOUR TIMES DAILY 18 g 3 04/28/2022 Active Pantoprazole Sodium 40 MG Oral Tablet [...] mg before bedtime. As instructed by the [facility]. 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 10/21/2011 08/18/2017 Overview: ICD-10 update of inactive term documented as of this encounter (statuses as of 05/31/2023) Immunizations Name Administration Dates Next Due COVID-19 mRNA, LNP-s, No Pre serve, 2-Dose Series (Moderna) 08/15/2020,07/18/2020 COVID-19, mRNA, LNP-s, PF, B ooster, 100mcg/0.5mg (Moderna) 04/05/2021 Hepatitis B, 20+ yrs 10/01/2013,05/03/2013,04/03 Pneumococcal Conjugate Vacci ne, 20-valent ([id number]) 03/17/2022 Pneumococcal Polysaccharide PPV23 (Pneumovax) 12/28/2011 Seasonal [...] encounter Miscellaneous Notes * Telephone Encounter - Pete Serna - 05/31/2023 10:50 PM EDT Received message from [facility] regarding patient needing appointment and labs. Patient was notified. Successfully contacted patient and provided [facility] message. * Telephone Encounter - Riri Brothers [facility] - 05/29/2023 9:46 AM EDT Signed Prescriptions: Disp Refills Furosemide 20 MG Oral Tablet (Lasix) 90 Tab*0 Sig: TAKE ONE TABLET BY MOUTH DAILY FOR IN FLUID accumulation OR weight gain Authorizing Provider: BOBO MILLER Ordering User: RIRI BROTHERS * Telephone Encounter - Riri Brothers [facility] - 05/29/2023 9:44 AM EDT Provided 90 days supply with 0 refill. Per refill protocol patient should have CMP on file within past year. Reviewed AMP report, Care Gaps/Health Maintenance, medications list, and for any routine labs typically ordered for this patient. Lab orders placed. Please contact patient to schedule office visit with PRIMARY CARE and advise of labs ordered for blood draw.. Fasting is not required. Advise to obtain labs before requesting the next refill. Last Visit: 10/18/2022 (in office), "Return in about 5 months (around 03/20/2023) for recheck after labs" Next Visit: Visit date not found Thanks, Riri Brothers, PharmD Clinical Pharmacist [facility](formerly telepharmacy) [phone] 05/29/2023, 9:45 AM documented in this encounter Plan of Treatment Upcoming Encounters Date Type Department Care Team (Late st Contact Info) Description 06/23/2023 6:45 PM EDT Anticoagulation Pharmacy Call Center [address] [place] [address] Ccp, [facility] 58 60 [facility] [place] [address] Health Maintenance Due Date Last Done Comments DISCUSS TOBACCO CESSATION (REFER TO SMARTSET #[id number]) 1960 Colonoscopy 2005 Sigmoidoscopy 2005 Diabetic Eye [...] Discussed due to patient's condition Care Teams Leadlighter Relationship Specialty Start Date End Date Boob Miller MD [address] [facility] [place] [address] PCP - General Internal Medicine 01/18/21 documented as of this encounter
--- OUTSIDE RECORDS SUMMARY | 2023-08-21 23:07 | External Medical Summary | Summary of Care ---
Author Name Unknown Organization [facility] Address [address] [place] [address] Phone [phone] Care Team Providers Care Photographer News Name Role Phone Chio Miller MD Primary Care Provider [phone] Reason for Visit * Reason Comments Appointment Encounter Details Date Type Department Care Team (Latest Contact Info) Description 06/23/2023 6:45 PM EDT Anticoagulation Pharmacy Call Center [phone] [place] [address] [facility] [address] [facility] [place] [address] History of pulmonary embolism* Allergies Active Allergy Reactions Criticality Noted Date Comments Phenytoin Edema face/lips/tongue High 01/27/2015 documented as of this encounter (statuses as of 06/23/2023) Medications Medication Sig Dispensed Refills Start Date [...] mg before bedtime. As instructed by the [facility]. 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 2 Cervical disc disease 11/24/2011 S/P cervical spinal fusion 11/24/2011 History of pulmonary embolism 10/21/2011 Asthma, moderate persistent 10/21/2011 Anticoagulation management encounter 10/21/2011 documented as of this encounter (statuses as of 06/23/2023) Resolved Problems Problem Noted Date Diagnosed Date [...] Thyroid mass 01/07/2012 10/15/2012 Overview: ?Dr Morley halfway current use of ant icoagulant therapy 10/21/2011 08/18/2017 Overview: ICD-10 update of inactive term documented as of this encounter (statuses as of 06/23/2023) Immunizations Name Administration Dates Next Due COVID-19 mRNA, LNP-s, No Pre serve, 2-Dose Series (Moderna) 08/15/2020,07/18/2020 COVID-19, mRNA, LNP-s, PF, B ooster, 100mcg/0.5mg (Moderna) 04/05/2021 Hepatitis B, 20+ yrs 10/01/2013,05/03/2013,04/03 Pneumococcal Conjugate Vacci ne, 20-valent ([id number]) 03/17/2022 Pneumococcal Polysaccharide PPV23 (Pneumovax) 12/28/2011 Seasonal [...] as of this encounter Progress Notes * Nadia Ivan PHARM Tech - 06/23/2023 8:13 AM EDT Patient Phone Numbers Left message on patients answering machine to schedule [facility] appointment for anticoagulation management. [facility] message sent --no Clinic will follow up again in 4 week(s). [Attempt # N/A] Thank you, Nadia Ivan Building Maintenance Repairer [facility] ([facility]) (formerly Telepharmacy) [phone] 06/23/2023,8:13 AM documented in this encounter Plan of Treatment Upcoming Encounters Date Type Department Care Team (Late st Contact Info) Description 06/29/2023 2:00 PM EDT Office Visit General Internal Medicine [facility] [address] [place] [address] Chio Miller MD [address] [place] [address] 07/24/2023 6:45 PM EDT Anticoagulation Pharmacy Call Center [phone] [facility] [place] [address] Ccps, [facility] 58 60 [facility] [place] [address] Health Maintenance Due Date Last Done Comments DISCUSS TOBACCO CESSATION (REFER TO SMARTSET #[id number]) 1960 Colonoscopy 2005 Sigmoidoscopy 2005 Diabetic Eye [...] Discussed due to patient's condition Care Teams Photographer News Relationship Specialty Start Date End Date Chio Miller MD [address] [facility] [place] [address] PCP - General Internal Medicine 01/18/21 documented as of this encounter
--- OUTSIDE RECORDS SUMMARY | 2023-08-21 23:08 | External Medical Summary | Summary of Care ---
Author Name Unknown Organization [facility] Address [address] [place] [address] Phone [phone] Care Team Providers Care Slubber Tender Name Role Phone Chio Miller MD Primary Care Provider [phone] Reason for Visit * Reason Comments Dosage Adjustment Via Phone (anticoag Cl inic) No Show Encounter Details Date Type Department Care Team (Latest Contact Info) Description 05/29/2023 6:45 PM EDT Anticoagulation Pharmacy Call Center [phone] [place] [address] [facility] [address] [place] [address] Anticoagulation management encounter* Allergies Active Allergy Reactions Criticality Noted Date Comments Phenytoin Edema face/lips/tongue High 01/27/2015 documented as of this encounter (statuses as of 05/29/2023) Medications Medication Sig Dispensed Refills Start Date [...] for Wheezing. 100 mL 5 05/27/2021 Active oxyCODONE-Acetamino phen 5-325 MG Oral Tablet [...] ONCE DAILY. 90 Tablet 3 04/28/2022 Active Furosemide 20 MG Oral Tablet (Lasix) TAKE ONE TABLET BY MOUTH DAILY FOR IN FLUID accumulation OR weight gain 90 Tablet 3 04/28/2022 Active Gabapentin 100 [...] mg before bedtime. As instructed by the [facility]. 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 2 Cervical disc disease 11/24/2011 S/P cervical spinal fusion 11/24/2011 History of pulmonary embolism 10/21/2011 Asthma, moderate persistent 10/21/2011 Anticoagulation management encounter 10/21/2011 documented as of this encounter (statuses as of 05/29/2023) Resolved Problems Problem Noted Date Diagnosed Date [...] as of this encounter (statuses as of 05/29/2023) Immunizations Name Administration Dates Next Due COVID-19 mRNA, LNP-s, No Pre serve, 2-Dose Series (Moderna) 08/15/2020,07/18/2020 COVID-19, mRNA, LNP-s, PF, B ooster, 100mcg/0.5mg (Moderna) 04/05/2021 Hepatitis B, 20+ yrs 10/01/2013,05/03/2013,04/03 Pneumococcal Conjugate Vacci ne, 20-valent ([id number]) 03/17/2022 Pneumococcal Polysaccharide PPV23 (Pneumovax) 12/28/2011 Seasonal [...] as of this encounter Progress Notes * Gabrielle Swain PHARM Tech - 05/29/2023 7:42 AM EDT Patient Phone Numbers Sent patient My[facility] message reminding her she is overdue for PT/INR blood work. Will follow up in 4 weeks if lab result is not received sooner. Thank you, Gabrielle Swain Curator [employer] [facility] ([facility]) 05/29/2023,7:43 AM documented in this encounter Plan of Treatment Upcoming Encounters Date Type Department Care Team (Late st Contact Info) Description 06/23/2023 6:45 PM EDT Anticoagulation Pharmacy Call Center [address] [facility] [place] [address] [facility] 58 60 [facility] [place] [address] Health Maintenance Due Date Last Done Comments DISCUSS TOBACCO CESSATION (REFER TO SMARTSET #[id number]) 1960 Colonoscopy 2005 Sigmoidoscopy 2005 Diabetic Eye Exam 07/25/2019 07/24/2018, , 05/25/2015, Additional history exists DTaP,Tdap,and Td Vaccines (2 - Td or Tdap) 11/23/2021 11/24/2011 COVID-19 Vaccine (2022- season) 2022 04/05/2021, 08/15/2020, 07/18/2020 HbA1c 11/11/2022 [...] 10/13/2023 10/12/2022, 0804/2022, 04/13/2022, Additional history exists GFR 01/23/2024 01/22/2023, [...] as of this encounter Visit Diagnoses Diagnosis Anticoagulation management encounter- Primary Encounter for therapeutic drug monitoring documented in this encounter Advance Directives Latest Code Status on File Code Status Date Activated Date Inactivated Comments Full Code 01/10/2023 3:19 PM 01/11/2023 6:55 PM This order reflects the patients wishes and were consensually agreed upon. Question Answer Comments Discussion of Advance Directives occurred with: Not Discussed due to patient's condition Care Teams Slubber Tender Relationship Specialty Start Date End Date Chio Miller MD 200 [facility] [place] [address] PCP - General Internal Medicine 01/18/21 documented as of this encounter
--- OUTSIDE RECORDS SUMMARY | 2023-08-21 23:08 | External Medical Summary | Summary of Care ---
Author Name Unknown Organization [facility] Address [address] [place] [address] Phone [phone] Care Team Providers Care Director Nursing Service Name Role Phone Chio Miller MD Primary Care Provider [phone] Reason for Visit * Reason Comments eRx-Medication Refill Encounter Details Date Type Department Care Team (Late st Contact Info) Description 05/24/2023 Refill General Internal Medicine [facility] 200 [facility] [place] [address] Kevyn Cox PA-C [address] [place] [address] [place] [address] Disc disorder of lumbar region; S/P cervical spinal fusion Allergies Active Allergy Reactions Criticality Noted Date Comments Phenytoin Edema face/lips/tongue High 01/27/2015 documented as of this encounter (statuses as of 05/26/2023) Medications Medication Sig Dispensed Refills Start Date [...] mg before bedtime. As instructed by the [facility]. 10 mL 0 01/03/2023 Active oxyCODONE HCl 5 MG Oral Tablet (Oxy IR) Take 1 tablet by mouth every 4 hours as needed for severe pain. 11 Tablet 0 01/11/2023 Active tiZANidine HCl 4 MG Oral Tablet (Zanaflex)Indicatio ns:Disc disorder of lumbar region,S/P cervical spinal fusion take 2 tablets by mouth every 8 hours if needed for muscle spasm 180 Tablet 3 01/27/2023 Active documented as of this encounter (statuses as of 05/26/2023) Active Problems Problem Noted Date Diagnosed Date [...] as of this encounter (statuses as of 05/26/2023) Resolved Problems Problem Noted Date Diagnosed Date [...] as of this encounter (statuses as of 05/26/2023) Immunizations Name Administration Dates Next Due COVID-19 mRNA, LNP-s, No Pre serve, 2-Dose Series (Moderna) 08/15/2020,07/18/2020 COVID-19, mRNA, LNP-s, PF, B ooster, 100mcg/0.5mg (Moderna) 04/05/2021 Hepatitis B, 20+ yrs 10/01/2013,05/03/2013,04/03 Pneumococcal Conjugate Vacci ne, 20-valent ([id number]) 03/17/2022 Pneumococcal Polysaccharide PPV23 (Pneumovax) 12/28/2011 Seasonal [...] encounter Miscellaneous Notes * Telephone Encounter - Itzel Moss LPN - 05/26/2023 12:12 PM EDTRefused Prescriptions: Disp Refills tiZANidine HCl 4 MG Oral Tablet (Zanaflex) 180 Ta*3 Sig: take 2tablets by mouth every 8 hours if needed for muscle spasmRefused By: ITZEL MOSS for Refusal: Duplicate Request * Telephone Encounter - Iztel Moss LPN - 05/26/2023 12:12 PM EDT duplicate * Telephone Encounter - Leon Serna - 05/25/2023 2:11 PM EDTPending Prescriptions: Disp Refills tiZANidine HCl 4 MG Oral Tablet [Pharmacy *180 Ta*3 Sig: take 2tablets by mouth every 8 hours if needed for muscle spasm documented in this encounter Plan of Treatment Upcoming Encounters Date Type Department Care Team (Late st Contact Info) Description 05/29/2023 6:45 PM EDT [facility] Pharmacy Call Center [address] [place] [address] [facility] 58 60 [facility] [place] [address] Health Maintenance Due Date Last Done Comments DISCUSS TOBACCO CESSATION (REFER TO SMARTSET #[id number]) 1960 Colonoscopy 2005 Sigmoidoscopy 2005 Diabetic Eye [...] Discussed due to patient's condition Care Teams Director Nursing Service Relationship Specialty Start Date End Date Chio Miller MD [address] [facility] [place] [address] PCP - General Internal Medicine 01/18/21 documented as of this encounter
--- OUTSIDE RECORDS SUMMARY | 2023-08-21 23:08 | External Medical Summary | Summary of Care ---
Author Name Unknown Organization [facility] Address [address] [place] [address] Phone [phone] Care Team Providers Care Linen Manager Name Role Phone Chio Miller MD Primary Care Provider [phone] Reason for Visit * Reason Comments Dosage Adjustment Via Phone (anticoag Cl inic) Encounter Details Date Type Department Care Team (Latest Contact Info) Description 04/14/2023 6:45 PM EST Anticoagulation Pharmacy Call Center [address] [facility] [place] [place] [address] [facility] [address] [facility] [place] [address] History of pulmonary embolism* Allergies Active Allergy Reactions Criticality Noted Date Comments Phenytoin Edema face/lips/tongue High 01/27/2015 documented as of this encounter (statuses as of 04/14/2023) Medications Medication Sig Dispensed Refills Start Date [...] mg before bedtime. As instructed by the [facility]. 10 mL 0 01/03/2023 [...] as of this encounter (statuses as of 04/14/2023) Active Problems Problem Noted Date Diagnosed Date [...] inactive term OA (osteoarthritis) of knee 01/26/2012 alf current use of anticoagulant 2 Cervical disc disease 11/24/2011 S/P cervical spinal fusion 11/24/2011 History of pulmonary embolism 10/21/2011 Asthma, moderate persistent 10/21/2011 Anticoagulation management encounter 10/21/2011 documented as of this encounter (statuses as of 04/14/2023) Resolved Problems Problem Noted Date Diagnosed Date [...] Thyroid mass 01/07/2012 10/15/2012 Overview: ?Dr Morley alf current use of ant icoagulant therapy 10/21/2011 08/18/2017 Overview: ICD-10 update of inactive term documented as of this encounter (statuses as of 04/14/2023) Immunizations Name Administration Dates Next Due COVID-19 mRNA, LNP-s, No Pre serve, 2-Dose Series (Moderna) 08/15/2020,07/18/2020 COVID-19, mRNA, LNP-s, PF, B ooster, 100mcg/0.5mg (Moderna) 04/05/2021 Hepatitis B, 20+ yrs 10/01/2013,05/03/2013,04/03 Pneumococcal Conjugate Vacci ne, 20-valent ([id number]) 03/17/2022 Pneumococcal Polysaccharide PPV23 (Pneumovax) 12/28/2011 Seasonal [...] as of this encounter Progress Notes * Brie Mosqueda PHARM Tech - 04/14/2023 8:17 AM EST Patient Phone Numbers Left message on patients answering machine to schedule [facility] appointment for coag management. [facility] message sent --no Clinic will follow up again in 2 week(s). Thank you, Brie Mosqueda Marketing Traffic Coordinator [facility] ([facility]) (Formerly Telepharmacy) 04/14/2023, 8:17 AM documented in this encounter Plan of Treatment Upcoming Encounters Date Type Department Care Team (Late st Contact Info) Description 05/01/2023 6:45 PM EST Anticoagulation Pharmacy Call Center [address] [facility] [place] [address] [facility] 58 60 [facility] [place] [address] Health Maintenance Due Date Last Done Comments DISCUSS TOBACCO CESSATION (REFER TO SMARTSET #[id number]) 1960 Colonoscopy 2005 Sigmoidoscopy 2005 Diabetic Eye [...] Discussed due to patient's condition Care Teams Linen Manager Relationship Specialty Start Date End Date Chio Miller MD [address] [place] [address], [place] [address] PCP - General Internal Medicine 01/18/21 documented as of this encounter
--- OUTSIDE RECORDS SUMMARY | 2023-08-21 23:08 | External Medical Summary | Summary of Care ---
Author Name Unknown Organization [facility] Address [address] [place] [address] Phone [phone] Care Team Providers Care Glycerine Plant Operator Name Role Phone Bobo Miller MD Primary Care Provider [phone] Reason for Referral * (Within 10 days (routine)) - Authorized Specialty Diagnoses / Procedures Referred By Contsarai t Referred To Contact Radiology Diagnoses Abnormal mammogram Procedures US BREAST LIMITED BILATERAL Bobo Miller MD [address] [facility] [place] [address] Referral ID Status Reason Start Date Expiration Date V isits Requested Visits Authorized [id number] Authorized 04/11/2023 999 999 Reason for Visit * Reason Onset Date Comments Order Request 04/04/2023 Encounter Details Date Type Department Care Team (Late st Contact Info) Description 04/04/2023 Telephone General Internal Medicine [facility] [address] [facility] [place] [address] Bobo Miller MD [address] [place] [address] Order Request Allergies Active Allergy Reactions Criticality Noted Date Comments Phenytoin Edema face/lips/tongue High 01/27/2015 documented as of this encounter (statuses as of 04/10/2023) Medications Medication Sig Dispensed Refills Start Date [...] mg before bedtime. As instructed by the [facility]. 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 therapy 10/21/2011 08/18/2017 Overview: ICD-10 update of inactive term documented as of this encounter (statuses as of 04/10/2023) Immunizations Name Administration Dates Next Due COVID-19 mRNA, LNP-s, No Pre serve, 2-Dose Series (Moderna) 08/15/2020,07/18/2020 COVID-19, mRNA, LNP-s, PF, B ooster, 100mcg/0.5mg (Moderna) 04/05/2021 Hepatitis B, 20+ yrs 10/01/2013,05/03/2013,04/03 Pneumococcal Conjugate Vacci ne, 20-valent ([id number]) 03/17/2022 Pneumococcal Polysaccharide PPV23 (Pneumovax) 12/28/2011 Seasonal [...] encounter Miscellaneous Notes * Telephone Encounter - Sugar Shaw OSA - 04/10/2023 4:13 PM EST Letter sent 04/10 * Telephone Encounter - Carol Shaw OSA - 04/07/2023 10:40 AM EST Lmom 04/07 2nd attempt * Telephone Encounter - Carol Shaw OSA - 04/05/2023 11:18 AM EST MyG sent 04/05 * Addendum Note - Bobo Miller MD - 04/04/2023 3:27 PM ESTAddended by: BOBO MILLER on: 04/04/2023 03:27 PM Modules accepted: Orders * Telephone Encounter - Bobo Miller MD - 04/04/2023 3:26 PM EST Signed Pt is overdue for visit and many due - call to schedule visit * Telephone Encounter - Barbara Zaragoza OSA - 04/04/2023 3:15 PM EST Pt needs order put in for Diagnostic Mammogram to be done with Ultrasound documented in this encounter Plan of Treatment Upcoming Encounters Date Type Department Care Team (Late st Contact Info) Description 04/12/2023 6:10 PM EST Anticoagulation Pharmacy Call Center [address] [place] [address] [facility] 58 60 [facility] [place] [address] Scheduled Orders Name Type Priority Associated Diagnoses Orde r Schedule MAMMOGRAM DIAGNOSTIC BILATERAL Medical Imaging Routine Abnormal mammogram Expected: 04/11/2023, Expires: 05/05/2024 US BREAST LIMITED BILATERAL Medical Imaging Routine Abnormal mammogram Expected: 04/11/2023, Expires: 05/05/2024 Health Maintenance Due Date Last Done Comments DISCUSS TOBACCO CESSATION (REFER TO SMARTSET #3291) 1960 Colonoscopy 2005 Sigmoidoscopy 2005 Diabetic Eye Exam 07/25/2019 07/24/2018, , 05/25/2015, Additional history exists DTaP,Tdap,and Td Vaccines (2 - Td or Tdap) 11/23/2021 11/24/2011 COVID-19 Vaccine ( - 2022- season) 2022 04/05/2021, 08/15/2020, 07/18/2020 HbA1c 11/11/2022 [...] as of this encounter Visit Diagnoses Diagnosis Abnormal mammogram- Primary Abnormal mammogram, unspecified documented in this encounter Advance Directives Latest Code Status on File Code Status Date Activated Date Inactivated Comments Full Code 01/10/2023 3:19 PM 01/11/2023 6:55 PM This order reflects the patients wishes and were consensually agreed upon. Question Answer Comments Discussion of Advance Directives occurred with: Not Discussed due to patient's condition Care Teams Glycerine Plant Operator Relationship Specialty Start Date End Date Bobo Miller MD [address] [place] [address] PCP - General Internal Medicine 01/18/21 documented as of this encounter
--- OUTSIDE RECORDS SUMMARY | 2023-08-21 23:08 | External Medical Summary | Summary of Care ---
Author Name Unknown Organization [facility] Address [address] [place] [address] Phone [phone] Care Team Providers Care Sports Fitness And Wellness Director Name Role Phone Chio Miller MD Primary Care Provider [phone] Reason for Visit * Reason Comments Dosage Adjustment Via Phone (anticoag Cl inic) Encounter Details Date Type Department Care Team (Latest Contact Info) Description 05/01/2023 6:45 PM EST Anticoagulation Pharmacy Call Center [address] [place] [address] [facility] [address] [place] [address] History of pulmonary embolism* Allergies Active Allergy Reactions Criticality Noted Date Comments Phenytoin Edema face/lips/tongue High 01/27/2015 documented as of this encounter (statuses as of 05/01/2023) Medications Medication Sig Dispensed Refills Start Date [...] mg before bedtime. As instructed by the [facility]. 10 mL 0 01/03/2023 Active [...] as of this encounter (statuses as of 05/01/2023) Active Problems Problem Noted Date Diagnosed Date [...] as of this encounter (statuses as of 05/01/2023) Resolved Problems Problem Noted Date Diagnosed Date [...] as of this encounter (statuses as of 05/01/2023) Immunizations Name Administration Dates Next Due COVID-19 mRNA, LNP-s, No Pre serve, 2-Dose Series (Moderna) 08/15/2020,07/18/2020 COVID-19, mRNA, LNP-s, PF, B ooster, 100mcg/0.5mg (Moderna) 04/05/2021 Hepatitis B, 20+ yrs 10/01/2013,05/03/2013,04/03 Pneumococcal Conjugate Vacci ne, 20-valent ([id number]) 03/17/2022 Pneumococcal Polysaccharide PPV23 (Pneumovax) 12/28/2011 Seasonal [...] Notes * Brie Mosqueda PHARM Tech - 05/01/2023 8:16 AM EST Fiona De Leon Called inform pt they are overdue for coag appt. Last INR 01/22. Will attempt gain in 4 weeks. Thank you, Brie Mosqueda Duco Polisher [facility] ([facility]) ( Formerly Telepharmacy) 05/01/2023, 8:18 AM documented in this encounter Plan of Treatment Upcoming Encounters Date Type Department Care Team (Late st Contact Info) Description 05/29/2023 6:45 PM EDT Anticoagulation Pharmacy Call Center [address] [facility] [place] [address] [facility] 58 60 [facility] [place] [address] Health Maintenance Due Date Last Done Comments DISCUSS TOBACCO CESSATION (REFER TO SMARTSET #6844) 1960 Colonoscopy 2005 Sigmoidoscopy 2005 Diabetic Eye [...] Discussed due to patient's condition Care Teams Sports Fitness And Wellness Director Relationship Specialty Start Date End Date Chio Miller MD [address] [facility] [place] [address] PCP - General Internal Medicine 01/18/21 documented as of this encounter
--- OUTSIDE RECORDS SUMMARY | 2023-08-21 23:08 | External Medical Summary | Summary of Care ---
Author Name Unknown Organization [facility] Address [address] [place] [address] Phone [phone] Care Team Providers Care Piano Player Name Role Phone Bobo Miller MD Primary Care Provider Reason for Visit * Reason Onset Date Comments Medication Refill 05/25/2023 Encounter Details Date Type Department Care Team (Late st Contact Info) Description 05/25/2023 Refill General Internal Medicine [facility] [address] [place] [place] [address] Bobo Miller MD [address] [place] [address] Disc disorder of lumbar region; S/P cervical spinal fusion Allergies Active Allergy Reactions Criticality Noted Date Comments Phenytoin Edema face/lips/tongue High 01/27/2015 documented as of this encounter (statuses as of 05/27/2023) Medications Medication Sig Dispensed Refills Start Date [...] mg before bedtime. As instructed by the [facility]. 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 2 Cervical disc disease 11/24/2011 S/P cervical spinal fusion 11/24/2011 History of pulmonary embolism 10/21/2011 Asthma, moderate persistent 10/21/2011 Anticoagulation management encounter 10/21/2011 documented as of this encounter (statuses as of 05/27/2023) Resolved Problems Problem Noted Date Diagnosed Date [...] Thyroid mass 01/07/2012 10/15/2012 Overview: ?Dr Morley group home current use of ant icoagulant therapy 10/21/2011 08/18/2017 Overview: ICD-10 update of inactive term documented as of this encounter (statuses as of 05/27/2023) Immunizations Name Administration Dates Next Due COVID-19 mRNA, LNP-s, No Pre serve, 2-Dose Series (Moderna) 08/15/2020,07/18/2020 COVID-19, mRNA, LNP-s, PF, B ooster, 100mcg/0.5mg (Moderna) 04/05/2021 Hepatitis B, 20+ yrs 10/01/2013,05/03/2013,04/03 Pneumococcal Conjugate Vacci ne, 20-valent ([id number]) 03/17/2022 Pneumococcal Polysaccharide PPV23 (Pneumovax) 12/28/2011 Seasonal [...] Telephone Encounter - Bobo Miller MD - 05/27/2023 12:48 PM EDTSigned Prescriptions: Disp Refills tiZANidine HCl 4 MG Oral Tablet (Zanaflex) 180 Ta*1 Sig: take 2 tablets by mouth every 8 hours if needed for muscle spasmAuthorizing Provider: BOBO MILLER------- * Telephone Encounter - Moshe Blankenship [facility] - 05/27/2023 10:32 AM EDT Pending Prescriptions: Disp Refills tiZANidine HCl 4 MG Oral Tablet (Zanaflex) 180 Ta*3 Sig: take 2 tablets by mouth every 8 hours if needed for muscle spasm * Telephone Encounter - Moshe Blankenship [facility] - 05/27/2023 10:32 AM EDT [facility] is currently not authorized to approve refills for the pended medication(s) per refill protocol. Please approve if appropriate. Thank you, Moshe Blankenship, PharmD Clinical Pharmacist [facility] ([facility]) (Formerly Telepharmacy) [phone] 05/27/2023, 10:32 AM * Telephone Encounter - Moshe Blankenship [facility] - 05/27/2023 10:32 AM EDT Did you pend patient's preferred pharmacy and medication before forwarding?yes Pharmacy: [facility] [id number] Pending Prescriptions: Disp Refills tiZANidine HCl 4 MG Oral Tablet (Zanaflex)180 Ta*3 Sig: take 2 tablets by mouth every 8 hours if needed for muscle spasm Last Visit: 10/18/2022 (in office), 01/13/2022 (telemedicine) Next Visit: Visit date not found If no future appointments scheduled, and last appointment is greater than a year ago, please schedule patient for a follow-up appointment Last date the medication was ordered: 01/27/2023 Is this request for a controlled substance?No [...] PM EDT Anticoagulation Pharmacy Call Center [address] [facility] [place] [address] [facility] [address] [facility] [place] [address] Health Maintenance Due Date Last Done Comments DISCUSS TOBACCO CESSATION (REFER TO SMARTSET #4228) 1960 Colonoscopy 2005 Sigmoidoscopy 2005 Diabetic Eye Exam 07/25/2019 07/24/2018, , 05/25/2015, Additional history exists DTaP,Tdap,and Td Vaccines (2 - Td or Tdap) 11/23/2021 11/24/2011 COVID-19 Vaccine (4 - season) 2022 04/05/2021, 08/15/2020, 07/18/2020 HbA1c [...] Discussed due to patient's condition Care Teams Piano Player Relationship Specialty Start Date End Date Bobo Miller MD [address] [facility] [place] [address] PCP - General Internal Medicine 01/18/21 documented as of this encounter
--- OUTSIDE RECORDS SUMMARY | 2023-08-21 23:09 | External Medical Summary | Summary of Care ---
Author Name Unknown Organization [facility] Address [address] [place] [address] Phone [phone] Care Team Providers Care Chute Operator Name Role Phone Chio Miller MD Primary Care Provider [phone] Reason for Visit * Reason Onset Date Comments FYI 04/05/2023 Mammogram Encounter Details Date Type Department Care Team (Late st Contact Info) Description 04/05/2023 Telephone General Internal Medicine [facility] [address] [place] [address] Chio Miller MD [address] [place] [address] FYI (Mammogram) Allergies Active Allergy Reactions Criticality Noted Date Comments Phenytoin Edema face/lips/tongue High 01/27/2015 documented as of this encounter (statuses as of 04/05/2023) Medications Medication Sig Dispensed Refills Start Date [...] before bedtime. As instructed by the [facility]. 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 10/21/2011 08/18/2017 Overview: ICD-10 update of inactive term documented as of this encounter (statuses as of 04/05/2023) Immunizations Name Administration Dates Next Due COVID-19 mRNA, LNP-s, No Pre serve, 2-Dose Series (Moderna) 08/15/2020,07/18/2020 COVID-19, mRNA, LNP-s, PF, B ooster, 100mcg/0.5mg (Moderna) 04/05/2021 Hepatitis B, 20+ yrs 10/01/2013,05/03/2013,04/03 Pneumococcal Conjugate Vacci ne, 20-valent ([id number]) 03/17/2022 Pneumococcal Polysaccharide PPV23 (Pneumovax) 12/28/2011 Seasonal [...] encounter Miscellaneous Notes * Telephone Encounter - Clarisse Lang OSA - 04/05/2023 8:32 AM EST FYI, patient is due for her annual mammogram, which will also be a diagnotic follow/up. Several unsuccessful attempts have been made to contact patient. A MYG was sent, voicemail at cell number [phone], and a certified letter has been mailed to home address. documented in this encounter Plan of Treatment Upcoming Encounters Date Type Department Care Team (Late st Contact Info) Description 04/12/2023 6:10 PM EST Anticoagulation Pharmacy Call Center [address] [facility] [place] [address] [facility] [address] [facility] [place] [address] Health Maintenance Due Date Last Done Comments [...] Discussed due to patient's condition Care Teams Chute Operator Relationship Specialty Start Date End Date Chio Miller MD 200 [facility] [place], [place] [address] PCP - General Internal Medicine 01/18/21 documented as of this encounter
--- OUTSIDE RECORDS SUMMARY | 2023-08-21 23:09 | External Medical Summary | Summary of Care ---
Author Name Unknown Organization [facility] Address [address] [place] [address] Phone [phone] Care Team Providers Care Drone Pilot Name Role Phone Chio Miller MD Primary Care Provider [phone] Reason for Visit * Reason Comments Dosage Adjustment Via Phone (anticoag Cl inic) Encounter Details Date Type Department Care Team (Latest Contact Info) Description 03/22/2023 6:45 PM EST Anticoagulation Pharmacy Call Center [address] [place] [address] [facility] [address] [place] [address] History of pulmonary embolism* Allergies Active Allergy Reactions Criticality Noted Date Comments Phenytoin Edema face/lips/tongue High 01/27/2015 documented as of this encounter (statuses as of 03/22/2023) Medications Medication Sig Dispensed Refills Start Date [...] mg before bedtime. As instructed by the [facility]. 10 mL 0 01/03/2023 Active [...] as of this encounter (statuses as of 03/22/2023) Active Problems Problem Noted Date Diagnosed Date [...] as of this encounter (statuses as of 03/22/2023) Resolved Problems Problem Noted Date Diagnosed Date [...] as of this encounter (statuses as of 03/22/2023) Immunizations Name Administration Dates Next Due COVID-19 mRNA, LNP-s, No Pre serve, 2-Dose Series (Moderna) 08/15/2020,07/18/2020 COVID-19, mRNA, LNP-s, PF, B ooster, 100mcg/0.5mg (Moderna) 04/05/2021 Hepatitis B, 20+ yrs 10/01/2013,05/03/2013,04/03 Pneumococcal Conjugate Vacci ne, 20-valent ([id number]) 03/17/2022 Pneumococcal Polysaccharide PPV23 (Pneumovax) 12/28/2011 Seasonal [...] Notes * Brie Mosqueda PHARM Tech - 03/22/2023 8:17 AM EST Fiona De Leon Called & LVM to inform pt they are overdue for coag appt. Last INR 12. Will attempt gain in 3 weeks. Thank you, Brie Mosqueda Barrel Lathe Operator [facility] ([facility]) ( Formerly Telepharmacy) 03/22/2023, 8:17 AM documented in this encounter Plan of Treatment Upcoming Encounters Date Type Department Care Team (Late st Contact Info) Description 04/12/2023 6:10 PM EST Anticoagulation Pharmacy Call Center [address] [facility] [place] [address] [facility] 58 60 [facility] [place] [address] Health Maintenance Due Date Last Done Comments DISCUSS TOBACCO CESSATION (REFER TO SMARTSET #8148) 1960 Colonoscopy 2005 Sigmoidoscopy 2005 Diabetic Eye [...] 10/13/2023 10/12/2022, 04/2022, 04/13/2022, Additional history exists GFR 01/23/2024 [...] Discussed due to patient's condition Care Teams Drone Pilot Relationship Specialty Start Date End Date Chio Miller MD 200 [facility] [place] [address] PCP - General Internal Medicine 11/8/21 documented as of this encounter
--- OUTSIDE RECORDS SUMMARY | 2023-08-21 23:09 | External Medical Summary | Summary of Care ---
Author Name Unknown Organization [facility] Address [address] [place] [address] Phone [phone] Care Team Providers Care Seismic Computer Name Role Phone Bobo Miller MD Primary Care Provider [phone] Reason for Referral * (Within 10 days (routine)) - Authorized Specialty Diagnoses / Procedures Referred By Contsarai t Referred To Contact Radiology Diagnoses Abnormal mammogram Procedures US BREAST LIMITED BILATERAL Bobo Miller MD [address] [facility] [place] [address] Referral ID Status Reason Start Date Expiration Date V isits Requested Visits Authorized [id number] Authorized 04/11/2023 999 999 Reason for Visit * Reason Onset Date Comments Order Request 04/04/2023 Encounter Details Date Type Department Care Team (Late st Contact Info) Description 04/04/2023 Telephone General Internal Medicine [facility] [address] [facility] [place] [address] Bobo Miller MD 200 [place] [address] Order Request Allergies Active Allergy Reactions Criticality Noted Date Comments Phenytoin Edema face/lips/tongue High 01/27/2015 documented as of this encounter (statuses as of 04/06/2023) Medications Medication Sig Dispensed Refills Start Date [...] before bedtime. As instructed by the [facility]. 10 mL 0 01/03/2023 [...] as of this encounter (statuses as of 04/06/2023) Active Problems Problem Noted Date Diagnosed Date [...] as of this encounter (statuses as of 04/06/2023) Resolved Problems Problem Noted Date Diagnosed Date [...] as of this encounter (statuses as of 04/06/2023) Immunizations Name Administration Dates Next Due COVID-19 mRNA, LNP-s, No Pre serve, 2-Dose Series (Moderna) 08/15/2020,07/18/2020 COVID-19, mRNA, LNP-s, PF, B ooster, 100mcg/0.5mg (Moderna) 04/05/2021 Hepatitis B, 20+ yrs 10/01/2013,05/03/2013,04/03 Pneumococcal Conjugate Vacci ne, 20-valent ([id number]) 03/17/2022 Pneumococcal Polysaccharide PPV23 (Pneumovax) 12/28/2011 Seasonal [...] encounter Miscellaneous Notes * Telephone Encounter - Carol Shaw OSA [...] EST Anticoagulation Pharmacy Call Center [address] [place] [address] [facility] 58 60 [facility] [place] [address] Scheduled Orders Name Type Priority Associated Diagnoses [...] Discussed due to patient's condition Care Teams Seismic Computer Relationship Specialty Start Date End Date Bobo Miller MD [address] [place] [address] PCP - General Internal Medicine 01/18/21 documented as of this encounter
--- OUTSIDE RECORDS SUMMARY | 2023-08-21 23:09 | External Medical Summary | Summary of Care ---
Author Name Unknown Organization [facility] Address [address] [place] [address] Phone [phone] Care Team Providers Care Pump Station Operator Name Role Phone Bobo Miller MD Primary Care Provider [phone] Reason for Referral * (Within 10 days (routine)) - Authorized Specialty Diagnoses / Procedures Referred By Contsarai t Referred To Contact Radiology Diagnoses Abnormal mammogram Procedures US BREAST LIMITED BILATERAL Bobo Miller MD [address] [facility] [place] [address] Referral ID Status Reason Start Date Expiration Date V isits Requested Visits Authorized [id number] Authorized 04/11/2023 999 999 Reason for Visit * Reason Onset Date Comments Order Request 04/04/2023 Encounter Details Date Type Department Care Team (Late st Contact Info) Description 04/04/2023 Telephone General Internal Medicine [facility] [address] [place] [address] Bobo Miller MD [address] [place] [address] Order Request Allergies Active Allergy Reactions Criticality Noted Date Comments Phenytoin Edema face/lips/tongue High 01/27/2015 documented as of this encounter (statuses as of 04/04/2023) Medications Medication Sig Dispensed Refills Start Date [...] mg before bedtime. As instructed by the [facility]. 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 therapy 10/21/2011 08/18/2017 Overview: ICD-10 update of inactive term documented as of this encounter (statuses as of 04/04/2023) Immunizations Name Administration Dates Next Due COVID-19 mRNA, LNP-s, No Pre serve, 2-Dose Series (Moderna) 08/15/2020,07/18/2020 COVID-19, mRNA, LNP-s, PF, B ooster, 100mcg/0.5mg (Moderna) 04/05/2021 Hepatitis B, 20+ yrs 10/01/2013,05/03/2013,04/03 Pneumococcal Conjugate Vacci ne, 20-valent ([id number]) 03/17/2022 Pneumococcal Polysaccharide PPV23 (Pneumovax) 12/28/2011 Seasonal [...] encounter Miscellaneous Notes * Addendum Note - Bobo Miller MD [...] PM EST Anticoagulation Pharmacy Call Center [phone] [facility] [place] [address] [facility] 58 [address] [facility] [place] [address] Scheduled Orders Name Type Priority Associated Diagnoses Orde r Schedule MAMMOGRAM DIAGNOSTIC BILATERAL Medical Imaging Routine Abnormal mammogram Expected: 04/11/2023, Expires: 05/05/2024 US BREAST LIMITED BILATERAL Medical Imaging Routine Abnormal mammogram Expected: 04/11/2023, Expires: 05/05/2024 Health Maintenance Due Date Last Done Comments DISCUSS TOBACCO CESSATION (REFER TO SMARTSET #1404) 1960 Colonoscopy 2005 Sigmoidoscopy 2005 Diabetic Eye Exam 07/25/2019 07/24/2018, , 05/25/2015, Additional history exists DTaP,Tdap,and Td Vaccines (2 - Td or Tdap) 11/23/2021 11/24/2011 COVID-19 Vaccine (4 - 2022- season) 2022 04/05/2021, 08/15/2020, 07/18/2020 [...] Discussed due to patient's condition Care Teams Pump Station Operator Relationship Specialty Start Date End Date Bobo Miller MD [address] [place] [address] PCP - General Internal Medicine 01/18/21 documented as of this encounter
--- OUTSIDE RECORDS SUMMARY | 2023-08-21 23:09 | External Medical Summary | Summary of Care ---
Author Name Unknown Organization [facility] Address [address] [place] [address] Phone [phone] Care Team Providers Care Grain Merchandiser Name Role Phone Chio Miller MD Primary Care Provider Reason for Visit * Reason Onset Date Comments FYI 04/05/2023 Mammogram Encounter Details Date Type Department Care Team (Late st Contact Info) Description 04/05/2023 Telephone General Internal Medicine [facility] [address] [facility] [place] [address] Chio Miller MD [address] [place] [address] FYI (Mammogram) Allergies Active Allergy Reactions Criticality [...] inactive term OA (osteoarthritis) of knee 01/26/2012 correction current use of anticoagulant 2 Cervical disc [...] 01/07/2012 10/15/2012 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 10/21/2011 08/18/2017 Overview: ICD-10 update of inactive term documented as of this encounter (statuses as of 04/05/2023) Immunizations Name Administration Dates Next Due COVID-19 mRNA, LNP-s, No Pre serve, 2-Dose Series (Moderna) 08/15/2020,07/18/2020 COVID-19, mRNA, LNP-s, PF, B ooster, 100mcg/0.5mg (Moderna) 04/05/2021 Hepatitis B, 20+ yrs 10/01/2013,05/03/2013,04/03 Pneumococcal Conjugate Vacci ne, 20-valent ([id number]) 03/17/2022 Pneumococcal Polysaccharide PPV23 (Pneumovax) 12/28/2011 Seasonal [...] PM EST Anticoagulation Pharmacy Call Center [phone] [facility] [place] [address] [facility] [address] [facility] [place] [address] Health Maintenance Due Date Last Done Comments [...] Discussed due to patient's condition Care Teams Grain Merchandiser Relationship Specialty Start Date End Date Chio Miller MD [address] [facility] [place], [place] [address] PCP - General Internal Medicine 01/18/21 documented as of this encounter
--- OUTSIDE RECORDS SUMMARY | 2023-08-21 23:09 | External Medical Summary | Summary of Care ---
Author Name Unknown Organization [facility] Address [address] [place] [address] Phone [phone] Care Team Providers Care Bariatric Physician Name Role Phone Chio Miller MD Primary Care Provider [phone] Reason for Visit * Reason Comments Dosage Adjustment Via Phone (anticoag Cl inic) Encounter Details Date Type Department Care Team (Latest Contact Info) Description 03/03/2023 6:45 PM EST Anticoagulation Pharmacy Call Center [phone] [facility] [place] [address] [facility] [address] [facility] [place] [address] History of pulmonary embolism* Allergies Active Allergy Reactions Criticality Noted Date Comments Phenytoin Edema face/lips/tongue High 01/27/2015 documented as of this encounter (statuses as of 03/03/2023) Medications Medication Sig Dispensed Refills Start Date [...] mg before bedtime. As instructed by the [facility]. 10 mL 0 01/03/2023 Active [...] as of this encounter (statuses as of 03/03/2023) Active Problems Problem Noted Date Diagnosed Date [...] inactive term OA (osteoarthritis) of knee 01/26/2012 halfway current use of anticoagulant 2 Cervical disc disease 11/24/2011 S/P cervical spinal fusion 11/24/2011 History of pulmonary embolism 10/21/2011 Asthma, moderate persistent 10/21/2011 Anticoagulation management encounter 10/21/2011 documented as of this encounter (statuses as of 03/03/2023) Resolved Problems Problem Noted Date Diagnosed Date [...] as of this encounter (statuses as of 03/03/2023) Immunizations Name Administration Dates Next Due COVID-19 mRNA, LNP-s, No Pre serve, 2-Dose Series (Moderna) 08/15/2020,07/18/2020 COVID-19, mRNA, LNP-s, PF, B ooster, 100mcg/0.5mg (Moderna) 04/05/2021 Hepatitis B, 20+ yrs 10/01/2013,05/03/2013,04/03 Pneumococcal Conjugate Vacci ne, 20-valent ([id number]) 03/17/2022 Pneumococcal Polysaccharide PPV23 (Pneumovax) 12/28/2011 Seasonal [...] as of this encounter Progress Notes * Joana Smith, stock sorter - 03/03/2023 8:14 AM EST Patient Phone Numbers Left message on patients answering machine to schedule MTDM appointment for [facility] management. [facility] message sent --no Clinic will follow up again in 1 week(s). Last INR 01/22/2023 Thank you, Joana Smith Fulfillment Associate [facility] 03/03/2023,8:14 AM documented in this encounter Plan of Treatment Upcoming Encounters Date Type Department Care Team (Late st Contact Info) Description 03/20/2023 2:00 PM EST Office Visit General Internal Medicine [facility] [place] [address] [facility] [place] [address] Chio Miller MD 200 [facility] [place] [address] Health Maintenance Due Date Last Done Comments DISCUSS TOBACCO CESSATION (REFER TO SMARTSET #2419) 1960 Colonoscopy 2005 Sigmoidoscopy 2005 Diabetic Eye [...] Discussed due to patient's condition Care Teams Bariatric Physician Relationship Specialty Start Date End Date Chio Miller MD [address] [place] [address], [place] [address] PCP - General Internal Medicine 01/18/21 documented as of this encounter
--- OUTSIDE RECORDS SUMMARY | 2023-08-21 23:09 | External Medical Summary | Summary of Care ---
Author Name Unknown Organization [facility] Address [address] [place] [address] Phone [phone] Care Team Providers Care Md Allergy Immunology Name Role Phone Bobo Miller MD Primary Care Provider Reason for Referral * (Within 10 days (routine)) - Authorized Specialty Diagnoses / Procedures Referred By Contsarai t Referred To Contact Radiology Diagnoses Abnormal mammogram Procedures US BREAST LIMITED BILATERAL Bobo Miller MD [address] [facility] [place] [address] Referral ID Status Reason Start Date Expiration Date V isits Requested Visits Authorized [id number] Authorized 04/11/2023 999 999 Reason for Visit * Reason Onset Date Comments Order Request 04/04/2023 Encounter Details Date Type Department Care Team (Late st Contact Info) Description 04/04/2023 Telephone General Internal Medicine [facility] 200 [facility] [place] [address] oBbo Miller MD [address] [place] [address] Order Request Allergies Active Allergy Reactions Criticality Noted Date Comments Phenytoin Edema face/lips/tongue High 01/27/2015 documented as of this encounter (statuses as of 04/07/2023) Medications Medication Sig Dispensed Refills Start Date End Date Status CHOLECALCIFEROL 2000 UNITS PO CAPS one capsule daily 30 Cap 4 01/09/2014 Active QUEtiapine (SEROQUEL) 200 MG Tablet Take 300 mg by mouth at bedtime. 60 Tab 5 01/27/2015 Active LORAzepam (ATIVAN) 0.5 MG Tablet TAKE ONE TABLET BY MOUTH THREE TIMES DAILY FOR ANXIETY 1 08/04/2016 Active Potassium Chloride Emliy ER 20 MEQ TBCR Take 1 Tab [...] as of this encounter (statuses as of 04/07/2023) Active Problems Problem Noted Date Diagnosed Date [...] inactive term OA (osteoarthritis) of knee 01/26/2012 emt intermediate current use of anticoagulant 2 Cervical disc disease 11/24/2011 S/P cervical spinal fusion 11/24/2011 History of pulmonary embolism 10/21/2011 Asthma, moderate persistent 10/21/2011 Anticoagulation management encounter 10/21/2011 documented as of this encounter (statuses as of 04/07/2023) Resolved Problems Problem Noted Date Diagnosed Date [...] Thyroid mass 01/07/2012 10/15/2012 Overview: ?Dr Morley emt intermediate current use of ant icoagulant therapy 10/21/2011 08/18/2017 Overview: ICD-10 update of inactive term documented as of this encounter (statuses as of 04/07/2023) Immunizations Name Administration Dates Next Due COVID-19 mRNA, LNP-s, No Pre serve, 2-Dose Series (Moderna) 08/15/2020,07/18/2020 COVID-19, mRNA, LNP-s, PF, B ooster, 100mcg/0.5mg (Moderna) 04/05/2021 Hepatitis B, 20+ yrs 10/01/2013,05/03/2013,04/03 Pneumococcal Conjugate Vacci ne, 20-valent ([id number]) 03/17/2022 Pneumococcal Polysaccharide PPV23 (Pneumovax) 12/28/2011 Seasonal [...] Pt is overdue for visit and many HM due - call to schedule visit * Telephone Encounter - Barbara Zaragoza OSA - 04/04/2023 3:15 PM EST Pt needs order put in for Diagnostic Mammogram to be done with Ultrasound documented in this encounter Plan of Treatment Upcoming Encounters Date Type Department Care Team (Late st Contact Info) Description 04/12/2023 6:10 PM EST Anticoagulation Pharmacy Call Center WB [address] [place] [address] [facility] 58 60 [facility] [place] [address] Scheduled Orders Name Type Priority Associated Diagnoses [...] Discussed due to patient's condition Care Teams Md Allergy Immunology Relationship Specialty Start Date End Date Bobo Miller MD [address] [place] [address] PCP - General Internal Medicine 01/18/21 documented as of this encounter
--- OUTSIDE RECORDS SUMMARY | 2023-08-21 23:09 | External Medical Summary | Summary of Care ---
Author Name Unknown Organization [facility] Address [address] [place] [address] Phone [phone] Care Team Providers Care Fugitive Investigator Name Role Phone Bobo Miller MD Primary Care Provider [phone] Reason for Referral * (Within 10 days (routine)) - Authorized Specialty Diagnoses / Procedures Referred By Contsarai t Referred To Contact Radiology Diagnoses Abnormal mammogram Procedures US BREAST LIMITED BILATERAL Bobo Miller MD 200 [facility] [place] [address] Referral ID Status Reason Start Date Expiration Date V isits Requested Visits Authorized [id number] Authorized 04/11/2023 999 999 Reason for Visit * Reason Onset Date Comments Order Request 04/04/2023 Encounter Details Date Type Department Care Team (Late st Contact Info) Description 04/04/2023 Telephone General Internal Medicine [facility] 200 [facility] [place] [address] Bobo Miller MD 200 [place] [address] Order Request Allergies Active Allergy Reactions Criticality [...] mg before bedtime. As instructed by the [facility]. 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 10/21/2011 08/18/2017 Overview: ICD-10 update of inactive term documented as of this encounter (statuses as of 04/04/2023) Immunizations Name Administration Dates Next Due COVID-19 mRNA, LNP-s, No Pre serve, 2-Dose Series (Moderna) 08/15/2020,07/18/2020 COVID-19, mRNA, LNP-s, PF, B ooster, 100mcg/0.5mg (Moderna) 04/05/2021 Hepatitis B, 20+ yrs 10/01/2013,05/03/2013,04/03 Pneumococcal Conjugate Vacci ne, 20-valent ([id number]) 03/17/2022 Pneumococcal Polysaccharide PPV23 (Pneumovax) 12/28/2011 Seasonal [...] Center [address] [facility] [place] [address] [facility] 58 60 [facility] [place] [address] Scheduled Orders Name Type Priority Associated Diagnoses Orde r Schedule MAMMOGRAM DIAGNOSTIC BILATERAL Medical Imaging Routine Abnormal mammogram Expected: 04/11/2023, Expires: 05/05/2024 US BREAST LIMITED BILATERAL Medical Imaging Routine Abnormal mammogram Expected: 04/11/2023, Expires: 05/05/2024 Health Maintenance Due Date Last Done Comments DISCUSS TOBACCO CESSATION (REFER TO SMARTSET #9152) 1960 Colonoscopy 2005 Sigmoidoscopy 2005 Diabetic Eye [...] Discussed due to patient's condition Care Teams Fugitive Investigator Relationship Specialty Start Date End Date Bobo Miller MD [address] [place] [address] PCP - General Internal Medicine 01/18/21 documented as of this encounter
--- OUTSIDE RECORDS SUMMARY | 2023-08-21 23:09 | External Medical Summary | Summary of Care ---
Author Name Unknown Organization [facility] Address [address] [place] [address] Phone [phone] Care Team Providers Care Aperture Mask Etcher Name Role Phone Bobo Miller MD Primary Care Provider [phone] Reason for Referral * (Within 10 days (routine)) - Authorized Specialty Diagnoses / Procedures Referred By Contsarai t Referred To Contact Radiology Diagnoses Abnormal mammogram Procedures US BREAST LIMITED BILATERAL Bobo Miller MD 200 [facility] [place] [place] [address] Referral ID Status Reason Start Date Expiration Date V isits Requested Visits Authorized [id number] Authorized 04/11/2023 999 999 Reason for Visit * Reason Onset Date Comments Order Request 04/04/2023 Encounter Details Date Type Department Care Team (Late st Contact Info) Description 04/04/2023 Telephone General Internal Medicine [facility] 200 [facility] [place] [place] [address] Bobo Miller MD [address] [place] [address] Order Request Allergies Active Allergy Reactions Criticality [...] mg before bedtime. As instructed by the [facility]. 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 10/21/2011 08/18/2017 Overview: ICD-10 update of inactive term documented as of this encounter (statuses as of 04/05/2023) Immunizations Name Administration Dates Next Due COVID-19 mRNA, LNP-s, No Pre serve, 2-Dose Series (Moderna) 08/15/2020,07/18/2020 COVID-19, mRNA, LNP-s, PF, B ooster, 100mcg/0.5mg (Moderna) 04/05/2021 Hepatitis B, 20+ yrs 10/01/2013,05/03/2013,04/03 Pneumococcal Conjugate Vacci ne, 20-valent ([id number]) 03/17/2022 Pneumococcal Polysaccharide PPV23 (Pneumovax) 12/28/2011 Seasonal [...] Call Center [address] [place] [address] [facility] [address] [facility] [place] [address] Scheduled Orders Name Type Priority Associated Diagnoses [...] Discussed due to patient's condition Care Teams Aperture Mask Etcher Relationship Specialty Start Date End Date Bobo Miller MD [address] [place] [address] PCP - General Internal Medicine 01/18/21 documented as of this encounter
--- OUTSIDE RECORDS SUMMARY | 2023-08-21 23:09 | External Medical Summary | Summary of Care ---
Author Name Unknown Organization [facility] Address [address] [place] [address] Phone [phone] Care Team Providers Care Multifocal Button Generator Name Role Phone Bobo Miller MD Primary Care Provider [phone] Reason for Referral * (Within 10 days (routine)) - Authorized Specialty Diagnoses / Procedures Referred By Contsarai t Referred To Contact Radiology Diagnoses Abnormal mammogram Procedures US BREAST LIMITED BILATERAL Bobo Miller MD 200 [facility] [place] [address] Referral ID Status Reason Start Date Expiration Date V isits Requested Visits Authorized [id number] Authorized 04/11/2023 999 999 Reason for Visit * Reason Onset Date Comments Order Request 04/04/2023 Encounter Details Date Type Department Care Team (Late st Contact Info) Description 04/04/2023 Telephone General Internal Medicine [facility] 200 [facility] [place] [address] Bobo Miller MD 200 [place] [address] Order Request Allergies Active Allergy Reactions Criticality [...] mg before bedtime. As instructed by the [facility]. 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 10/21/2011 08/18/2017 Overview: ICD-10 update of inactive term documented as of this encounter (statuses as of 04/10/2023) Immunizations Name Administration Dates Next Due COVID-19 mRNA, LNP-s, No Pre serve, 2-Dose Series (Moderna) 08/15/2020,07/18/2020 COVID-19, mRNA, LNP-s, PF, B ooster, 100mcg/0.5mg (Moderna) 04/05/2021 Hepatitis B, 20+ yrs 10/01/2013,05/03/2013,04/03 Pneumococcal Conjugate Vacci ne, 20-valent ([id number]) 03/17/2022 Pneumococcal Polysaccharide PPV23 (Pneumovax) 12/28/2011 Seasonal [...] Pharmacy Call Center [address] [place] [address] [facility] [address] 60 [facility] [place] [address] Scheduled Orders Name Type Priority Associated Diagnoses [...] Discussed due to patient's condition Care Teams Multifocal Button Generator Relationship Specialty Start Date End Date Bobo Miller MD [address] [place] [address] PCP - General Internal Medicine 01/18/21 documented as of this encounter
[2023-08-21] MEDS: HYDROmorphone INJ 1 MG/ML SYRINGE IV PRN (23:38)
[2023-08-22 02:01] LABS: Appearance Urine Cloudy (Clear); Bacteria Urine Automated 2+ (None Seen); Bilirubin Urine Negative (Negative); Blood Urine Negative (Negative); Cast Urine Automated 0-2 /lpf (0-2); Color Urine Yellow; Glucose Urine UA Negative (Negative); Ketones Urine Negative (Negative); Leukocyte Esterase Urine 1+ (Negative); Nitrite Urine Negative (Negative); Protein Urine Trace (Negative); RBC Urine Automated 0-2 /hpf (0-2); Specific Gravity Urine 1.022 (1.000-1.030); Urobilinogen Urine Negative (Negative); pH Urine 5.5 (4.5-7.5)
[2023-08-22] MEDS: methylPREDNISolone 4 MG TAB PO SCH ×2 (06:10→13:01)
[2023-08-22 06:44] LABS: Hematocrit (blood only) 32.2 % (37.0-47.0); Mean Corpuscular Hemoglobin 24.4 pg (25.0-34.0); Mean Corpuscular Hgb Conc 31.1 g/dL (32.0-36.0); Mean Corpuscular Volume 78.7 fL (80.0-100.0); Mean Platelet Volume 9.9 fL (9.4-12.4); Platelet Count 239 K/uL (130-400); RDW Coefficient of Variation 16.8 % (11.5-14.5); RDW Standard Deviation 48.2 fL (36.4-46.3); Red Blood Count 4.09 M/uL (4.20-5.40); White Blood Count 10.58 K/ul (4.8-10.8)
[2023-08-22 07:08] LABS: Calcium 9.2 mg/dl (8.6-10.3); Creatinine Clr Calc Pharmacy 75.6 ml/min; Est GFR (African American) 88.3 ml/min; Est GFR (Non-African American) 76.2 ml/min; Potassium 3.6 mmol/L (3.5-5.1)
[2023-08-22 07:14] LABS: INR 1.8 (0.9-1.1); Prothrombin Time 18.7 Seconds (9.0-12.0)
[2023-08-22] MEDS ORDERED: methylPREDNISolone 4 MG TAB, 6 DAY TAPER PO SCH (08:00)
[2023-08-22] MEDS: PANTOprazole 40 MG TAB PO SCH (08:10)
[2023-08-22] MEDS: POTASSIUM CHLORIDE CRTAB 20 MEQ TABCR PO SCH (08:10)
[2023-08-22] MEDS: FLUTICASONE FUROATE 200MCG 14 PUFFS/INHALER INH SCH (08:10)
[2023-08-22] MEDS: UMECLIDINIUM/VILANTEROL 62.5/25MCG 7 PUFFS/INHALER INH SCH (08:11)
--- NOTE | 2023-08-22 08:16 | Orthopedic Consultation ---
Date of Consultation August 22, 2023 Assessment & Plan (1) Sacroiliitis: MRI and x-rays of the lumbar spine available for review. I did not appreciate any gross neural compression on the MRI. Foramen are patent. She is well decompressed. There is beginnings of facet arthropathy L5-S1 without neural com pression. She does have evidence of a right total hip. Plan at this point I would like to obtain right hip x-rays based on her logroll exam. The back pain could be a combination of facet mediated back pain versus sacroiliitis. Will continue to follow her throughout her stay. History of Present Illness Reason for Consultation: Lumbosacral back pain and right leg pain Attending Physician: Chantel Linder MD History of Present Illness This is a 63-year-old female known to me that presents with significant lumbosacral back pain radiating rating into the right groin and anterior thigh. She states she had a fall in April of this year sustained a fracture of the left distal femur. This was treated nonoperatively. She states since that fall she has began noticing symptoms affecting the right leg. She describes pain at lumbosacral junction with significant right anterior thigh and groin pain. Markedly exacerbated with standing and walking. Left lower extremity is essentially asymptomatic. Allergies Allergy/AdvReac Type Severity Reaction Status Date / Time phenytoin Allergy Intermediate Facial Verified 08/21/23 17:57 swelling Home Medications Medication Instructions Recorded Confirmed Type cholecalciferol (vitamin D3) 50 2,000 unit PO QAM 03/20/18 08/21/23 History mcg (2,000 unit) tablet (Vitamin D3) furosemide 20 mg tablet (Lasix) 20 mg PO DAILY PRN Edema 03/20/18 08/21/23 History lorazepam 0.5 mg tablet (Ativan) 0.5 mg PO TID Anxiety 03/20/18 08/21/23 History pantoprazole 40 mg tablet,delayed 40 mg PO QAM 03/20/18 08/21/23 History release potassium chloride 20 mEq 20 meq PO QAM 03/20/18 08/21/23 History tablet,extended release rosuvastatin 40 mg tablet (Crestor) 40 mg PO QPM 03/20/18 08/21/23 History quetiapine 300 mg tablet 300 mg PO HS 12/18/18 08/21/23 History tizanidine 4 mg tablet 8 mg PO TID 12/18/18 08/21/23 History albuterol sulfate 90 mcg/actuation 2 puff inhalation Q4H PRN sob #18 03/27/20 08/21/23 Rx aerosol inhaler grams warfarin 5 mg tablet 5 mg PO DAILY 05/14/20 08/21/23 History duloxetine 60 mg capsule,delayed 60 mg PO PM 09/28/20 08/21/23 History release albuterol sulfate 2.5 mg/3 mL 2.5 mg inhalation UD PRN sob 08/21/23 08/21/23 History (0.083 %) solution for nebulization budesonide 160 mcg-glycopyr 9 2 inh inhalation BID 08/21/23 08/21/23 History mcg-formot 4.8 mcg/actuation HFA inhaler (Breztri Aerosphere) celecoxib 200 mg capsule 200 mg PO BID 08/21/23 08/21/23 History gabapentin 100 mg capsule 200 mg PO TID 08/21/23 08/21/23 History oxycodone-acetaminophen 5 mg-325 1 tab PO QID PRN Pain 08/21/23 08/21/23 History mg tablet Patient History Medical History DDD (degenerative disc disease) Sciatica Acute low back pain YULIA (acute kidney injury) Intractable back pain Lumbar stenosis with neurogenic claudication Back pain without radiculopathy Asthma Surgical History Status post hysterectomy Status post appendectomy Status post insertion of inferior vena caval filter Status post lumbar surgery Family History Other No significant family history Social History Smoking Status: Current some day smoker Tobacco Type: E-cigarettes / Vaping Second Hand Exposure: No; Do You Dip or Chew Tobacco: No; Hx Alcohol Use: Yes Alcohol type: wine Hx Substance Use: Yes Last Used Substance: Days (ago) Preferred Language: Greek Communication Ability: Effective Manager Of Change Required: No Beliefs That Will Affect Care: None marital status: / Current Living Situation: Family Feels Safe at Home: Yes Safety Concerns: Feels Safe At This Time Assistive Devices: Cane, Glasses and Walker Physical Exam Physical Exam: On exam sensory is symmetric and intact lower extremities. She has reasonable plantarflexion dorsiflexion quadriceps. She is markedly positive logroll on the right. Results & Data Vital Signs (Past 12 Hours) Vital Signs Temp Pulse Resp BP Pulse Ox O2 Del Method 08/22/23 08:07 36.8 C 98 H 18 117/63 99 Room Air 08/21/23 20:22 Room Air
--- NOTE | 2023-08-22 08:44 | Hospitalist Progress Note ---
Date of Service August 22, 2023 Assessment & Plan (1) Intractable back pain: (2) History of degenerative disc disease: (3) Diabetes mellitus type 2, controlled: (4) History of pulmonary embolism: (5) Dyslipidemia: (6) Depression: (7) GERD (gastroesophageal reflux disease): (8) Chronic anticoagulation: Plan Fiona De Leon is a 63y/o F with PMHx of hyperlipidemia, DM type II, moderate persistent asthma, GERD without esophagitis, cervical disc disease s/p cervical spinal fusion, chronic pain syndrome, osteoarthritis, hx of iron deficiency anemia, depression/anxiety, hx of pulmonary embolism on Warfarin, lumbar degenerative arthritis s/p lumbar fusion surgery and other problems listed below who presented to the ED for evaluation of intractable/severe back pain. Intractable back pain History of lumbar spinal fusion: History of Degenerative Disc Disease: Complains of bilateral low back pain. Lumbar spine x-ray negative for acute abnormalities Lumbar MRI: No acute finding including disc herniation, spinal stenosis, epidural hematoma, abnormal cord signal, or discitis/osteomyelitis. Most recent surgery 2020. Patient has been following pain management Dr. Kaufman in [place] for severe chronic low back pain. Denies loss of bowel or bladder function Reported bilateral lower extremity numbness and tingling [facility] evaluated patient + ordered pelvic x-rays negative for acute abnormalities Questionable facet mediated back pain versus sacroiliitis. Continue Medrol Dosepak, Celebrex, duloxetine, tizanidine, Tylenol Pain management consultation placed --Recommended increasing gabapentin to 300 mg 3 times daily; which was ordered -- Continue oral Medrol taper pack, Celebrex, duloxetine, tizanidine, and Tylenol Dilaudid 1 mg Q3 hours ordered; has utilized FOUR doses over past 24 hours. Oxycodone IR; has utilized THREE doses over past 24 hours; was taking 1 tab QID PRN as an outpatient Goal to decrease as needed breakthrough IV narcotics as possible; patient requesting increased frequency of her opioid dosing Explained importance of being judicious in protecting patients respiratory drive Pain management discussed TPI for lumbosacral and SI joint which will be performed tomorrow 08/23/2023 Ordered Colace while on narcotics Anxiety: Depression: Chronic Continue Seroquel, lorazepam, duloxetine Behavioral health liaison visited with patient today Patient historically has followed with Dr. Mayen with good result of management of her depression She is in the process of establishing rapport with a new therapist. Does have anxiety around her pain; discussed with nursing; continue with ativan PRN would suggest 1:1 observation; patient with triggering chronic medical condition and pain which is triggering for depressive symptoms. GERD: Chronic Continue pantoprazole Dyslipidemia: Chronic Continue rosuvastatin Diabetes mellitus type 2, controlled: Currently diet-controlled, glucose on admission is 139. Most recent A1C 7.2 on 07/11/23. Diabetic diet Asthma: Continue PRN medications, Breztri Aerosphere History of pulmonary embolism: Chronic anticoagulation: Chronic On Warfarin INR 1.8 this morning; continue INR in AM History of anemia: Hgb 10.7 and Hct 34.1 on admission --> Baseline Hgb ~9-11. Hgb stable 10.0 Disposition: DVT Prophylaxis: On Warfarin Code Status: Full Code PCP: Chio Miller MD A total of 52 min was spent coordinating, documenting, and providing care for this patient excluding time spent in the performance of separately billed services. This included personally viewing all current laboratories and imaging studies, medication reconciliation, outpatient chart review, and discussion with specialists. Admission and Anticipated Discharge Date Admission Date: August 21, 2023 Supervising Physician Co-Signing Physician Notes Patient seen and examined Pain mgt eval appreciated Increased gabapentin to 300mg TID Pain mgt planning trigger point injection tomorrow Keep diluadid and oxycodone prn as is right now Goal is to control pain better with po and not increasing dose of dilaudid iv PT/OT Reports anxiety/depression. Denied SI/HI Agree with psych eval Agree with findings and plans as detailed by Nayla SMITH and take full responsibility Subjective Pt sitting in her hospital bed in no apparent distress Pt c/o that Her pain is mostly in her lower back groin and described as standing. Pain becomes worse with position changes and is worse with standing but feels relief when she is sitting with a firm back. No loss of bowel or bladder control Has had numerous back surgeries, shoulder surgeries, cervical surgeries and hip replacements She is open for steroid injection from pain management tomorrow States that her pain is not controlled however does not appear in any distress She is requesting increased frequency of dosing. Explained that with her receiving Dilaudid 1 mg every 3 hours we need to be cognizant of her respirations as Dilaudid can affect breathing. Would like to be judicious in keeping her pain controlled with a less potent and frequent medications. Patient does have a known history of anxiety. Has as needed lorazepam ordered. Ortho recommended increasing gabapentin to 300 mg 3 times daily which was discussed with patient. Patient tearful with discussion; states she is feeling worse as the day goes on. She denies overt SI, but does make comments about 'wishing this all would end' and 'i miss my ' Will place on 1:1 observation and [facility] coming to talk with patient Review of Systems Review of Systems: Neuro: (-) Falls, trauma, slurred speech HEENT: (-) [place], dizziness, dysphagia, visual or auditory changes CV: (-) CP, palpitations, swelling Resp: (-) SOB GI: (-) appetite changes, N/V/D, bowel changes : (-) urinary changes Skin: (-) rashes Psych: (-) anxiety, depression Physical Exam Physical Exam: Neuro: AAOx4, PERRLA, no aphagia, memory changes, CNII-XII grossly intact HEENT: head normocephalic, moist mucus membranes CV: S1/S2, (-) M/G/R, (-) edema, cap refill < 3 seconds Resp: Lungs CTA in all vilchis. On RA GI: Abdomen S/NT/ND, Ax4 bowel sounds, (-) CVA tenderness Musculoskeletal: 5/5 B/L UE strength, 5/5 B/L LE strength. No gait disturbance Skin: (-) rashes , (-) erythema. Psych: euthymic mood Results & Data Results & Data Vital Signs (Past 12 Hours) Vital Signs Temp Pulse Resp BP Pulse Ox O2 Del Method 08/22/23 08:07 36.8 C 98 H 18 117/63 99 Room Air Laboratory Results Short CBC 08/21/23 08/22/23 Range/Units 17:42 06:09 WBC 11.94 H 10.58 (4.8-10.8) K/ul Hgb 10.7 L 10.0 L (12.0-16.0) g/dl Hct 34.1 L 32.2 L (37.0-47.0) % Plt Count 244 239 (130-400) K/uL BMP 08/21/23 08/22/23 17:42 06:09 Sodium 138 138 Potassium 3.7 3.6 Chloride 105 104 Carbon Dioxide 25 25 BUN 16 18 Creatinine 0.86 0.82 Glucose 139 H 143 H Calcium 9.8 9.2 Liver Function 08/21/23 Range/Units 17:42 Total Bilirubin 1.1 H (0.2-1.0) mg/dl AST 13 (13-39) U/L ALT 12 (7-52) U/L Alkaline Phosphatase 74 (34-104) U/L Albumin 4.7 (3.4-5.0) gm/dl Urine 08/22/23 Range/Units 01:40 Urine Color Yellow Urine Appearance Cloudy A (Clear) Urine pH 5.5 (4.5-7.5) Ur Specific [place] 1.022 (1.000-1.030) Urine Protein Trace H (Negative) Urine Glucose (UA) Negative (Negative) Diagnostic Findings Hip/Pelvis X-Ray 08/22/23 08:12 XR hip RT 2V w pelvis CLINICAL HISTORY: r hip pain TECHNIQUE: 2 views of the right hip and single frontal view of the pelvis were obtained. Comparison: Comparison is made to hip and pelvis radiograph 08/10/2017 FINDINGS: There is no evidence of an acute fracture. Total hip arthoplasty hardware is seen without perihardware lucency or hardware fracture. Posterior fixation hardware is seen in the spine. No soft tissue abnormality is seen. IMPRESSION: Postarthroplasty appearance of the right hip without acute abnormality. ACT 112: Negative or not required by law. Electronically signed by: Kevin Momin M.D. 08/22/2023 11:12 AM (3) Diabetes mellitus type 2, controlled Diabetes mellitus complication status: without complication Diabetes mellitus mcc insulin use: without mcc use Qualified Code(s): E11.9 - Type 2 diabetes mellitus without complications (6) Depression Depression Type: unspecified Qualified Code(s): F32.A - Depression, unspecified (7) GERD (gastroesophageal reflux disease) Esophagitis presence: without esophagitis Qualified Code(s): K21.9 - Gastro- esophageal reflux disease without esophagitis
--- NOTE | 2023-08-22 10:00 | Pain Management Consultation ---
Date of Consultation August 22, 2023 Assessment & Plan (1) Sacroiliitis: (2) History of degenerative disc disease: (3) Facet arthropathy, lumbosacral: (4) History of lumbar spinal fusion: Plan 1. Review of the patient's lumbar spine MRI and x-rays do not show any significant central or neuroforaminal stenosis that would would well explain her symptoms. The fusion hardware appears intact. [facility] Dr. Brown is not recommending any surgical intervention. However, there does appear to be degenerative change at the L5-S1 level facet joints and the bilateral SI joints. * Ultimately, discussed with the patient that she should inquire with her pain management clinic in [place], Dr. Kaufman and his team, about the possibility of bilateral SI joint injections, and possibly also facet joint medial branch nerve blocks and subsequent radiofrequency ablation. * The symptoms she is noting that radiate around her hips and into the groin, right greater than left, could be related to a combination of the above conditions. 2. To provide some relief in the meantime, recommend increasing gabapentin to 300 mg TID. * Consideration for further dose increase titration pending response. 3. Continue oral Medrol taper, Celebrex, duloxetine, tizanidine, and acetaminophen as ordered. 4. As patient did inquire about increasing the dose of her Dilaudid to allow her to get some sleep and break her pain cycle, consideration could be given for increasing the dose for 24 hours if other adjunctive treatments are not providing desired relief. * Also, continue to treat with oxycodone to span between Dilaudid administrations. * However, in preparation for discharge, the patient should be weaned off of IV pain medication as soon as feasible. 5. Discussed with the patient about doing some trigger point injections to her lumbosacral and SI joint region musculature. * She is in agreement with this plan and would like to proceed. * Will plan to return tomorrow with the necessary injection supplies to administer TPI's. Thank you for this consultation, pain management service will continue to follow at this point. History of Present Illness Reason for Consultation: Acute on chronic back pain Requesting Physician: Theodora Albert PA-C Attending Physician: Chantel Linder MD History of Present Illness Patient is a 63-year-old female that presented to the [facility] ED on 08/21/2023 with complaints of bilateral low back pain. At that time, she was reporting a history of multiple spine surgeries by Dr. Brown, to include an L2-L5 decompression, multilevel discectomy, and L2-L3 fusion. Her most recent surgery was in 2020. Patient has been attending outpatient pain management Dr. Kaufman in [place], [place] for the severe chronic low back pain. She states over the day prior to her arrival she had an increase in pain that was so severe that she was unable to tolerate it. She reported inability to bear weight at that time without severe pain. She reported bilateral lower extremity numbness and tingling in her calves and in her feet. She denied loss of bowel or bladder function, however does report a episode of persistent diarrhea overnight in the middle of the night. Patient also notes a history of a fall back in April that resulted in a fracture of her left distal femur, which was nondisplaced and allowed to heal. It was treated nonoperatively and she was doing relatively well, but ever since that fall, she has had progressive worsening low back pain that radiates to her bilateral lateral hips and around into to the inguinal and groin region bilaterally, right greater than left. The she says that her pain level has never been this high before though. Today, the patient is noting these similar/same symptoms as above. She really denies anything that is radiating down her lower extremities. She feels a bit unsteady on her feet, but attributes this to being worried about the pain worsening. She does admit that the axial low back pain is worse than any of the radiating symptoms. Case discussed with Dr. Perkins. Pain Assessment Full Body Front + Back: 2 1. 2. 3. 4. 5. Allergies Allergy/AdvReac Type Severity Reaction Status Date / Time phenytoin Allergy Intermediate Facial Verified 08/21/23 17:57 swelling Home Medications Medication Instructions Recorded Confirmed Type cholecalciferol (vitamin D3) 50 2,000 unit PO QAM 03/20/18 08/21/23 History mcg (2,000 unit) tablet (Vitamin D3) furosemide 20 mg tablet (Lasix) 20 mg PO DAILY PRN Edema 03/20/18 08/21/23 History lorazepam 0.5 mg tablet (Ativan) 0.5 mg PO TID Anxiety 03/20/18 08/21/23 History pantoprazole 40 mg tablet,delayed 40 mg PO QAM 03/20/18 08/21/23 History release potassium chloride 20 mEq 20 meq PO QAM 03/20/18 08/21/23 History tablet,extended release rosuvastatin 40 mg tablet (Crestor) 40 mg PO QPM 03/20/18 08/21/23 History quetiapine 300 mg tablet 300 mg PO HS 12/18/18 08/21/23 History tizanidine 4 mg tablet 8 mg PO TID 12/18/18 08/21/23 History albuterol sulfate 90 mcg/actuation 2 puff inhalation Q4H PRN sob #18 03/27/20 08/21/23 Rx aerosol inhaler grams warfarin 5 mg tablet 5 mg PO DAILY 05/14/20 08/21/23 History duloxetine 60 mg capsule,delayed 60 mg PO PM 09/28/20 08/21/23 History release albuterol sulfate 2.5 mg/3 mL 2.5 mg inhalation UD PRN sob 08/21/23 08/21/23 History (0.083 %) solution for nebulization budesonide 160 mcg-glycopyr 9 2 inh inhalation BID 08/21/23 08/21/23 History mcg-formot 4.8 mcg/actuation HFA inhaler (Breztri Aerosphere) celecoxib 200 mg capsule 200 mg PO BID 08/21/23 08/21/23 History gabapentin 100 mg capsule 200 mg PO TID 08/21/23 08/21/23 History oxycodone-acetaminophen 5 mg-325 1 tab PO QID PRN Pain 08/21/23 08/21/23 History mg tablet Pain History Chief Complaint Chief Complaint: Pain across the low back, worse on the right Patient History Medical History DDD (degenerative disc disease) Sciatica Acute low back pain YULIA (acute kidney injury) Intractable back pain Lumbar stenosis with neurogenic claudication Back pain without radiculopathy Asthma Surgical History Status post hysterectomy Status post appendectomy Status post insertion of inferior vena caval filter Status post lumbar surgery Family History Other No significant family history Social History Smoking Status: Current some day smoker Tobacco Type: E-cigarettes / Vaping Second Hand Exposure: No; Do You Dip or Chew Tobacco: No; Hx Alcohol Use: Yes Alcohol type: wine Hx Substance Use: Yes Last Used Substance: Days (ago) Preferred Language: Mohawk Communication Ability: Effective 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 Mood and affect is appropriate. Does not appear in acute distress, but does appear uncomfortable with certain movements. HEAD: Normocephalic; atraumatic. NECK: Trachea is midline. CHEST: Regular chest respiration and excursion. EXTREMITIES: Distal sensation and pulses intact bilaterally. BACK: Diminished ROM. + TTP bilateral SI joint and facet joints. Pain is worsened with facet load bearing. Pain is worse with spine extension.+ TTP lumbosacral paraspinals and quadratus lumborum, right greater than left. No piriformis or gluteal tenderness or spasm.Inspection/palpation demonstrates some loss of normal lumbar lordotic curvature. Midline cicatrix is noted to the lumbar region, which appears well-healed and without evidence of erythema, drainage, or infection. NEURO: CN II-XII grossly intact with no focal deficits noted. Able to move from lying in bed to sitting on edge of bed, and arise to standing position without assistance. Has slow and cautious protective gait. Awake, alert, and oriented x 3. Patellar Reflex R traceL trace Achilles Reflex R traceL trace Negative clonus bilaterally SKIN: No lesions, erythema, or rashes noted. LOWER EXTREMITIES: Negative straight leg raise bilaterally. R Hip flexion 4/5; hip extension 5/5; knee extension 5/5; knee flexion 5/5; ankle dorsiflexion 5/5; ankle plantar flexion 5/5; EHL 5/5 L Hip flexion 4/5; hip extension 5/5; knee extension 5/5; knee flexion 5/5; ankle dorsiflexion 5/5; ankle plantar flexion 5/5; EHL 5/5 Special tests: R Oliva/Michael maneuver: + L Oliva/Michael maneuver: + R Thigh thrust: + L Thigh thrust: + R SI compression test: + L SI compression test: + R Distraction test: + L Distraction test: + Results (Pain Clinic) Diagnostic Review MRI Findings: Exam(s): MRI L SPINE Without Contrast EXAM: MR Lumbar Spine Without Intravenous Contrast CLINICAL HISTORY: Reason for exam: numbness bilateral legs. TECHNIQUE: Magnetic resonance images of the lumbar spine without intravenous contrast in multiple planes. COMPARISON: Lumbar spine x-ray done earlier the same day and CT lumbar spine 02/18/21. FINDINGS: Vertebrae: Metal artifact from orthopedic hardware L2 and L3 as well as inter vertebral disc spacers L2-3, L3-4, L4-5. Chronic endplate flattening L4, stable. No marrow edema or compression deformity. No discitis or osteomyelitis. Incidental hemangioma T10. Conus: Terminates normally. Mild arachnoiditis L2 and L3, chronic. Soft tissues: No retroperitoneal adenopathy. No psoas abscess. Bilateral erector spinae atrophy, most pronounced L4 and L5. No epidural hematoma or abscess. DISCS/SPINAL CANAL/NEURAL FORAMINA: L1-L2: Mild degenerative disc disease. L2-L3: Prosthetic disc, with bilateral pedicle screws and moderate metal artifact. Patent central spinal canal following laminectomy. L3-L4: Prosthetic disc with mild metal artifact. Patent central spinal canal following laminectomy. L4-L5: Prosthetic disc with mild metal artifact. Patent canal following laminectomy. L5-S1: Unremarkable. OTHER: No disc herniation or central spinal stenosis. IMPRESSION: 1. Chronic arachnoiditis L2 and L3. 2. Extensive postoperative change L2-3, L3-4, L4-5, no complicating features. 3. Erector spinae muscle atrophy L4 and L5. 4. No acute finding including disc herniation, spinal stenosis, epidural hematoma, abnormal cord signal, or discitis/osteomyelitis. Electronically signed by: Oliva Barba M.D. 08/21/23 21:33 PM Dictated: 08/21/232132 Transcribed: 08/21/232132 Radiology Findings: XR lumbar spine min 4V routine CLINICAL HISTORY: Low back pain. COMPARISON STUDY: Lumbar spine radiographs December 18, 2018. Lumbar spine CT February 18, 2021. FINDINGS: IVC filter and right hip arthroplasty are incidentally noted. Postoperative findings consistent with L2-L5 decompression are noted with L2-L3 pedicle screw fusion. Discectomies at the L2-L3, L3-L4 and L4-L5 levels. The hardware is intact. There is no lumbar spine fractures. Endplate irregularity adjacent to the L3-L4 disc space was shown on prior CT. IMPRESSION: 1. No lumbar spine fractures. 2. Status post L2-L5 decompression, multilevel discectomy and L2-L3 fusion. Hardware intact. 3. Endplate irregularity centered on the L3-L4 disc, similar to prior lumbar spine CT. ACT 112: Negative or not required by law. Electronically signed by: Vahid Josue M.D. 08/21/2023 2:44 PM Dictated: 08/21/231440 Transcribed: 08/21/231440 XR hip RT 2V w pelvis CLINICAL HISTORY: r hip pain TECHNIQUE: 2 views of the right hip and single frontal view of the pelvis were obtained. Comparison: Comparison is made to hip and pelvis radiograph 08/10/2017 FINDINGS: There is no evidence of an acute fracture. Total hip arthoplasty hardware is seen without perihardware lucency or hardware fracture. Posterior fixation hardware is seen in the spine. No soft tissue abnormality is seen. IMPRESSION: Postarthroplasty appearance of the right hip without acute abnormality. ACT 112: Negative or not required by law. Electronically signed by: Kevin Momin M.D. 08/22/2023 11:12 AM Dictated: 08/22/23 1111 Transcribed: 08/22/23 1111 Previous Records Review Previous Records: personally reviewed by me
--- NOTE | 2023-08-22 11:14 | XRay Report ---
XR hip RT 2V w pelvis CLINICAL HISTORY: r hip pain TECHNIQUE: 2 views of the right hip and single frontal view of the pelvis were obtained. Comparison: Comparison is made to hip and pelvis radiograph 08/10/2017 FINDINGS: There is no evidence of an acute fracture. Total hip arthoplasty hardware is seen without perihardwar e lucency or hardware fracture. Posterior fixation hardware is seen in the spine. No soft tissue abno rmality is seen. IMPRESSION: Postarthroplasty appearance of the right hip without acute abnormality. ACT 112: Negative or not required by law. Electronically signed by: Kevin Momin M.D. 08/22/2023 11:12 AM
--- NOTE | 2023-08-22 12:38 | Electrocardiogram Report ---
Test Reason : Blood Pressure : / mmHG Vent. Rate : 085 BPM Atrial Rate : 085 BPM P-R Int : 150 ms QRS Dur : 082 ms QT Int : 374 ms P-R-T Axes : 061 -28 005 degrees QTc Int : 445 ms Sinus rhythm with Premature atrial complexes Minimal voltage criteria for LVH, may be normal variant Borderline ECG When compared with ECG of 09-FEB-2023 19:27, Premature atrial complexes are now Present Non-specific change in ST segment in Lateral leads Confirmed by eJan Ledezma ([id number]) on 08/22/2023 12:38:18 PM Referred By: REFERRED SELF Confirmed By:Will Ledezma
[2023-08-22] MEDS: GABAPENTIN 300 MG CAP PO SCH (14:29)
[2023-08-22] MEDS: WARFARIN SOD 5 MG TAB PO SCH (15:39)
[2023-08-22] MEDS: DICLOFENAC SOD 1% GEL 100 GM TUBE EXT PRN (21:54)
[2023-08-22] MEDS: DOCUSATE SODIUM 100 MG CAP PO SCH (21:55)
[2023-08-23] MEDS: methylPREDNISolone 4 MG TAB PO SCH ×2 (06:30→20:35)
[2023-08-23 07:29] LABS: Hematocrit (blood only) 30.6 % (37.0-47.0); Hemoglobin 9.3 g/dl (12.0-16.0); Mean Corpuscular Hemoglobin 24.1 pg (25.0-34.0); Mean Corpuscular Hgb Conc 30.4 g/dL (32.0-36.0); Mean Corpuscular Volume 79.3 fL (80.0-100.0); Platelet Count 231 K/uL (130-400); RDW Coefficient of Variation 16.9 % (11.5-14.5); RDW Standard Deviation 48.1 fL (36.4-46.3); Red Blood Count 3.86 M/uL (4.20-5.40); White Blood Count 9.49 K/ul (4.8-10.8)
[2023-08-23 07:42] LABS: BUN Creatinine Ratio 25.8 (10-20); Calcium 9.3 mg/dl (8.6-10.3); Creatinine Clr Calc Pharmacy 69.6 ml/min; Est GFR (African American) 79.9 ml/min; Potassium 4.1 mmol/L (3.5-5.1)
[2023-08-23 07:49] LABS: INR 2.4 (0.9-1.1); Prothrombin Time 23.8 Seconds (9.0-12.0)
[2023-08-23] MEDS: ACETAMINOPHEN 325 MG TAB PO PRN (09:51)
--- NOTE | 2023-08-23 10:49 | Pain Management Progress Note ---
Date of Service August 23, 2023 Assessment & Plan (1) Sacroiliitis: (2) History of degenerative disc disease: (3) Facet arthropathy, lumbosacral: (4) History of lumbar spinal fusion: Plan 1. Again, review of the patient's lumbar spine MRI and x-rays do not show any significant central or neuroforaminal stenosis that would would well explain her symptoms. The fusion hardware appears intact. [facility]/Dr. Brown is not recommending any surgical intervention. However, there does appear to be degenerative change at the L5-S1 level facet joints and the bilateral SI joints. * Further discussed with the patient that she should inquire with her pain management clinic in [place], Dr. Kaufman and his team, about the possibility of bilateral SI joint injections, and possibly also facet joint injections or medial branch nerve blocks and subsequent radiofrequency ablation. * The symptoms she is noting that radiate around her hips and into the groin, right greater than left, could be related to a combination of the above conditions. 2. Gabapentin was increased to 300 mg TID. * Consideration for further dose increase titration pending response -- possible increase further to 600 mg. 3. Continue oral Medrol taper, Celebrex, duloxetine, tizanidine, and acetaminophen as ordered. 4. Recommend initiating Nucynta 50 mg every 4 hours -- order placed. * Continue Oxy IR x12-24 hours while also weaning off of IV Dilaudid. * Per discussion w/ hospitalist -- MS Contin to be initiated per their service once deemed appropriate. * Would then recommend, once the MS Contin is started, that Oxy IR only be used PRN for periods of breakthrough pain. 5. Patient agreed to proceed with lumbar region trigger point injections today. * The risks, benefits, and alternatives of the procedure were discussed in detail with the patient, and in full understanding of the procedure to be performed, the patient elects to proceed as discussed. TRIGGER POINT INJECTION Diagnosis: Myofascial Pain Injection Site: Lumbar/lumbosacral paraspinal, bilateral Performed By: Yves Mulligan PA-C Medications used: Ropivacaine 0.5% -7 mL Kenalog 40 mg/mL - 1 mL Toradol 30 mg/mL - 2 mL Prior to starting, the diagnosis and the procedure was reviewed with the patient in detail. Possible risks and complications including infection, bleeding, damage to surrounding structures and increased pain were discussed. Alternative therapies were also reviewed. All questions were answered and they agreed to proceed. Informed consent was obtained. Allergies and medication list was reviewed. The patient was placed in sitting position. Immediately prior to starting the procedure, a time out was conducted with the staff and the patient where the patient was identified, proposed procedure was verified, consent was reviewed and the proper site for the planned procedure was identified. Patient was not given any intravenous sedation and constant verbal contact was maintained throughout the procedure. On examination, no signs of skin breakdown or infection were noted at the injection site. The site was cleansed with ChloraPrep followed by alcohol. Sterile technique was used throughout the procedure. After identifying skeletal landmarks, the musculature as above was injected at 5 separate locations with approximately 2 mL at each site, from a solution containing 7 mL of 0.5% Ropivacaine MPF, 2 mL of 30 mg/mL Toradol, and 1 mL of 40 mg/mL Kenalog. Aspiration was negative. Hemostasis noted. Patient tolerated the procedure uneventfully without complications. Pain management service will follow peripherally at this point. Will plan to check on patient in 24 to 48 hours. Admission and Anticipated Discharge Date Admission Date: August 21, 2023 Subjective Patient says that her pain is mostly unimproved compared to when she was seen yesterday. However, she was seen up and walking around the room a bit today, whereas yesterday she struggled to even stand up from the bed. She was frustrated that the IV Dilaudid dose was not increased, saying that she knows her body and what works for her, and she does not understand why the medication just cannot be increased to allow her to get some sleep. Continues to localize pain to her entire lumbosacral region, and around the lateral hips and into the groin bilaterally. She would like to proceed with the trigger point injections that we discussed yesterday. Physical Exam Physical Exam: GENERAL:AA&Ox3, NAD. Speech and cognition is intact. Mood and affect is appropriate. CHEST: Regular chest respiration and excursion. BACK: Diminished ROM. + TTP bilateral SI joint and lumbosacral facet joints. Pain is worsened with facet load bearing. Pain is worse with spine extension.+ TTP lumbosacral paraspinals and quadratus lumborum, right greater than left. NEURO: Walking around the room and does not appear in distress. Gait is more normal today and not as protected and cautious. SKIN: No lesions, erythema, or rashes noted.
--- NOTE | 2023-08-23 12:57 | Hospitalist Progress Note ---
Date of Service August 23, 2023 Assessment & Plan (1) Intractable back pain: (2) History of degenerative disc disease: (3) Diabetes mellitus type 2, controlled: (4) History of pulmonary embolism: (5) Dyslipidemia: (6) Depression: (7) GERD (gastroesophageal reflux disease): (8) Chronic anticoagulation: Plan Fiona De Leon is a 63y/o F with PMHx of hyperlipidemia, DM type II, moderate persistent asthma, GERD without esophagitis, cervical disc disease s/p cervical spinal fusion, chronic pain syndrome, osteoarthritis, hx of iron deficiency anemia, depression/anxiety, hx of pulmonary embolism on Warfarin, lumbar degenerative arthritis s/p lumbar fusion surgery and other problems listed below who presented to the ED for evaluation of intractable/severe back pain. Intractable back pain History of lumbar spinal fusion: History of Degenerative Disc Disease: Lumbar spine x-ray negative for acute abnormalities Lumbar MRI: No acute finding including disc herniation, spinal stenosis, epidural hematoma, abnormal cord signal, or discitis/osteomyelitis. Most recent surgery 2020. Patient has been following pain management Dr. Kaufman in [place] for severe chronic low back pain. and has taken Percocet at home PRN Denies loss of bowel or bladder function Reported bilateral lower extremity numbness and tingling [facility] evaluated patient + ordered pelvic x-rays negative for acute abnormalities Questionable facet mediated back pain versus sacroiliitis. Continue Medrol Dosepak, Celebrex, duloxetine, tizanidine, Tylenol Appreciate pain management consult tolerating increased Gabapentin; continue -- Continue oral Medrol taper pack, Celebrex, duloxetine, tizanidine, and Tylenol Medrol dose pack could be exacerbating agitation/anxiety Dilaudid 1 mg Q3 hours ordered; has utilized FIVE doses over past 24 hours. Oxycodone IR; has utilized FIVE doses over past 24 hours; was taking Percocet 1 tab QID PRN as an outpatient Goal to decrease as needed breakthrough IV narcotics as possible; patient requesting increased frequency of her opioid dosing Explained importance of being judicious in protecting patients respiratory drive; will transfer to med/tele for continuous heart monitor + pulse ox due to increased opioid needs Pain management performed TPI x5 for lumbosacral and SI joint today Continue Colace while on Narcotics Discussed the importance of placing her on a long acting pain medication regimen to reduce her use of immediate release narcotics. Discussed with Pain Management; Pain Management ordered Nucynta 50 mg Q 4 PRN and we will discontinue the Oxy IR Patient has utilized Dilaudid 5 mg/24 hours which is morphine equivalent dose 20 mg daily. For initiation of long acting pain control, will order MS Contin 15 mg PO BID to start tomorrow 08/23; taking into consideration likely will need to be increased in order to decrease frequency of IV Dilaudid Will transition patient to med/tele with cont. heart and o2 monitoring while on this high frequency opioids. Will order Dilaudid 0.5 mg IV Q6 hours x2 for additional breakthrough pain to alternate with Q3 dosing. 08/24 calculate 24 hour Dilaudid use total use and discuss with pain management in order to determine if increase of MS Contin is necessary Anxiety: Depression: Chronic Continue Seroquel, lorazepam, duloxetine Behavioral health liaison visited with patient today Patient historically has followed with Dr. Mayen with good result of management of her depression She is in the process of establishing rapport with a new therapist. Does have anxiety around her pain; discussed with nursing; continue with scheduled Ativan Psych consult placed and has cleared for SI. GERD: Chronic Continue pantoprazole Dyslipidemia: Chronic Continue rosuvastatin Diabetes mellitus type 2, controlled: Currently diet-controlled, glucose on admission is 139. Most recent A1C 7.2 on 07/11/23. Diabetic diet Asthma: Continue PRN medications, Breztri Aerosphere History of pulmonary embolism: Chronic anticoagulation: Chronic On Warfarin INR 2.3 this morning; continue as therapeutic INR in AM History of anemia: Hgb 10.7 and Hct 34.1 on admission --> Baseline Hgb ~9-11. Hgb stable 9.3 Disposition: DVT Prophylaxis: On Warfarin Code Status: Full Code PCP: Chio Miller MD A total of 52 min was spent coordinating, documenting, and providing care for this patient excluding time spent in the performance of separately billed services. This included personally viewing all current laboratories and imaging studies, medication reconciliation, outpatient chart review, and discussion with specialists. Admission and Anticipated Discharge Date Admission Date: August 21, 2023 Subjective Pt sitting in her hospital bed in no apparent distress Reports frustration with pain control Has not slept well in the last few days. Reports sleeping 2 hours last night Pain becomes worse with position changes and is worse with standing but feels relief when she is sitting with a firm back. No loss of bowel or bladder control Reports slight relief with the TPI's that were performed by case management today Continues to request increase dosing of narcotics due to insomnia. Pt denies fever, chills, chest pain, palpitations, N/V, appetite changes Review of Systems Review of Systems: Neuro: (-) Falls, trauma, slurred speech (+) back pain, lower specifically SI HEENT: (-) [place], dizziness, dysphagia, visual or auditory changes CV: (-) CP, palpitations, swelling Resp: (-) SOB GI: (-) appetite changes, N/V/D, bowel changes : (-) urinary changes Skin: (-) rashes Psych: (-) anxiety, depression Physical Exam Physical Exam: Neuro: AAOx4, PERRLA, no aphagia, memory changes, CNII-XII grossly intact HEENT: head normocephalic, moist mucus membranes CV: S1/S2, (-) M/G/R, (-) edema, cap refill < 3 seconds Resp: Lungs CTA in all vilchis. On RA GI: Abdomen S/NT/ND, Ax4 bowel sounds, (-) CVA tenderness Musculoskeletal: 5/5 B/L UE strength, 5/5 B/L LE strength. No gait disturbance; was working with OT successfully Skin: (-) rashes , (-) erythema. 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
[2023-08-23] MEDS: HYDROmorphone INJ 0.5 MG/0.5 ML SYR IV PRN (20:57)
[2023-08-24] MEDS: methylPREDNISolone 4 MG TAB PO SCH (07:33)
[2023-08-24 07:55] LABS: Hematocrit (blood only) 30.8 % (37.0-47.0); Hemoglobin 9.4 g/dl (12.0-16.0); Mean Corpuscular Hgb Conc 30.5 g/dL (32.0-36.0); Mean Corpuscular Volume 78.6 fL (80.0-100.0); Mean Platelet Volume 10.1 fL (9.4-12.4); Platelet Count 223 K/uL (130-400); RDW Coefficient of Variation 16.7 % (11.5-14.5); RDW Standard Deviation 47.9 fL (36.4-46.3); Red Blood Count 3.92 M/uL (4.20-5.40); White Blood Count 9.96 K/ul (4.8-10.8)
[2023-08-24 08:14] LABS: BUN Creatinine Ratio 27.6 (10-20); Calcium 9.6 mg/dl (8.6-10.3); Creatinine Clr Calc Pharmacy 71.2 ml/min; Est GFR (African American) 82.2 ml/min; Est GFR (Non-African American) 70.9 ml/min; Potassium 4.2 mmol/L (3.5-5.1)
[2023-08-24 08:18] LABS: INR 2.7 (0.9-1.1); Prothrombin Time 27.2 Seconds (9.0-12.0)
[2023-08-24] MEDS: MoRPHine SULFATE CR 15 MG TABCR PO SCH (08:26)
[2023-08-24] MEDS: TAPENTADOL HCL 50 MG TAB PO PRN (12:35)
--- NOTE | 2023-08-24 14:55 | Hospitalist Progress Note ---
Date of Service August 24, 2023 Assessment & Plan (1) Intractable back pain: (2) History of degenerative disc disease: (3) Diabetes mellitus type 2, controlled: (4) History of pulmonary embolism: (5) Dyslipidemia: (6) Depression: (7) GERD (gastroesophageal reflux disease): (8) Chronic anticoagulation: Plan Fiona De Leon is a 63y/o F with PMHx of hyperlipidemia, DM type II, moderate persistent asthma, GERD without esophagitis, cervical disc disease s/p cervical spinal fusion, chronic pain syndrome, osteoarthritis, hx of iron deficiency anemia, depression/anxiety, hx of pulmonary embolism on Warfarin, lumbar degenerative arthritis s/p lumbar fusion surgery and other problems listed below who presented to the ED for evaluation of intractable/severe back pain. Intractable back pain History of lumbar spinal fusion: History of Degenerative Disc Disease: Lumbar spine x-ray negative for acute abnormalities Lumbar MRI: No acute finding including disc herniation, spinal stenosis, epidural hematoma, abnormal cord signal, or discitis/osteomyelitis. Most recent surgery 2020. Patient has been following pain management Dr. Kaufman in [place] for severe chronic low back pain. and has taken Percocet at home PRN Denies loss of bowel or bladder function Reported bilateral lower extremity numbness and tingling Orthospine evaluated patient + ordered pelvic x-rays negative for acute abnormalities Questionable facet mediated back pain versus sacroiliitis. Appreciate pain management consult tolerating increased Gabapentin; continue -- Continue oral Medrol taper pack, Celebrex, duloxetine, tizanidine, and Tylenol REDUCE Dilaudid 1 mg to Q6 hours ordered OXY IR D/C in favor of Nucynta Goal to decrease as needed breakthrough IV narcotics as possible; Pain management performed TPI x5 for lumbosacral and SI joint on 08/22 Change bowel regimen to Senna S twice daily she appears comfortable Per previous provider Discussed the importance of placing her on a long acting pain medication regimen to reduce her use of immediate release narcotics. Discussed with Pain Management; Pain Management ordered Nucynta 50 mg Q 4 PRN and we will discontinue the Oxy IR For initiation of long acting pain control, will order MS Contin 15 mg PO BID to start tomorrow 08/23; Decrease frequency of IV Dilaudid Will transition patient to back to med/surg with reduction of Dilaudid 08/24 calculate 24 hour Dilaudid use total use and discuss with pain management in order to determine if increase of MS Contin is necessary Anxiety: Depression: Insomnia Chronic Continue Seroquel, lorazepam, duloxetine Behavioral health liaison visited with patient today Patient historically has followed with Dr. Mayen with good result of management of her depression She is in the process of establishing rapport with a new therapist. Does have anxiety around her pain; discussed with nursing; continue with scheduled Ativan Psych consult placed and has cleared for SI. Discussed with pt regarding side effects/drug-drug interactions with addition of MS contin and nucynta. Pt accepts risk and is educated regarding respiratory depression, sedation. She is willing to wean down seroquel if needed but wishes to proceed with current dosing GERD: Chronic Continue pantoprazole Dyslipidemia: Chronic Continue rosuvastatin Diabetes mellitus type 2, controlled: Currently diet-controlled, glucose on admission is 139. Most recent A1C 7.2 on 07/11/23. Diabetic diet, bsgs have remained stable Asthma: Continue PRN medications, Breztri Aerosphere History of pulmonary embolism: Chronic anticoagulation: Chronic On Warfarin INR 2.3 this morning; continue as therapeutic INR in AM History of anemia: Hgb 10.7 and Hct 34.1 on admission --> Baseline Hgb ~9-11. Hgb stable 9.4 Disposition: Plan to likely discharge tomorrow, prior auths have been obtained for MS contin and Nucynta DVT Prophylaxis: On Warfarin Code Status: Full Code PCP: Chio Miller MD A total of 55 min was spent coordinating, documenting, and providing care for this patient excluding time spent in the performance of separately billed services. This included personally viewing all current laboratories and imaging studies, medication reconciliation, outpatient chart review, and discussion with specialists. Admission and Anticipated Discharge Date Admission Date: August 21, 2023 Subjective Patient was seen and examined in room 286. F/U Sacroilitis. She continues to have lower back/buttock pain, specifically on right. She is upset that she only got 0.5mg of Dilaudid overnight and it was supposed to be 1.5mg. She feels providers are not on same page. We discussed pain management/Prior providers pain plan. Review of Systems Review of Systems: All systems reviewed & are unremarkable except as noted in HPI & below Physical Exam Physical Exam: Gen: WD/WN, NAD, A&O x3, appears comfortable, lying in bed HEENT: Normocephalic, atraumatic, conjunctivae moist, sclerae anicteric, mucous membranes moist. Lung: Clear to Auscultation bilaterally, no wheezes/rales/rhonchi Heart: Regular rate, regular rhythm, no murmurs, rubs, or gallops Abdomen: Soft, NT, ND +BS x 4 Extremities: No edema Skin: Warm, no rash, negative turgor. Results & Data Results & Data Vital Signs (Past 12 Hours) Vital Signs Temp Pulse Pulse Resp BP Pulse Ox O2 Del Method 08/24/23 11:29 36.6 C 83 20 138/78 94 Room Air 08/24/23 08:07 36.6 C 71 20 123/71 94 Room Air 08/24/23 07:43 Room Air 08/24/23 07:00 68 08/24/23 03:29 36.5 C 66 18 100/60 96 Room Air Medications Administered Current Inpatient Medications Acetaminophen (Acetaminophen 325 Mg Tab) 650 mg PO Q4H PRN PRN Reason: pain/fever Stop: 09/20/23 20:25 Last Admin: 08/23/23 17:33 Dose: 650 mg Al Hydrox/Mg Hydrox/Simethicone (Aluminum/Magnesium Susp 30 Ml Udc) 30 ml PO Q6H PRN PRN Reason: Dyspepsia Stop: 09/20/23 20:25 Albuterol (Albuterol 0.083% Nebu Soln 3 Ml Vial) 2.5 mg INH UD PRN; Protocol PRN Reason: Shortness Of Breath Or Wheezing Stop: 09/20/23 18:34 Albuterol (Albuterol Hfa 8 Gm Inhaler) 2 puffs INH Q4H PRN PRN Reason: Shortness Of Breath Or Wheezing Stop: 09/20/23 18:34 Celecoxib (Celebrex 200 Mg Cap) 200 mg PO BID ALEX Stop: 09/20/23 20:59 Last Admin: 08/24/23 07:31 Dose: 200 mg Diclofenac Sodium (Diclofenac Sod 1% Gel 100 Gm Tube) 2 gm EXT BID PRN; Protocol PRN Reason: pain Stop: 08/25/23 20:59 Last Admin: 08/22/23 21:54 Dose: 2 gm Duloxetine HCl (Duloxetine Hcl 60 Mg Cap) 60 mg PO PM [facility] Stop: 09/20/23 20:59 Last Admin: 08/23/23 20:35 Dose: 60 mg Fluticasone Furoate (Fluticasone Furoate 200mcg 14 Puffs/Inhaler) 1 puffs INH DAILY [facility]; Protocol Stop: 09/21/23 08:59 Last Admin: 08/24/23 07:34 Dose: 1 puffs Gabapentin (Gabapentin 300 Mg Cap) 300 mg PO TID [facility] Stop: 09/21/23 13:59 Last Admin: 08/24/23 13:19 Dose: 300 mg Hydromorphone HCl (Hydromorphone Inj 1 Mg/Ml Syringe) 1 mg IV Q6H PRN PRN Reason: Severe Pain (Scale 7, 8, 9,10) Stop: 09/07/23 16:59 Lorazepam (Lorazepam 0.5 Mg Tab) 0.5 mg PO TID [facility] Stop: 09/20/23 20:59 Last Admin: 08/24/23 13:19 Dose: 0.5 mg Magnesium Hydroxide (Magnesium Hydroxide Susp 30 Ml Udc) 30 ml PO Q6H PRN PRN Reason: Constipation Stop: 09/20/23 20:25 Methylprednisolone (Methylprednisolone 4 Mg Tab) 4 mg PO 0700,1300,1800,2100 [facility] Stop: 08/24/23 21:01 Last Admin: 08/24/23 12:36 Dose: 4 mg Methylprednisolone (Methylprednisolone 4 Mg Tab) 4 mg PO 0700,1300,2100 [facility] Stop: 08/25/23 21:01 Methylprednisolone (Methylprednisolone 4 Mg Tab) 4 mg PO 0700,2100 [facility] Stop: 08/26/23 21:01 Methylprednisolone (Methylprednisolone 4 Mg Tab) 4 mg PO 0700 [facility] Stop: 08/27/23 07:01 Miscellaneous (Remove Lidoderm Patch) 1 each N/A DAILY@2100 [facility] Stop: 09/20/23 20:59 Last Admin: 08/23/23 20:40 Dose: Not Given Morphine Sulfate (Morphine Sulfate Cr 15 Mg Tabcr) 15 mg PO Q12H [facility] Stop: 09/07/23 08:59 Last Admin: 08/24/23 08:26 Dose: 15 mg Ondansetron HCl (Ondansetron Inj 2 Mg/Ml 2 Ml Vial) 4 mg IV Q6H PRN PRN Reason: Nausea Stop: 09/20/23 20:25 Pantoprazole Sodium (Pantoprazole 40 Mg Tab) 40 mg PO QAM [facility] Stop: 09/21/23 08:59 Last Admin: 08/24/23 07:33 Dose: 40 mg Polyethylene Glycol (Polyethylene (Miralax) 17 Gm Pack) 17 gm PO DAILY PRN PRN Reason: Constipation Stop: 09/20/23 20:25 Potassium Chloride (Potassium Chloride Crtab 20 Meq Tabcr) 20 meq PO QAM [facility] Stop: 09/21/23 08:59 Last Admin: 08/24/23 07:31 Dose: 20 meq Quetiapine Fumarate (Quetiapine Fumarate 300 Mg Tablet) 300 mg PO HS [facility] Stop: 09/20/23 20:59 Last Admin: 08/23/23 20:34 Dose: 300 mg Rosuvastatin Calcium (Rosuvastatin Calcium 20 Mg Tab) 40 mg PO QPM [facility] Stop: 09/20/23 20:59 Last Admin: 08/23/23 20:34 Dose: 40 mg Senna/Docusate Sodium (Docusate Sodium/Senna 50/8.6mg Tab) 1 tab PO BID [facility] Stop: 09/23/23 20:59 Tapentadol (Tapentadol Hcl 50 Mg Tab) 50 mg PO Q4H PRN PRN Reason: Pain Stop: 09/06/23 13:41 Last Admin: 08/24/23 12:35 Dose: 50 mg Tizanidine HCl (Tizanidine Hcl 4 Mg Tablet) 8 mg PO TID [facility] Stop: 09/20/23 20:59 Last Admin: 08/24/23 13:19 Dose: 8 mg Umeclidinium/Vilanterol (Umeclidinium/Vilanterol 62.5/25mcg 7 Puffs/Inhaler) 1 puffs INH DAILY [facility]; Protocol Stop: 09/21/23 08:59 Last Admin: 08/24/23 07:33 Dose: 1 puffs Warfarin Sodium (Warfarin Sod 5 Mg Tab) 5 mg PO DAILY@1600 [facility] Stop: 09/21/23 15:59 Last Admin: 08/23/23 15:34 Dose: 5 mg (3) Diabetes mellitus type 2, controlled Diabetes mellitus nursing home insulin use: without moth exterminator use Diabetes mellitus complication status: without complication Qualified Code(s): E11.9 - Type 2 diabetes mellitus without complications (6) Depression Depression Type: unspecified Qualified Code(s): F32.A - Depression, unspecified (7) GERD (gastroesophageal reflux disease) Esophagitis presence: without esophagitis Qualified Code(s): K21.9 - Gastro- esophageal reflux disease without esophagitis
[2023-08-24] MEDS: HYDROmorphone INJ 1 MG/ML SYRINGE IV PRN (17:01)
[2023-08-24] MEDS: DOCUSATE SODIUM/SENNA 50/8.6MG TAB PO SCH (20:42)
[2023-08-25] MEDS: methylPREDNISolone 4 MG TAB PO SCH (05:58)
[2023-08-25 07:35] LABS: Hemoglobin 9.9 g/dl (12.0-16.0); Mean Corpuscular Hemoglobin 23.9 pg (25.0-34.0); Mean Corpuscular Volume 79.7 fL (80.0-100.0); Mean Platelet Volume 10.1 fL (9.4-12.4); Platelet Count 250 K/uL (130-400); RDW Coefficient of Variation 16.8 % (11.5-14.5); RDW Standard Deviation 48.9 fL (36.4-46.3); Red Blood Count 4.14 M/uL (4.20-5.40); White Blood Count 10.25 K/ul (4.8-10.8)
[2023-08-25 07:43] LABS: Calcium 9.7 mg/dl (8.6-10.3); Creatinine Clr Calc Pharmacy 64.6 ml/min; Est GFR (African American) 72.9 ml/min; Est GFR (Non-African American) 62.9 ml/min; Potassium 4.1 mmol/L (3.5-5.1)
[2023-08-25 07:50] LABS: INR 2.6 (0.9-1.1); Prothrombin Time 25.6 Seconds (9.0-12.0)
--- NOTE | 2023-08-25 11:47 | Pain Management Progress Note ---
Date of Service August 25, 2023 Assessment & Plan (1) Sacroiliitis: (2) History of degenerative disc disease: (3) Facet arthropathy, lumbosacral: (4) History of lumbar spinal fusion: Plan 1. Again, review of the patient's lumbar spine MRI and x-rays do not show any significant central or neuroforaminal stenosis that would would well explain her symptoms. Lumbar spine fusion hardware is intact and Dr. Brown is not recommending any surgical intervention. * Continue to recommend that the patient inquire with her pain management clinic in [place], Dr. Kaufman and his team, about the possibility of bilateral SI joint injections, and possibly also facet joint injections or medial branch nerve blocks and subsequent radiofrequency ablation. 2. Continue gabapentin 300 mg TID. * Consideration for further dose increase titration pending response -- possible increase further to 600 mg. 3. Continue oral Medrol taper, Celebrex, duloxetine, tizanidine, and acetaminophen as ordered. * May use after discharge if a current home prescription is present. 4. Continue Nucynta 50 mg every 4 hours PRN --plan to have the patient prescribed this for outpatient use. * Hospitalist service to provide prescription. 5. Continue MS Contin 15 mg every 12 hours as needed. * Hospitalist service to provide prescription. 6. Educated patient that since she has a prescription at home for Percocet, that this not be taken along with the above medications, except for in instances of severe breakthrough pain, and only after confirming with her PCP or pain clinic prescribing provider that this is acceptable. Pain management service will sign off at this time. Admission and Anticipated Discharge Date Admission Date: August 21, 2023 Subjective Patient feels that her pain is mildly improved with this new medication regimen. She also feels that the trigger point injections that were given did help some. Pain remains to the lumbosacral region, and around the lateral hips and into the groin bilaterally, but less intense compared to previously. Patient says that she thinks she will be able to go home later today. She plans to have her last dose of IV Dilaudid within the next hour or so, and then have it discontinued, and only take oral medications from there. She has preauthorization approvals for both the Nucynta and MS Contin. Patient says that the hospitalist provider will be sending prescriptions and then she will follow-up with her PCP within a week after discharge and see about having them take over the medications. Physical Exam Physical Exam: GENERAL:AA&Ox3, NAD. Speech and cognition is intact. Mood and affect is appropriate. CHEST: Regular chest respiration and excursion. BACK: Indicates pain to bilateral SI joint and lumbosacral facet joint region. SKIN: No lesions, erythema, or rashes noted.
--- NOTE | 2023-08-25 12:25 | Discharge Summary ---
Discharge Summary Date of Service August 25, 2023 Principal Dx & Hospital Course #1 = Principal Diagnosis (1) Intractable back pain: (2) History of degenerative disc disease: (3) Diabetes mellitus type 2, controlled: (4) History of pulmonary embolism: (5) Dyslipidemia: (6) Depression: (7) GERD (gastroesophageal reflux disease): (8) Chronic anticoagulation: Bishnu De Leon is a 63y/o F with PMHx of hyperlipidemia, DM type II, moderate persistent asthma, GERD without esophagitis, cervical disc disease s/p cervical spinal fusion, chronic pain syndrome, osteoarthritis, hx of iron deficiency anemia, depression/anxiety, hx of pulmonary embolism on Warfarin, lumbar degenerative arthritis s/p lumbar fusion surgery and other problems listed below who presented to the ED for evaluation of intractable/severe back pain. Intractable back pain History of lumbar spinal fusion: History of Degenerative Disc Disease: Lumbar spine x-ray negative for acute abnormalities Lumbar MRI: No acute finding including disc herniation, spinal stenosis, epidural hematoma, abnormal cord signal, or discitis/osteomyelitis. Most recent surgery 2020. Patient has been following pain management Dr. Kaufman in [place] for severe chronic low back pain. and has taken Percocet at home PRN Denies loss of bowel or bladder function Reported bilateral lower extremity numbness and tingling Orthospine evaluated patient, no surgical intervention needed Questionable facet mediated back pain versus sacroiliitis. Pain management performed TPI x5 for lumbosacral and SI joint on 08/22 * "Continue to recommend that the patient inquire with her pain management clinic in [place], Dr. Kaufman and his team, about the possibility of bilateral SI joint injections, and possibly also facet joint injections or medial branch nerve blocks and subsequent radiofrequency ablation." Plan at discharge is to send patient home on MS Contin 15 mg twice daily and Nucynta 50 mg every 4 hours as needed for breakthrough pain. Prior Auth were obtained for both medications. This was at the recommendation of pain management. She will need to follow closely with primary care provider. On day of discharge her pain seems to be more controlled on this regimen. She will also finish a Medrol dose pack as outpatient. She will continue gabapentin, Celebrex and Cymbalta. It is recommended she have close follow-up with her [place] pain management clinic as well as primary care provider Anxiety: Depression: Insomnia Chronic Continue Seroquel, lorazepam, duloxetine Discussed with pt regarding side effects/drug-drug interactions with addition of MS contin and nucynta. Pt accepts risk and is educated regarding respiratory depression, sedation. She is willing to wean down seroquel if needed but wishes to proceed with current dosing GERD: Chronic Continue pantoprazole Dyslipidemia: Chronic Continue rosuvastatin Diabetes mellitus type 2, controlled: Currently diet-controlled, glucose on admission is 139. Most recent A1C 7.2 on 07/11/23. Diabetic diet, bsgs have remained stable Asthma: Continue PRN medications, Breztri Aerosphere History of pulmonary embolism: Chronic anticoagulation: Chronic On Warfarin INR 2.6 this morning; continue as therapeutic History of anemia: Hgb 10.7 and Hct 34.1 on admission --> Baseline Hgb ~9-11. Hgb stable 9.9 Disposition: Discharge to home today DVT Prophylaxis: On Warfarin Code Status: Full Code PCP: Chio Miller MD A total of 45 min was spent coordinating, documenting, and providing care for this patient excluding time spent in the performance of separately billed services. This included personally viewing all current laboratories and imaging studies, medication reconciliation, outpatient chart review, and discussion with specialists. Notes For Next Care Provider Please ensure pt has close follow up with pain management as outpt as she may require SI injections, facet injections a long with medial branch nerve blocks and subsequent radiofrequency ablation. MS contin and Nucynta were new medications started in the hospital. She has drug-drug interactions with seroquel and lorazepam. She was educated on this and wishes to proceed, recommend close monitoring. Medication Changes From Visit MS Contin 15 mg every 12 hours Nucynta 50 mg every 4 hours as needed for breakthrough pain. ( Until Nucynta is in stock at your local pharmacy you may utilize Percocet for breakthrough pain. Once Nucynta arrives this will replace your Percocet. Do not use both medications.) Senna S 1 tablet by mouth twice daily, this is to help with routine bowel movements. Methylprednisolone, please complete taper as prescribed Day 4 (08/25/23): 4mg at bedtime Day 5 ( 08/26/23): 4mg by mouth twice daily Day 6 ( 08/27/23): 4mg by mouth in the morning, and then you have completed the Medrol dose pack Gabapentin 300 mg 3 times a day Continue all other medications as prescribed. You were educated regarding drug drug interactions with MS Ra, Nucynta in conjunction with your Seroquel and lorazepam. Admission HPI Per Admitting Provider Fiona De Leon is a 63y/o F with PMHx of hyperlipidemia, DM type II, moderate persistent asthma, GERD without esophagitis, cervical disc disease s/p cervical spinal fusion, chronic pain syndrome, osteoarthritis, hx of iron deficiency anemia, depression/anxiety, hx of pulmonary embolism on Warfarin, lumbar degenerative arthritis s/p lumbar fusion surgery and other problems listed below who presented to the ED for evaluation of intractable/severe back pain. History obtained from patient, and associated ED/PCP/previous hospitalization records. Patient has had multiple back operations per chart review. Patient seen at bedside. Patient states she has chronic back pain, but has had an acute flare x 5 days. Patient states that it is extremely painful to even walk, and that even going to the grocery store "puts her out for the next days or so." She states the back pain is more localized to the lower region, and complains of bilateral groin pain that is worse upon standing as well. Patient mentions that the right groin pain is more significant than the left. States that standing is more painful than walking. Describes the groin pain as sharp. Currently endorses 7/10 pain, but states her daily pain is "through the roof, more than 10/10." Patient is unable to perform ADLs without significant hindrance from the pain. States the pain often makes her cry uncontrollably, have palpitations. Not currently endorsing any chest pain or SOB. Patient does already see pain management in [place], but states this regimen is not even "touching" her pain. Has been taking multiple Percocet at home without any relief. Patient states that she is becoming increasingly depressed due to this ongoing pain. Not currently suicidal, but states that she has had thoughts of no longer living with pain. Patient is really looking forward to having a new grandchild in the next 2 weeks or so and states her children are her "motivation to live." Patient states she has had 3 spinal fusions of her lumbar region in the past for tx of herniations/disc ruptures. She did have a fall following an episode of "passing out" back in February where she fracture her L femur. She wonders if this pain may be sequelae from the fall, such as a potential fracture that has gone untreated. She does have some tingling in both of her feet, and reports pain radiating from her lower back down to her knees bilaterally. Did have some diarrhea last night, but she thinks this is due to the increase in pain and anxiety she was feeling. No blood in her bowel movements. Diarrhea has since subsided, she denies any sick contacts or recent illnesses. No nausea or vomiting. Denies any recent headaches, chills or body aches. Further denies any current abdominal pain or swelling in her b/l lower extremities. Patient is agreeable to seeing pain management while hospitalized. CBC reveals bump in WBC count at 11.94, Hgb 10.7 and Hct 34.1 on admission --> Baseline Hgb ~9-11 per chart review. No acute electrolyte abnormality seen on CMP. LFTs w/in normal range, no evidence of YULIA. Lumbar spine x-ray revealed the following: * NO lumbar spinal fractures. * S/p L2-L5 decompression, multilevel discectomy and L2-L3 fusion. Hardware intact. * Endplate irregularity centered on the L3-L4 disc --> Unchanged from previous lumbar spine CT. Patient was given the following medications in the ED for pain: Toradol, lidocaine patch, acetaminophen, oxycodone, Flexeril, dexamethasone, morphine and Dilaudid. Admission Exam Per Admitting Provider General Appearance: Laying in bed, no acute distress. Appears rather uncomfortable with any sort of movement. Head: Normocephalic, atraumatic. Eyes: Normal inspection, PERRL, conjunctivae normal, anicteric sclerae. ENT: External ear and nose normal, oropharynx normal. Neck: Normal visual inspection, trachea midline, no thyromegaly. Respiratory: Normal respiratory effort, lungs clear to auscultation, no wheeze, rales, rhonchi. No accessory muscle use. Cardiovascular: Regular rate, rhythm, no murmur, normal peripheral pulses, no BLE edema. Vessels: No JVD. Chest: Normal inspection of chest. Abdomen/GI: Normal bowel sounds, soft, nontender, no hepatosplenomegaly. Extremities/Musculoskeletal: No cyanosis or clubbing, tender to palpation in b/l groin regions. Very tender to palpation of lower back region. Neurologic: PERRL, EOMI, accommodation nl, no face palsy, no dysarthria, CN's II-XI grossly intact bilaterally. Pain w/ any extremity movement. Psychiatric: A+Ox3, tearful affect. Skin: No rashes, normal color, warm/dry. Discharge Exam Gen: WD/WN, NAD, A&O x3, appears comfortable, lying in bed HEENT: Normocephalic, atraumatic, conjunctivae moist, sclerae anicteric, mucous membranes moist. Lung: Clear to Auscultation bilaterally, no wheezes/rales/rhonchi Heart: Regular rate, regular rhythm, no murmurs, rubs, or gallops Abdomen: Soft, NT, ND +BS x 4 Extremities: No edema Skin: Warm, no rash, negative turgor. Updated Medication List Medication Instructions Recorded Confirmed Type cholecalciferol (vitamin D3) 50 2,000 unit PO QAM 03/20/18 08/21/23 History mcg (2,000 unit) tablet (Vitamin D3) furosemide 20 mg tablet (Lasix) 20 mg PO DAILY PRN Edema 03/20/18 08/21/23 History lorazepam 0.5 mg tablet (Ativan) 0.5 mg PO TID Anxiety 03/20/18 08/21/23 History pantoprazole 40 mg tablet,delayed 40 mg PO QAM 03/20/18 08/21/23 History release potassium chloride 20 mEq 20 meq PO QAM 03/20/18 08/21/23 History tablet,extended release rosuvastatin 40 mg tablet (Crestor) 40 mg PO QPM 03/20/18 08/21/23 History quetiapine 300 mg tablet 300 mg PO HS 12/18/18 08/21/23 History tizanidine 4 mg tablet 8 mg PO TID 12/18/18 08/21/23 History albuterol sulfate 90 mcg/actuation 2 puff inhalation Q4H PRN sob #18 03/27/20 08/21/23 Rx aerosol inhaler grams warfarin 5 mg tablet 5 mg PO DAILY 05/14/20 08/21/23 History duloxetine 60 mg capsule,delayed 60 mg PO PM 09/28/20 08/21/23 History release albuterol sulfate 2.5 mg/3 mL 2.5 mg inhalation UD PRN sob 08/21/23 08/21/23 History (0.083 %) solution for nebulization budesonide 160 mcg-glycopyr 9 2 inh inhalation BID 08/21/23 08/21/23 History mcg-formot 4.8 mcg/actuation HFA inhaler (Breztri Aerosphere) celecoxib 200 mg capsule 200 mg PO BID 08/21/23 08/21/23 History morphine 15 mg tablet,extended 15 mg PO Q12H #20 tabs 08/24/23 Rx release morphine 15 mg tablet,extended 15 mg PO Q12H #20 tabs 08/24/23 Rx release (MS Contin) tapentadol 50 mg tablet (Nucynta) 50 mg PO Q4H PRN pain #20 tabs 08/24/23 Rx tapentadol 50 mg tablet (Nucynta) 50 mg PO Q4H PRN severe pain 08/24/23 Rx (scale score 7-10) #40 tabs gabapentin 300 mg capsule 300 mg PO TID #90 caps 08/25/23 Rx methylprednisolone 4 mg tablet See Rx Instructions .Route 08/25/23 Rx .COMPLEX #4 tabs oxycodone-acetaminophen 5 mg-325 1 tab PO QID PRN Pain #8 tabs 08/25/23 Rx mg tablet sennosides 8.6 mg-docusate sodium 1 tab PO BID #60 tabs 08/25/23 Rx 50 mg tablet (Senokot-S) Hospital Stay Data Consultations 08/21/23 17:50 ED Decision to Admit Stat Consult Pain Management Routine Assessment & Plan (1) Sacroiliitis: (2) History of degenerative disc disease: (3) Facet arthropathy, lumbosacral: (4) History of lumbar spinal fusion: Plan 1. Again, review of the patient's lumbar spine MRI and x-rays do not show any significant central or neuroforaminal stenosis that would would well explain her symptoms. Lumbar spine fusion hardware is intact and Dr. Brown is not recommending any surgical intervention. * Continue to recommend that the patient inquire with her pain management clinic in [place], Dr. Kaufman and his team, about the possibility of bilateral SI joint injections, and possibly also facet joint injections or medial branch nerve blocks and subsequent radiofrequency ablation. 2. Continue gabapentin 300 mg TID. * Consideration for further dose increase titration pending response -- possible increase further to 600 mg. 3. Continue oral Medrol taper, Celebrex, duloxetine, tizanidine, and acetaminophen as ordered. * May use after discharge if a current home prescription is present. 4. Continue Nucynta 50 mg every 4 hours PRN --plan to have the patient prescribed this for outpatient use. * Hospitalist service to provide prescription. 5. Continue MS Contin 15 mg every 12 hours as needed. * Hospitalist service to provide prescription. 6. Educated patient that since she has a prescription at home for Percocet, that this not be taken along with the above medications, except for in instances of severe breakthrough pain, and only after confirming with her PCP or pain clinic prescribing provider that this is acceptable. Pain management service will sign off at this time.08/21/23 18:44 08/22/23 08:15 Consult Orthopedic Spine Surgery Routine Assessment & Plan (1) Sacroiliitis: MRI and x-rays of the lumbar spine available for review. I did not appreciate any gross neural compression on the MRI. Foramen are patent. She is well decompressed. There is beginnings of facet arthropathy L5-S1 without neural compression. She does have evidence of a right total hip. Plan at this point I would like to obtain right hip x-rays based on her logroll exam. The back pain could be a combination of facet mediated back pain versus sacroiliitis. Will continue to follow her throughout her stay. Diagnostic Imagining Performed Lumbar Spine X-Ray 08/21/23 13:33 XR lumbar spine min 4V routine CLINICAL HISTORY: Low back pain. COMPARISON STUDY: Lumbar spine radiographs December 18, 2018. Lumbar spine CT February 18, 2021. FINDINGS: IVC filter and right hip arthroplasty are incidentally noted. P ostoperative findings consistent with L2-L5 decompression are noted with L2-L3 pedicle screw fusion. Discectomies at the L2-L3, L3-L4 and L4-L5 levels. The hardware is intact. There is no lumbar spine fractures. Endplate irregularity adjacent to the L3-L4 disc space was shown on prior CT. IMPRESSION: 1. No lumbar spine fractures. 2. Status post L2-L5 decompression, multilevel discectomy and L2-L3 fusion. Hardware intact. 3. Endplate irregularity centered on the L3-L4 disc, similar to prior lumbar spine CT. ACT 112: Negative or not required by law. Electronically signed by: Vahid Josue M.D. 08/21/2023 2:44 PM Lumbar Spine MRI 08/21/23 15:19 Exam(s): MRI L SPINE Without Contrast EXAM: MR Lumbar Spine Without Intravenous Contrast CLINICAL HISTORY: Reason for exam: numbness bilateral legs. TECHNIQUE: Magnetic resonance images of the lumbar spine without intravenous contrast in multiple planes. COMPARISON: Lumbar spine x-ray done earlier the same day and CT lumbar spine 02/18/21. FINDINGS: Vertebrae: Metal artifact from orthopedic hardware L2 and L3 as well as inter vertebral disc spacers L2-3, L3-4, L4-5. Chronic endplate flattening L4, stable. No marrow edema or compression deformity. No discitis or osteomyelitis. Incidental hemangioma T10. Conus: Terminates normally. Mild arachnoiditis L2 and L3, chronic. Soft tissues: No retroperitoneal adenopathy. No psoas abscess. Bilateral erector spinae atrophy, most pronounced L4 and L5. No epidural hematoma or abscess. DISCS/SPINAL CANAL/NEURAL FORAMINA: L1-L2: Mild degenerative disc disease. L2-L3: Prosthetic disc, with bilateral pedicle screws and moderate metal artifact. Patent central spinal canal following laminectomy. L3-L4: Prosthetic disc with mild metal artifact. Patent central spinal canal following laminectomy. L4-L5: Prosthetic disc with mild metal artifact. Patent canal following laminectomy. L5-S1: Unremarkable. OTHER: No disc herniation or central spinal stenosis. IMPRESSION: 1. Chronic arachnoiditis L2 and L3. 2. Extensive postoperative change L2-3, L3-4, L4-5, no complicating features. 3. Erector spinae muscle atrophy L4 and L5. 4. No acute finding including disc herniation, spinal stenosis, epidural hematoma, abnormal cord signal, or discitis/osteomyelitis. Electronically signed by: Oliva Barba M.D. 08/21/23 21:33 PM Hip/Pelvis X-Ray 08/22/23 08:12 XR hip RT 2V w pelvis CLINICAL HISTORY: r hip pain TECHNIQUE: 2 views of the right hip and single frontal view of the pelvis were obtained. Comparison: Comparison is made to hip and pelvis radiograph 08/10/2017 FINDINGS: There is no evidence of an acute fracture. Total hip arthoplasty hardware is seen without perihardware lucency or hardware fracture. Posterior fixation hardware is seen in the spine. No soft tissue abnormality is seen. IMPRESSION: Postarthroplasty appearance of the right hip without acute abnormality. ACT 112: Negative or not required by law. Electronically signed by: Kevin Momin M.D. 08/22/2023 11:12 AM Pending Results Patient Have Any Pending Studies at Discharge: No Discharge Instructions Given to Patient (Per Discharging Provider) MEDICATION CHANGES: MS Contin 15 mg every 12 hours Nucynta 50 mg every 4 hours as needed for breakthrough pain. ( Until Nucynta is in stock at your local pharmacy you may utilize Percocet for breakthrough pain. Once Nucynta arrives this will replace your Percocet. Do not use both medications.) Senna S 1 tablet by mouth twice daily, this is to help with routine bowel movements. Methylprednisolone, please complete taper as prescribed Day 4 (08/25/23): 4mg at bedtime Day 5 ( 08/26/23): 4mg by mouth twice daily Day 6 ( 08/27/23): 4mg by mouth in the morning, and then you have completed the Medrol dose pack Gabapentin 300 mg 3 times a day Continue all other medications as prescribed. You were educated regarding drug drug interactions with MS Contin, Nucynta in conjunction with your Seroquel and lorazepam. SUMMARY OF TEST RESULTS: You were admitted to hospital secondary to acute on chronic intractable back pain. You were seen and evaluated by orthopedic spine as well as pain management. It is felt your pain was likely coming from inflammation of the SI joint versus facet arthritis. Pain management worked with your pain medications and at discharge you are being placed on long-acting morphine with as needed Nucynta for pain control. PENDING TEST RESULTS: None RECOMMENDATIONS FOR FOLLOW-UP: Please follow-up with your primary care provider as prescribed. They will be the team that needs to refill your pain medications. Please follow-up with your pain management provider in [place]. Per our pain management team you may benefit from bilateral SI joint injections as well as facet joint injections or medial branch nerve blocks and subsequent radiofrequency ablation. This can be arranged by your pain management clinic. Absolutely NO DRIVING while taking opiate pain medications. Please continue to take senna S 1 tablet twice daily to help keep bowels moving. Again, Nucynta, is currently not in stock at your local pharmacy. Per aries gore it will not be in stock until early next week. You may utilize your Percocet for breakthrough pain. Once Nucynta arrives it is recommended that you use Nucynta for breakthrough pain and discard the remaining Percocet. Do not take these medications together. You were educated regarding drug to drug interactions with your new pain medications in conjunction with your Seroquel and lorazepam. Please continue further discussions with your primary care provider follow-up with these medications. OTHER INSTRUCTIONS: Seek medical attention if you have: * temperature above 101 * chest pain or trouble breathing * abdominal pain, nausea, vomiting * diarrhea, dark stools or bloody stools * any unanswered questions or concerns Call 911 if symptoms are severe. Please take good care of yourself. It has been a pleasure taking care of you. Please take care of yourself. If you have any questions regarding your recent hospitalization please contact [facility] and request [facility] @ [phone]. Rebeca Edward PA-C Total Time Total Time Spent Total Time Spent (In Minutes): 45 minutes Supervising Physician Co-Signing Physician Notes Attending Addendum: Case reviewed with the advanced practitioner. I have personally performed a history and physical examination on the patient. I have reviewed the advanced practitioner's documentation on the date of service referenced in note, and I agree with, and take responsibility for the plan of care. please refer to her notes for full details patient seen and examined, records reviewed by myself as well Aden Arnold MD
[2023-08-26] MEDS ORDERED: methylPREDNISolone 4 MG TAB PO SCH (07:00)
[2023-08-27] MEDS ORDERED: methylPREDNISolone 4 MG TAB PO SCH (07:00)
== END 2023-08-25 13:31 | disposition home or self-care (01) | DRG 552 ==
LOC: ED 13:05 → 3W 17:52 → SUATTDRO 17:52 → 3W 20:22 → 2N 08-23 18:47 → 3E 08-24 15:25
DX: G89.4 Chronic pain syndrome; D64.9 Anemia, unspecified; F17.290 Nicotine dependence, other tobacco product, uncomplicated; Z86.711 Personal history of pulmonary embolism; J45.40 Moderate persistent asthma, uncomplicated; F33.9 Major depressive disorder, recurrent, unspecified; E78.5 Hyperlipidemia, unspecified; Z98.1 Arthrodesis status; F32.A Depression, unspecified; M46.1 Sacroiliitis, not elsewhere classified; U07.0 Vaping-related disorder; F41.9 Anxiety disorder, unspecified; Z95.828 Presence of other vascular implants and grafts; G47.00 Insomnia, unspecified; Z79.01 Long term (current) use of anticoagulants; K21.9 Gastro-esophageal reflux disease without esophagitis; E11.9 Type 2 diabetes mellitus without complications